=== PATIENT | male | born 1935 | race Caucasian/White ===

== ENCOUNTER → 2016-07-23 | Outpatient (CLI) | payer BC ==
[~2016-07-23] MED LIST: ALBU1AER9 INH; ASMTWH INH; ASPI-435 PO; CLOP1TAB15 PO; CLTP PO; CRS/10 PO; GLUCTAB4 PO; ISOS30TA3 PO; LORA-741 PO; MELATAB2 PO; METO25TA56 PO; MOME50SP5 NAE; MULT-506 PO; OMEG10007 PO; POLY335019 PO; PRED10TA PO; PSYL55.43 PO; UBIQUINONE 100 MG PO
== END | disposition home or self-care (01) ==
LOC: C.LAB1850 13:10
PROVIDERS: ATTEND Internal Medicine Rheumatology
DX: M35.3 Polymyalgia rheumatica (principal); Z51.81 Encounter for therapeutic drug level monitoring; Z79.52 Long term (current) use of systemic steroids

== ENCOUNTER → 2016-10-10 | Outpatient (CLI) | payer BC | END | disposition home or self-care (01) | LOC: C.LAB1850 16:42 | PROVIDERS: ATTEND Internal Medicine Rheumatology | DX: M13.0 Polyarthritis, unspecified (principal); M35.3 Polymyalgia rheumatica ==

== ENCOUNTER → 2016-11-28 | Outpatient (CLI) | payer BC ==
--- NOTE | 2016-12-05 10:34 | CODING QUERY MEDICAL NECESSITY ---
CQSUPPORTING DIAGNOSIS NEEDED A supporting diagnosis is required for the test/procedure performed on this patient in order for us to be reimbursed by the patient's insurance. Please provide a supporting diagnosis for the following test/procedure listed below next to the test name along with your signature. *If there is no additional diagnosis for this patient that would support the following test/procedure please document that below next to the test/procedure. Test(s)/Procedure(s) that require a supporting diagnosis: DOS 11/28/16 PROSTATE SPECIFIC Provider Signature: Date: Thank you Miguelina Wayne [employer] Information Management Once completed, please kindly fax back to [phone] For questions please call [phone]
== END | disposition home or self-care (01) ==
LOC: C.LAB1850 12:51
PROVIDERS: ATTEND Urology
DX: N52.9 Male erectile dysfunction, unspecified (principal); C61 Malignant neoplasm of prostate

== ENCOUNTER → 2016-12-03 | Outpatient (CLI) | payer BC ==
--- NOTE | 2016-12-09 07:46 | PULMONARY FUNCTION TEST ---
Interpretation based off ATS criteria. SPIROMETRY: Mild obstructive ventilatory disease with borderline reversibility. LUNG VOLUMES: Mild hyperinflation with a total lung capacity of 120%. DIFFUSION CAPACITY: Within normal limits. INTERPRETATION: Mild obstructive ventilatory disease.
== END | disposition home or self-care (01) ==
LOC: C.RC 13:33
PROVIDERS: ATTEND Internal Medicine Critical Care Medicine
DX: J44.9 Chronic obstructive pulmonary disease, unspecified (principal); J45.909 Unspecified asthma, uncomplicated

== ENCOUNTER → 2017-02-12 | Outpatient (CLI) | payer BC | END | disposition home or self-care (01) | LOC: C.LAB1850 13:28 | PROVIDERS: ATTEND Internal Medicine Rheumatology | DX: M35.3 Polymyalgia rheumatica (principal) ==

== ENCOUNTER → 2017-07-23 | Outpatient (CLI) | payer BC ==
--- NOTE | 2017-07-23 13:57 | DIAGNOSTIC IMAGING REPORT ---
(TESTICULAR) SCROTUM-CONT HISTORY: Pain N50.819 Testicular [id number] COMPARISON: None. FINDINGS: Right testis: Maximum linear dimension 4.2 cm. Normal vascular flow. 2 mm cyst lower pole. Small varicocele. Several microliths. Left testis: Maximum dimension 3.6 cm. Normal vascular flow. Moderate left-sided varicocele is compared to the right. Several microliths. IMPRESSION: 1. Normal testes. 2. Several small bilateral testicular microliths. 3. Bilateral varicoceles with the left larger than the right. The above report was generated using voice recognition software. It may contain grammatical, syntax or spelling errors. Electronically signed by: Rigoberto Munroe M.D. 07/23/2017 1:56 PM Dictated Date/Time: 07/23/2017 1:54 PM
== END | disposition home or self-care (01) ==
LOC: C.ULTR 12:37
PROVIDERS: ATTEND Nurse Practitioner Adult Health
DX: N50.819 Testicular pain, unspecified (principal)

== ENCOUNTER → 2017-10-01 | Day surgery (SDC) | payer BC ==
[2017-09-16 11:41] VITALS: Ht 182.9 cm; Wt 81.6 kg
--- NOTE | 2017-09-16 12:18 | PAT Medication Instructions ---
Service Date Sep 16, 2017. Current Home Medication List Albuterol Sulfate (Proair Respiclick), 2 PUFFS INH QD PRN for SOB/Wheezing Aspirin (Aspirin), 1 TAB PO Calcium Carbonate (Calcium), 1 TAB PO QAM Cholecalciferol (Vitamin D), 1 TAB PO QAM Coenzyme Q10 (Ubidecarenone) (Coq-10), 1 TAB PO QAM Fish Oil (Seattle-3), 1 CAP PO QAM Fluticasone Furoate-Vilanterol (Breo Ellipta), 1 PUFFS INH QAM Isosorbide Mononitrate Ext Rel (Imdur Ext Rel), 30 MG PO QAM Melatonin (Melatonin Maximum Strengt), 1 TAB PO HS Metoprolol Tartrate (Lopressor) (Lopressor), 25 MG PO BID Mometasone Furoate (Nasal) (Mometasone Furoate), 2 SPRAYS ABHISHEK QD PRN for Nasal Congestion Multivitamin (Multivitamin), 1 TABLET PO QAM Nitroglycerin (Nitrostat), 0.4 MG UT PRN PRN for Chest Pain Polyethylene Glycol 3350 (Miralax), 17 GM PO QAM Psyllium (Metamucil), 1 DOSE PO QAM [dha], 830 MG PO QAM [omega blood sugar], 896 MG PO QAM Medication Instructions For Your Scheduled Surgery -Contact your can sealer and surgeon for instructions for: Aspirin (Aspirin), 1 TAB PO -Continue as directed: Nitroglycerin (Nitrostat), 0.4 MG UT PRN PRN for Chest Pain - Hold the following medications 2 weeks prior to surgery: Coenzyme Q10 (Ubidecarenone) (Coq-10), 1 TAB PO QAM Fish Oil (Seattle-3), 1 CAP PO QAM [dha], 830 MG PO QAM [omega blood sugar], 896 MG PO QAM - Hold the following medications the morning of surgery: Calcium Carbonate (Calcium), 1 TAB PO QAM Cholecalciferol (Vitamin D), 1 TAB PO QAM Multivitamin (Multivitamin), 1 TABLET PO QAM Polyethylene Glycol 3350 (Miralax), 17 GM PO QAM Psyllium (Metamucil), 1 DOSE PO QAM - Take the following medications the morning of surgery with a sip of water: Albuterol Sulfate (Proair Respiclick), 2 PUFFS INH QD PRN for SOB/Wheezing (if needed, and bring it with you to the hospital) Fluticasone Furoate-Vilanterol (Breo Ellipta), 1 PUFFS INH QAM Isosorbide Mononitrate Ext Rel (Imdur Ext Rel), 30 MG PO QAM Metoprolol Tartrate (Lopressor) (Lopressor), 25 MG PO BID Mometasone Furoate (Nasal) (Mometasone Furoate), 2 SPRAYS ABHISHEK QD PRN for Nasal Congestion (if needed) - Take the following medications as scheduled the night before surgery: Albuterol Sulfate (Proair Respiclick), 2 PUFFS INH QD PRN for SOB/Wheezing (if needed) Melatonin (Melatonin Maximum Strengt), 1 TAB PO HS Metoprolol Tartrate (Lopressor) (Lopressor), 25 MG PO BID Mometasone Furoate (Nasal) (Mometasone Furoate), 2 SPRAYS ABHISHEK QD PRN for Nasal Congestion (if needed) If you have any questions please call us at [phone] or [phone] or [phone]
--- NOTE | 2017-09-16 13:01 | DIAGNOSTIC IMAGING REPORT ---
TWO VIEW CHEST CLINICAL HISTORY: Preoperative examination. FINDINGS: PA and lateral chest radiographs are compared to study dated 11/01/2015 and correlated with chest CT dated 02/10/2015. The patient is status post midline sternotomy. The heart is enlarged and there is atherosclerotic calcification of the thoracic aorta. The pulmonary vasculature is noncongested. Emphysema and chronic interstitial thickening are similar to previous. No airspace consolidation or pleural effusion is identified. Apical scarring is observed. There is no pneumothorax. The skeletal structures are osteopenic. The bony thorax appears intact. Degenerative change is seen in the shoulders. A stent graft is partially visualized in the upper abdomen. IMPRESSION: Cardiomegaly and emphysema with no active disease in the chest. Electronically signed by: Orestes Jason M.D. 09/16/2017 12:59 PM Dictated Date/Time: 09/16/2017 12:55 PM
[2017-09-16 13:19] LABS: BASO % 0.6 %; BASO ABS # 0.04 K/uL (0-0.2); EOS % 5.2 %; EOS ABS # 0.33 K/uL (0-0.5); HEMATOCRIT 37.6 % (42-52); HEMOGLOBIN 13.2 g/dL (14.0-18.0); IG# 0.02 K/uL (0.00-0.02); LYMPH % 31.3 %; MEAN CELL VOLUME 95.7 fL (80-100); MEAN CORPUSCULAR HEMOGLOBIN 33.6 pg (25-34); MEAN CORPUSCULAR HGB CONC 35.1 g/dl (32-36); MEAN PLATELET VOLUME 9.6 fL (7.4-10.4); MONO % 12.7 %; MONO ABS # 0.81 K/uL (0.11-0.59); NEUT % 49.9 %; NEUT ABS # 3.18 K/uL (1.4-6.5); PLATELET COUNT 200 K/uL (130-400); RED CELL DISTRIBUTION WIDTH CV 13.4 % (11.5-14.5); RED CELL DISTRIBUTION WIDTH SD 46.6 fL (36.4-46.3); WHITE BLOOD COUNT 6.38 K/uL (4.8-10.8)
[2017-09-16 13:30] LABS: PTT PATIENT 25.1 SECONDS (21.0-31.0)
[2017-09-16 13:41] LABS: CALCIUM 8.8 mg/dl (8.5-10.1); CREATININE 0.93 mg/dl (0.60-1.40); POTASSIUM 4.3 mmol/L (3.5-5.1)
[~2017-10-01] VITALS: Ht 182.9 cm; Wt 81.6 kg
[~2017-10-01] MED LIST changes: +ALBU18002 INH; -ALBU1AER9 INH; -ASMTWH INH; -ASPI-435 PO; +ASPI325T45 PO; +ATROPINE SULFATE 0.1 MG/ML 5ML SYR IV PRN; +BUPIVACAINE/EPINEPHRINE 0.5% MPF 1:200,000 30 ML VIAL ONE; +CALC-393 PO; +CEFAZOLIN SOD 1 GM VIAL ONE; +CHOL400T PO; -CLOP1TAB15 PO; -CLTP PO; +COEN1CAP32 PO; -CRS/10 PO; +DHA PO; +EpHEDrine SULFATE INJ 50 MG/ML AMP IV PRN; +FENTANYL CITRATE INJ 50 MCG/1 ML 2 ML VIAL IV PRN; +FENTANYL CITRATE INJ 50 MCG/1 ML 2 ML VIAL ONE; +FLUT1INH INH; -GLUCTAB4 PO; +HEPARIN SOD (PORCINE) 1000 UNIT/ML 10 ML VIAL ONE; +LACTATED RINGER'S 1000ML 1,000 ML IV SCH; +LIDOCAINE HCL 1% 20 ML VIAL ONE; +LIDOCAINE HCL 2% 2 ML VIAL (20MG/ML) ONE; -LORA-741 PO; +MIDAZOLAM HCL 1 MG/ML 2ML VIAL ONE; -MOME50SP5 NAE; +MOME6000 NAE; +NTRGSL/4 UT; +ONDANSETRON INJ 2 MG/ML 2 ML VIAL IV PRN; +ONDANSETRON INJ 2 MG/ML 2 ML VIAL ONE; +OXYC-57 PO; -PRED10TA PO; +PROPOFOL IV EMULSION 10 MG/ML 20 ML VIAL IV ONE; +PSYL48.59 PO; -PSYL55.43 PO; -UBIQUINONE 100 MG PO; +[UNRECOGNIZED DRUG - OTHER] PO
--- NOTE | 2017-10-01 05:53 | History and Physical ---
History & Physical Date of Service Oct 01, 2017. History & Physical CC: Left leg mass secondary from vein harvest HPI: Mr Norma has a walnut-sized organized hematoma of his left leg just above the knee. This mass is annoying and he would like to have something done. We discussed the possibility of excising it. This was a residual hematoma from his vein harvest. PAST MEDICAL HISTORY: 1. Severe left main and 3 vessel coronary artery disease with 50-70% left main lesion, 70% proximal LAD lesion, 90% ostial D1 lesion involving a large vessel, 60-70% D2 lesion, 60-70% proximal circumflex disease, 50% proximal RCA disease with 70% mid RCA lesion. a. Status post coronary bypass grafting x4 with LEVY to the LAD, SVG status post endarterectomy to the RCA, SVG to the large D1 vessel and SVG to the distal OM involving a small vessel. Postoperative MILES, EF 55-60% without regional wall motion abnormalities. b. Status post cardiac catheterization at [facility] February 2015 with occlusion of the SVG to the RCA as well occlusion of the stebbins right coronary artery. 2. Moderate to severe mitral regurgitation secondary to asymptomatic inferior wall myocardial infarction and papillary muscle dysfunction. 3. Moderate to severe mitral regurgitation with preserved left ventricular dysfunction and EF of 50-55% by echo 04/2017 with elevated left atrial pressures. 4. AAA status post endovascular repair March 2013 with a slight kink in the left iliac limb. 5. History of C. diff infection. 6. COPD. He stopped smoking in 1995, smoking a pipe and cigar. 7. Polymyalgia rheumatica. 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 He is . 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 He denies any current tobacco abuse, having stopped in 1995. FAMILY HISTORY: Mom had low blood pressure, dad, he believes, of heart disease, but had significant Alzheimer's; he has a brother who is an anesthesiologist who is otherwise healthy. ALLERGIES: NAPROSYN, ADVIL, IBUPROFEN, VASOTEC. MEDICATIONS: See med recon PHYSICAL EXAMINATION: General: He is awake, alert, oriented x 3, he is in no acute distress. He is a well-appearing male who looks younger than his stated age. Heart rate 57, blood pressure 134/66, sat 96%, BMI 23, weight is 80 kg, which is stable. HEENT: WNL no evidence of carotid bruits, Lungs: decreased breath sounds with no rales, rhonchi, or wheezing. Heart: Regular rate and rhythm, no appreciable murmurs. There was S4 present. There was a soft systolic ejection murmur at the right sternal border. There is a holosystolic murmur, 3/6, at the apex. Extremities: No clubbing, cyanosis or edema. Left leg has a firm mass medially just above the knee in the vein harvest site. IMPRESSION: Left leg mass Plan: Patient is admitted for removal of the mass. I have discussed the risks options and benefits of the procedure with the patient. The patient understands the risks options and benefits and agrees to the procedure.
[2017-10-01 07:23] VITALS: BP 143/70; PULSE 58; O2SAT 96
--- NOTE | 2017-10-01 08:12 | History & Physical Bridge Note ---
H&P Re-Evaluation Bridge Note: I have examined the patient, reviewed the History & Physical and in the interval since the performance of the History & Physical I have noted the following changes of clinical significance: No changes noted
[2017-10-01] MEDS: CEFAZOLIN 2000MG IV PUSH 15 ML IV SCH ×2 (08:21→08:47)
--- NOTE | 2017-10-01 08:48 | [facility] Post Operative Brief Note ---
Immediate Operative Summary Operative Date Oct 01, 2017. Pre-Operative Diagnosis Left Leg Mass Post-Operative Diagnosis Left Leg Seroma Procedure(s) Performed Excision of Left Leg Seroma Surgeon Dr. Jesse Rivera Cnc Operator Programmer Surgeon(s) Flori Godinez Fellow Estimated Blood Loss 3Ml Findings Consistent with Post-Op Diagnosis Specimens A: Left Leg Seroma Drains None Anesthesia Type MAC Complication(s) none Disposition Accompanied Pt To Recover: no Disposition:
--- NOTE | 2017-10-01 08:56 | Discharge Instructions ---
Discharge Instructions Date of Service Oct 01, 2017. Visit Reason for Visit: Left Leg Mass Discharge Discharge Diagnosis / Problem: Seroma left leg Discharge Goals Goal(s): Therapeutic intervention Activity Recommendations Activity Limitations: resume your previous activity Shower/Bathe: tomorrow Anesthesia . Post Anesthesia Instructions: If you have had General Anesthesia or IV Sedation: * Do not drive today. * Resume driving when surgeon permits. * Do not make important decisions or sign legal documents today. * Call surgeon for: 1. Temperature elevations greater than 101 degrees F. 2. Uncontrollable pain. 3. Excessive bleeding. 4. Persistent nausea and vomiting. 5. Medication intolerance (nausea, vomiting or rash). * For nausea and vomiting use only clear liquids such as: tea, soda, bouillon until nausea subsides, then gradually increase diet as tolerated. * If you have any concerns or questions, call your surgeon's office. If physician is unavailable and it is an emergency, call 911 or go to the nearest emergency room. . Instructions / Follow-Up Instructions / Follow-Up Call [phone] to schedule a follow up appointment if one not already scheduled. ACTIVITY RECOMMENDATIONS: See Above SPECIAL CARE INSTRUCTIONS: Call your doctor if: * Temperature above 101 degrees * Pain not relieved by pain medicine ordered * There is increased drainage or redness from any incision * You have any unanswered questions or concerns. Diet Recommendations Recommended Home Diet: resume previous diet Procedures Procedures Performed: Excision of Left Leg Seroma Pending Studies Studies pending at discharge: no Medical Emergencies . Who to Call and When: Medical Emergencies: If at any time you feel your situation is an emergency, please call 911 immediately. . Non-Emergent Contact Non-Emergency issues call your: Surgeon . . "Provider Documentation" section prepared by Jesse Rivera. .
[2017-10-01 09:00] VITALS: BP 116/63; PULSE 61; TEMP 36.6; O2SAT 95
--- NOTE | 2017-10-01 09:07 | OPERATIVE REPORT ---
DATE OF OPERATION: 10/01/2017 PREOPERATIVE DIAGNOSIS: Left lower extremity mass. POSTOPERATIVE DIAGNOSIS: Left lower extremity seroma. PROCEDURE: Excision of left lower extremity seroma. SURGEON: Jesse Rivera MD. CAFETERIA TABLE ATTENDANT: Dana Godinez MD. ESTIMATED BLOOD LOSS: 3. ANESTHESIA: Local plus conscious sedation. SPECIMENS: Left leg seroma. FLUIDS: 300. URINE OUTPUT: Not recorded. INDICATIONS: Tevin Green is an 82-year-old male who underwent open heart surgery several months ago who continues to have a small mass just above his popliteal fossa along the vein harvest site. It does continue to give him discomfort and he was recommended to have excision of the mass. He agreed to undergo the above. DESCRIPTION OF THE PROCEDURE: The patient was brought to the operative suite. He was prepped and draped in usual fashion. Timeout occurred. Local was instilled over the mass. An incision was made over the mass. This was dissected down until the capsule of the mass was found. The capsule was in combination with blunt and sharp dissection, dissected out and excised. There was clear fluid and the mass which appeared to be a seroma. Hemostasis was obtained and the wound was irrigated and was closed in layers with 3-0 and 4-0 Vicryl and Dermabond. The patient tolerated the procedure well and was transferred to PACU in stable condition. Dr. Jesse Rivera was present for the entirety of this case. I attest to the content of the Intraoperative Record and any orders documented therein. Any exception s are noted below.
[2017-10-01 09:30] VITALS: BP 104/52; PULSE 65; TEMP 36.7; O2SAT 95
--- NOTE | 2017-10-01 09:35 | Anesthesiology Progress Note ---
Anesthesia Post Op Note Date & Time Oct 01, 2017 at 09:35 Vital Signs Pain Intensity: 0 Vital Signs Past 12 Hours Date Time Temp Pulse Resp B/P (MAP) Pulse Ox O2 Delivery O2 Flow Rate FiO2 10/01/17 09:00 36.6 61 18 116/63 95 Room Air 10/01/17 07:23 58 18 143/70 (94) 96 Notes Mental Status: alert / awake / arousable, participated in evaluation Pt Amnestic to Procedure: Yes Nausea / Vomiting: adequately controlled Pain: adequately controlled Airway Patency, RR, SpO2: stable & adequate BP & HR: stable & adequate Hydration State: stable & adequate Anesthetic Complications: no major complications apparent
--- NOTE | 2017-10-10 06:47 | EDITING REQUIRED CODING QUERY ---
CODING CLARIFICATION Please document below the size of the mass that was excised: MASS SIZE: 2x3cm, CM Thank you for your assistance, Marielena Matthews - Haul Cane Brakeman
== END | disposition home or self-care (01) ==
LOC: C.ACU 06:55
PROVIDERS: ATTEND Surgery Vascular Surgery
DX: I97.648 Postprocedural seroma of a circulatory system organ or structure following other circulatory system procedure (principal); G47.33 Obstructive sleep apnea (adult) (pediatric); J44.9 Chronic obstructive pulmonary disease, unspecified; I10 Essential (primary) hypertension; I25.10 Atherosclerotic heart disease of native coronary artery without angina pectoris; Z95.1 Presence of aortocoronary bypass graft; Z85.46 Personal history of malignant neoplasm of prostate

== ENCOUNTER → 2017-10-08 | Outpatient (CLI) | payer BC ==
[~2017-10-08] MED LIST changes: -ATROPINE SULFATE 0.1 MG/ML 5ML SYR IV PRN; -BUPIVACAINE/EPINEPHRINE 0.5% MPF 1:200,000 30 ML VIAL ONE; -CEFAZOLIN SOD 1 GM VIAL ONE; -EpHEDrine SULFATE INJ 50 MG/ML AMP IV PRN; -FENTANYL CITRATE INJ 50 MCG/1 ML 2 ML VIAL IV PRN; -FENTANYL CITRATE INJ 50 MCG/1 ML 2 ML VIAL ONE; -HEPARIN SOD (PORCINE) 1000 UNIT/ML 10 ML VIAL ONE; -LACTATED RINGER'S 1000ML 1,000 ML IV SCH; -LIDOCAINE HCL 1% 20 ML VIAL ONE; -LIDOCAINE HCL 2% 2 ML VIAL (20MG/ML) ONE; -MIDAZOLAM HCL 1 MG/ML 2ML VIAL ONE; -ONDANSETRON INJ 2 MG/ML 2 ML VIAL IV PRN; -ONDANSETRON INJ 2 MG/ML 2 ML VIAL ONE; -PROPOFOL IV EMULSION 10 MG/ML 20 ML VIAL IV ONE
--- NOTE | 2017-10-08 17:19 | DIAGNOSTIC IMAGING REPORT ---
ULTRASOUND LEFT LOWER EXTREMITY VENOUS CLINICAL HISTORY: Left leg swelling. COMPARISON STUDY: No priors. TECHNIQUE: Real-time, grayscale, and color Doppler sonography of the deep veins of the left lower extremity was performed from the inguinal crease to the calf. Compression and augmentation were utilized. FINDINGS: There is no sonographic evidence of deep venous thrombosis identified in the left lower extremity. The common femoral, superficial femoral, and popliteal veins are patent and normally compressible. The greater saphenous vein and the profunda femoris vein at the junction with the common femoral vein are clear. The visualized calf veins are patent. IMPRESSION: There is no sonographic evidence of deep venous thrombosis identified in the left lower extremity. Electronically signed by: Orestes Jason M.D. 10/08/2017 5:17 PM Dictated Date/Time: 10/08/2017 5:17 PM
== END | disposition home or self-care (01) ==
LOC: C.ULTR 16:45
PROVIDERS: ATTEND Internal Medicine Pulmonary Disease
DX: R60.9 Edema, unspecified (principal)

== ENCOUNTER → 2017-10-16 | Outpatient (CLI) | payer BC ==
[~2017-10-16] MED LIST changes: +ASPECOTC PO; -ASPI325T45 PO
--- NOTE | 2017-10-16 14:17 | DIAGNOSTIC IMAGING REPORT ---
L SHOULDER MIN 2 VIEWS HISTORY: 82 years-old Male LEFT SHOULDER PAIN acute left shoulder pain COMPARISON: Chest radiograph 09/16/2017 TECHNIQUE: 3 views of the left shoulder FINDINGS: Moderate acromioclavicular and glenohumeral degenerative changes without acute fracture, dislocation. The imaged lung mohan appear clear. Surgical clips project over the left mediastinal border. Atherosclerosis of the aorta. Probable calcific tendinosis about the rotator cuff. IMPRESSION: Moderate degenerative changes without acute fracture. The above report was generated using voice recognition software. It may contain grammatical, syntax or spelling errors. Electronically signed by: Wilmer Chau M.D. 10/16/2017 2:16 PM Dictated Date/Time: 10/16/2017 2:14 PM
== END | disposition home or self-care (01) ==
LOC: C.RDSM 17:49
PROVIDERS: ATTEND Physician Assistant
DX: M25.512 Pain in left shoulder (principal)

== ENCOUNTER → 2017-11-14 | Outpatient (CLI) | payer BC | END | disposition home or self-care (01) | LOC: C.LAB1850 17:16 | PROVIDERS: ATTEND Urology | DX: C61 Malignant neoplasm of prostate (principal) ==

== ENCOUNTER → 2018-02-04 | Outpatient (CLI) | payer BC ==
[2018-02-04 16:17] LABS: BASO % 0.4 %; BASO ABS # 0.03 K/uL (0-0.2); EOS % 1.6 %; EOS ABS # 0.13 K/uL (0-0.5); HEMATOCRIT 37.9 % (42-52); HEMOGLOBIN 13.2 g/dL (14.0-18.0); IG# 0.02 K/uL (0.00-0.02); LYMPH % 21.6 %; LYMPH ABS # 1.71 K/uL (1.2-3.4); MEAN CELL VOLUME 96.2 fL (80-100); MEAN CORPUSCULAR HEMOGLOBIN 33.5 pg (25-34); MEAN CORPUSCULAR HGB CONC 34.8 g/dl (32-36); MONO % 8.5 %; MONO ABS # 0.67 K/uL (0.11-0.59); NEUT % 67.6 %; NEUT ABS # 5.34 K/uL (1.4-6.5); PLATELET COUNT 187 K/uL (130-400); RED CELL DISTRIBUTION WIDTH CV 13.2 % (11.5-14.5); RED CELL DISTRIBUTION WIDTH SD 46.4 fL (36.4-46.3)
[2018-02-04 16:41] LABS: ALBUMIN 3.3 gm/dl (3.4-5.0); ALKALINE PHOSPHATASE 61 U/L (45-117); ALT/SGPT 32 U/L (12-78); AST/SGOT 25 U/L (15-37); CREATININE 0.98 mg/dl (0.60-1.40); TOTAL PROTEIN 7.5 gm/dl (6.4-8.2)
== END | disposition home or self-care (01) ==
LOC: C.LAB1850 15:10
PROVIDERS: ATTEND Internal Medicine Rheumatology
DX: M35.3 Polymyalgia rheumatica (principal)

== ENCOUNTER → 2018-02-06 | Outpatient (CLI) | payer BC | END | disposition home or self-care (01) | LOC: C.LAB1850 14:54 | PROVIDERS: ATTEND Internal Medicine Rheumatology | DX: R06.00 Dyspnea, unspecified (principal); E55.9 Vitamin D deficiency, unspecified ==

== ENCOUNTER → 2018-02-12 | Outpatient (CLI) | payer BC ==
[~2018-02-12] MED LIST changes: +LEVO-366 PO
--- NOTE | 2018-02-12 15:13 | DIAGNOSTIC IMAGING REPORT ---
BONE SCAN WHOLE BODY CLINICAL HISTORY: 82 years-old Male presenting with E61.8 Mineral deficiency E55.9 Vitamin D deficiency, right arm injection. TECHNIQUE: Planar anterior and posterior imaging of the whole body was performed 3 hours following the intravenous administration of 26.90 mCi Tc-99m MDP. COMPARISON: Left shoulder radiographs from 10/16/2017, right wrist radiographs from 07/14/2015. FINDINGS: Focal radiotracer activity at the region of the right first carpometacarpal articulation likely degenerative in etiology. Similar though less pronounced radiotracer avidity noted in the left carpus. Focal activity also evident in the left elbow at the lateral epicondyle, likely degenerative in etiology. Degenerative change likely also accounts for focal activity at the left acromioclavicular joint. Adjacent focus of radiotracer uptake likely at the greater tuberosity of the left humeral head partially related to rotator cuff pathology/chronic impingement. Additional focal activity evident along the left aspect of the mid cervical spine, likely degenerative in etiology related to facet arthropathy. No other significant sites of radiotracer avidity. No evidence of radiotracer avidity in the vertebral bodies to suggest a compression deformity. No other sites of radiotracer uptake presenting a fracture. IMPRESSION: 1. No evidence of fracture. 2. Multifocal sites of radiotracer uptake likely degenerative in etiology involving the bilateral first CMC joints, left AC joint, greater tuberosity of the left humerus cuff, left elbow epicondyles, and right cervical facets. Electronically signed by: Doug Dodson M.D. 02/12/2018 3:11 PM Dictated Date/Time: 02/12/2018 3:06 PM
== END | disposition home or self-care (01) ==
LOC: C.NUCL 11:10
PROVIDERS: ATTEND Internal Medicine Rheumatology
DX: E55.9 Vitamin D deficiency, unspecified (principal); E61.8 Deficiency of other specified nutrient elements

== ENCOUNTER 2018-02-18 18:33 | Emergency (ER) | payer BC ==
[~2018-02-18] VITALS: Ht 182.9 cm; Wt 79.8 kg
[~2018-02-18 18:33] MED LIST changes: -COEN1CAP32 PO; -FLUT1INH INH; -LEVO-366 PO; -MELATAB2 PO; -MULT-506 PO; -NTRGSL/4 UT; -POLY335019 PO
[2018-02-18 18:40] VITALS: Ht 182.9 cm; Wt 79.8 kg
[2018-02-18] MEDS ORDERED: ALBUT/IPRATROP 3MG/0.5MG NEB 3 ML VIAL INH STA (18:59)
[2018-02-18] MEDS ORDERED: SODIUM CHLORIDE 0.9% 500ML 500 ML IV STA (19:04)
[2018-02-18] MEDS ORDERED: ACETAMINOPHEN 500 MG TAB PO STA (19:04)
[2018-02-18 19:11] LABS: BASO % 0.2 %; BASO ABS # 0.02 K/uL (0-0.2); EOS % 0.1 %; EOS ABS # 0.01 K/uL (0-0.5); HEMATOCRIT 39.7 % (42-52); HEMOGLOBIN 14.1 g/dL (14.0-18.0); IG# 0.04 K/uL (0.00-0.02); LYMPH % 4.9 %; LYMPH ABS # 0.58 K/uL (1.2-3.4); MEAN CELL VOLUME 96.1 fL (80-100); MEAN CORPUSCULAR HEMOGLOBIN 34.1 pg (25-34); MEAN CORPUSCULAR HGB CONC 35.5 g/dl (32-36); MEAN PLATELET VOLUME 9.3 fL (7.4-10.4); MONO % 0.7 %; MONO ABS # 0.08 K/uL (0.11-0.59); NEUT % 93.8 %; NEUT ABS # 11.09 K/uL (1.4-6.5); PLATELET COUNT 160 K/uL (130-400); RED CELL DISTRIBUTION WIDTH CV 13.2 % (11.5-14.5); RED CELL DISTRIBUTION WIDTH SD 45.8 fL (36.4-46.3); WHITE BLOOD COUNT 11.82 K/uL (4.8-10.8)
[2018-02-18] MEDS ORDERED: LEVAQUIN 750MG / 150ML D5W IV STA (19:17)
--- NOTE | 2018-02-18 19:36 | DIAGNOSTIC IMAGING REPORT ---
CHEST ONE VIEW PORTABLE CLINICAL HISTORY: Shortness of breath. COMPARISON STUDY: Chest radiograph September 16, 2017. FINDINGS: Median sternotomy wires and mediastinal surgical clips are noted. There is no pneumothorax or pleural effusion. No consolidation is identified to suggest pneumonia. Mild cardiomegaly is noted. Appearance of the chest is unchanged. There is no evidence for pulmonary edema. IMPRESSION: No acute cardiopulmonary findings. Electronically signed by: Jona Guzmán M.D. 02/18/2018 7:35 PM Dictated Date/Time: 02/18/2018 7:34 PM
[2018-02-18 19:38] LABS: PTT PATIENT 22.5 SECONDS (21.0-31.0)
[2018-02-18 19:43] LABS: BLOOD UREA NITROGEN 24 mg/dl (7-18); GLUCOSE 93 mg/dl (70-99)
[2018-02-18 19:44] LABS: ALBUMIN 3.5 gm/dl (3.4-5.0); ALKALINE PHOSPHATASE 66 U/L (45-117); ALT/SGPT 31 U/L (12-78); AST/SGOT 27 U/L (15-37); CALCIUM 8.7 mg/dl (8.5-10.1); CARBON DIOXIDE 25 mmol/L (21-32); CKMB 2.3 ng/ml (0.5-3.6); POTASSIUM 3.8 mmol/L (3.5-5.1); SODIUM 136 mmol/L (136-145); TOTAL PROTEIN 7.9 gm/dl (6.4-8.2)
[2018-02-18 20:55] VITALS: TEMP 37.4
[2018-02-18] MEDS ORDERED: LEVO-366 PO (22:12)
--- NOTE | 2018-02-18 22:12 | EMERGENCY ROOM VISIT NOTE ---
History Report prepared by Christos: Aubrey Tejada Under the Supervision of: Dr. Dmitriy Montejo D.O. First contact with patient: 18:49 Chief Complaint: SHORTNESS OF BREATH Stated Complaint: CHILLS, SHAKING, SOB History of Present Illness The patient is a 82 year old male who presents to the Emergency Room with complaints of uncontrollable shaking beginning today about 2 hours ago at 17: 00. The patient states that he went for a walk at 15:00 today and walked until 15:40. He reports that he then worked until 17:00, when he started shaking uncontrollably with chills. He states that he went to bed and pulled a blanket over him, but he did not warm up and continued shaking. He reports that he stood up and took 1 nitroglycerin, noting that this is the first time he has taken one in years. He reports that he has heart issues, including a history of heart attack. He states that he was having some symptoms that were similar to but less severe than when he had his last heart attack. He notes that he checked his oxygen and heart rate, finding them to be 82% and 112 beats per minutes. He states that he sat down and breathed deeply, and his oxygen saturation increased and the heart rate decreased. The patient states that he currently feels "washed out" and rates his current symptoms at a 3/10 in severity. He notes shortness of breath and a cough, but reports that this is not abnormal for him. He denies abdominal pain. He reports a history of emphysema. The patient's temperature was measured to be 36.8 in triage and 39.6 in the patient room. Source of History: patient Onset: about 2 hours ago at 17:00 Position: other (global) Symptom Intensity: 3/10 Quality: other (shaking) Associated Symptoms: + cough (no different from baseline), + SOB (no different from baseline), No abdominal pain Note: feels "washed out" Review of Systems See HPI for pertinent positives & negatives. A total of 10 systems reviewed and were otherwise negative. Past Medical & Surgical Medical Problems: (1) Emphysema, unspecified (2) Myocardial infarction Family History Hypotension Social History Smoking Status: Former Smoker Marital Status: Housing Status: lives with family Occupation Status: retired Current/Historical Medications Scheduled Calcium Carbonate (Calcium), 1 TAB PO QAM Cholecalciferol (Vitamin D), 1 TAB PO QAM Coenzyme Q10 (Ubidecarenone) (Coq-10), 1 TAB PO QAM Fish Oil ([place]-3), 1 CAP PO QAM Fluticasone Furoate-Vilanterol (Breo Ellipta), 1 PUFFS INH QAM Isosorbide Mononitrate Ext Rel (Imdur Ext Rel), 30 MG PO QAM Levofloxacin (Levaquin), 500 MG PO DAILY Melatonin (Melatonin Maximum Strengt), 1 TAB PO HS Metoprolol Tartrate (Lopressor) (Lopressor), 25 MG PO BID Multivitamin (Multivitamin), 1 TABLET PO QAM Polyethylene Glycol 3350 (Miralax), 17 GM PO QAM Psyllium (Metamucil), 1 DOSE PO QAM [dha], 830 MG PO QAM [omega blood sugar], 896 MG PO QAM Scheduled PRN Albuterol Sulfate (Proair Respiclick), 2 PUFFS INH QD PRN for SOB/Wheezing Mometasone Furoate (Nasal) (Mometasone Furoate), 2 SPRAYS ABHISHEK QD PRN for Nasal Congestion Nitroglycerin (Nitrostat), 0.4 MG UT PRN PRN for Chest Pain Oxycodone/Acetaminophen 5MG/325MG (Percocet 5MG/325MG), 1 TABLET PO Q6H PRN for Pain Miscellaneous Medications Aspirin (Aspirin), 1 TAB PO Allergies Coded Allergies: NSAIDs (Verified Allergy, Severe, naprosyn gave anaphylaxis, 10/01/17) Naproxen (Verified Allergy, Severe, anaphylactic shock, 10/01/17) Physical Exam Vital Signs Date Time Temp Pulse Resp B/P (MAP) Pulse Ox O2 Delivery O2 Flow Rate FiO2 02/18/18 22:33 99 20 138/73 98 02/18/18 20:55 37.4 102 20 144/76 96 Nasal Cannula 2.0 02/18/18 19:14 Nasal Cannula 2.0 02/18/18 19:04 39.6 02/18/18 18:40 36.8 98 20 159/51 93 Room Air Physical Exam CONSTITUTIONAL/VITAL SIGNS: Reviewed / noted above. GENERAL: Non-toxic in appearance. INTEGUMENTARY: Warm, dry, and [place]. HEAD: Normocephalic. EYES: without scleral icterus or trauma. ENT/OROPHARYNX: clear and moist. LYMPHADENOPATHY/NECK: Is supple without lymphadenopathy or meningismus. RESPIRATORY: Lungs clear and equal. CARDIOVASCULAR: Regular rate and rhythm. GI/ABDOMEN: Soft and nontender. No organomegaly or pulsatile mass. No rebound or guarding. Normal bowel sounds. EXTREMITIES: Warm and well perfused. BACK: No CVA tenderness. NEUROLOGICAL: Intact without focal deficits. PSYCHIATRIC: normal affect. MUSCULOSKELETAL: Normally developed with good muscle tone. Medical Decision & Procedures ER Provider Diagnostic Interpretation: Radiology results as stated below per my review and radiologist interpretation: [~ rep ct add3]] CHEST ONE VIEW PORTABLE CLINICAL HISTORY: Shortness of breath. COMPARISON STUDY: Chest radiograph September 16, 2017. FINDINGS: Median sternotomy wires and mediastinal surgical clips are noted. There is no pneumothorax or pleural effusion. No consolidation is identified to suggest pneumonia. Mild cardiomegaly is noted. Appearance of the chest is unchanged. There is no evidence for pulmonary edema. IMPRESSION: No acute cardiopulmonary findings. Electronically signed by: Jona Guzmán M.D. 02/18/2018 7:35 PM Dictated Date/Time: 02/18/2018 7:34 PM Laboratory Results 02/18/18 18:57 Red Blood Count 4.13, Mean Corpuscular Volume 96.1, Mean Corpuscular Hemoglobin 34.1, Mean Corpuscular Hemoglobin Concent 35.5, Mean Platelet Volume 9.3, Neutrophils (%) (Auto) 93.8, Lymphocytes (%) (Auto) 4.9, Monocytes (%) (Auto) 0.7, Eosinophils (%) (Auto) 0.1, Basophils (%) (Auto) 0.2, Neutrophils # (Auto) 11.09, Lymphocytes # (Auto) 0.58, Monocytes # (Auto) 0.08, Eosinophils # (Auto) 0.01, Basophils # (Auto) 0.02 02/18/18 18:57 Test 02/18/18 18:57 02/18/18 19:30 White Blood Count 11.82 K/uL (4.8-10.8) Red Blood Count 4.13 M/uL (4.7-6.1) Hemoglobin 14.1 g/dL (14.0-18.0) Hematocrit 39.7 % (42-52) Mean Corpuscular Volume 96.1 fL (80-100) Mean Corpuscular Hemoglobin 34.1 pg (25-34) Mean Corpuscular Hemoglobin Concent 35.5 g/dl (32-36) Platelet Count 160 K/uL (130-400) Mean Platelet Volume 9.3 fL (7.4-10.4) Neutrophils (%) (Auto) 93.8 % Lymphocytes (%) (Auto) 4.9 % Monocytes (%) (Auto) 0.7 % Eosinophils (%) (Auto) 0.1 % Basophils (%) (Auto) 0.2 % Neutrophils # (Auto) 11.09 K/uL (1.4-6.5) Lymphocytes # (Auto) 0.58 K/uL (1.2-3.4) Monocytes # (Auto) 0.08 K/uL (0.11-0.59) Eosinophils # (Auto) 0.01 K/uL (0-0.5) Basophils # (Auto) 0.02 K/uL (0-0.2) RDW Standard Deviation 45.8 fL (36.4-46.3) RDW Coefficient of Variation 13.2 % (11.5-14.5) Immature Granulocyte % (Auto) 0.3 % Immature Granulocyte # (Auto) 0.04 K/uL (0.00-0.02) Prothrombin Time 10.6 SECONDS (9.0-12.0) Prothromb Time International Ratio 1.0 (0.9-1.1) Activated Partial Thromboplast Time 22.5 SECONDS (21.0-31.0) Partial Thromboplastin Ratio 0.9 Anion Gap 9.0 mmol/L (3-11) Est Creatinine Clear Calc Drug Dose 63.6 ml/min Estimated GFR () 81.4 Estimated GFR (Non- 70.3 BUN/Creatinine Ratio 24.3 (10-20) Calcium Level 8.7 mg/dl (8.5-10.1) Total Bilirubin 1.3 mg/dl (0.2-1) Aspartate Amino Transf (AST/SGOT) 27 U/L (15-37) Alanine Aminotransferase (ALT/SGPT) 31 U/L (12-78) Alkaline Phosphatase 66 U/L (45-117) Total Creatine Kinase 114 U/L (39-308) Creatine Kinase MB 2.3 ng/ml (0.5-3.6) Creatine Kinase MB Ratio 2.0 (0-3.0) Troponin I < 0.015 ng/ml (0-0.045) Total Protein 7.9 gm/dl (6.4-8.2) Albumin 3.5 gm/dl (3.4-5.0) Globulin 4.4 gm/dl (2.5-4.0) Albumin/Globulin Ratio 0.8 (0.9-2) Urine Color YELLOW Urine Appearance CLEAR (CLEAR) Urine pH 6.5 (4.5-7.5) Urine Specific [place] 1.013 (1.000-1.030) Urine Protein NEG (NEG) Urine Glucose (UA) NEG (NEG) Urine Ketones NEG (NEG) Urine Occult Blood NEG (NEG) Urine Nitrite NEG (NEG) Urine Bilirubin NEG (NEG) Urine Urobilinogen NEG (NEG) Urine Leukocyte Esterase NEG (NEG) Laboratory results as stated above per my review. Medications Administered Medications (Trade) Dose Ordered Sig/Candida Route Start Time Stop Time Status Last Admin Dose Admin Albuterol/ Ipratropium (Duoneb) 3 ml NOW STAT INH 02/18/18 18:59 02/18/18 19:02 DC 02/18/18 19:12 3 ML Acetaminophen (Tylenol Tab) 1,000 mg NOW STAT PO 02/18/18 19:04 02/18/18 19:05 DC 02/18/18 19:13 1,000 MG Sodium Chloride 500 ml @ 999 mls/hr Q31M STAT IV 02/18/18 19:04 02/18/18 19:34 DC 02/18/18 19:14 999 MLS/HR Levofloxacin (Levaquin / D5W) 750 mg NOW STAT IV 02/18/18 19:17 02/18/18 19:19 DC 02/18/18 19:32 750 MG ECG Per My Interpretation Indication: weakness Rate (beats per minute): 101 Rhythm: sinus tachycardia Findings: 1st degree AV block, peaked T-waves (in anterior leads), no ectopy Comparison ECG Date: 03/12/2013 Change: 1st degree AV block is not new ED Course 1853: Previous medical records were reviewed. The patient was evaluated in room B8. A complete history and physical examination was performed. 185: Ordered Duoneb 3 ml INH 1904: Ordered Sodium Chloride 500 ml @ 999 mls/hr IV, Tylenol 1000 mg PO 1916: Ordered Levofloxacin 750 mg IV 2007: On reevaluation, the patient is resting. I discussed the results and findings with the patient. He verbalized agreement of the treatment plan. He was discharged home.. Medical Decision the differential was considered includes acute myocardial infarction, acute coronary syndrome, myocarditis, pericarditis, pericardial effusions /tamponad, esophageal perforation, pulmonary embolism, pneumonia, pneumothorax, cardiomyopathy, congestive heart, anemia , COPD/asthma exacerbation. This is a 82-year-old male who presents to the ED with a chief complaint of some chills and shakes around 5 PM. The patient states that he went for a 2 mile walk around 3:57 PM. At 5 PM he felt weak and shaky. He states that he took a nitroglycerin shortly thereafter but was not sure exactly why. He states that he took it because his throat felt a little dry. He reports that he took his pulse ox at home and it was 82% and his heart rate was 112. The patient decided that he should come into the ED for evaluation. He currently feels tired and a little shortness of breath but he states that he does have a history of COPD. His initial temperature here was normal. I did check his temperature and it was 39.6. The nurse rechecked his temperature and it was normal a little later. Blood pressure was a little elevated. His exam was relatively unremarkable. Chest x-ray was negative for acute disease. His EKG shows a sinus rhythm at a rate of 101. CBC revealed white blood cell count of 11.8. The BUN is 24 and the troponin was negative. Urine did not show infection. The patient was treated with IV fluids as well as some oral Tylenol and IV Levaquin. He states that he is feeling much better. He would like to go home. He was discharged on Levaquin. Close follow-up recommended and he will return for worsening. Although his chest x-ray was negative, I suspect he might have a small pneumonia based on his symptoms and his fever. Medication Reconcilliation Current Medication List: was personally reviewed by me Blood Pressure Screening Patient's blood pressure: Elevated blood pressure Blood pressure disposition: Referred to PCP Impression Primary Impression: Rigors Additional Impression: Fever Scribe Attestation The scribe's documentation has been prepared under my direction and personally reviewed by me in its entirety. I confirm that the note above accurately reflects all work, treatment, procedures, and medical decision making performed by me. Departure Information Dispostion Home / Self-Care Prescriptions Levofloxacin (Levaquin) 500 Mg Tab 500 MG PO DAILY for 7 Days, #7 TAB Prov: Dmitriy Montejo D.O. 02/18/18 Referrals Oscar Olson M.D. (PCP) Forms HOME CARE DOCUMENTATION FORM, IMPORTANT VISIT INFORMATION Patient Instructions My [facility] Additional Instructions Levaquin as prescribed. Follow-up with your doctor for further care and evaluation in 1-7 days. Return to the emergency department for worsening or new symptoms or any concerns. You have been examined and treated today on an emergency basis only. This is not a substitute for, or an effort to provide, complete comprehensive medical care. It is impossible to recognize and treat all injuries or illnesses in a single emergency department visit. It is therefore important that you follow up closely with your doctor. Call as soon as possible for an appointment. Problem Qualifiers
[2018-02-18 22:33] VITALS: BP 138/73; PULSE 99; O2SAT 98
[2018-02-22] MEDS ORDERED: FLUT1INH INH (11:40)
[2018-02-22] MEDS ORDERED: COEN1CAP32 PO (11:40)
[2018-02-22] MEDS ORDERED: NTRGSL/4 UT (11:40)
[2018-02-22] MEDS ORDERED: POLY335019 PO (13:29)
[2018-02-22] MEDS ORDERED: MELATAB2 PO (13:33)
== END 2018-02-18 22:34 | disposition home or self-care (01) ==
LOC: C.EDB 18:34
DX: R50.9 Fever, unspecified (principal); R03.0 Elevated blood-pressure reading, without diagnosis of hypertension; J43.9 Emphysema, unspecified; I25.2 Old myocardial infarction; Z87.891 Personal history of nicotine dependence; Z88.6 Allergy status to analgesic agent

== ENCOUNTER 2018-02-22 15:55 | Emergency (ER) | payer BC ==
[~2018-02-22] VITALS: Ht 172.7 cm; Wt 70.0 kg
[~2018-02-22 15:55] MED LIST changes: +COEN1CAP32 PO; +FLUT1INH INH; +LEVO-366 PO; +MELATAB2 PO; +NTRGSL/4 UT; +POLY335019 PO
[2018-02-22 15:56] VITALS: TEMP 36.9
[2018-02-22] MEDS ORDERED: OPTIRAY 320 IV PRN (16:45)
[2018-02-22 17:13] LABS: BASO % 0.2 %; BASO ABS # 0.02 K/uL (0-0.2); EOS % 0.3 %; EOS ABS # 0.03 K/uL (0-0.5); HEMATOCRIT 37.8 % (42-52); IG# 0.04 K/uL (0.00-0.02); LYMPH % 11.8 %; LYMPH ABS # 1.32 K/uL (1.2-3.4); MEAN CELL VOLUME 96.4 fL (80-100); MEAN CORPUSCULAR HEMOGLOBIN 33.2 pg (25-34); MEAN CORPUSCULAR HGB CONC 34.4 g/dl (32-36); MEAN PLATELET VOLUME 9.9 fL (7.4-10.4); MONO % 11.1 %; MONO ABS # 1.25 K/uL (0.11-0.59); NEUT % 76.2 %; NEUT ABS # 8.56 K/uL (1.4-6.5); PLATELET COUNT 195 K/uL (130-400); RED CELL DISTRIBUTION WIDTH CV 13.5 % (11.5-14.5); WHITE BLOOD COUNT 11.22 K/uL (4.8-10.8)
[2018-02-22 17:20] VITALS: Ht 172.7 cm; Wt 70.0 kg
[2018-02-22 17:26] LABS: PTT PATIENT 25.9 SECONDS (21.0-31.0)
[2018-02-22] MEDS ORDERED: PROAIR HFA INH (17:30)
[2018-02-22] MEDS ORDERED: CHOL400T5 PO (17:30)
[2018-02-22] MEDS ORDERED: EZET10TA63 PO (17:30)
[2018-02-22] MEDS ORDERED: LEVO1TAB33 PO (17:30)
[2018-02-22] MEDS ORDERED: FRS/40 PO (17:35)
[2018-02-22] MEDS ORDERED: ISOS30TA3 PO (17:35)
[2018-02-22] MEDS ORDERED: METO25TA3 PO (17:35)
[2018-02-22] MEDS ORDERED: POTA-639 PO (17:35)
[2018-02-22] MEDS ORDERED: DOCU100C31 PO (17:35)
[2018-02-22] MEDS ORDERED: [UNRECOGNIZED DRUG - OTHER] PO (17:35)
[2018-02-22] MEDS ORDERED: [UNRECOGNIZED DRUG - CODE] UR (17:35)
[2018-02-22] MEDS ORDERED: PRED-301 PO (17:36)
[2018-02-22 17:48] LABS: ALBUMIN 3.2 gm/dl (3.4-5.0); CALCIUM 8.7 mg/dl (8.5-10.1); CREATININE 0.88 mg/dl (0.60-1.40); POTASSIUM 4.2 mmol/L (3.5-5.1); TOTAL PROTEIN 7.6 gm/dl (6.4-8.2)
--- NOTE | 2018-02-22 17:49 | DIAGNOSTIC IMAGING REPORT ---
CT OF THE ABDOMEN AND PELVIS WITH CONTRAST CLINICAL HISTORY: Left buttock pain and swelling. Evaluate for abscess. COMPARISON STUDY: CT of the abdomen and pelvis November 25, 2013. TECHNIQUE: The patient was scanned in the prone position. Following IV administration of 115 mL of Optiray-320, axial images of the abdomen and pelvis were obtained from the lung bases to the proximal femurs. Images were reviewed in the axial, sagittal, and coronal planes. IV contrast was administered without complication. A dose lowering technique was utilized adhering to the principles of ALARA. CT DOSE: 431.22 mGy.cm FINDINGS: Emphysema is noted within visualized portions of the lower lungs. Several pulmonary nodules are unchanged since chest CT of December 27, 2005. These are benign given stability. No pneumatosis, free air or portal venous gas is present. Gallstones are noted within the gallbladder without evidence for acute cholecystitis. The spleen, adrenal glands and kidneys are unremarkable with exception of scarring within the lower pole the left kidney. 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 Aneurysm sac has mildly decreased in size since exam of November 25, 2013. There is no biliary or pancreatic ductal dilatation. There is no free air. There is no evidence for a bowel obstruction. No abscess is identified. No suspicious osseous lesion is noted. The prostate is surgically absent. IMPRESSION: 1. No left buttock abscess identified. 2. No acute process within the abdomen or pelvis. 3. Cholelithiasis. Electronically signed by: Jona Guzmán M.D. 02/22/2018 5:48 PM Dictated Date/Time: 02/22/2018 5:36 PM
--- NOTE | 2018-02-22 18:21 | DIAGNOSTIC IMAGING REPORT ---
CHEST 2 VIEWS ROUTINE CLINICAL HISTORY: Positive blood culture. Evaluate for pneumonia. COMPARISON STUDY: Chest radiograph February 18, 2018. FINDINGS: Mediastinal surgical clips are noted. Cardiomegaly is unchanged. There is no evidence for pulmonary edema. No pneumothorax or pleural effusion is noted. Biapical scarring is unchanged. There is no evidence for pulmonary edema. Appearance of the chest is unchanged. IMPRESSION: No acute cardiopulmonary findings. No change in appearance of the chest. Electronically signed by: Jona Guzmán M.D. 02/22/2018 6:20 PM Dictated Date/Time: 02/22/2018 6:14 PM
[2018-02-22 19:58] VITALS: BP 164/72; PULSE 80; O2SAT 98
[2018-02-22] MEDS ORDERED: MULT-506 PO (20:20)
--- NOTE | 2018-02-22 22:13 | EMERGENCY ROOM VISIT NOTE ---
History Report prepared by Christos: Todd Roche Under the Supervision of: Dr. Quang Pinedo M.D. First contact with patient: 16:11 Chief Complaint: OTHER COMPLAINT Stated Complaint: RECHECK History of Present Illness The patient is a 82 year old male who presents to the Emergency Room with complaints of a swollen left buttock causing pain that began about 3 days ago. He reports the pain is worsened with contact. The patient was present in the ED on February 18 with chills, fever, and uncontrollable shaking for which he was prescribed Levaquin. He reports that he is still on the Levaquin which he took today and he is feeling better besides the swelling. He states he did not have the buttock pain when he was initially seen here on the . He states he has not checked his temperature but he denies vomiting, cough, any urinary symptoms , chest pain or abdominal pain. He also notes he is chronically short of breath and this has not worsened. He feels generally well. Source of History: patient Onset: 3 days ago Position: buttock (left) Symptom Intensity: moderate Modifying Factors (Worsening): other (With contact) Associated Symptoms: + SOB, No cough, No chest pain, No vomiting, No abdominal pain, No urinary symptoms Review of Systems See HPI for pertinent positives & negatives. A total of 10 systems reviewed and were otherwise negative. Past Medical & Surgical Medical Problems: (1) Emphysema, unspecified (2) Myocardial infarction Family History Hypotension Social History Smoking Status: Former Smoker Marital Status: Housing Status: lives with family Occupation Status: retired Current/Historical Medications Scheduled Alprostadil (Vasodilator) (Citronelle), 500 MCG UR PRN UD Aspirin (Aspirin), 1 TAB PO DAILY Cholecalciferol (Vitamin D), 1 TAB PO DAILY Coenzyme Q10 (Ubidecarenone) (Coq-10), 1 TAB PO QAM Docusate Sodium (Docusate Sodium), 1 CAP PO DAILY Ezetimibe (Zetia), 10 MG PO DAILY Fluticasone Furoate-Vilanterol (Breo Ellipta), 1 PUFFS INH QAM Furosemide (Lasix), 40 MG PO DAILY Isosorbide Mononitrate Ext Rel (Imdur Ext Rel), 30 MG PO BID Levofloxacin (Levaquin), 500 MG PO DAILY Melatonin (Melatonin Maximum Strengt), 1 TAB PO HS Metoprolol Succ (Toprol Xl) (Toprol-Xl), 25 MG PO BID Multivitamin (Multivitamin), 1 TABLET PO QAM Polyethylene Glycol 3350 (Miralax), 17 GM PO QAM Potassium Ext Rel (Klor-Con), 20 MEQ PO DAILY Prednisone (Prednisone), 5 MG PO DAILY Psyllium (Metamucil), 1 DOSE PO QAM [Beet Root Powd], 1 DOSE PO BID Scheduled PRN Nitroglycerin (Nitrostat), 0.4 MG UT PRN PRN for Chest Pain Oxycodone/Acetaminophen 5MG/325MG (Percocet 5MG/325MG), 1 TABLET PO Q6H PRN for Pain [Proair Hfa], 2 PUFF INH QID PRN for PRIOR TO EXERCISE Allergies Coded Allergies: NSAIDs (Verified Allergy, Severe, naprosyn gave anaphylaxis, 10/01/17) Naproxen (Verified Allergy, Severe, anaphylactic shock, 10/01/17) Physical Exam Vital Signs Date Time Temp Pulse Resp B/P (MAP) Pulse Ox O2 Delivery O2 Flow Rate FiO2 02/22/18 19:58 80 20 164/72 98 02/22/18 18:58 74 20 167/97 97 Room Air 02/22/18 15:56 36.9 70 20 154/75 96 Room Air Physical Exam Constitutional: Vital signs reviewed. Eyes: Pupils are equal round reactive to light. Conjunctiva are noninjected. ENT: Pharynx is clear without erythema or exudate. Mucous membranes are moist. Neck supple without meningeal signs. Respiratory: Clear to auscultation bilaterally. Breath sounds are equal bilaterally. Cardiovascular: Regular rate and rhythm. No rubs or gallops. GI: Soft, nondistended and nontender. Bowel sounds are present. Musculoskeletal: No peripheral edema. No lower extremity tenderness. Tenderness over superior aspect of left buttock, no increased warmth, erythema, or fluctuance. No swelling noted. Integumentary: No cyanosis. Neurological: The patient is awake and alert. No focal deficits. Psychiatric: Normal affect. Medical Decision & Procedures ER Provider Diagnostic Interpretation: Radiology results as stated below per my review and the radiologist's interpretation: CT OF THE ABDOMEN AND PELVIS WITH CONTRAST CLINICAL HISTORY: Left buttock pain and swelling. Evaluate for abscess. COMPARISON STUDY: CT of the abdomen and pelvis November 25, 2013. TECHNIQUE: The patient was scanned in the prone position. Following IV administration of 115 mL of Optiray-320, axial images of the abdomen and pelvis were obtained from the lung bases to the proximal femurs. Images were reviewed in the axial, sagittal, and coronal planes. IV contrast was administered without complication. A dose lowering technique was utilized adhering to the principles of ALARA. CT DOSE: 431.22 mGy.cm FINDINGS: Emphysema is noted within visualized portions of the lower lungs. Several pulmonary nodules are unchanged since chest CT of December 27, 2005. These are benign given stability. No pneumatosis, free air or portal venous gas is present. Gallstones are noted within the gallbladder without evidence for acute cholecystitis. The spleen, adrenal glands and kidneys are unremarkable with exception of scarring within the lower pole the left kidney. 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 Aneurysm sac has mildly decreased in size since exam of November 25, 2013. There is no biliary or pancreatic ductal dilatation. There is no free air. There is no evidence for a bowel obstruction. No abscess is identified. No suspicious osseous lesion is noted. The prostate is surgically absent. IMPRESSION: 1. No left buttock abscess identified. 2. No acute process within the abdomen or pelvis. 3. Cholelithiasis. Electronically signed by: Jona Guzmán M.D. 02/22/2018 5:48 PM Dictated Date/Time: 02/22/2018 5:36 PM CHEST 2 VIEWS ROUTINE CLINICAL HISTORY: Positive blood culture. Evaluate for pneumonia. COMPARISON STUDY: Chest radiograph February 18, 2018. FINDINGS: Mediastinal surgical clips are noted. Cardiomegaly is unchanged. There is no evidence for pulmonary edema. No pneumothorax or pleural effusion is noted. Biapical scarring is unchanged. There is no evidence for pulmonary edema. Appearance of the chest is unchanged. IMPRESSION: No acute cardiopulmonary findings. No change in appearance of the chest. Electronically signed by: Jona Guzmán M.D. 02/22/2018 6:20 PM Dictated Date/Time: 02/22/2018 6:14 PM Laboratory Results 02/22/18 16:45 Red Blood Count 3.92, Mean Corpuscular Volume 96.4, Mean Corpuscular Hemoglobin 33.2, Mean Corpuscular Hemoglobin Concent 34.4, Mean Platelet Volume 9.9, Neutrophils (%) (Auto) 76.2, Lymphocytes (%) (Auto) 11.8, Monocytes (%) (Auto) 11.1, Eosinophils (%) (Auto) 0.3, Basophils (%) (Auto) 0.2, Neutrophils # (Auto ) 8.56, Lymphocytes # (Auto) 1.32, Monocytes # (Auto) 1.25, Eosinophils # (Auto ) 0.03, Basophils # (Auto) 0.02 02/22/18 16:45 Test 02/22/18 16:45 02/22/18 16:49 02/22/18 17:15 White Blood Count 11.22 K/uL (4.8-10.8) Red Blood Count 3.92 M/uL (4.7-6.1) Hemoglobin 13.0 g/dL (14.0-18.0) Hematocrit 37.8 % (42-52) Mean Corpuscular Volume 96.4 fL (80-100) Mean Corpuscular Hemoglobin 33.2 pg (25-34) Mean Corpuscular Hemoglobin Concent 34.4 g/dl (32-36) Platelet Count 195 K/uL (130-400) Mean Platelet Volume 9.9 fL (7.4-10.4) Neutrophils (%) (Auto) 76.2 % Lymphocytes (%) (Auto) 11.8 % Monocytes (%) (Auto) 11.1 % Eosinophils (%) (Auto) 0.3 % Basophils (%) (Auto) 0.2 % Neutrophils # (Auto) 8.56 K/uL (1.4-6.5) Lymphocytes # (Auto) 1.32 K/uL (1.2-3.4) Monocytes # (Auto) 1.25 K/uL (0.11-0.59) Eosinophils # (Auto) 0.03 K/uL (0-0.5) Basophils # (Auto) 0.02 K/uL (0-0.2) RDW Standard Deviation 47.0 fL (36.4-46.3) RDW Coefficient of Variation 13.5 % (11.5-14.5) Immature Granulocyte % (Auto) 0.4 % Immature Granulocyte # (Auto) 0.04 K/uL (0.00-0.02) Prothrombin Time 10.0 SECONDS (9.0-12.0) Prothromb Time International Ratio 1.0 (0.9-1.1) Activated Partial Thromboplast Time 25.9 SECONDS (21.0-31.0) Partial Thromboplastin Ratio 1.0 Anion Gap 7.0 mmol/L (3-11) Est Creatinine Clear Calc Drug Dose 63.7 ml/min Estimated GFR () 93.4 Estimated GFR (Non- 80.6 BUN/Creatinine Ratio 27.6 (10-20) Calcium Level 8.7 mg/dl (8.5-10.1) Total Bilirubin 0.9 mg/dl (0.2-1) Aspartate Amino Transf (AST/SGOT) 23 U/L (15-37) Alanine Aminotransferase (ALT/SGPT) 27 U/L (12-78) Alkaline Phosphatase 57 U/L (45-117) Total Protein 7.6 gm/dl (6.4-8.2) Albumin 3.2 gm/dl (3.4-5.0) Globulin 4.4 gm/dl (2.5-4.0) Albumin/Globulin Ratio 0.7 (0.9-2) Lyme Disease IgG Antibody NEG (NEG) Lyme Disease IgM Antibody NEG (NEG) Bedside Lactic Acid Venous 0.85 mmol/L (0.90-1.70) Urine Color YELLOW Urine Appearance CLEAR (CLEAR) Urine pH 7.5 (4.5-7.5) Urine Specific [place] 1.010 (1.000-1.030) Urine Protein NEG (NEG) Urine Glucose (UA) NEG (NEG) Urine Ketones NEG (NEG) Urine Occult Blood NEG (NEG) Urine Nitrite NEG (NEG) Urine Bilirubin NEG (NEG) Urine Urobilinogen NEG (NEG) Urine Leukocyte Esterase NEG (NEG) Urine WBC (Auto) 0 /hpf (0-5) Urine RBC (Auto) 0-4 /hpf (0-4) Urine Hyaline Casts (Auto) 1-5 /lpf (0-5) Urine Epithelial Cells (Auto) 0-5 /lpf (0-5) Urine Bacteria (Auto) NEG (NEG) Laboratory results as reviewed by me. ED Course 1614: The patient was evaluated in room A9. A complete history and physical exam was performed. 1838: I spoke with Dr. Guzmán - Radiology and he says he did not see any pneumonia on chest X-Ray and his CT scan does not show an abscess. 1850: The patient states he does not want to stay in the hospital and feels fine , but he does want a Lyme disease test 1921: I spoke with Dr. Gunter - [facility] Hospitalist and she says the patient does not need to stay if he is feeling well. 1944: Upon reevaluation, the patient appeared to have improvement of all symptoms. I discussed tonight's findings with the patient. He verbalized agreement of the treatment plan. He was discharged home. Medical Decision This is an 82-year-old male who presents with positive blood cultures and buttock pain. Differential diagnosis includes bacteremia, sepsis, UTI, pneumonia, abscess, contusion. I did perform a limited focused review of portions of the patient's old chart on the electronic medical record. The patient has had one recent pertinent visit to this hospital where he was seen on February 18 2018 with chills, shortness of breath, fever, and uncontrollable shaking. He was not admitted but had blood cultures that showed gram negative bacilli in both, a negative UA and a negative CXR. He was discharged with Levaquin. I did evaluate the patient as noted above. Patient is coming in with positive blood cultures from the . He had fevers and rigors at the time but was treated with Levaquin. Currently he is no longer having any fevers or chills. He states he feels well other than having some pain to his left upper buttock. He does not remember any injury. He stated the pain started after he was discharged home from the ED. On examination there is tenderness to the upper left buttock but there is no swelling or erythema or increased warmth. IV access was established. I did order and personally review the patient's urine analysis and chest x-ray as described above. There is no evidence of UTI or pneumonia. Blood cultures were obtained. I did order and review the patient's blood work as noted in the electronic medical record. His lactic acid is not elevated. His white blood cell count is unchanged. I did order a CT of the abdomen and pelvis. I did review the images myself as well as the radiology report as described above. I did speak to the radiologist. There is no evidence of any abscess or abnormality in the area of question where he has pain. I did discuss the test results with the patient. He still has his prescription for Levaquin and will continue to take it until Friday. He also has an appointment in 2 days to see his primary care doctor. He was advised to return should he have any worsening symptoms or develop any new concerning symptoms. He was discharged in good condition. Medication Reconcilliation Current Medication List: was personally reviewed by me Blood Pressure Screening Patient's blood pressure: Elevated blood pressure Blood pressure disposition: Referred to PCP Consults Time Called: 1834 Consulting Physician: Dr. Guzmán - Radiology Returned Call: [address] Guzmán of Radiology. We discussed the patient and imaging results. He says he did not see any pneumonia on his chest X-Ray and his CT scan does not show an abscess. Additional Consults: Time Called: 1921 Consulted Physician: Dr. Gunter - [facility] Hospitalist Returned Call: 1921 Additional Comments: I spoke with Dr. Gunter of [facility] Hospitalist. She states he does not need to stay if he is feeling well. Impression Primary Impression: Left buttock pain Additional Impression: Bacteremia Scribe Attestation The scribe's documentation has been prepared under my direct and personally reviewed by me in its entirety. I confirm that the note above accurately reflects all work, treatment, procedures, and medical decision making performed by me. Departure Information Dispostion Home / Self-Care Referrals Oscar Olson M.D. (PCP) Forms HOME CARE DOCUMENTATION FORM, IMPORTANT VISIT INFORMATION, WORK / SCHOOL INSTRUCTIONS Patient Instructions My [facility] Additional Instructions You have been examined and treated today on an emergency basis only. This is not a substitute for, or an effort to provide, complete comprehensive medical care. It is impossible to recognize and treat all injuries or illnesses in a single emergency department visit. It is therefore important that you follow up closely with your physician as per your appointment. Return for worsening symptoms or if you develop fever, vomiting, redness or swelling to your buttock or any other concerning symptoms. Problem Qualifiers
== END 2018-02-22 19:59 | disposition home or self-care (01) ==
LOC: C.EDB 15:56 → C.EDA 19:59
DX: R78.81 Bacteremia (principal); J43.9 Emphysema, unspecified; I25.2 Old myocardial infarction; Z87.891 Personal history of nicotine dependence; Z79.82 Long term (current) use of aspirin; Z79.899 Other long term (current) drug therapy; Z88.8 Allergy status to other drugs, medicaments and biological substances; Z88.6 Allergy status to analgesic agent

== ENCOUNTER 2020-09-05 16:20 | Observation (INO) ==
--- NOTE | 2020-09-05 16:53 | Emergency Department Note ---
Impression & Plan Acute CVA (cerebrovascular accident), HTN (hypertension), Elevated BUN ED Provider Note NAME: GIFTY REECE AGE: 85 SEX: M : 1935 ARRIVES VIA: Walk-In INFORMANT: Patient ED PROVIDER(S): Stanley Madison DO CHIEF COMPLAINT: Possible stroke HPI: Patient is an 85-year-old male with past medical history of vertigo, cognitive impairment, chest pain, AAA, CAD, ischemic cardiomyopathy that presents the ER for possible stroke. He had an outpatient work-up by Dr. Jacome from neurology. MRI was obtained and showed a subacute infarct. He referred him in for the ER for further work-up and admission. He notes that several weeks ago he was extremely dizzy to the point where he could not walk. That resolved within a day. He denies any headache or change in vision. No chest pain or shortness of breath. No nausea, vomiting, or diarrhea. No dysuria, urgency, or frequency. No other exacerbating or remitting factors. ROS: See above HPI for pertinent positives & negatives. A total of 10 systems reviewed and were otherwise negative. PAST MEDICAL HISTORY:See Below PAST SURGICAL HISTORY:See Below FAMILY HISTORY:See Below SOCIAL HISTORY:See Below HOME MEDICATIONS:See Below ALLERGIES:See Below VITALS:See Below PHYSICAL EXAMINATION: GENERAL: Sitting up in bed, alert, well appearing, well nourished, no distress, non-toxic EYE EXAM: normal conjunctiva. PERRL and EOM's intact. OROPHARYNX: no exudate, no erythema, lips, buccal mucosa, and tongue normal and mucous membranes are moist NECK: supple, no nuchal rigidity, no adenopathy, non-tender LUNGS: Clear to auscultation. Normal chest wall mechanics HEART: no murmurs, S1 normal and S2 normal ABDOMEN: abdomen soft, non-tender, normo-active bowel sounds, no masses, no rebound or guarding. BACK: Back is symmetrical on inspection and there is no deformity, no midline tenderness, no CVA tenderness. SKIN: no rashes and no bruising UPPER EXTREMITIES: upper extremities are grossly normal. LOWER EXTREMITIES: No pitting edema. NEURO EXAM: Normal sensorium, cranial nerves II-XII intact, normal speech, no weakness of arms, no weakness of legs. No drift. Finger to nose intact. Gross sensation intact. Ambulates without difficulty. MEDICAL DECISION MAKING: Patient is an 85-year-old male who presents the ER referred by neurology following having an MRI which showed an subacute CVA. This was likely several weeks ago and this gentleman was extremely dizzy and could not walk. IV was established blood work was obtained. Labs show no significant leukocytosis or anemia. INR was unremarkable. BMP along with LFTs bilirubin and troponin was negative. Covid was negative. CT angios head and neck do show some internal carotid stenosis. Patient was updated bedside. Discussed with neurology and they recommended admission patient was admitted to the hospitalist for further work-up Triage Nursing notes reviewed. Limited review of prior medical records performed Vital Signs: reviewed and remarkable for HTN Differential diagnosis: Differential Diagnosis includes but is not limited to ischemic Stroke, hemorrhagic stroke, bells palsy, mass, neoplasm, migraine headache, seizure, subarachnoid hemorrhage, TIA, and transient global amnesia. ER treatment provided: See below Diagnostics interpreted by me: ECG: Sinus rhythm rate of 58 PVCs Left axis QTC 416 Cardiac Monitoring: An order was placed for continuous cardiac monitoring. The monitor shows a rate of 55 with sinus rhythm. Laboratory studies: As stated above and show below. Imaging studies: CT as well as CT angios showed the subacute infarct as well as arterial stenosis Consultation(s): Dr. Shirley gentile admission D/W Dr. Hitchcock for admission Procedures: none Critical Care: None Past Med/Surg History Medical History Abdominal aortic aneurysm Asthma DDD (degenerative disc disease) Diverticulosis Emphysema lung History of trigger finger Hypertension Mitral valve problem Myocardial infarction Osteoarthritis Sleep apnea Surgical History Difficult intubation H/O prostatectomy History of arthroscopy History of cardiac cath History of colonoscopy History of meniscectomy of left knee History of partial colectomy History of quadruple bypass History of tonsillectomy History of tooth extraction S/P bronchoscopy with biopsy (07/29/19) S/P hernia surgery Family History Father Heart disease Alzheimer disease Brother Back problem Grandmother (Paternal) Dementia Mother No problems noted. 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 Former [employer] Feels Safe at Home: Yes Assistive Devices: CPAP, Glasses and Hearing Aid - Bilateral Allergies Allergies Allergy/AdvReac Type Severity Reaction Status Date / Time naproxen [From Naprosyn] Allergy Severe Anaphylaxis Verified 09/05/20 19:07 NSAIDS (Non-Steroidal Allergy Severe Anaphylaxis Verified 09/05/20 19:07 Anti-Inflamma Home Meds Home Medications Medication Instructions Recorded Confirmed coQ10 (ubiquinol) 400 mg PO QAM 10/07/18 09/05/20 docusate sodium 100 mg PO QAM 10/07/18 09/05/20 ezetimibe 10 mg PO QAM 10/07/18 09/05/20 multivitamin 1 tab PO QAM 10/07/18 09/05/20 nitroglycerin 0.4 mg SUBLINGUAL DIRECTED PRN 10/07/18 09/05/20 polyethylene glycol 3350 [Miralax] 1 dose PO QAM 10/07/18 09/05/20 potassium chloride 20 meq PO QAM 10/07/18 09/05/20 albuterol sulfate 90 mcg/actuation 2 puffs INHALATION Q4H PRN gm 02/15/19 09/05/20 aerosol inhaler cholecalciferol (vitamin D3) 25 1,000 unit PO QAM tab 02/15/19 09/05/20 mcg (1,000 unit) tablet furosemide 40 mg tablet 40 mg PO QAM tab 02/15/19 09/05/20 isosorbide mononitrate 60 mg 60 mg PO BID tab 02/15/19 09/05/20 tablet,extended release 24 hr melatonin 5 mg tablet 5 mg PO HS tab 02/15/19 09/05/20 resveratrol 50 mg capsule 50 mg PO BID cap 02/15/19 09/05/20 [place] 250 mcg INTRA-URETHRAL DIRECTED 09/05/20 09/05/20 PRN metoprolol tartrate 25 mg PO BID 09/05/20 09/05/20 Previous Rx's Medication Instructions Recorded fluticasone fur. 100 mcg-umeclid 1 inh INH QAM #60 ea 05/29/20 62.5 mcg-vilant 25 mcg inhalat.powder clopidogrel 75 mg tablet 75 mg PO DAILY #30 tab 09/05/20 Results & Data (ED) Vital Signs Vital Signs - 24 hr 09/05/20 16:22 09/05/20 17:03 09/05/20 17:30 Temperature 36.5 C Temperature Source Temporal Artery Scan Pulse Rate 72 56 L Pulse Rate [Apical] 62 Pulse Rate from SpO2 Sensor 56 L Respiratory Rate 18 18 19 Blood Pressure 173/74 H 153/69 H Blood Pressure [Right Arm] 151/79 H Blood Pressure Mean 107 97 Blood Pressure Mean [Right Arm] 103 Pulse Oximetry 94 95 96 Oxygen Delivery Method Room Air Room Air Room Air Sepsis Recent Fever Within 48 Hours No Sepsis New/Unexplained Change in Mental Status No Sepsis Action Taken by Nursing No Action Required 09/05/20 18:31 09/05/20 18:32 09/05/20 19:14 Temperature Temperature Source Pulse Rate 69 71 70 Pulse Rate [Apical] Pulse Rate from SpO2 Sensor 67 69 62 Respiratory Rate 18 17 24 Blood Pressure 164/93 H 173/95 H Blood Pressure [Right Arm] Blood Pressure Mean 116 121 Blood Pressure Mean [Right Arm] Pulse Oximetry 95 94 95 Oxygen Delivery Method Room Air Room Air Room Air Sepsis Recent Fever Within 48 Hours Sepsis New/Unexplained Change in Mental Status Sepsis Action Taken by Nursing 09/05/20 19:15 Temperature Temperature Source Pulse Rate 66 Pulse Rate [Apical] Pulse Rate from SpO2 Sensor 66 Respiratory Rate 22 Blood Pressure Blood Pressure [Right Arm] Blood Pressure Mean Blood Pressure Mean [Right Arm] Pulse Oximetry 95 Oxygen Delivery Method Sepsis Recent Fever Within 48 Hours Sepsis New/Unexplained Change in Mental Status Sepsis Action Taken by Nursing Laboratory Data Result diagrams: 09/05/20 17:04 09/05/20 17:04 Lab Results 09/05/20 09/05/20 09/05/20 Range/Units 16:57 17:04 17:04 WBC 7.02 (4.8-10.8) K/uL RBC 4.32 L (4.7-6.1) M/uL Hgb 14.9 (14.0-18.0) g/dL Hct 42.0 (42-52) % MCV 97.2 (80-100) fL MCH 34.5 H (25-34) pg MCHC 35.5 (32-36) g/dL RDW Std Deviation 45.5 (36.4-46.3) fL RDW Coeff of [place] 12.7 (11.5-14.5) % Plt Count 206 (130-400) K/uL MPV 10.3 (7.4-10.4) fL Immature Gran % (Auto) 0.1 % Neut % (Auto) 59.0 % Lymph % (Auto) 24.5 % [place] % (Auto) 11.0 % Eos % (Auto) 5.0 % Baso % (Auto) 0.4 % Neut # (Auto) 4.14 (1.4-6.5) K/uL Lymph # (Auto) 1.72 (1.2-3.4) K/uL [place] # (Auto) 0.77 H (0.11-0.59) K/uL Eos # (Auto) 0.35 (0-0.5) K/uL Baso # (Auto) 0.03 (0-0.2) K/uL Immature Gran # (Auto) 0.01 (0.00-0.02) K/uL PT 10.1 (9.0-12.0) Seconds INR 1.0 (0.9-1.1) APTT 23.9 (21.0-31.0) Seconds PTT Ratio 0.9 Sodium (136-145) mmol/L Potassium (3.5-5.1) mmol/L Chloride (98-107) mmol/L Carbon Dioxide (21-32) mmol/L Anion Gap (3-11) BUN (7-18) mg/dl Creatinine (0.6-1.4) mg/dl Est Cr Clr Drug Dosing ml/min Est GFR ( Amer) Est GFR (Non-Af Amer) BUN/Creatinine Ratio (10-20) Glucose (70-99) mg/dl POC Glucose 91 (70-99) mg/dl Calcium (8.5-10.1) mg/dl Magnesium (1.8-2.4) mg/dl Total Bilirubin (0.2-1) mg/dl AST (15-37) U/L ALT (12-78) U/L Alkaline Phosphatase (45-117) U/L Troponin I (0-0.045) ng/ml Total Protein (6.4-8.2) gm/dl Albumin (3.4-5.0) gm/dl Globulin (2.5-4.0) gm/dl Albumin/Globulin Ratio (0.9-2) COVID-19 Eval Order SARS-CoV-2, RNA, NAAT (NEGATIVE) 09/05/20 09/05/20 09/05/20 Range/Units 17:04 18:30 18:30 WBC (4.8-10.8) K/uL RBC (4.7-6.1) M/uL Hgb (14.0-18.0) g/dL Hct (42-52) % MCV (80-100) fL MCH (25-34) pg MCHC (32-36) g/dL RDW Std Deviation (36.4-46.3) fL RDW Coeff of [place] (11.5-14.5) % Plt Count (130-400) K/uL MPV (7.4-10.4) fL Immature Gran % (Auto) % Neut % (Auto) % Lymph % (Auto) % [place] % (Auto) % Eos % (Auto) % Baso % (Auto) % Neut # (Auto) (1.4-6.5) K/uL Lymph # (Auto) (1.2-3.4) K/uL [place] # (Auto) (0.11-0.59) K/uL Eos # (Auto) (0-0.5) K/uL Baso # (Auto) (0-0.2) K/uL Immature Gran # (Auto) (0.00-0.02) K/uL PT (9.0-12.0) Seconds INR (0.9-1.1) APTT (21.0-31.0) Seconds PTT Ratio Sodium 139 (136-145) mmol/L Potassium 4.0 (3.5-5.1) mmol/L Chloride 106 (98-107) mmol/L Carbon Dioxide 27 (21-32) mmol/L Anion Gap 6.0 (3-11) BUN 24 H (7-18) mg/dl Creatinine 1.09 (0.6-1.4) mg/dl Est Cr Clr Drug Dosing 55.4 ml/min Est GFR ( Amer) 71.9 Est GFR (Non-Af Amer) 62.0 BUN/Creatinine Ratio 21.8 H (10-20) Glucose 89 (70-99) mg/dl POC Glucose (70-99) mg/dl Calcium 9.2 (8.5-10.1) mg/dl Magnesium 2.1 (1.8-2.4) mg/dl Total Bilirubin 0.7 (0.2-1) mg/dl AST 23 (15-37) U/L ALT 31 (12-78) U/L Alkaline Phosphatase 58 (45-117) U/L Troponin I < 0.015 (0-0.045) ng/ml Total Protein 7.4 (6.4-8.2) gm/dl Albumin 3.5 (3.4-5.0) gm/dl Globulin 3.9 (2.5-4.0) gm/dl Albumin/Globulin Ratio 0.9 (0.9-2) COVID[facility], RNA, NAAT NEGATIVE (NEGATIVE) Administered Medications Discontinued Medications Ioversol (Optiray 320 125ml) 119 ml IV ONCE ONE Stop: 09/05/20 17:58 Last Admin: 09/05/20 17:57 Dose: 119 ml Documented by: [id number] Discharge Plan Visit Data Chief Complaint: TIA Symptoms Stated Complaint: MRI TODAY REF'D POSSIBLE STROKE ED Provider: Stanley Madison Discharge Problem: Acute CVA (cerebrovascular accident), HTN (hypertension), Elevated BUN Forms Stand Alone Forms: My [facility] [place] AOTMP Prescriptions Prescriptions: No Action Trelegy Ellipta 100-62.5-25 mcg blister with device 1 inh INH QAM Qty: 60 RF: 6 clopidogrel 75 mg tablet 75 mg PO DAILY Qty: 30 RF: 2 resveratrol 50 mg capsule 50 mg PO BID RF: 0 melatonin 5 mg tablet 5 mg PO HS RF: 0 cholecalciferol (vitamin D3) 1,000 unit (25 mcg) tablet 1,000 unit PO QAM RF: 0 albuterol sulfate 90 mcg/actuation HFA aerosol inhaler 2 puffs inhalation Q4H PRN (Reason: Shortness Of Breath) RF: 0 isosorbide mononitrate 60 mg tablet extended release 24 hr 60 mg PO BID RF: 0 furosemide 40 mg tablet 40 mg PO QAM RF: 0 multivitamin Tablet 1 tab PO QAM RF: 0 potassium chloride 20 mEq tablet,ER particles/crystals 20 meq PO QAM RF: 0 nitroglycerin 0.4 mg tablet, sublingual 0.4 mg sublingual DIRECTED PRN (Reason: Chest Pain) RF: 0 docusate sodium 100 mg Capsule 100 mg PO QAM RF: 0 polyethylene glycol 3350 [Miralax] 17 gram/dose Powder 1 dose PO QAM RF: 0 ezetimibe 10 mg tablet 10 mg PO QAM RF: 0 coQ10 (ubiquinol) 200 mg Capsule 400 mg PO QAM RF: 0 metoprolol tartrate 25 mg tablet 25 mg PO BID RF: 0 [place] 250 mcg suppository 250 mcg intra-urethral DIRECTED PRN (Reason: Erectile Dysfunction) RF: 0 Referrals Referrals: Oscar Olson [Primary Care Provider] - Discharge Problem: HTN (hypertension) Qualifiers: Hypertension type: unspecified Qualified Code(s): I10 - Essential (primary) hypertension
[2020-09-05 17:15] LABS: Basophils # (auto) 0.03 K/uL (0-0.2); Basophils % (auto) 0.4 %; Eosinophils # (auto) 0.35 K/uL (0-0.5); Hemoglobin 14.9 g/dL (14.0-18.0); Immature Granulocytes # (auto) 0.01 K/uL (0.00-0.02); Immature Granulocytes % (auto) 0.1 %; Lymphocytes # (auto) 1.72 K/uL (1.2-3.4); Lymphocytes % (auto) 24.5 %; Mean Corpuscular Hemoglobin 34.5 pg (25-34); Mean Corpuscular Hgb Conc 35.5 g/dL (32-36); Mean Corpuscular Volume 97.2 fL (80-100); Mean Platelet Volume 10.3 fL (7.4-10.4); Monocytes # (auto) 0.77 K/uL (0.11-0.59); Neutrophils # (auto) 4.14 K/uL (1.4-6.5); Platelet Count 206 K/uL (130-400); RDW Coefficient of Variation 12.7 % (11.5-14.5); RDW Standard Deviation 45.5 fL (36.4-46.3); Red Blood Count 4.32 M/uL (4.7-6.1); White Blood Count 7.02 K/uL (4.8-10.8)
[2020-09-05 17:30] LABS: Partial Thromboplastin Ratio 0.9; Partial Thromboplastin Time 23.9 Seconds (21.0-31.0); Prothrombin Time 10.1 Seconds (9.0-12.0)
[2020-09-05 17:35] LABS: Alanine Aminotransferase 31 U/L (12-78); Albumin Level 3.5 gm/dl (3.4-5.0); Aspartate Aminotransferase 23 U/L (15-37); BUN Creatinine Ratio 21.8 (10-20); Blood Urea Nitrogen 24 mg/dl (7-18); Calcium 9.2 mg/dl (8.5-10.1); Carbon Dioxide 27 mmol/L (21-32); Chloride 106 mmol/L (98-107); Creatinine Clr Calc Pharmacy 55.4 ml/min; Est GFR (African American) 71.9; Glucose 89 mg/dl (70-99); Magnesium 2.1 mg/dl (1.8-2.4); Sodium 139 mmol/L (136-145)
--- NOTE | 2020-09-05 17:36 | XRay Report ---
XR chest 1V portable HISTORY: 85 years-old Male Stroke Like Symptoms acute strokelike symptoms COMPARISON: Chest radiographs 07/25/2020 TECHNIQUE: Portable AP view of the chest FINDINGS: Unchanged cardiomegaly with prior median sternotomy and CABG. Calcified plaque of the thoracic aorta. Emphysema with chronic interstitial coarsening. No pneumothorax, pleural effusion, airspace consolid ation or overt pulmonary edema. Degenerative changes of the shoulders and spine. IMPRESSION: Chronic findings as above without acute process. ACT 112: Negative or not required by law. The above report was generated using voice recognition software. It may contain grammatical, syntax o r spelling errors. Electronically signed by: Wilmer Chau M.D. 09/05/2020 5:34 PM
[2020-09-05 17:41] LABS: Albumin Globulin Ratio 0.9 (0.9-2); Alkaline Phosphatase 58 U/L (45-117); Bilirubin,Total 0.7 mg/dl (0.2-1); Globulin 3.9 gm/dl (2.5-4.0); Total Protein 7.4 gm/dl (6.4-8.2); Troponin I < 0.015 ng/ml (0-0.045)
[2020-09-05] MEDS ORDERED: OPTIRAY 320 125ml IV ONE (17:57)
--- NOTE | 2020-09-05 18:16 | CT Scan Report ---
CT angio neck with con, CT angio head w con CLINICAL HISTORY: 85 years-old Male with Stroke Like Symptoms. Acute strokelike symptoms COMPARISON STUDY: Brain MRI of same day TECHNIQUE: Following the IV administration of 119 mL of Optiray 320, CT angiogram of the head and nec k was performed from the aortic arch to the skull apex. Images are reviewed in the axial, sagittal, a nd coronal planes. 3-D MIPS images are created and assessed. IV contrast was administered without com plication. All measurements were calculated based on NASCET criteria. A dose lowering technique was utilized adhering to the principles of ALARA. CT DOSE: 637.81 mGy.cm FINDINGS: Extensive atheromatous plaque of the thoracic aortic arch. Three-vessel morphology with patency of th e innominate and imaged subclavian arteries. Moderate mixed plaque of the common carotid arteries wit h extensive mixed plaque of the carotid bulbs and proximal cervical segments of the internal carotid arteries. This results in approximately 70% stenosis of the proximal right ICA on image 216 and less than 50% stenosis within the left ICA. Calcified plaque of the cavernous and supraclinoid segments wi thout high-grade stenosis. There is a 2.5 mm saccular outpouching involving the supraclinoid right IC A with 2 cm outpouching involving the medial aspect of the supraclinoid left ICA measuring up to 3 mm . Mild multifocal luminal narrowing of the middle cerebral arteries. Anterior cerebral arteries are w idely patent. Calcified plaque at the origin of the left vertebral artery results in approximately 50% luminal narr owing. Vertebral arteries are codominant. Calcified plaque at the origin of the right vertebral arter y results in moderate stenosis. The basilar and posterior cerebral arteries are patent. Cerebral veno us sinuses are also patent. The previously described subacute infarct of the right frontal lobe is be tter seen on comparison brain MRI. Age-related involutional changes with chronic microvascular ischem ic disease. Prior median sternotomy. Emphysema. Biapical pleural-parenchymal scarring with postsurgical changes o f the right lung apex. Unremarkable soft tissues. Mucoperiosteal thickening of the paranasal sinuses. No acute fracture. IMPRESSION: 1. Subacute infarct of the right frontal lobe is better characterized on brain MRI study of same day. 2. Severe mixed plaque of the bilateral carotid bulbs and proximal cervical segments of the internal carotid arteries results in approximately 70% stenosis on the right and less than 50% stenosis on the left. 3. There are tiny saccular outpouching suggestive of small aneurysms involving the supraclinoid segme nts of the internal carotid arteries bilaterally measuring up to 3 mm. 4. No high-grade stenosis or arterial occlusion identified. ACT 112: Negative or not required by law. The above report was generated using voice recognition software. It may contain grammatical, syntax o r spelling errors. Electronically signed by: Wilmer Chau M.D. 09/05/2020 6:15 PM
--- NOTE | 2020-09-05 20:31 | History & Physical Report ---
Date of Service September 05, 2020 Assessment & Plan (1) Acute CVA (cerebrovascular accident): 5-year-old man with a history of quadruple bypass, hypertension, mitral valve insufficiency with ischemic cardiomyopathy who is being admitted for subacute stroke work-up. Subacute stroke As imaged on MRI; 2.4 cm T2 hyperintense focus within the right frontal lobe. symptoms at baseline. CTA head and neck showing: -Severe mixed plaque of the bilateral carotid bulbs and proximal cervical segments of the internal carotid arteries results in approximately 70% stenosis on the right and less than 50% stenosis on the left. -There are tiny saccular outpouching suggestive of small aneurysms involving the supraclinoid segments of the internal carotid arteries bilaterally measuring up to 3 mm. - consider vascular surgery consult for carotid stenting if CVA considered "symp tomatic" Patient was on aspirin at home prior to appointment with Dr. Jacome. Started on Plavix after MRI results returned Is on 10 mg of ezetimibe daily at home. Consider high-dose statin depending on patient's tolerance of medication - A1c, lipid panel in AM - stopped smoking in 1995. No vaping/ecigarettes. Drinks 3-4 wine glasses per night. Advise alcohol cessation for optimization of secondary prevention. - appreciate neuro's recommendations for secondary prevention changes going forward - TTE pending, hx severe and Mitral Insufficiency - neuro checks Q2 (2) HTN (hypertension): - continue metoprolol, imdur, lasix (3) Hearing loss: (4) Mild cognitive impairment: (5) Status post abdominal aortic aneurysm (AAA) repair: (6) History of quadruple bypass: (7) Obstructive sleep apnea: CPAP at night DVT ppx: lovenox, plavix FEN/GI: heart healthy diet, passed dysphagia screen Code Status: Full Code Dispo: med surg with tele History of Present Illness 85-year-old male with past medical history of hypertension, cognitive impairment, mitral valve insufficiency, aortic stenosis, AAA, emphysema, history of prostate cancer, ischemic cardiomyopathy he was sent to the emergency department today his neurologist after having an MRI done that showed a subacute CVA. This time he has no symptoms or complaints. He denies any focal or generalized weakness, numbness, tingling, tremors. Denies any changes in vision, headache, instability when walking. Reports that approximately 4 to 5 weeks ago he had an episode where he woke up from sleep and was incredibly dizzy and had to crawl on the floor to get to the bathroom. He states that this went on for about 30 to 40 minutes he was able to make it back to his bed and sleep and then it spontaneously went away. ED course significant for CTA head and neck showing the following Subacute infarct of the right frontal lobe characterized on MRI Severe mixed plaque of the bilateral carotid bulbs and proximal cervical segment of the internal carotid arteries resulting in 70% stenosis of the right carotid and 50% stenosis of the left Tiny saccular outpouching suggestive of small aneurysms involving the supraclinoid segments of the internal carotid arteries bilaterally measuring up to 3 mm MRI same day showing 2.4 cm T2 hyperintense focus within the right frontal lobe with mild associated cortical enhancement laminar necrosis suggesting subacute infarct Primary Care Provider: Oscar Olson Allergies Allergy/AdvReac Type Severity Reaction Status Date / Time naproxen [From Naprosyn] Allergy Severe Anaphylaxis Verified 09/05/20 19:07 NSAIDS (Non-Steroidal Allergy Severe Anaphylaxis Verified 09/05/20 19:07 Anti-Inflamma Home Medications Medication Instructions Recorded Confirmed Type coQ10 (ubiquinol) 400 mg PO QAM 10/07/18 09/05/20 History docusate sodium 100 mg PO QAM 10/07/18 09/05/20 History ezetimibe 10 mg PO QAM 10/07/18 09/05/20 History multivitamin 1 tab PO QAM 10/07/18 09/05/20 History nitroglycerin 0.4 mg SUBLINGUAL DIRECTED PRN 10/07/18 09/05/20 History polyethylene glycol 3350 [Miralax] 1 dose PO QAM 10/07/18 09/05/20 History potassium chloride 20 meq PO QAM 10/07/18 09/05/20 History albuterol sulfate 90 mcg/actuation 2 puffs INHALATION Q4H PRN gm 02/15/19 09/05/20 History aerosol inhaler cholecalciferol (vitamin D3) 25 1,000 unit PO QAM tab 02/15/19 09/05/20 History mcg (1,000 unit) tablet furosemide 40 mg tablet 40 mg PO QAM tab 02/15/19 09/05/20 History isosorbide mononitrate 60 mg 60 mg PO BID tab 02/15/19 09/05/20 History tablet,extended release 24 hr melatonin 5 mg tablet 5 mg PO HS tab 02/15/19 09/05/20 History resveratrol 50 mg capsule 50 mg PO BID cap 02/15/19 09/05/20 History fluticasone fur. 100 mcg-umeclid 1 inh INH QAM #60 ea 05/29/20 09/05/20 Rx 62.5 mcg-vilant 25 mcg inhalat.powder [place] 250 mcg INTRA-URETHRAL DIRECTED 09/05/20 09/05/20 History PRN clopidogrel 75 mg tablet 75 mg PO DAILY #30 tab 09/05/20 09/05/20 Rx metoprolol tartrate 25 mg PO BID 09/05/20 09/05/20 History aspirin 81 mg PO DAILY #30 tab 09/06/20 Rx atorvastatin 40 mg PO HS #30 tab 09/06/20 Rx Past Med/Surg History Medical History Abdominal aortic aneurysm PT NOT AWARE OF DETAILS Acute CVA (cerebrovascular accident) Asthma PT DENIES >SAYS JUST EMPHYSEMA DDD (degenerative disc disease) PT UNAWARE Diverticulosis Emphysema lung RARE RES. INH USE History of trigger finger WITH RELEASE RIGHT HAND Hypertension Mitral valve problem NO ISSUE CURRENTLY > FOLLOWS TUCKER FRAGIN ([place]) Myocardial infarction 2014 WENT TO [place] Osteoarthritis Sleep apnea BI PAP > FOLLOWS DR. CHEN Surgical History Difficult intubation PT STATES THIS WAS MENTIONED DURING PROSTATE SURGERY 1995 > ([facility]) BUT DOENS'T RECALL SPECIFIC DETAILS > HAS NOT BEEN MENTIONED AGAIN TO PATIENT SINCE H/O prostatectomy History of arthroscopy RIGHT SHOULDER History of cardiac cath 2014 [facility] > NO STENTS History of colonoscopy History of meniscectomy of left knee History of partial colectomy 1995 History of quadruple bypass 2014 > [place] > FOR HEART ATTACK > NO STENTS History of tonsillectomy History of tooth extraction S/P bronchoscopy with biopsy (07/29/19) Navigational Bronchoscopy with Biopsy Dr. Gaviria 07-29-19 S/P hernia surgery Family History Father , in his early 80s of senile dementia of the Alzheimer's type Heart disease Alzheimer disease Brother Back problem Grandmother (Paternal) Dementia Mother , in her 90s of urinary issues No problems noted. 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 [employer] Feels Safe at Home: Yes Assistive Devices: Glasses Review of Systems Constitutional: no fever, no chills, no sweats, no body aches, no fatigue, no malaise and no weakness Respiratory: no cough, no dyspnea and no pain on inspiration Cardiovascular: no chest pain, no palpitations, no lightheadedness, no edema and no calf pain Gastrointestinal: no abdominal pain, no nausea, no vomiting, no constipation, no diarrhea/loose stools and no blood in stools Neurologic: no falls, no localized weakness, no paralysis, no loss of sensation, no tingling, no numbness, no tremor(s), no dizziness, no headache(s) and no abnormal speech Physical Exam Physical Exam: Constitutional: in no apparent distress, sitting comfortably in bed. Eyes: EOMI, pupils equal and reactive bilaterally, no scleral icterus, no nystagmus Cardiac: RRR, no gallops or rubs. Normal S1, S2, 3/6 systolic murmur at apex Pulm: CTA BL, no wheezes, rhonchi, crackles or rubs, moving air well throughout both lungs Abd: soft, nontender, nondistended, normal bowel sounds, no rebound or guarding Extremities: 2+ peripheral pulses, no edema Neuro: no focal deficits, moving all 4 limbs, A&Ox3, strength 5/5 at elbows, wrists, ankles Results & Data Results & Data ([facility]) Vital Signs (Past 12 Hours) Vital Signs Temp Pulse Pulse Resp BP BP Pulse Ox 09/05/20 19:15 66 22 95 09/05/20 19:14 70 24 173/95 H 95 09/05/20 18:32 71 17 94 09/05/20 18:31 69 18 164/93 H 95 09/05/20 17:30 56 L 19 153/69 H 96 09/05/20 17:03 62 18 151/79 H 95 09/05/20 16:22 36.5 C 72 18 173/74 H 94 Laboratory Results WBC 7.02 K/uL (4.8-10.8) 09/05/20 17:04 RBC 4.32 M/uL (4.7-6.1) L 09/05/20 17:04 Hgb 14.9 g/dL (14.0-18.0) 09/05/20 17:04 Hct 42.0 % (42-52) 09/05/20 17:04 MCV 97.2 fL (80-100) 09/05/20 17:04 MCH 34.5 pg (25-34) H 09/05/20 17:04 MCHC 35.5 g/dL (32-36) 09/05/20 17:04 RDW Std Deviation 45.5 fL (36.4-46.3) 09/05/20 17:04 RDW Coeff of Corbin 12.7 % (11.5-14.5) 09/05/20 17:04 Plt Count 206 K/uL (130-400) 09/05/20 17:04 MPV 10.3 fL (7.4-10.4) 09/05/20 17:04 Immature Gran % (Auto) 0.1 % 09/05/20 17:04 Neut % (Auto) 59.0 % 09/05/20 17:04 Lymph % (Auto) 24.5 % 09/05/20 17:04 Marshall % (Auto) 11.0 % 09/05/20 17:04 Eos % (Auto) 5.0 % 09/05/20 17:04 Baso % (Auto) 0.4 % 09/05/20 17:04 Neut # (Auto) 4.14 K/uL (1.4-6.5) 09/05/20 17:04 Lymph # (Auto) 1.72 K/uL (1.2-3.4) 09/05/20 17:04 Marshall # (Auto) 0.77 K/uL (0.11-0.59) H 09/05/20 17:04 Eos # (Auto) 0.35 K/uL (0-0.5) 09/05/20 17:04 Baso # (Auto) 0.03 K/uL (0-0.2) 09/05/20 17:04 Immature Gran # (Auto) 0.01 K/uL (0.00-0.02) 09/05/20 17:04 PT 10.1 Seconds (9.0-12.0) 09/05/20 17:04 INR 1.0 (0.9-1.1) 09/05/20 17:04 APTT 23.9 Seconds (21.0-31.0) 09/05/20 17:04 PTT Ratio 0.9 09/05/20 17:04 Sodium 139 mmol/L (136-145) 09/05/20 17:04 Potassium 4.0 mmol/L (3.5-5.1) 09/05/20 17:04 Chloride 106 mmol/L (98-107) 09/05/20 17:04 Carbon Dioxide 27 mmol/L (21-32) 09/05/20 17:04 Anion Gap 6.0 (3-11) 09/05/20 17:04 BUN 24 mg/dl (7-18) H 09/05/20 17:04 Creatinine 1.09 mg/dl (0.6-1.4) 09/05/20 17:04 Est Cr Clr Drug Dosing 55.4 ml/min 09/05/20 17:04 Est GFR ( Amer) 71.9 09/05/20 17:04 Est GFR (Non-Af Amer) 62.0 09/05/20 17:04 BUN/Creatinine Ratio 21.8 (10-20) H 09/05/20 17:04 Glucose 89 mg/dl (70-99) 09/05/20 17:04 POC Glucose 91 mg/dl (70-99) 09/05/20 16:57 Calcium 9.2 mg/dl (8.5-10.1) 09/05/20 17:04 Magnesium 2.1 mg/dl (1.8-2.4) 09/05/20 17:04 Total Bilirubin 0.7 mg/dl (0.2-1) 09/05/20 17:04 AST 23 U/L (15-37) 09/05/20 17:04 ALT 31 U/L (12-78) 09/05/20 17:04 Alkaline Phosphatase 58 U/L (45-117) 09/05/20 17:04 Troponin I < 0.015 ng/ml (0-0.045) 09/05/20 17:04 Total Protein 7.4 gm/dl (6.4-8.2) 09/05/20 17:04 Albumin 3.5 gm/dl (3.4-5.0) 09/05/20 17:04 Globulin 3.9 gm/dl (2.5-4.0) 09/05/20 17:04 Albumin/Globulin Ratio 0.9 (0.9-2) 09/05/20 17:04 COVID-19 Eval Order Covid19 IDNow [facility] 09/05/20 18:30 SARS-CoV-2, RNA, NAAT NEGATIVE (NEGATIVE) 09/05/20 18:30 Code Status & VTE Plan VTE Prophylaxis Plan VTE Prophylaxis will be ordered: Yes Supervising Physician Co-Signing Physician Notes Attending addendum: I have physically seen this patient, have supervised the medical residents activities, and agree with the H&P unless as otherwise noted. 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 Jacome as outpatient Stroke without TPA order set protocol Consult PT/OT/speech/neurology Hyperlipidemia continue Zetia 10 mg daily Should be placed on high-dose statin unless has had previous issues in the past, needs to be verified CAD/hypertension/status post CABG/status post AAA repair- Continue metoprolol, Imdur and Lasix GIUSEPPE- Continue CPAP at bedtime Remaining orders and notations as noted Resident Activity Tracking Resident Involvement: Resident Care Provided Care Provided: Adult Hospital Medicine (1) HTN (hypertension) Hypertension type: unspecified Qualified Code(s): I10 - Essential (primary) hypertension
[2020-09-05] MEDS ORDERED: PHARMACIST DISCHARGE MED REC CONSULT PRN (21:59)
[2020-09-05] MEDS ORDERED: ALBUTEROL HFA 8 GM INHALER INH PRN (21:59)
[2020-09-05] MEDS ORDERED: NITROGLYCERIN SL 0.4 MG/TAB TAB SL PRN (21:59)
[2020-09-05] MEDS ORDERED: MELATONIN 3 MG TAB PO SCH (22:15)
[2020-09-05] MEDS: METOPROLOL TARTRATE 25 MG TAB PO SCH (22:47)
[2020-09-05] MEDS: ISOSORBIDE MONO EXTENDED REL 60 MG TABCR PO SCH (22:47)
[2020-09-05] MEDS ORDERED: diphenhydrAMINE 50 MG/ML VIAL IV PRN (23:05)
[2020-09-06 07:12] LABS: Basophils # (auto) 0.04 K/uL (0-0.2); Basophils % (auto) 0.6 %; Eosinophils # (auto) 0.51 K/uL (0-0.5); Hemoglobin 13.9 g/dL (14.0-18.0); Immature Granulocytes # (auto) 0.02 K/uL (0.00-0.02); Immature Granulocytes % (auto) 0.3 %; Lymphocytes # (auto) 1.58 K/uL (1.2-3.4); Lymphocytes % (auto) 21.8 %; Mean Corpuscular Hemoglobin 33.5 pg (25-34); Mean Corpuscular Hgb Conc 34.8 g/dL (32-36); Mean Corpuscular Volume 96.4 fL (80-100); Mean Platelet Volume 10.3 fL (7.4-10.4); Monocytes # (auto) 0.88 K/uL (0.11-0.59); Monocytes % (auto) 12.2 %; Neutrophils # (auto) 4.21 K/uL (1.4-6.5); Neutrophils % (auto) 58.1 %; Platelet Count 197 K/uL (130-400); RDW Coefficient of Variation 12.8 % (11.5-14.5); RDW Standard Deviation 44.5 fL (36.4-46.3); Red Blood Count 4.15 M/uL (4.7-6.1); White Blood Count 7.24 K/uL (4.8-10.8)
[2020-09-06 07:19] LABS: Estimated Average Glucose 114 mg/dl; Hemoglobin A1C 5.6 % (4.5-5.6)
[2020-09-06 07:43] LABS: BUN Creatinine Ratio 18.8 (10-20); Calcium 8.7 mg/dl (8.5-10.1); Creatinine Clr Calc Pharmacy 56.4 ml/min; Est GFR (African American) 73.5; Est GFR (Non-African American) 63.4; Potassium 4.1 mmol/L (3.5-5.1)
[2020-09-06] MEDS: ISOSORBIDE MONO EXTENDED REL 60 MG TABCR PO SCH (08:07)
[2020-09-06] MEDS: METOPROLOL TARTRATE 25 MG TAB PO SCH (08:08)
[2020-09-06] MEDS ORDERED: POTASSIUM CHLORIDE CRTAB 20 MEQ TABCR PO SCH (09:00)
[2020-09-06] MEDS ORDERED: CHOLECALCIFEROL 1,000 UNITS 25 MCG TAB PO SCH (09:00)
[2020-09-06] MEDS ORDERED: FLUTICASONE FUROATE 100MCG 14 PUFFS/INHALER INH SCH (09:00)
[2020-09-06] MEDS ORDERED: UMECLIDINIUM/VILANTEROL 62.5/25MCG 7 PUFFS/INHALER INH SCH (09:00)
[2020-09-06] MEDS ORDERED: FUROSEMIDE 40 MG TAB PO SCH (09:00)
[2020-09-06] MEDS ORDERED: CLOPIDOGREL BISULFATE 75 MG TAB PO SCH ×2 (09:00)
[2020-09-06] MEDS ORDERED: DOCUSATE SODIUM 100 MG CAP PO SCH (09:00)
[2020-09-06] MEDS ORDERED: EZETIMIBE 10 MG TABLET PO SCH (09:00)
[2020-09-06] MEDS ORDERED: NON-FORMULARY MEDICATION (Coq10 (Ubiquinol) 200 mg Capsule) PO SCH (09:00)
[2020-09-06] MEDS ORDERED: ENOXAPARIN INJ 40 MG/0.4 ML SYR SQ SCH (09:00)
[2020-09-06] MEDS ORDERED: MULTIVITAMIN TAB PO SCH (09:00)
[2020-09-06] MEDS ORDERED: POLYETHYLENE (MIRALAX) 17 GM PACK PO SCH (09:00)
--- NOTE | 2020-09-06 13:38 | Neurology Consultation ---
Date of Consultation September 06, 2020 Assessment & Plan (1) Ischemic stroke of frontal lobe: Tevin Green is an 85 yo man w/ PMH of HTN, HLD, CAD s/p CABG, COPD, AAA s/p repair, h/o tobacco abuse, MCI and h/o partial colectomy who p/t [facility] after outpatient MRI brain identified a subacute infarct. Symptom localization: Stroke mechanism: cardioembolic vs vessel to vessel embolus Stroke WorkUp: - CTA head/neck: shows diffuse intracranial atherosclerosis, diffuse calcified plaque of bilateral carotid bifurcations with mild bilateral ICA stenosis noted, several small 2 to 3 mm aneurysms of both the supraclinoid right and supraclinoid left ICA noted, no LVO or high-grade stenosis noted - MRI brain: shows subacute infarct in the posterior right frontal lobe, chronic infarct in the right putamen, moderate SVID, mild generalized atrophy with ex vacuo dilation, no microhemorrhages - TTE: pending - Telemetry: pending - A1c: 5.6 - FLP: 93 - Troponin, TSH: negative, WNL Stroke Management: - Acute treatment: ASA - Continuous cardiac monitoring, will consider Holter monitor as outpatient if telemetry here unrevealing - Vitals, Neurochecks, NIHSS per unit routine - BP parameters: SBP CAP 180, continue home anti-hypertensives - Complete ischemic stroke workup with TTE without bubble - Consult speech, PT, OT for supportive management - Will school adjustment counselor concerning stroke education, smoking cessation, healthy diet, physical activity, weight loss - Follow up with PCP for assistance with outpatient goals (BP <130/80, LDL <70, A1c <7) - Follow up in neurology clinic in 6-8 weeks with JENNIFER Ha, or Dr Jacome (does have an upcoming appointment with him later this month) Secondary Stroke Prevention: - Antiplatelet: ASA 81mg po daily/Plavix 75mg daily x 21 days per [facility]ANCE trial, then plavix 75mg daily - Anticoagulation: Not indicated at this time - Statin: Atorvastatin 40mg daily (could decrease to 10mg or 20mg dose if myalgias recur) HTN: - BP parameters, as above - Continue home medications with goal of lowering BP to normotension over next 3-4 days FEN/GI: - Diet: Cardiac HH diet and PO meds given absence of bulbar signs or symptoms - Monitor lytes and replete PRN Glucose Control: - Sliding scale insulin and accuchecks per primary team to avoid hyperglycemia Thank you for this interesting consult. Plan of care was discussed with primary team. Please call with any questions. 45 minutes was spent [id number] with patient, with more than 50% spent on counseling/coordination of care. (2) HTN (hypertension): (3) History of quadruple bypass: (4) Aortic stenosis: History of Present Illness Attending Physician: Jorge Quinteros MD History of Present Illness Tevin Green is an 85 yo man w/ PMH of HTN, HLD, CAD s/p CABG, COPD, AAA s/p repair, h/o tobacco abuse, MCI and h/o partial colectomy who p/t [facility] after outpatient MRI brain identified a subacute infarct. In the ED, he was afebrile, BP 173/74, heart rate 72, respiratory rate 18, satting 94% on room air. Labs notable for WBC 7.02, hemoglobin 14.9, platelets 206, electrolytes within normal, BUN 24, creatinine 1.09, glucose 89, INR 1.0, LFTs within normal, troponin negative, Covid negative. Imaging independently reviewed. MRI brain shows subacute infarct in the posterior right frontal lobe, chronic infarct in the right putamen, moderate SVID, mild generalized atrophy with ex vacuo dilation, no microhemorrhages. CTA head and neck shows diffuse intracranial atherosclerosis, diffuse calcified plaque of bilateral carotid bifurcations with mild bilateral ICA stenosis noted, several small 2 to 3 mm aneurysms of both the supraclinoid right and supraclinoid left ICA noted, no LVO or high-grade stenosis noted. On examination, he reports that he had a transient episode of vertigo a few weeks ago but denies any numbness, tingling, weakness, vision changes or other stroke like symptoms recently. Had the MRI performed yesterday per Dr Jacome's workup of MCI. Endorses taking an aspirin 325mg daily at home with no missed doses. Reports having myalgias with prior statin use (hence is on zetia at home). Patient Features: Admission NIHSS: 0 Admission Modified [place] Scale: 0-1 Time patient last seen well: unknown Wake up stroke: unknown Intubation status: Not intubated Stroke Risk Factors: Hypertension: Y Hyperlipidemia: Y Atrial Fib: N Tobacco: Y Diabetes: N Taking NOAC or warfarin: N Allergies Allergy/AdvReac Type Severity Reaction Status Date / Time naproxen [From Naprosyn] Allergy Severe Anaphylaxis Verified 09/05/20 19:07 NSAIDS (Non-Steroidal Allergy Severe Anaphylaxis Verified 09/05/20 19:07 Anti-Inflamma Home Medications Medication Instructions Recorded Confirmed Type coQ10 (ubiquinol) 400 mg PO QAM 10/07/18 09/05/20 History docusate sodium 100 mg PO QAM 10/07/18 09/05/20 History ezetimibe 10 mg PO QAM 10/07/18 09/05/20 History multivitamin 1 tab PO QAM 10/07/18 09/05/20 History nitroglycerin 0.4 mg SUBLINGUAL DIRECTED PRN 10/07/18 09/05/20 History polyethylene glycol 3350 [Miralax] 1 dose PO QAM 10/07/18 09/05/20 History potassium chloride 20 meq PO QAM 10/07/18 09/05/20 History albuterol sulfate 90 mcg/actuation 2 puffs INHALATION Q4H PRN gm 02/15/19 09/05/20 History aerosol inhaler cholecalciferol (vitamin D3) 25 1,000 unit PO QAM tab 02/15/19 09/05/20 History mcg (1,000 unit) tablet furosemide 40 mg tablet 40 mg PO QAM tab 02/15/19 09/05/20 History isosorbide mononitrate 60 mg 60 mg PO BID tab 02/15/19 09/05/20 History tablet,extended release 24 hr melatonin 5 mg tablet 5 mg PO HS tab 02/15/19 09/05/20 History resveratrol 50 mg capsule 50 mg PO BID cap 02/15/19 09/05/20 History fluticasone fur. 100 mcg-umeclid 1 inh INH QAM #60 ea 05/29/20 09/05/20 Rx 62.5 mcg-vilant 25 mcg inhalat.powder [place] 250 mcg INTRA-URETHRAL DIRECTED 09/05/20 09/05/20 History PRN clopidogrel 75 mg tablet 75 mg PO DAILY #30 tab 09/05/20 09/05/20 Rx metoprolol tartrate 25 mg PO BID 09/05/20 09/05/20 History aspirin 81 mg PO DAILY #30 tab 09/06/20 Rx atorvastatin 40 mg PO HS #30 tab 09/06/20 Rx Patient History Medical History Abdominal aortic aneurysm PT NOT AWARE OF DETAILS Acute CVA (cerebrovascular accident) Asthma PT DENIES >SAYS JUST EMPHYSEMA DDD (degenerative disc disease) PT UNAWARE Diverticulosis Emphysema lung RARE RES. INH USE History of trigger finger WITH RELEASE RIGHT HAND Hypertension Mitral valve problem NO ISSUE CURRENTLY > FOLLOWS TUCKER YUANIN ([place]) Myocardial infarction 2014 WENT TO [place] Osteoarthritis Sleep apnea BI PAP > FOLLOWS DR. CHEN Surgical History Difficult intubation PT STATES THIS WAS MENTIONED DURING PROSTATE SURGERY 1995 > ([facility]) BUT DOENS'T RECALL SPECIFIC DETAILS > HAS NOT BEEN MENTIONED AGAIN TO PATIENT SINCE H/O prostatectomy History of arthroscopy RIGHT SHOULDER History of cardiac cath 2014 [facility] > NO STENTS History of colonoscopy History of meniscectomy of left knee History of partial colectomy 1995 History of quadruple bypass 2014 > [place] > FOR HEART ATTACK > NO STENTS History of tonsillectomy History of tooth extraction S/P bronchoscopy with biopsy (07/29/19) Navigational Bronchoscopy with Biopsy Dr. Gaviria 07-29-19 S/P hernia surgery Family History Father , in his early 80s of senile dementia of the Alzheimer's type Heart disease Alzheimer disease Brother Back problem Grandmother (Paternal) Dementia Mother , in her 90s of urinary issues No problems noted. 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 Former [employer] Feels Safe at Home: Yes Assistive Devices: Glasses Review of Systems Review of Systems: 14 point review of systems completed and negative except as in HPI. Exam (Neuro) Physical Exam: General Exam: GEN: NAD, sitting down in examination bed. HEENT: No conjunctival injection, no rhinorrhea. CV: RRR on monitor, no significant edema. PULM: Nonlabored respirations on room air. Neuro Exam: MS: Awake and Alert. Oriented to person, place, and date. Speech fluent and appropriate without dysarthria or paraphasic errors. Language intact including naming, comprehension, repetition. Cognition and memory grossly intact. Attention intact. No neglect. CN: Visual johnson full, + blink to threat bilaterally. No extinction to double simultaneous stimuli. Normal fundoscopic exam. PERRLA OU. EOMI without nystagmus. Facial sensation intact to LT. Facial muscles full and symmetric. Hearing intact to finger rub bilaterally. Uvula midline with symmetric palatal elevation. SCMs and shoulder shrug normal. Tongue midline. MOTOR: Normal bulk and tone. No pronator drift. BUE strength 5/5 at deltoids, biceps, triceps, wrist flexors and extensors, and finger flexors bilaterally. BLE strength 5/5 at iliopsoas, hamstrings, quadriceps, tibialis anterior, and gastrocnemius bilaterally. REFLEXES: 1+ at biceps, triceps, brachioradialis, trace patella, and absent Achilles bilaterally. Flexor plantar responses bilaterally. SENSORY: Intact to LT/virbation throughout, no extinction to double simultaneous stimuli. COORDINATION: No dysmetria or ataxia on [id number] bilaterally. Normal Frieda bilaterally. GAIT: Deferred due to physical status. NIH STROKE SCALE 1A. Level of Consciousness (0-3) = 0 1B. LOC Questions (0-2) = 0 1C. LOC Commands (0-2) = 0 2. Best Horizontal Gaze (0-2) = 0 3. Visual Johnson (0-3) = 0 4. Facial Palsy (0-3) = 0 5. Motor Arm Right (0-4) = 0 Left (0-4) = 0 6. Motor Leg Right (0-4) = 0 Left (0-4) = 0 7. Limb Ataxia (0-2) = 0 8. Sensory (0-2) = 0 9. Best Language (0-3) = 0 10. Dysarthria (0-2) = 0 11. Extinction and Inattention (0-2) = 0 NIHSS TOTAL = 0 Results & Data ([facility]) Vital Signs (Past 12 Hours) Vital Signs Temp Pulse Pulse Resp BP BP Pulse Ox 09/06/20 11:18 36.3 C L 50 L 18 116/59 L 93 09/06/20 08:05 36.4 C L 60 20 168/71 H 95 09/06/20 07:18 66 09/06/20 04:11 36.2 C L 64 20 143/70 H 96 PG Care Time/CCT Total # of Minutes Spent Total Time Spent with Patient: Total time spent is greater than 50% in coordination of care (as documented) at patient's floor/unit and/or counseling patient: Coding Level of Care Code 10009 Office/Outpt Visit, Est Diagnoses Ischemic stroke of frontal lobe I63.9 HTN (hypertension) I10 Hypertension type: unspecified History of quadruple bypass Z95.1 Aortic stenosis I35.0 (1) HTN (hypertension) Hypertension type: unspecified Qualified Code(s): I10 - Essential (primary) hypertension
--- NOTE | 2020-09-06 15:04 | XCELERA ---
[id number]
--- NOTE | 2020-09-06 15:12 | Electrocardiogram Report ---
Test Reason : Blood Pressure : / mmHG Vent. Rate : 058 BPM Atrial Rate : 058 BPM P-R Int : 300 ms QRS Dur : 130 ms QT Int : 424 ms P-R-T Axes : 048 -48 043 degrees QTc Int : 416 ms Sinus bradycardia with 1st degree A-V block with occasional Premature ventricular complexes and Anitra ture atrial complexes Left bundle branch block Abnormal ECG When compared with ECG of 07-OCT-2018 13:25, Premature ventricular complexes are now Present Premature atrial complexes are now Present Confirmed by Ruben Lomas ([id number]) on 09/06/2020 3:12:04 PM Referred By: REFERRED SELF Confirmed By:Ruben Lomas
[2020-09-06] MEDS ORDERED: STROKE PATIENT DISCHARGE PRN (16:02)
--- NOTE | 2020-09-06 16:33 | Pharmacy Report ---
Pharmacist Stroke Counseling - Date of Service September 06, 2020 - Scope: Pharmacy has been consulted to provide medication discharge counseling for this patient admitted with ischemic stroke as per the Pharmacist Discharge Counseling for Stroke Patients Protocol. - Medications on Discharge: Home Medications Medication Instructions Recorded Confirmed coQ10 (ubiquinol) 400 mg PO QAM 10/07/18 09/05/20 docusate sodium 100 mg PO QAM 10/07/18 09/05/20 ezetimibe 10 mg PO QAM 10/07/18 09/05/20 multivitamin 1 tab PO QAM 10/07/18 09/05/20 nitroglycerin 0.4 mg SUBLINGUAL DIRECTED PRN 10/07/18 09/05/20 polyethylene glycol 3350 [Miralax] 1 dose PO QAM 10/07/18 09/05/20 potassium chloride 20 meq PO QAM 10/07/18 09/05/20 albuterol sulfate 90 mcg/actuation 2 puffs INHALATION Q4H PRN gm 02/15/19 09/05/20 aerosol inhaler cholecalciferol (vitamin D3) 25 1,000 unit PO QAM tab 02/15/19 09/05/20 mcg (1,000 unit) tablet furosemide 40 mg tablet 40 mg PO QAM tab 02/15/19 09/05/20 isosorbide mononitrate 60 mg 60 mg PO BID tab 02/15/19 09/05/20 tablet,extended release 24 hr melatonin 5 mg tablet 5 mg PO HS tab 02/15/19 09/05/20 resveratrol 50 mg capsule 50 mg PO BID cap 02/15/19 09/05/20 [place] 250 mcg INTRA-URETHRAL DIRECTED 09/05/20 09/05/20 PRN metoprolol tartrate 25 mg PO BID 09/05/20 09/05/20 New Rx's Medication Instructions Recorded fluticasone fur. 100 mcg-umeclid 1 inh INH QAM #60 ea 05/29/20 62.5 mcg-vilant 25 mcg inhalat.powder clopidogrel 75 mg tablet 75 mg PO DAILY #30 tab 09/05/20 aspirin 81 mg PO DAILY #30 tab 09/06/20 atorvastatin 40 mg PO HS #30 tab 09/06/20 - Action: The above medications, specifically ones for stroke treatment/prophylaxis, have been reviewed in detail with the patient prior to discharge. This includes indication, common adverse reactions, drug interactions, and medication administration. Medication counseling has been employed using the teach-back method to ensure understanding. - Outcome: The patient demonstrated understanding of the medications. Additional comments: Spoke to patient over the phone and briefly discussed all his meds. Explained that he would be on ASA + Plavix for 21 days then only Plavix. Discussed common side effects of being on Atorvastatin and food interactions. Pt verbalized understanding. Thank you for allowing pharmacy to be involved in the care of this patient. Please call [phone] with any additional questions
[2020-09-06] MEDS ORDERED: Nursing to Pharmacy Communication STA (16:39)
--- NOTE | 2020-09-06 17:53 | Discharge Summary ---
Date of Service September 06, 2020 Principal Diagnosis Subacute frontal stroke Discharge Exam Constitutional WD/WN, vitals as above Eyes EOM intact bilaterally; no conjunctival abnormality ENMT external ear and nose normal, oropharynx normal Neck trachea midline, no thyromegaly normal visual inspection Respiratory normal respiratory effort, lungs clear to auscultation no respiratory distress Cardiovascular RRR, no murmur, no edema Gastrointestinal (Abdomen) Inspection/Auscultation: abdomen normal to inspection; abdomen not distended Musculoskeletal no cyanosis or clubbing, extremities motor strength 5/5 Skin no rashes, warm and dry Neurologic moves all extremities and awake Psychiatric Orientation: alert, oriented to person and cooperative Discharge Data Allergies Allergy/AdvReac Type Severity Reaction Status Date / Time naproxen [From Naprosyn] Allergy Severe Anaphylaxis Verified 09/05/20 19:07 NSAIDS (Non-Steroidal Allergy Severe Anaphylaxis Verified 09/05/20 19:07 Anti-Inflamma Consultations 09/05/20 18:38 ED Decision to Admit Stat 09/05/20 21:59 Consult Case Management - Discharge Planning Routine Consult Neurology Routine Ordered Studies 09/05/20 16:38 CT angio head w con Stat CT angio neck with con Stat Hospital Course (1) Ischemic stroke of frontal lobe: Tevin Green is an 85 yo man w/ PMH of HTN, HLD, CAD s/p CABG, COPD, AAA s/p repair, h/o tobacco abuse, MCI and h/o partial colectomy who p/t [facility] after outpatient MRI brain identified a subacute infarct. Sent to the hospital after MRI showed a subacute frontal stroke. Only symptom was a possible sensation of vertigo about 2 weeks ago. 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 * Possible outpatient Holter per cardiology if any concern for afib. None seen in the hospital. * Will follow up with Dr. Rivera in 1-2 weeks in clinic for his right carotid stenosis. Given the vertigo as a fairly non-localizing symptom, it is not clear if this would be considered symptomatic or not. (2) HTN (hypertension): - continue metoprolol, imdur, lasix (3) History of quadruple bypass: (4) Aortic stenosis: Total Time Total Time Spent Total Time Spent (In Minutes): 35 Discharge Plan Discharge Items Patient Disposition: Home - Self-Care Reason For Visit: CVA Discharge Diagnosis: Subacute stroke Activity: Resume your previous activity Non-emergency contact: Primary Care Provider, Surgeon, Gas Jockey and Neurologist Call non-emergency contact if: your symptoms worsen Follow-up/Referrals: Oscar Olson [Primary Care Provider] - Jesse Rivera MD [Physician] - (Please see Dr. Rivera in the clinic in 1-2 weeks for follow up of your carotid stenosis.) Diet: Heart Healthy Addtl Attending Provider Instructions: Mr. Green, You were admitted to the hospital after an MRI showed that you had a sub-acute stroke (meaning a stroke some number of weeks ago). This may have corresponded to your episode of vertigo, though we can't tell for certain. We did blood work and further testing of your heart and the arteries that supply your brain. Your lab work looks good overall with good cholesterol (LDL < 100 mg/dL) and a normal A1c (which is a test for diabetes). I discussed your case with Drs. Conley and Nicole. Your echocardiogram of the heart was stable from priors in Dr. Conley's office. Dr. Conley does not see any issues at present with your heart. You can follow up with him at your regularly scheduled appointment. Dr. Rivera did not feel your carotid artery stenosis warranted emergency inpatient intervention. He would like you to follow up in 1-2 weeks in his clinic. For the next 3 weeks, you should take BOTH aspirin and Plavix. After 3 weeks (September 27, 2020), you should STOP the aspirin and only continue taking the Plavix. Please follow up with Dr. Jacome in his office in 3-4 weeks to be sure you are doing well. We would like to send you with a script for atorvastatin which can help lower your cholesterol further. Pending Studies at Discharge: No Stand-Alone Forms: Medications to Prevent Stroke, My [facility] [email or web address], Smoking Cessation Medications and DC Order Prescriptions: New aspirin 81 mg tablet,delayed release (DR/EC) 81 mg PO DAILY Qty: 30 RF: 0 atorvastatin 40 mg tablet 40 mg PO HS Qty: 30 RF: 0 Continued Trelegy Ellipta 100-62.5-25 mcg blister with device 1 inh INH QAM Qty: 60 RF: 6 clopidogrel 75 mg tablet 75 mg PO DAILY Qty: 30 RF: 2 resveratrol 50 mg capsule 50 mg PO BID RF: 0 melatonin 5 mg tablet 5 mg PO HS RF: 0 cholecalciferol (vitamin D3) 1,000 unit (25 mcg) tablet 1,000 unit PO QAM RF: 0 albuterol sulfate 90 mcg/actuation HFA aerosol inhaler 2 puffs inhalation Q4H PRN (Reason: Shortness Of Breath) RF: 0 isosorbide mononitrate 60 mg tablet extended release 24 hr 60 mg PO BID RF: 0 furosemide 40 mg tablet 40 mg PO QAM RF: 0 multivitamin Tablet 1 tab PO QAM RF: 0 potassium chloride 20 mEq tablet,ER particles/crystals 20 meq PO QAM RF: 0 nitroglycerin 0.4 mg tablet, sublingual 0.4 mg sublingual DIRECTED PRN (Reason: Chest Pain) RF: 0 docusate sodium 100 mg Capsule 100 mg PO QAM RF: 0 polyethylene glycol 3350 [Miralax] 17 gram/dose Powder 1 dose PO QAM RF: 0 ezetimibe 10 mg tablet 10 mg PO QAM RF: 0 coQ10 (ubiquinol) 200 mg Capsule 400 mg PO QAM RF: 0 metoprolol tartrate 25 mg tablet 25 mg PO BID RF: 0 [place] 250 mcg suppository 250 mcg intra-urethral DIRECTED PRN (Reason: Erectile Dysfunction) RF: 0 Discharge Orders: Discharge Order (Routine); Ordered 09/06/20 Ordered By: Jorge Quinteros Admission Data Admit Date/Time: 09/05/20 20:16 Attending Provider: Jorge Quinteros Admit Provider: Beena Zazueta Primary Care Provider: Oscar Olson Other Providers: Gemini Watson ; Jorge Quinteros Other Interventions: Discharge Summary Assessment (RN) Last Done: 09/06/20 16:02 Coding Level of Care Code D/C Day Management >30 mins Diagnoses Ischemic stroke of frontal lobe I63.9 HTN (hypertension) I10 Hypertension type: unspecified History of quadruple bypass Z95.1 Aortic stenosis I35.0
--- NOTE | 2020-09-06 20:04 | Billing Data ---
Date of Service September 06, 2020 Coding Level of Care Code 17627 OBS Care - Level 3
== END 2020-09-06 17:04 | disposition home or self-care (01) | DRG 66 ==
LOC: ED 16:20 → 2W 20:16 → INTOOBSV 20:16 → SUATTDRO 20:16 → 2W 21:27

== ENCOUNTER 2020-09-15 08:13 | Inpatient (IN) ==
--- NOTE | 2020-09-12 10:19 | Anesthesiology Consultation ---
Date of Service September 12, 2020 Assessment & Plan (1) Encounter for pre-operative examination: - Per assessment on 09/12: Travel screen negative. No known COVID-19 positive contacts or current COVID-19 related symptoms. Surgeon arranging preop COVID testing (scheduled 09/12). Awaiting results. - Difficult intubation: Per patient mentioned difficult intubation with 1996 prostate surgery > subsequent EBUS, navagational bronchoscopy (07/29/19) at [facility] with Grade view 1, Glidescope#4, ETT 8.5 at [facility] - *Recent CVA* 09/05/20 *([facility]). No deficits. Workup led to upcoming carotid surgery scheduling. Chart Review Chart Review: Acceptable Risk for Surgery (pending evaluation AM DOS) and Patient NOT seen in Pre Admission Testing History Surgery Operation Date: 09/15/20 10:25 Proposed Procedures p Right Carotid Endarterectomy - Jesse Rivera MD Height/Weight Height: 6 ft Weight: 78.925 kg Allergies Allergy/AdvReac Type Severity Reaction Status Date / Time naproxen [From Naprosyn] Allergy Severe Anaphylaxis Verified 09/12/20 08:59 NSAIDS (Non-Steroidal Allergy Severe Anaphylaxis Verified 09/12/20 08:59 Anti-Inflamma Medications Home Medications Medication Instructions Recorded Confirmed Last Taken coQ10 (ubiquinol) 400 mg PO QAM 10/07/18 09/12/20 09/05/20 docusate sodium 100 mg PO QAM 10/07/18 09/12/20 09/05/20 ezetimibe 10 mg PO QAM 10/07/18 09/12/20 09/05/20 multivitamin 1 tab PO QAM 10/07/18 09/12/20 09/05/20 nitroglycerin 0.4 mg SUBLINGUAL DIRECTED PRN 10/07/18 09/12/20 Unknown polyethylene glycol 3350 [Miralax] 1 dose PO QAM 10/07/18 09/12/20 09/05/20 potassium chloride 20 meq PO QAM 10/07/18 09/12/20 09/05/20 albuterol sulfate 90 mcg/actuation 2 puffs INHALATION Q4H PRN gm 02/15/19 09/12/20 Unknown aerosol inhaler cholecalciferol (vitamin D3) 25 1,000 unit PO QAM tab 02/15/19 09/12/20 09/05/20 mcg (1,000 unit) tablet furosemide 40 mg tablet 40 mg PO QAM tab 02/15/19 09/12/20 09/05/20 isosorbide mononitrate 60 mg 60 mg PO BID tab 02/15/19 09/12/20 09/05/20 tablet,extended release 24 hr AM DOSE melatonin 5 mg tablet 5 mg PO HS tab 02/15/19 09/12/20 09/04/20 resveratrol 50 mg capsule 50 mg PO BID cap 02/15/19 09/12/20 09/05/20 AM DOSE fluticasone fur. 100 mcg-umeclid 1 inh INH QAM #60 ea 05/29/20 09/12/20 09/05/20 62.5 mcg-vilant 25 mcg inhalat.powder [place] 250 mcg INTRA-URETHRAL DIRECTED 09/05/20 09/12/20 Unknown PRN clopidogrel 75 mg tablet 75 mg PO DAILY #30 tab 09/05/20 09/12/20 Unknown metoprolol tartrate 25 mg PO BID 09/05/20 09/12/20 09/05/20 AM DOSE aspirin 81 mg PO DAILY #30 tab 09/06/20 09/12/20 Unknown atorvastatin 40 mg PO HS #30 tab 09/06/20 09/12/20 Unknown Past Medical History Medical History Abdominal aortic aneurysm under surveillance by vascular (Dr. Rivera) Acute CVA (cerebrovascular accident) 09/05/2020 ([facility]) > no deficits Aortic stenosis Moderate aortic stenosis (SARAH 1.3 to 1.4 cm, mean gradient 12.7 mmHg) per 09/06/20 echo CAD (coronary artery disease) s/p CABG x4 (2014) Carotid stenosis DDD (degenerative disc disease) per records Emphysema lung stable History of prostate cancer Hyperlipidemia Hypertension Myocardial Infarction 2014 Osteoarthritis Sleep apnea BIPAP Past Family History Family History Father , in his early 80s of senile dementia of the Alzheimer's type Alzheimer disease Heart disease Brother Back problem Grandmother (Paternal) Dementia Mother , in her 90s of urinary issues No problems noted. Other No family history of adverse response to anesthesia Past Surgical History Surgical History (Updated 09/12/20 @ 10:15 by Sydney Hawley) Difficult intubation Per patient mentioned difficult intubation with 1995 prostate surgery > subsequent EBUS, navagitional bronchoscopy (07/29/19) at [facility] with Grade view 1, Glidescope#4, ETT 8.5 at [facility] H/O prostatectomy H/O vascular surgery Left leg seroma excision History of arthroscopy Right shoulder History of cardiac cath 2014 > no stents History of colonoscopy History of coronary artery bypass graft CABG x4 (12/2014) > 12/07/2014: LEVY-LAD; SVG-RCA ( with extensive endarterectomy of the RCA ); SVG-LAD diagonal; SVG-L Cx marginal History of herniorrhaphy History of meniscectomy of left knee History of partial colectomy History of tonsillectomy and adenoidectomy History of tooth extraction History of trigger finger Right trigger finger release S/P bronchoscopy with biopsy Navigational Bronchoscopy with Biopsy Social History Smoking Status: Former smoker tobacco type: cigarettes Do You Dip or Chew Tobacco: No Smoking End Date: 1995 Hx Alcohol Use: Yes Alcohol type: wine and hard liquor alcohol intake frequency: 0-2 drinks per day Hx Substance Use: No substance use type: does not use Testing Laboratory Results 09/06/20 WBC 7.24 H/H 13.9/40.0 PLATELETS 197 SODIUM 139 POTASSIUM 4.1 CHLORIDE 106 CO2 27 BUN 20 CREATININE 1.07 GLUCOSE 88 HGBA1C 5.6% 09/05/20 PT 10.1 PTT 23.9 INR 1.0 TSH 1.600 (WNL) Electrocardiogram Date: 09/05/20 Sinus bradycardia with first-degree AV block with occasional PVCs and PACs. Left bundle branch block. Subsequent echo done 09/06/2020. Chest X-Ray Date: 09/05/20 FINDINGS: Unchanged cardiomegaly with prior median sternotomy and CABG. Calcified plaque of the thoracic aorta. Emphysema with chronic interstitial coarsening. No pneumothorax, pleural effusion, airspace consolidation or overt pulmonary edema. Degenerative changes of the shoulders and spine. IMPRESSION: Chronic findings as above without acute process. Echocardiogram Date: 09/06/20 EF 55 to 60%. Mild concentric LVH. No regional wall motion abnormality. Mild to moderate MR. Mild TR. Moderate aortic stenosis (SARAH 1.3 to 1.4 cm, mean gradient 12.7 mmHg). Cardiac Catheterization Date: 02/22/15 EF 45%. Status post CABG 12/07/2014: LEVY - LAD; SVG - RCA ( with extensive endarterectomy of the RCA ); SVG - LAD daigonal; SVG - L Cx marginal. Post bypass dyspnea. Post bypass echo with new inferior wall motion abnormality and moderate mitral regurgitation. Summary of findings: Severe left main, proximal LAD, and proximal left circumflex stenoses. Total LAD diagonal and distal RCA occlusions. Occluded SVG to RCA. Patent SVG to LAD diagonal and patent SVG to left circumflex marginal. Patent LEVY graft to LAD. LV angiography with inferior akinesis. 1-2+ MR. LVEF 45%.Aortography with 1+ AR. > medical therapy recommended Other Testing Head/Neck CTA: 09/05/20: Subacute infarct of the right frontal lobe is better characterized on brain MRI study of same day. Severe mixed plaque of the bilateral carotid bulbs and proximal cervical segments of the internal carotid arteries results in approximately 70% stenosis on the right and less than 50% stenosis on the left. There are tiny saccular outpouching suggestive of small aneurysms involving the supraclinoid segments of the internal carotid arteries bilaterally measuring up to 3 mm. No high-grade stenosis or arterial occlusion identified. Brain MRI: 09/05/20: 2.4 cm T2 hyperintense focus within the right frontal lobe. Mild associated cortical enhancement and laminar necrosis. This suggests a solorzano bacute infarct. No mass effect. No acute hemorrhage. This finding will be called/faxed to the ordering provider at time of dictation. No intracranial mass. Moderate atrophy which accounts for mild ventricular dilatation. Numerous white matter T2 hyperintense foci suggestive of moderate small vessel disease.
--- NOTE | 2020-09-15 06:20 | History & Physical Report ---
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 Olson: I had the pleasure of seeing Mr. Gifty Reece in the Vascular Surgery office for a followup in regard to his abdominal aortic aneurysm and for carotid artery disease. As you know, this is a very pleasant 85-year-old gentleman, who is 8 years status post EVAR for asymptomatic infrarenal abdominal aortic aneurysm back in 2012. From that standpoint, he is doing quite well. He was last seen in our office in June 2020, at which time, his aneurysm sac had been 3.7 cm and unchanged. He presents today more so to discuss carotid artery disease in the setting of a recent cerebrovascular event. At some point in August, he had an episode of severe vertigo when he woke up at night. He describes that he crawled to the bathroom at that point. He was not having any difficulties with his vision and was not having any difficulties moving his arms or legs. He describes that the reason that he was crawling was because he was just quite unsteady on his feet. This was associated with the sudden urge to have a bowel movement. This was also associated with a sense of nausea. He made it back to his bed and went to sleep and then woke up a couple of hours later and was doing well. He only recalls this episode because recently he was seen by a neurologist. The reason he was seen by a neurologist is because he has a family history of dementia and is worried about some recent memory changes. He was seen by the neurologist in order to pursue any recommended workup in order to see if there is anything he could do to prevent any onset of dementia and to "keep his brain sharp." Part of this workup included a brain MRI, which was notable for a subacute right frontal lobe stroke. Again, he denied any episodes of difficulty with speech or swallow, facial droop, numbness, tingling, or weakness of his upper or lower extremities, or vision loss. The MRI during the stroke was performed back in last week at [facility]. He was seen by Neurology and started on aspirin and Plavix. On physical examination, his vital signs are as follows; heart rate 66, blood pressure 152/66, oxygen saturation 98% on room air. He is well appearing, well nourished, in no acute distress. He is awake, alert, and responds to questions appropriately. He is breathing comfortably on room air. His lungs are clear to auscultation bilaterally. There are no carotid bruits appreciated in the bilateral neck. On cardiac auscultation, he does have a murmur that is auscultated most prominently over the mitral region. His abdomen is soft, nontender, and nondistended. There are no palpable pulsatile abdominal masses. His bilateral legs are warm to the touch. His motor and sensory intact to the upper and lower extremities. Cranial nerves 2 through 12 are intact. In summary, this is a very pleasant 85-year-old gentleman, who is status post EVAR from 8 years ago for asymptomatic infrarenal abdominal aortic aneurysm. He continues to do well from this standpoint. He did suffer a recent stroke as evidenced by his subacute infarct on an MRI performed last week. This is in the setting of a 70% right proximal internal carotid artery stenosis. He is very anxious about this stenosis and the MRI findings of a stroke. He feels that he "is sitting on a ticking time bomb." Thus today, we did discuss with him a carotid endarterectomy. We discussed with him the risks of this procedure including stroke, heart attack, nerve injury, hematoma, wound infection. He indicates that he wishes to proceed with the procedure. We did obtain consent today in the office. We will schedule him for a right carotid endarterectomy as soon as we can get him into the operating room schedule. Thank you for allowing me to participate in the care of this patient. Please do not hesitate to contact me with questions or concerns. Sincerely, I saw and evaluated the patient. Discussed with the resident and agree with the resident's findings and plan as documented in the resident's note. Signature Line Electronic Signature on File CC: Oscar Olson MD [address] [id number] Adelina Connor MD Author Signature Dt/Tm: 09/13/2020 08:17 AM Resident Division of Vascular Surgery Electronically Reviewed/Signed by: Jesse Rivera MD Cosigner Signature Dt/Tm: 09/13/2020 08:13 AM Research Technologist Alexei Guzman [facility] [address], [address] [place] [address] ST /CO Result Type: .Outpt Ltr Date of Service: September 11, 2020 00:00 EST Authorization Status: Final Author or Import Date: MD Geeta, Adelina on September 11, 2020 15:26 EST Verified By: MD Nicole, Jesse Campos on September 13, 2020 08:13 EST Encounter info: [id number], [place] [address], Clinic, 09/11/2020 - 09/11/2020 Contributor system: [id number] Allergies Allergy/AdvReac Type Severity Reaction Status Date / Time naproxen [From Naprosyn] Allergy Severe Anaphylaxis Verified 09/12/20 08:59 NSAIDS (Non-Steroidal Allergy Severe Anaphylaxis Verified 09/12/20 08:59 Anti-Inflamma Home Medications Medication Instructions Recorded Confirmed Type coQ10 (ubiquinol) 400 mg PO QAM 10/07/18 09/12/20 History docusate sodium 100 mg PO QAM 10/07/18 09/12/20 History ezetimibe 10 mg PO QAM 10/07/18 09/12/20 History multivitamin 1 tab PO QAM 10/07/18 09/12/20 History nitroglycerin 0.4 mg SUBLINGUAL DIRECTED PRN 10/07/18 09/12/20 History polyethylene glycol 3350 [Miralax] 1 dose PO QAM 10/07/18 09/12/20 History potassium chloride 20 meq PO QAM 10/07/18 09/12/20 History albuterol sulfate 90 mcg/actuation 2 puffs INHALATION Q4H PRN gm 02/15/19 09/12/20 History aerosol inhaler cholecalciferol (vitamin D3) 25 1,000 unit PO QAM tab 02/15/19 09/12/20 History mcg (1,000 unit) tablet furosemide 40 mg tablet 40 mg PO QAM tab 02/15/19 09/12/20 History isosorbide mononitrate 60 mg 60 mg PO BID tab 02/15/19 09/12/20 History tablet,extended release 24 hr melatonin 5 mg tablet 5 mg PO HS tab 02/15/19 09/12/20 History resveratrol 50 mg capsule 50 mg PO BID cap 02/15/19 09/12/20 History fluticasone fur. 100 mcg-umeclid 1 inh INH QAM #60 ea 05/29/20 09/12/20 Rx 62.5 mcg-vilant 25 mcg inhalat.powder Brea 250 mcg INTRA-URETHRAL DIRECTED 09/05/20 09/12/20 History PRN clopidogrel 75 mg tablet 75 mg PO DAILY #30 tab 09/05/20 09/12/20 Rx metoprolol tartrate 25 mg PO BID 09/05/20 09/12/20 History aspirin 81 mg PO DAILY #30 tab 09/06/20 09/12/20 Rx atorvastatin 40 mg PO HS #30 tab 09/06/20 09/12/20 Rx Past Med/Surg History Medical History Abdominal aortic aneurysm under surveillance by vascular (Dr. Rivera) Acute CVA (cerebrovascular accident) 09/05/2020 ([facility]) > no deficits Aortic stenosis Moderate aortic stenosis (SARAH 1.3 to 1.4 cm, mean gradient 12.7 mmHg) per 09/06/20 echo CAD (coronary artery disease) s/p CABG x4 (2014) Carotid stenosis DDD (degenerative disc disease) per records Emphysema lung stable History of prostate cancer Hyperlipidemia Hypertension Myocardial Infarction 2014 Osteoarthritis Sleep apnea BIPAP Surgical History Difficult intubation Per patient mentioned difficult intubation with 1995 prostate surgery > subsequent EBUS, navagitional bronchoscopy (07/29/19) at [facility] with Grade view 1, Glidescope#4, ETT 8.5 at [facility] H/O prostatectomy H/O vascular surgery Left leg seroma excision History of arthroscopy Right shoulder History of cardiac cath 2014 > no stents History of colonoscopy History of coronary artery bypass graft CABG x4 (12/2014) > 12/07/2014: LEVY-LAD; SVG-RCA ( with extensive endarterecto my of the RCA ); SVG-LAD diagonal; SVG-L Cx marginal History of herniorrhaphy History of meniscectomy of left knee History of partial colectomy History of tonsillectomy and adenoidectomy History of tooth extraction History of trigger finger Right trigger finger release S/P bronchoscopy with biopsy Navigational Bronchoscopy with Biopsy Family History Father , in his early 80s of senile dementia of the Alzheimer's type Alzheimer disease Heart disease Brother Back problem Grandmother (Paternal) Dementia Mother , in her 90s of urinary issues No problems noted. 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
[~2020-09-15 08:13] MED LIST changes: -ALBU18002 INH; -ASPECOTC PO; -CALC-393 PO; -CHOL400T PO; -COEN1CAP32 PO; -DHA PO; -FLUT1INH INH; -ISOS30TA3 PO; +LACTATED RINGERS IV SCH; -LEVO-366 PO; -MELATAB2 PO; -METO25TA56 PO; -MOME6000 NAE; -NTRGSL/4 UT; -OMEG10007 PO; -OXYC-57 PO; -POLY335019 PO; -PSYL48.59 PO; -[UNRECOGNIZED DRUG - OTHER] PO; +ceFAZolin 1000MG 1,000 MG/7.5 ML SYR IV SCH
[2020-09-15] MEDS ORDERED: fentaNYL citrate 100 MCG/2 ML VIAL IV PRN (08:29)
[2020-09-15] MEDS ORDERED: ATROPINE SULFATE 0.1 MG/ML 10ML SYR IV PRN (08:29)
[2020-09-15] MEDS ORDERED: ONDANSETRON INJ 2 MG/ML 2 ML VIAL IV PRN ×2 (08:29→14:25)
[2020-09-15] MEDS ORDERED: ePHEDrine sulfate 50 MG/ML AMP IV PRN (08:29)
[2020-09-15] MEDS ORDERED: HYDROmorphone INJ 1 MG/ML SYRINGE IV PRN (08:29)
[2020-09-15] MEDS ORDERED: PROPOFOL IV EMULSION 10 MG/ML 20 ML VIAL IV ONE (09:33)
[2020-09-15] MEDS ORDERED: GLYCOPYRROLATE 0.2 MG/ML VIAL ONE (09:33)
[2020-09-15] MEDS ORDERED: NEOSTIGMINE METHYLSULFATE 5 MG/5 ML SYR ONE (09:33)
[2020-09-15] MEDS ORDERED: ROCURONIUM BROMIDE 10 MG/ML 5 ML VIAL IV ONE (09:33)
[2020-09-15] MEDS ORDERED: LIDOCAINE HCL 2% 2 ML VIAL/AMP(20MG/ML) INFIL ONE (09:33)
[2020-09-15] MEDS ORDERED: fentaNYL citrate 100 MCG/2 ML VIAL ONE ×2 (09:34)
[2020-09-15] MEDS ORDERED: BUPIVACAINE/EPINEPHRINE 0.5% MPF 1:200,000 30 ML VIAL ONE (09:44)
[2020-09-15] MEDS ORDERED: THROMBIN FOR SOLN 20000 UNIT KIT ONE (09:44)
[2020-09-15] MEDS ORDERED: GELATIN SPONGE SZ 100 ONE (09:44)
[2020-09-15] MEDS ORDERED: LIDOCAINE HCL 1% 20 ML VIAL ONE (09:44)
[2020-09-15] MEDS ORDERED: HEPARIN (PORCINE) 1000 UNIT/ML 10 ML (CATH LAB USE ONLY) ONE (09:44)
--- NOTE | 2020-09-15 11:07 | History & Physical Bridge Note ---
Date of Service September 15, 2020 History & Physical Bridge Note I have examined the patient, reviewed the History & Physical and in the interval since the performance of the History & Physical I have noted the following changes of clinical significance: no changes noted
[2020-09-15] MEDS ORDERED: NITROGLYCERIN 5 MG/ML 10 ML VIAL ONE (12:16)
[2020-09-15] MEDS ORDERED: ESMOLOL HCL INJ 10 MG/ML 10ML VIAL IV ONE (12:16)
[2020-09-15] MEDS ORDERED: MoRPHine SULFATE 4 MG/ML 1 ML CARP\\VIAL IV PRN (14:25)
[2020-09-15] MEDS ORDERED: ALPROSTADIL UR PRN (14:28)
[2020-09-15] MEDS ORDERED: ALBUTEROL HFA 8 GM INHALER INH PRN (14:28)
[2020-09-15] MEDS ORDERED: NITROGLYCERIN SL 0.4 MG/TAB TAB SL PRN (14:28)
--- NOTE | 2020-09-15 14:28 | Operative Report ---
Post Operative Report Pre & Post Diagnosis Operation Date: 09/15/20 10:10 Pre-Op Diagnosis: Right Carotid Artery Stenosis Post-Op Diagnosis: Right Carotid Artery Stenosis I identified the patient and participated in the time-out.: Yes Procedure Operation Date: 09/15/20 10:10 Actual Procedures p Right Carotid Endarterectomy(Right) - Jesse Rivera MD Surgeon Jesse Rivera MD [employer] Supervisor Adelina Simpson MD ; Lyly Reyna PA-C Estimated Blood Loss 225 Findings See Below Specimens Right carotid endarterectomy plaque, right neck lymph node Anesthesia Type General Complications none Disposition Accompanied Patient To Recovery: No Disposition: Surgical ICU Indications Tevin Green is an 85-year-old male with asymptomatic, high-grade carotid artery stenosis on the right. He presents for right carotid endarterectomy. Description of Procedure The patient was taken to the operating room and placed in supine position. After general anesthesia was accomplished the right-side of the neck was prepped and draped in a sterile manner. A team timeout was performed. A longitudinal neck incision was then made coursing along the medial border of the sternocleidomastoid muscle. The incision was taken down through the platysmal layer. The facial vein was identified, ligated, and divided. The common carotid artery was then seen. It was dissected free down to the omohyoid muscle. The dissection was carried upward until the external carotid artery and superior thyroid artery was seen. The superior thyroid artery was slung with a 2-0 silk suture. The external carotid was slung with a red rubber vessel loop. Next the dissection was carried up along the internal carotid artery. This was carried upward to beyond the area of narrowing. The hypoglossal nerve was seen and preserved. The patient was heparinized. After adequate heparinization was accomplished, the internal, external, and common carotid arteries were clamped. A longitudinal arteriotomy was started on the common carotid artery and extended upward along the internal carotid artery to a point beyond the area of narrowing. There was calcified plaque of the internal carotid artery origin causing approximately 85-90% narrowing. An external sundt shunt was then placed in the internal, followed by the common carotid artery and held in place with Lenin clamps. There was good back bleeding seen from the internal carotid artery. The endarterectomy was then started in the appropriate plane on the common carotid artery. This was carried upward and the external carotid was everted and endarterectomized. The endarterectomy was then carried up along the internal carotid artery till a nice feathering breakoff point was accomplished beyond the end of the plaque. The endarterectomy was then carried down further on the common carotid artery. At end of the arteriotomy, the plaque was then transected. Under loop magnification, all loose debris and flaps were removed. There is no distal flap seen at the end of the endarterectomy site. The arteriotomy then closed using an bovide pericardial patch and a running 6-0 prolene suture. This was done in the usual vascular fashion. Prior to completing the closure, the sundt shunt was removed and the internal and common carotid arteries were reclamped. Backbleeding and forward bleeding was allowed to occur. The flow surface was irrigated with heparinized saline. The final few sutures were then placed and securely tied. Clamps were then removed off the external and common carotid arteries. The clamp was then removed the internal carotid artery. Good distal flow was seen. Adequate hemostasis was seen of the patch. The wound was inspected and adequate hemostasis was obtained. The wound was irrigated with antibiotic solution. It was then closed with a running 3-0 Vicryl suture for the platysmal layer and a 4-0 subcuticular Vicryl suture for the skin edges. Dermabond was used for dressing. At the conclusion of the procedure, all needle, sponge and instrument counts were correct. The patient left the operating room in satisfactory condition and tolerated the procedure well. I attest to the content of the Intraoperative Record and any orders documented therein. Any exceptions are noted below.
[2020-09-15] MEDS ORDERED: LACTATED RINGER'S 1,000 ML IV SCH (14:30)
--- NOTE | 2020-09-15 14:31 | Post Operative Brief Note ---
Immediate Post Op Note v1 Date of Surgery September 15, 2020 Pre & Post Diagnosis Operation Date: 09/15/20 10:10 Pre-Op Diagnosis: Right Carotid Artery Stenosis Post-Op Diagnosis: Right Carotid Artery Stenosis I identified the patient and participated in the time-out.: Yes Procedure Operation Date: 09/15/20 10:10 Actual Procedures p Right Carotid Endarterectomy(Right) - Jesse Rivera MD Surgeon Jesse Rivera MD String Cutter Adelina Simpson MD ; Lyly Reyna PA-C Estimated Blood Loss 225 Findings Consistent with Post-Op Diagnosis Anesthesia Type General Complications none Disposition Accompanied Patient To Recovery: No Disposition: Recovery Room
[2020-09-15] MEDS ORDERED: HEPARIN SOD (PORCINE) 1000 UNIT/ML ONE (15:17)
--- NOTE | 2020-09-15 16:04 | Anesthesiology Progress Note ---
Date of Service September 15, 2020 Anesthesia Post Procedure Vital Signs Vital Signs: Temp Pulse Pulse Resp BP BP Pulse Ox 09/15/20 15:45 69 18 150/65 H 94 09/15/20 15:35 62 18 154/64 H 95 09/15/20 15:25 63 21 141/64 H 96 09/15/20 15:16 61 16 149/67 H 96 09/15/20 15:06 61 17 150/70 H 96 09/15/20 14:56 36.8 C 67 13 145/72 H 93 09/15/20 08:32 36.7 C 62 18 144/85 H 97 Transfer of Care Handoff Completed per policy Notes Mental Status: alert / awake / arousable and participated in evaluation Patient Amnestic to Procedure: Yes Nausea / Vomiting: adequately controlled Pain: adequately controlled Airway Patency, RR, SpO2: stable & adequate BP & HR: stable & adequate Hydration State: stable & adequate Anesthetic Complications: no major complications apparent and Pt Satisfied with anesthetic care Notes: Patient c/o left heel pain. Excellent pulses LLE. Appears hyperalgesia on posterior heel from patient position in OR. Also c/o mild chest discomfort. ECG done and failed to show any changes from preop ECG. Moving extremities x4. Tongue midline. Noted slight lip asymmetry but vascular surgeon spoke to patient and it appears he has a right sided (likely transient) marginal mandibular nerve palsy. Otherwise, patient answering questions appropriately. Report given to ICU physician.
--- NOTE | 2020-09-15 17:28 | Critical Care Consultation ---
Date of Consultation September 15, 2020 Assessment & Plan (1) Postop carotid endarterectomy surveillance, encounter for: Impression: 85-year-old male status post right carotid endarterectomy. He is doing well clinically. Recommendations: 1. Carotid endarterectomy: Management per vascular surgery. Continue blood pressure goals per vascular surgery. Will observe wound. 2. Potential compression of right submandibular/facial nerve. Continue to follow expectantly with expected improvement. 3. Hyperesthesia of the left heel. Unclear etiology. We will continue to follow for now. There are no other signs or symptoms which are worrisome at the current time. 4. History of COPD: Not bronchospastic currently. Continue inhalers as needed. 5. Coronary artery disease: Continue outpatient cardiovascular medications. EKG perioperatively unchanged. Ultimate disposition per vascular surgery. We will continue to follow during the ICU and make adjustments based on laboratory studies and clinical response. Thanks for the opportunity of participating in the care of this patient. Feel free to contact us if we can be of additional assistance History of Present Illness Attending Physician: Jesse Rivera MD History of Present Illness Asked by surgical service to evaluate this patient postoperative carotid endarterectomy who is being observed in the ICU. History is obtained from review electronic medical record as well as discussion with the patient. The patient is an 85-year-old male with a history of peripheral vascular disease. He had an episode in August where he had severe vertigo. He eventually was evaluated by neurology and had an MRI scan performed which revealed a subacute right frontal stroke. He was found to have a 70% right proximal internal carotid stenosis. He was seen in vascular surgery clinic and felt to be an appropriate candidate for carotid endarterectomy. He was taken to the OR and this was completed today. Postoperatively he had some slight drooping of the right nasolabial fold likely secondary to a local nerve paralysis from the surgery. He also has left heel hyperesthesia of unclear etiology. Otherwise he is doing well clinically. He is not requiring any pressor agents. Allergies Allergy/AdvReac Type Severity Reaction Status Date / Time naproxen [From Naprosyn] Allergy Severe Anaphylaxis Verified 09/15/20 08:59 NSAIDS (Non-Steroidal Allergy Severe Anaphylaxis Verified 09/15/20 08:59 Anti-Inflamma Home Medications Medication Instructions Recorded Confirmed Type coQ10 (ubiquinol) 400 mg PO QAM 10/07/18 09/15/20 History docusate sodium 100 mg PO QAM 10/07/18 09/15/20 History ezetimibe 10 mg PO QAM 10/07/18 09/15/20 History multivitamin 1 tab PO QAM 10/07/18 09/15/20 History nitroglycerin 0.4 mg SUBLINGUAL DIRECTED PRN 10/07/18 09/15/20 History polyethylene glycol 3350 [Miralax] 1 dose PO QAM 10/07/18 09/15/20 History potassium chloride 20 meq PO QAM 10/07/18 09/15/20 History albuterol sulfate 90 mcg/actuation 2 puffs INHALATION Q4H PRN gm 02/15/19 09/15/20 History aerosol inhaler cholecalciferol (vitamin D3) 25 1,000 unit PO QAM tab 02/15/19 09/15/20 History mcg (1,000 unit) tablet furosemide 40 mg tablet 40 mg PO QAM tab 02/15/19 09/15/20 History isosorbide mononitrate 60 mg 60 mg PO BID tab 02/15/19 09/15/20 History tablet,extended release 24 hr melatonin 5 mg tablet 5 mg PO HS tab 02/15/19 09/15/20 History resveratrol 50 mg capsule 50 mg PO BID cap 02/15/19 09/15/20 History fluticasone fur. 100 mcg-umeclid 1 inh INH QAM #60 ea 05/29/20 09/15/20 Rx 62.5 mcg-vilant 25 mcg inhalat.powder [place] 250 mcg INTRA-URETHRAL DIRECTED 09/05/20 09/15/20 History PRN clopidogrel 75 mg tablet 75 mg PO DAILY #30 tab 09/05/20 09/15/20 Rx metoprolol tartrate 25 mg PO BID 09/05/20 09/15/20 History aspirin 81 mg PO DAILY #30 tab 09/06/20 09/15/20 Rx atorvastatin 40 mg PO HS #30 tab 09/06/20 09/15/20 Rx Patient History Medical History Abdominal aortic aneurysm under surveillance by vascular (Dr. Rivera) Acute CVA (cerebrovascular accident) 09/05/2020 ([facility]) > no deficits Aortic stenosis Moderate aortic stenosis (SARAH 1.3 to 1.4 cm, mean gradient 12.7 mmHg) per 09/06/20 echo CAD (coronary artery disease) s/p CABG x4 (2014) Carotid stenosis DDD (degenerative disc disease) per records Emphysema lung stable History of prostate cancer Hyperlipidemia Hypertension Myocardial Infarction 2014 Osteoarthritis Sleep apnea BIPAP Surgical History Difficult intubation Per patient mentioned difficult intubation with 1996 prostate surgery > subsequent EBUS, navagitional bronchoscopy (07/29/19) at [facility] with Grade view 1, Glidescope#4, ETT 8.5 at [facility] H/O prostatectomy H/O vascular surgery Left leg seroma excision History of arthroscopy Right shoulder History of cardiac cath 2014 > no stents History of colonoscopy History of coronary artery bypass graft CABG x4 (12/2014) > 12/07/2014: LEVY-LAD; SVG-RCA ( with extensive endarterectomy of the RCA ); SVG-LAD diagonal; SVG-L Cx marginal History of herniorrhaphy History of meniscectomy of left knee History of partial colectomy History of tonsillectomy and adenoidectomy History of tooth extraction History of trigger finger Right trigger finger release S/P bronchoscopy with biopsy Navigational Bronchoscopy with Biopsy Family History Father , in his early 80s of senile dementia of the Alzheimer's type Alzheimer disease Heart disease Brother Back problem Grandmother (Paternal) Dementia Mother , in her 90s of urinary issues No problems noted. Other No family history of adverse response to anesthesia Social History Smoking Status: Never smoker Tobacco Type: Cigarettes, Pipe and Cigars Smoking End Date: 1995; Number of Years Since Quit: 25; Second Hand Exposure: No; Do You Dip or Chew Tobacco: No; Tobacco Cessation Education Requested by Patient: No Hx Alcohol Use: No Hx Substance Use: No Preferred Language: [place] Communication Ability: Effective Visual Impairment: No Limitations Payroll Services Analyst Required: No Beliefs That Will Affect Care: None marital status: Current Living Situation: Spouse current occupational status: employed and retired 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 [employer] Feels Safe at Home: Yes Safety Concerns: Feels Safe At This Time Assistive Devices: Glasses Review of Systems Review of Systems: All systems reviewed & are unremarkable except as noted in HPI & below Physical Exam Constitutional: WD/WN, vitals as above Neck: trachea midline, no thyromegaly Respiratory: normal respiratory effort, lungs clear to auscultation Cardiovascular: RRR, no murmur, no edema Gastrointestinal (Abdomen): normal bowel sounds, soft, nontender, no hepatosplenomegaly Musculoskeletal: Extremities: extremities normal to inspection Skin: no rashes, warm and dry Neurologic: Patient does have some slight drooping of the right corner of his mouth and hyperesthesia of the left heel but otherwise his exam is nonfocal Lymphatic: no cervical lymphadenopathy Results & Data Results & Data ([facility]) Vital Signs (Past 12 Hours) Vital Signs Temp Pulse Pulse Pulse Resp BP BP 09/15/20 16:54 09/15/20 16:50 69 16 09/15/20 16:40 70 22 09/15/20 16:31 68 16 147/64 H 09/15/20 16:30 36.5 C 68 17 09/15/20 16:01 72 19 09/15/20 15:55 37.1 C 68 15 09/15/20 15:45 69 18 09/15/20 15:35 62 18 09/15/20 15:25 63 21 09/15/20 15:16 61 16 09/15/20 15:06 61 17 09/15/20 14:56 36.8 C 67 13 09/15/20 08:32 36.7 C 62 18 144/85 H BP Pulse Ox 09/15/20 16:54 92 09/15/20 16:50 09/15/20 16:40 91 09/15/20 16:31 91 09/15/20 16:30 91 09/15/20 16:01 150/73 H 94 09/15/20 15:55 126/56 L 94 09/15/20 15:45 150/65 H 94 09/15/20 15:35 154/64 H 95 09/15/20 15:25 141/64 H 96 09/15/20 15:16 149/67 H 96 09/15/20 15:06 150/70 H 96 09/15/20 14:56 145/72 H 93 09/15/20 08:32 97 Laboratory Results Postoperative labs pending Diagnostic Findings No new imaging Coding Level of Care Code 40814 Inpt Consult Level 4 Diagnoses Postop carotid endarterectomy surveillance, encounter for Z48.812 Time Spent (min) 40
[2020-09-15] MEDS: oxyCODONE/ACETAMINOPHEN 5mg/325mg TAB PO PRN (18:20)
[2020-09-15] MEDS: ceFAZolin 1000MG 1,000 MG/7.5 ML SYR IV SCH (20:30)
[2020-09-15] MEDS ORDERED: MELATONIN 3 MG TAB PO SCH (21:00)
[2020-09-15] MEDS ORDERED: ATORVASTATIN 40 MG TAB PO SCH (21:00)
[2020-09-15] MEDS ORDERED: RESVERATROL 50 MG PO SCH (21:00)
--- NOTE | 2020-09-15 21:27 | Electrocardiogram Report ---
Test Reason : Blood Pressure : / mmHG Vent. Rate : 064 BPM Atrial Rate : 064 BPM P-R Int : 244 ms QRS Dur : 126 ms QT Int : 434 ms P-R-T Axes : 070 -61 -36 degrees QTc Int : 447 ms Poor data quality, interpretation may be adversely affected Sinus rhythm with 1st degree A-V block Possible Left atrial enlargement Left axis deviation Left bundle branch block Abnormal ECG When compared with ECG of 05-SEP-2020 16:47, Premature ventricular complexes are no longer Present Premature atrial complexes are no longer Present Nonspecific T wave abnormality now evident in Inferior leads Confirmed by Scott Schaeffer ([id number]) on 09/15/2020 9:27:29 PM Referred By: Jesse Rivera Confirmed By:Scott Schaeffer
[2020-09-15] MEDS: ISOSORBIDE MONO EXTENDED REL 60 MG TABCR PO SCH (21:56)
[2020-09-15] MEDS: METOPROLOL TARTRATE 25 MG TAB PO SCH (21:57)
[2020-09-16] MEDS: oxyCODONE/ACETAMINOPHEN 5mg/325mg TAB PO PRN ×2 (00:11→00:56)
[2020-09-16] MEDS ORDERED: CALCIUM CARBONATE 500 MG CHEWABLE TAB PO PRN (00:36)
--- NOTE | 2020-09-16 03:39 | Communication Note ---
Date of Service: September 16, 2020 Was notified by the bedside RN and the patient had increased swelling at the surgical site of the endarterectomy which extended inferiorly and anterior to the incision. Presents to the bedside and evaluated the patient. It appears that the swelling has approximately doubled what was previously marked. Patient states that he can feel increased pressure at the site and is now having trouble swallowing. Palpated the patient's trachea and appears to be deviated to the left, opposite surgical site. The surgeon, Dr. Rivera, was paged immediately and is presenting to the bedside and plan for patient to go to the OR. Anesthesia present to the bedside evaluated patient as well. Gluidoscope and intubation box at the bedside in case emergent intubation is needed but plan for patient to go to the OR for intubation. Monitoring closely. CRITICAL CARE TIME - I have personally spent 20 minutes of critical care time in the direct management of this patient. This is a life/limb threatening event. This includes time spent evaluating patient, direct bedside care, chart review, placing orders, interpretation of diagnostic studies, discussion with consultants, patient, and family members, as well as other required patient management activities. This time is exclusive of all separately billable procedures, and teaching time and separate from and in addition to any other critical care service time. Coding Level of Care Code Critical Care kev luciot'l 30 min
[2020-09-16] MEDS: ceFAZolin 1000MG 1,000 MG/7.5 ML SYR IV SCH (03:43)
[2020-09-16] MEDS ORDERED: PROPOFOL IV EMULSION 10 MG/ML 20 ML VIAL IV ONE (03:43)
[2020-09-16] MEDS ORDERED: SUCCINYLCHOLINE 100MG/5ML SYR IV ONE (03:43)
[2020-09-16] MEDS ORDERED: fentaNYL citrate 100 MCG/2 ML VIAL ONE (03:44)
--- NOTE | 2020-09-16 04:07 | Surgery Progress Note ---
Date of Service September 16, 2020 Assessment & Plan (1) Hematoma following procedure: Due to deviation of trachea and increase swelling, recommend exploration of wound and evacuation of hematoma. I have discussed the risks options and benefits of the procedure with the patient. The patient understands the risks options and benefits and agrees to the procedure. Patient does not want his called at this time. Admission and Anticipated Discharge Date Admission Date: September 15, 2020 Subjective Patient awake and alert. Complains of right neck swelling and discomfort. Does have some difficulty swallowint. Physical Exam Constitutional: WD/WN, vitals as above Neck: + tracheal deviation (moderate deviation to the left) Respiratory: no respiratory distress Skin: + incision (neck swelling has increased) Neurologic: weakness of right marginal mandibular nerve Results & Data ([facility]) Vital Signs (Past 12 Hours) Vital Signs Temp Pulse Resp BP Pulse Ox 09/16/20 02:10 62 09/16/20 02:02 66 138/83 09/16/20 02:00 67 09/16/20 01:50 61 09/16/20 01:40 61 09/16/20 01:30 80 09/16/20 01:20 63 09/16/20 01:10 63 09/16/20 01:02 69 20 166/67 H 09/16/20 01:00 70 20 94 09/16/20 00:50 78 18 09/16/20 00:40 77 17 09/16/20 00:30 65 16 09/16/20 00:20 70 20 09/16/20 00:10 80 17 09/16/20 00:02 80 19 136/80 09/16/20 00:00 64 20 09/15/20 23:50 86 17 09/15/20 23:40 68 20 09/15/20 23:30 61 17 09/15/20 23:20 61 15 09/15/20 23:10 67 23 09/15/20 23:02 68 20 140/66 09/15/20 23:00 65 19 96 09/15/20 22:50 66 19 09/15/20 22:46 79 19 150/82 H 09/15/20 22:43 85 22 09/15/20 22:30 77 12 09/15/20 22:20 80 16 09/15/20 22:10 73 16 09/15/20 22:00 79 16 09/15/20 21:50 68 12 93 09/15/20 21:43 69 21 161/87 H 94 09/15/20 21:42 83 19 09/15/20 21:20 74 20 09/15/20 21:17 72 22 134/75 96 09/15/20 21:10 84 15 09/15/20 21:02 69 20 139/80 09/15/20 21:00 75 26 H 09/15/20 20:50 73 16 97 09/15/20 20:47 75 17 154/77 H 09/15/20 20:40 70 17 09/15/20 20:32 68 19 147/85 H 09/15/20 20:30 67 18 09/15/20 20:20 73 19 09/15/20 20:17 70 21 125/98 09/15/20 20:10 78 09/15/20 20:03 70 18 144/59 H 09/15/20 20:00 72 20 97 09/15/20 19:50 90 26 H 09/15/20 16:54 92 09/15/20 16:50 69 16 09/15/20 16:40 70 22 91 09/15/20 16:31 68 16 147/64 H 91 09/15/20 16:30 36.5 C 68 17 91
--- NOTE | 2020-09-16 04:11 | Anesthesiology Consultation ---
Date of Service September 16, 2020 Assessment & Plan Chart Review Chart Review: Acceptable Risk for Surgery Consults Requested none History Surgery Operation Date: 09/15/20 10:10 Proposed Procedures p Right Carotid Endarterectomy - Jesse Rivera MD Height/Weight Height: 6 ft Weight: 78.925 kg Allergies Allergy/AdvReac Type Severity Reaction Status Date / Time naproxen [From Naprosyn] Allergy Severe Anaphylaxis Verified 09/15/20 08:59 NSAIDS (Non-Steroidal Allergy Severe Anaphylaxis Verified 09/15/20 08:59 Anti-Inflamma Medications Home Medications Medication Instructions Recorded Confirmed Last Taken coQ10 (ubiquinol) 400 mg PO QAM 10/07/18 09/15/20 09/15/20 06:20 docusate sodium 100 mg PO QAM 10/07/18 09/15/20 09/15/20 06:20 ezetimibe 10 mg PO QAM 10/07/18 09/15/20 09/15/20 06:20 multivitamin 1 tab PO QAM 10/07/18 09/15/20 09/15/20 06:20 nitroglycerin 0.4 mg SUBLINGUAL DIRECTED PRN 10/07/18 09/15/20 Unknown polyethylene glycol 3350 [Miralax] 1 dose PO QAM 10/07/18 09/15/20 09/14/20 08:00 potassium chloride 20 meq PO QAM 10/07/18 09/15/20 09/15/20 06:20 albuterol sulfate 90 mcg/actuation 2 puffs INHALATION Q4H PRN gm 02/15/19 09/15/20 09/13/20 aerosol inhaler cholecalciferol (vitamin D3) 25 1,000 unit PO QAM tab 02/15/19 09/15/20 09/15/20 06:15 mcg (1,000 unit) tablet furosemide 40 mg tablet 40 mg PO QAM tab 02/15/19 09/15/20 09/15/20 06:20 isosorbide mononitrate 60 mg 60 mg PO BID tab 02/15/19 09/15/20 09/15/20 06:20 tablet,extended release 24 hr melatonin 5 mg tablet 5 mg PO HS tab 02/15/19 09/15/20 09/14/20 22:00 resveratrol 50 mg capsule 50 mg PO BID cap 02/15/19 09/15/20 09/15/20 06:20 fluticasone fur. 100 mcg-umeclid 1 inh INH QAM #60 ea 05/29/20 09/15/20 09/15/20 06:20 62.5 mcg-vilant 25 mcg inhalat.powder [place] 250 mcg INTRA-URETHRAL DIRECTED 09/05/20 09/15/20 Unknown PRN clopidogrel 75 mg tablet 75 mg PO DAILY #30 tab 09/05/20 09/15/20 Unknown metoprolol tartrate 25 mg PO BID 09/05/20 09/15/20 09/15/20 06:20 aspirin 81 mg PO DAILY #30 tab 09/06/20 09/15/20 09/15/20 04:00 atorvastatin 40 mg PO HS #30 tab 09/06/20 09/15/20 09/14/20 22:00 Active Medications Generic Name Dose Route Start Last Admin Trade Name Freq PRN Reason Stop Dose Admin Atorvastatin Calcium 40 mg 09/15/20 21:00 09/15/20 21:57 Atorvastatin 40 Mg Tab PO 10/15/20 20:59 40 mg HS NOEL Administration Calcium Carbonate 500 mg 09/16/20 00:36 09/16/20 00:53 Calcium Carbonate 500 Mg Chewable Tab PO 10/16/20 00:35 500 mg Q12H PRN Administration Indigestion Isosorbide Mononitrate 60 mg 09/15/20 21:00 09/15/20 21:56 Isosorbide [place] Extended Rel 60 Mg Tabcr PO 10/15/20 20:59 60 mg BID NOEL Administration Melatonin 3 mg 09/15/20 21:00 09/15/20 21:56 Melatonin 3 Mg Tab PO 10/15/20 20:59 3 mg HS NOEL Administration Metoprolol Tartrate 25 mg 09/15/20 21:00 09/15/20 21:57 Metoprolol Tartrate 25 Mg Tab PO 10/15/20 20:59 25 mg BID NOEL Administration Oxycodone/Acetaminophen 1 - 2 tab 09/15/20 14:25 09/16/20 00:56 Oxycodone/Acetaminophen 5mg/325mg Tab PO 09/29/20 14:24 1 tab Q4H PRN Administration Moderate Pain NPO Date Last Intake of Fluids: 09/15/20 Time Last Intake of Fluids: 06:00 Last Intake of Fluids Comment: Sips meds Date Last Intake of Solids: 09/14/20 Time Last Intake of Solids: 22:30 Past Medical History Medical History Abdominal aortic aneurysm under surveillance by vascular (Dr. Rivera) Acute CVA (cerebrovascular accident) 09/05/2020 ([facility]) > no deficits Aortic stenosis Moderate aortic stenosis (SARAH 1.3 to 1.4 cm, mean gradient 12.7 mmHg) per 09/06/20 echo CAD (coronary artery disease) s/p CABG x4 (2014) Carotid stenosis DDD (degenerative disc disease) per records Emphysema lung stable History of prostate cancer Hyperlipidemia Hypertension Myocardial Infarction 2014 Osteoarthritis Sleep apnea BIPAP Past Family History Family History Father , in his early 80s of senile dementia of the Alzheimer's type Alzheimer disease Heart disease Brother Back problem Grandmother (Paternal) Dementia Mother , in her 90s of urinary issues No problems noted. Other No family history of adverse response to anesthesia Past Surgical History Surgical History Difficult intubation Per patient mentioned difficult intubation with 1995 prostate surgery > subsequent EBUS, navagitional bronchoscopy (07/29/19) at [facility] with Grade view 1, Glidescope#4, ETT 8.5 at [facility] H/O prostatectomy H/O vascular surgery Left leg seroma excision History of arthroscopy Right shoulder History of cardiac cath 2014 > no stents History of colonoscopy History of coronary artery bypass graft CABG x4 (12/2014) > 12/07/2014: LVEY-LAD; SVG-RCA ( with extensive endarterectomy of the RCA ); SVG-LAD diagonal; SVG-L Cx marginal History of herniorrhaphy History of meniscectomy of left knee History of partial colectomy History of tonsillectomy and adenoidectomy History of tooth extraction History of trigger finger Right trigger finger release S/P bronchoscopy with biopsy Navigational Bronchoscopy with Biopsy Social History Smoking Status: Never smoker tobacco type: cigarettes Do You Dip or Chew Tobacco: No Smoking End Date: 1995 Hx Alcohol Use: No Alcohol type: beer, wine and hard liquor alcohol intake frequency: 3 or more drinks per day Hx Substance Use: No substance use type: does not use Physical Exam Vital Signs Last Vital Signs Temp 36.5 C 09/15/20 16:30 Pulse 62 09/16/20 02:10 Resp 20 09/16/20 01:02 BP 138/83 09/16/20 02:02 Pulse Ox 94 09/16/20 01:00 Testing Laboratory Results Blood Type A Positive 09/15/20 08:47 Antibody Screen NEGATIVE 09/15/20 08:47 09/15/20 17:41 POC Glucose 115 H
[2020-09-16 04:13] LABS: Basophils # (auto) 0.02 K/uL (0-0.2); Basophils % (auto) 0.1 %; Eosinophils # (auto) 0.02 K/uL (0-0.5); Eosinophils % (auto) 0.1 %; Hematocrit (blood only) 35.6 % (42-52); Hemoglobin 12.5 g/dL (14.0-18.0); Immature Granulocytes # (auto) 0.03 K/uL (0.00-0.02); Immature Granulocytes % (auto) 0.2 %; Lymphocytes # (auto) 1.26 K/uL (1.2-3.4); Lymphocytes % (auto) 8.8 %; Mean Corpuscular Hemoglobin 33.7 pg (25-34); Mean Platelet Volume 10.4 fL (7.4-10.4); Monocytes % (auto) 9.1 %; Neutrophils # (auto) 11.69 K/uL (1.4-6.5); Neutrophils % (auto) 81.7 %; Platelet Count 193 K/uL (130-400); RDW Coefficient of Variation 12.5 % (11.5-14.5); RDW Standard Deviation 43.2 fL (36.4-46.3); Red Blood Count 3.71 M/uL (4.7-6.1); White Blood Count 14.32 K/uL (4.8-10.8)
[2020-09-16] MEDS ORDERED: BENZOCAIN/TETRACA/BUTAM SPRAY 200 APPLN/20 GM SPRY EXT ONE (04:23)
[2020-09-16] MEDS ORDERED: LIDOCAINE MPF 4% LOCAL INJ 5 ML AMP ONE (04:23)
[2020-09-16 04:24] LABS: INR 1.1 (0.9-1.1); Prothrombin Time 10.9 Seconds (9.0-12.0)
[2020-09-16 04:31] LABS: BUN Creatinine Ratio 20.6 (10-20); Calcium 8.3 mg/dl (8.5-10.1); Creatinine Clr Calc Pharmacy 50.7 ml/min; Est GFR (African American) 64.6; Est GFR (Non-African American) 55.8
[2020-09-16 04:35] LABS: Mean Corpuscular Hgb Conc 35.1 g/dL (32-36)
[2020-09-16] MEDS ORDERED: ePHEDrine sulfate 50 MG/ML AMP IV PRN (04:36)
[2020-09-16] MEDS ORDERED: ATROPINE SULFATE 0.1 MG/ML 10ML SYR IV PRN (04:36)
[2020-09-16] MEDS ORDERED: HEPARIN (PORCINE) 1000 UNIT/ML 10 ML (CATH LAB USE ONLY) ONE (04:38)
[2020-09-16] MEDS ORDERED: MIDAZOLAM HCL 1 MG/ML 2ML VIAL ONE ×2 (04:39→04:40)
[2020-09-16] MEDS ORDERED: THROMBIN FOR SOLN 20000 UNIT KIT ONE (05:04)
[2020-09-16] MEDS ORDERED: GELATIN SPONGE SZ 100 ONE (05:04)
[2020-09-16] MEDS ORDERED: ROCURONIUM BROMIDE 10 MG/ML 5 ML VIAL IV ONE (05:35)
--- NOTE | 2020-09-16 06:07 | Operative Report ---
Post Operative Report Pre & Post Diagnosis Operation Date: 09/15/20 10:10 Pre-Op Diagnosis: Right Carotid Artery Stenosis Post-Op Diagnosis: Right Carotid Artery Stenosis Operation Date: 09/16/20 05:05 Pre-Op Diagnosis: Hematoma Right Neck, Status Post Right Carotid Endarterectomy Post-Op Diagnosis: Hematoma Right Neck, Status Post Right Carotid Endarterectomy I identified the patient and participated in the time-out.: Yes Procedure Operation Date: 09/15/20 10:10 Actual Procedures p Right Carotid Endarterectomy(Right) - Jesse Rivera MD Operation Date: 09/16/20 05:05 Actual Procedures p Evacuation Hematoma and Exploration of Right Neck Wound(Right) - Jesse Rivera MD Surgeon Jesse Rivera MD Numerical Control Operator None Estimated Blood Loss 20 Findings Consistent with Post-Op Diagnosis Specimens None Anesthesia Type General Complications none Disposition Accompanied Patient To Recovery: No Disposition: Surgical ICU Indications This is an 85-year-old gentleman who had a right carotid endarterectomy yesterday. He had developed right neck swelling with a moderate tracheal deviation.Exploration and evacuation hematoma was recommended. I have discussed the risks options and benefits of the procedure with the patient. The patient understands the risks options and benefits and agrees to t he procedure. Description of Procedure The patient was taken the operating placed in supine position. After general anesthesia was accomplished the neck was prepped and draped in a sterile manner. The patient was identified and a timeout was performed. The old incision was reopened. A lemon-sized hematoma was evacuated.The patch was explored. No bleeding from the patch was seen.A few small trickles of the muscles were identified.These were electrocauterized.There was a spot on the medial side of the incision which had what appeared to be a small trickle of arterial bleeding.This was in the muscle itself. This was clamped and tied.No further bleeding was seen. A is round ADIN drain was placed in the incision bed brought through a separate stab wound. Incision was then closed after copious irrigations.Closure was done with 3-0 Vicryl suture for the platysmal layer and alejandro for the skin. Sterile dressings were applied.The patient was transported back to the intensive care unit.The patient left the operation room in satisfactory condition and tolerated the procedure well. All needle and sponge counts were correct at the end of the procedure. I attest to the content of the Intraoperative Record and any orders documented therein. Any exceptions are noted below.
[2020-09-16] MEDS ORDERED: PROPOFOL BOLUS FROM BAG IV PRN (06:23)
[2020-09-16] MEDS ORDERED: STAT IV Infusion **Titration per Protocol STA (06:23)
[2020-09-16] MEDS ORDERED: PROPOFOL IV EMULSION 10 MG/ML 100 ML VIAL IV ONE (06:25)
[2020-09-16] MEDS ORDERED: ePHEDrine sulfate 50 MG/ML SYR ONE (06:26)
[2020-09-16] MEDS ORDERED: NITROGLYCERIN/D5W 100MCG/ML 250 ML IV PRN (06:46)
[2020-09-16] MEDS ORDERED: NITROPRUSSIDE SODIUM 50 MG in DEXTROSE 5% 500 ML IV PRN (06:46)
[2020-09-16 06:51] LABS: iSTAT Art Bld Gas pCO2 Correct 39 mmHg (35-46); iSTAT Art Bld Gas pH Corrected 7.404 (7.35-7.45); iSTAT Arterial Blood Gas HCO3 25 meg/L (19-24); iSTAT Arterial Blood Gas pCO2 40 mmHg (35-46); iSTAT Arterial Blood Gas pO2 130 mmHg (80-95); iSTAT Arterial Blood Gas pO2 C 129; iSTAT Carbon Dioxide 26 mmol/L (24-31); iSTAT FiO2 40 %; iSTAT Hematocrit 30 % (42-52); iSTAT Hemoglobin 10.2 g/dl (14.0-18.0); iSTAT Potassium 3.6 mmol/L (3.3-5.0); iSTAT Site Art Line; iSTAT Sodium 136 mmol/L (135-144)
[2020-09-16] MEDS: propofoL 1,000 MG/100 ML VIAL IV SCH ×4 (07:08→20:15)
--- NOTE | 2020-09-16 07:12 | Anesthesiology Progress Note ---
Date of Service September 16, 2020 Anesthesia Post Procedure Vital Signs Vital Signs: Temp Pulse Pulse Pulse Resp BP BP 09/16/20 06:30 36.6 C 88 187/101 H 09/16/20 06:28 85 173/106 H 09/16/20 06:24 75 16 09/16/20 06:23 79 155/80 H 09/16/20 06:20 70 09/16/20 06:18 78 149/75 H 09/16/20 06:16 36.5 C 64 131/69 09/16/20 04:40 62 09/16/20 04:30 72 09/16/20 04:20 80 09/16/20 04:10 63 09/16/20 04:04 69 182/79 H 09/16/20 04:00 72 09/16/20 03:50 75 09/16/20 03:40 63 09/16/20 03:30 69 18 09/16/20 03:20 72 11 L 09/16/20 03:02 62 131/100 09/16/20 03:00 65 09/16/20 02:50 73 09/16/20 02:40 72 09/16/20 02:30 64 09/16/20 02:20 76 09/16/20 02:10 62 09/16/20 02:02 66 138/83 09/16/20 02:00 67 09/16/20 01:50 61 09/16/20 01:40 61 09/16/20 01:30 80 09/16/20 01:20 63 09/16/20 01:10 63 09/16/20 01:02 69 20 166/67 H 09/16/20 01:00 70 20 09/16/20 00:50 78 18 09/16/20 00:40 77 17 09/16/20 00:30 65 16 09/16/20 00:20 70 20 09/16/20 00:10 80 17 09/16/20 00:02 80 19 136/80 09/16/20 00:00 64 20 09/15/20 23:50 86 17 09/15/20 23:40 68 20 09/15/20 23:30 61 17 09/15/20 23:20 61 15 09/15/20 23:10 67 23 09/15/20 23:02 68 20 140/66 09/15/20 23:00 65 19 09/15/20 22:50 66 19 09/15/20 22:46 79 19 150/82 H 09/15/20 22:43 85 22 09/15/20 22:30 77 12 09/15/20 22:20 80 16 09/15/20 22:10 73 16 09/15/20 22:00 79 16 09/15/20 21:50 68 12 09/15/20 21:43 69 21 161/87 H 09/15/20 21:42 83 19 09/15/20 21:20 74 20 09/15/20 21:17 72 22 134/75 09/15/20 21:10 84 15 09/15/20 21:02 69 20 139/80 09/15/20 21:00 75 26 H 09/15/20 20:50 73 16 09/15/20 20:47 75 17 154/77 H 09/15/20 20:40 70 17 09/15/20 20:32 68 19 147/85 H 09/15/20 20:30 67 18 09/15/20 20:20 73 19 09/15/20 20:17 70 21 125/98 09/15/20 20:10 78 09/15/20 20:03 70 18 144/59 H 09/15/20 20:00 72 20 09/15/20 19:50 90 26 H 09/15/20 16:54 09/15/20 16:50 69 16 09/15/20 16:40 70 22 09/15/20 16:31 68 16 147/64 H 09/15/20 16:30 36.5 C 68 17 09/15/20 16:01 72 19 09/15/20 15:55 37.1 C 68 15 09/15/20 15:45 69 18 09/15/20 15:35 62 18 09/15/20 15:25 63 21 09/15/20 15:16 61 16 09/15/20 15:06 61 17 09/15/20 14:56 36.8 C 67 13 09/15/20 08:32 36.7 C 62 18 144/85 H BP Pulse Ox 09/16/20 06:30 98 09/16/20 06:28 99 09/16/20 06:24 99 09/16/20 06:23 98 09/16/20 06:20 98 09/16/20 06:18 98 09/16/20 06:16 98 09/16/20 04:40 97 09/16/20 04:30 97 09/16/20 04:20 94 09/16/20 04:10 97 09/16/20 04:04 96 09/16/20 04:00 98 09/16/20 03:50 97 09/16/20 03:40 98 09/16/20 03:30 97 09/16/20 03:20 09/16/20 03:02 09/16/20 03:00 09/16/20 02:50 93 09/16/20 02:40 09/16/20 02:30 09/16/20 02:20 09/16/20 02:10 09/16/20 02:02 09/16/20 02:00 09/16/20 01:50 09/16/20 01:40 09/16/20 01:30 09/16/20 01:20 09/16/20 01:10 09/16/20 01:02 09/16/20 01:00 94 09/16/20 00:50 09/16/20 00:40 09/16/20 00:30 09/16/20 00:20 09/16/20 00:10 09/16/20 00:02 09/16/20 00:00 09/15/20 23:50 09/15/20 23:40 09/15/20 23:30 09/15/20 23:20 09/15/20 23:10 09/15/20 23:02 09/15/20 23:00 96 09/15/20 22:50 09/15/20 22:46 09/15/20 22:43 09/15/20 22:30 09/15/20 22:20 09/15/20 22:10 09/15/20 22:00 09/15/20 21:50 93 09/15/20 21:43 94 09/15/20 21:42 09/15/20 21:20 09/15/20 21:17 96 09/15/20 21:10 09/15/20 21:02 09/15/20 21:00 09/15/20 20:50 97 09/15/20 20:47 09/15/20 20:40 09/15/20 20:32 09/15/20 20:30 09/15/20 20:20 09/15/20 20:17 09/15/20 20:10 09/15/20 20:03 09/15/20 20:00 97 09/15/20 19:50 09/15/20 16:54 92 09/15/20 16:50 09/15/20 16:40 91 09/15/20 16:31 91 09/15/20 16:30 91 09/15/20 16:01 150/73 H 94 09/15/20 15:55 126/56 L 94 09/15/20 15:45 150/65 H 94 09/15/20 15:35 154/64 H 95 09/15/20 15:25 141/64 H 96 09/15/20 15:16 149/67 H 96 09/15/20 15:06 150/70 H 96 09/15/20 14:56 145/72 H 93 09/15/20 08:32 97 Pain Intensity Left Heel: Pain Intensity: 3 Transfer of Care Handoff Completed per policy Notes Mental Status: see notes below (Sedated on mech vent) Patient Amnestic to Procedure: Yes Nausea / Vomiting: adequately controlled Pain: adequately controlled Airway Patency, RR, SpO2: stable & adequate BP & HR: stable & adequate Hydration State: stable & adequate Anesthetic Complications: no major complications apparent Notes: Pt returned to SICU sedated, intubated, VSS. +BLBS. Placed on mech vent, to be awakened and extubated as per surgeon
--- NOTE | 2020-09-16 08:03 | XRay Report ---
XR chest 1V portable HISTORY: 85 years-old Male ETT placement, OGT placement acute respiratory failure COMPARISON: Chest radiograph 09/05/2020 TECHNIQUE: Portable AP view the chest FINDINGS: Endotracheal tube overlies the midline and terminates 11 cm superior to the sanna. An enteric tube c ourses below the diaphragm to the gastric lumen outside the field of view. Cardiac silhouette is uppe r limits of normal in size. Prior median sternotomy with CABG. Mild chronic interstitial coarsening. Mild left hemidiaphragmatic elevation. No pneumothorax, overt pulmonary edema or lobar airspace conso lidation. Blunting of the costophrenic angles suggests atelectasis versus trace effusions. Degenerati ve changes of the shoulders and spine. IMPRESSION: 1. Endotracheal tube terminates 11 cm superior to the sanna. 2. An enteric tube courses below the diaphragm outside the [id number]. ACT 112: Negative or not required by law. The above report was generated using voice recognition software. It may contain grammatical, syntax o r spelling errors. Electronically signed by: Wilmer Chau M.D. 09/16/2020 8:02 AM
[2020-09-16] MEDS ORDERED: CHOLECALCIFEROL 1,000 UNITS 25 MCG TAB PO SCH (09:00)
[2020-09-16] MEDS ORDERED: CLOPIDOGREL BISULFATE 75 MG TAB PO SCH (09:00)
[2020-09-16] MEDS ORDERED: MULTIVITAMIN TAB PO SCH (09:00)
[2020-09-16] MEDS ORDERED: UMECLIDINIUM/VILANTEROL 62.5/25MCG 7 PUFFS/INHALER INH SCH (09:00)
[2020-09-16] MEDS ORDERED: DOCUSATE SODIUM 100 MG CAP PO SCH (09:00)
[2020-09-16] MEDS ORDERED: POLYETHYLENE (MIRALAX) 17 GM PACK PO SCH (09:00)
[2020-09-16] MEDS ORDERED: EZETIMIBE 10 MG TABLET PO SCH (09:00)
[2020-09-16] MEDS ORDERED: ASPIRIN 81 MG ECTAB PO SCH (09:00)
[2020-09-16] MEDS ORDERED: NON-FORMULARY MEDICATION (Coq10 (Ubiquinol) 200 mg Capsule) PO SCH (09:00)
[2020-09-16] MEDS ORDERED: POTASSIUM CHLORIDE CRTAB 20 MEQ TABCR PO SCH (09:00)
--- NOTE | 2020-09-16 09:17 | XRay Report ---
XR chest 1V portable HISTORY: 85 years-old Male ETT advancement advancement of the endotracheal tube COMPARISON: Chest radiograph of same day at 6:34 AM TECHNIQUE: Portable AP view of the chest FINDINGS: Endotracheal tube overlies the midline, 10 cm superior to the sanna. Surgical alejandro project over t he right neck. Enteric tube courses below the diaphragm outside the [id number]. Cardiac silhouette is upper limits of normal in size. Prior median sternotomy with CABG. Mild chronic interstitial coar sening. Mild left hemidiaphragmatic elevation. No pneumothorax, overt pulmonary edema or lobar airspa ce consolidation. Blunting of the costophrenic angles suggests atelectasis versus trace effusions. De generative changes of the shoulders and spine. IMPRESSION: 1. Endotracheal tube terminates 10 cm superior to the sanna. 2. Enteric tube courses below the diaphragm outside the [id number]. ACT 112: Negative or not required by law. The above report was generated using voice recognition software. It may contain grammatical, syntax o r spelling errors. Electronically signed by: Wilmer Chau M.D. 09/16/2020 9:15 AM
[2020-09-16] MEDS: FLUTICASONE FUROATE 100MCG 14 PUFFS/INHALER INH SCH (09:43)
[2020-09-16] MEDS: ISOSORBIDE MONO EXTENDED REL 60 MG TABCR PO SCH ×2 (09:44→20:14)
[2020-09-16] MEDS: METOPROLOL TARTRATE 25 MG TAB PO SCH ×2 (09:45→20:14)
[2020-09-16] MEDS: FUROSEMIDE 40 MG TAB PO SCH (10:13)
--- NOTE | 2020-09-16 10:16 | Critical Care Progress Note ---
Date of Service September 16, 2020 Assessment & Plan (1) Postop carotid endarterectomy surveillance, encounter for: Impression: 85-year-old male status post right carotid endarterectomy 09/15/2020. Patient had to return to the OR early 09/16 for postoperative neck hematoma with tracheal deviation and airway compromise 24-hour events: The patient developed an expanding hematoma at the site of his right carotid endarterectomy. He had tracheal deviation. He was taken back to the OR by the vascular surgeons and had an awake fiberoptic intubation performe d. The endotracheal tube was cut and is somewhat short to facilitate intubation. Hematoma was evacuated and a ADIN drain was placed. He returned to the ICU intubated and is currently on steroids. Recommendations: 1. Neuro: Continue sedation currently with propofol. We will keep the patient intubated today per vascular surgery and reassess with cuff leak test tomorrow f or possible extubation. Given the difficult airway, will need to coordinate with anesthesia prior to extubation. Patient appears to be neurologically intact post surgery and will continue to follow neuro exam 2. Pulmonary: Continue mechanical ventilation while artificial airway is in place. Gas exchange appears appropriate currently. Patient relates a history of COPD however is not bronchospastic currently. No indication for antibiotics from a lung standpoint. The endotracheal tube is somewhat high and is certainly at risk of migrating out of the airway. Discussed with anesthesia. Un fortunately because the tube is been cut, we cannot advance it additionally. If the patient were to require intubation, would request anesthesia given the difficulty of his airway. Anesthesia did not recommend tube exchange at this point time for more secure airway, rather we will continue to follow closely. 3. Cardiovascular: Hemodynamically stable. History of coronary disease. Continue to follow at this point time. Holding antihypertensives currently to avoid need to initiate vasopressor agents. Continue arterial line for now 4. GI: We will keep n.p.o. for now in hopes of rapid liberation from mechanical ventilation. If we fail to liberate from mechanical ventilator within the next 24 to 48 hours, will consider initiation of enteral nutrition. 5. Endocrine: Continue glycemic control per protocol. 6. ID: The patient does have mild elevation in his white blood cell count. He is on steroids so this may be a leukemoid reaction. Continue to follow currently. He is not febrile. Off antibiotics for now. 7. Heme-onc: No current issues. Continue to trend Red cell counts. Coagulation panels appear appropriate 8. Renal: No current issues. Follow electrolytes and replete as needed Patient remains critically ill at this point time with a tenuous airway. A total of 45 minutes of critical care time was spent evaluation management stabilization of this patient including discussion with bedside ICU nurse. Will follow while in ICU. Admission and Anticipated Discharge Date Admission Date: September 15, 2020 Subjective Patient is now intubated and sedated Review of Systems Review of Systems: Unobtainable due to endotracheal tube Physical Exam Constitutional: not ill appearing Intubated and sedated Neck: Hematoma at the site of his left CEA with ADIN drain in place. The thyroid cartilage appears to be midline by palpation. Respiratory: normal respiratory effort, lungs clear to auscultation Cardiovascular: RRR, no murmur, no edema Gastrointestinal (Abdomen): normal bowel sounds, soft, nontender, no hepatosplenomegaly Musculoskeletal: Extremities: extremities normal to inspection Skin: no rashes, warm and dry Neurologic: Nonfocal exam Lymphatic: no cervical lymphadenopathy Results & Data Results & Data ([facility]) Vital Signs (Past 12 Hours) Vital Signs Temp Pulse Resp BP Pulse Ox 09/16/20 07:35 57 L 16 94 09/16/20 06:30 36.6 C 88 187/101 H 98 09/16/20 06:28 85 173/106 H 99 09/16/20 06:24 75 16 99 09/16/20 06:23 79 155/80 H 98 09/16/20 06:20 70 98 09/16/20 06:18 78 149/75 H 98 09/16/20 06:16 36.5 C 64 131/69 98 09/16/20 04:40 62 97 09/16/20 04:30 72 97 09/16/20 04:20 80 94 09/16/20 04:10 63 97 09/16/20 04:04 69 182/79 H 96 09/16/20 04:00 72 98 09/16/20 03:50 75 97 09/16/20 03:40 63 98 09/16/20 03:30 69 18 97 09/16/20 03:20 72 11 L 09/16/20 03:02 62 131/100 09/16/20 03:00 65 09/16/20 02:50 73 93 09/16/20 02:40 72 09/16/20 02:30 64 09/16/20 02:20 76 09/16/20 02:10 62 09/16/20 02:02 66 138/83 09/16/20 02:00 67 09/16/20 01:50 61 09/16/20 01:40 61 09/16/20 01:30 80 09/16/20 01:20 63 09/16/20 01:10 63 09/16/20 01:02 69 20 166/67 H 09/16/20 01:00 70 20 94 09/16/20 00:50 78 18 09/16/20 00:40 77 17 09/16/20 00:30 65 16 09/16/20 00:20 70 20 09/16/20 00:10 80 17 09/16/20 00:02 80 19 136/80 09/16/20 00:00 64 20 09/15/20 23:50 86 17 09/15/20 23:40 68 20 09/15/20 23:30 61 17 09/15/20 23:20 61 15 09/15/20 23:10 67 23 09/15/20 23:02 68 20 140/66 09/15/20 23:00 65 19 96 09/15/20 22:50 66 19 09/15/20 22:46 79 19 150/82 H 09/15/20 22:43 85 22 09/15/20 22:30 77 12 09/15/20 22:20 80 16 09/15/20 22:10 73 16 Laboratory Results 09/16/20 03:56 09/16/20 03:56 Diagnostic Findings Chest x-ray was independently reviewed. The tip of the endotracheal tube is high, just above the heads of the clavicles. Unfortunately the tube is been cut and were unable to advance it. Coding Level of Care Code Critical Care 1st 30-74 mins Diagnoses Postop carotid endarterectomy surveillance, encounter for Z48.812 Time Spent (min) 48 Comment [id number]
[2020-09-16] MEDS: methylPREDNISolone 80 MG in SYRINGE 0 ML IV SCH ×3 (12:48→23:32)
[2020-09-17] MEDS: propofoL 1,000 MG/100 ML VIAL IV SCH ×5 (01:43→19:23)
[2020-09-17 04:49] LABS: Hematocrit (blood only) 32.9 % (42-52); Hemoglobin 11.6 g/dL (14.0-18.0); Immature Granulocytes # (auto) 0.02 K/uL (0.00-0.02); Immature Granulocytes % (auto) 0.2 %; Lymphocytes # (auto) 0.63 K/uL (1.2-3.4); Lymphocytes % (auto) 5.7 %; Mean Corpuscular Hemoglobin 34.1 pg (25-34); Mean Corpuscular Hgb Conc 35.3 g/dL (32-36); Mean Corpuscular Volume 96.8 fL (80-100); Mean Platelet Volume 10.7 fL (7.4-10.4); Monocytes # (auto) 0.48 K/uL (0.11-0.59); Monocytes % (auto) 4.4 %; Neutrophils # (auto) 9.86 K/uL (1.4-6.5); Neutrophils % (auto) 89.7 %; Platelet Count 174 K/uL (130-400); RDW Coefficient of Variation 12.7 % (11.5-14.5); RDW Standard Deviation 44.5 fL (36.4-46.3); White Blood Count 10.99 K/uL (4.8-10.8)
[2020-09-17] MEDS: methylPREDNISolone 80 MG in SYRINGE 0 ML IV SCH (05:02)
[2020-09-17 05:10] LABS: BUN Creatinine Ratio 26.9 (10-20); Calcium 8.3 mg/dl (8.5-10.1); Creatinine Clr Calc Pharmacy 64.9 ml/min; Est GFR (African American) 87.1; Est GFR (Non-African American) 75.1; Magnesium 2.2 mg/dl (1.8-2.4); Phosphorus 3.9 mg/dl (2.5-4.9); Potassium 4.2 mmol/L (3.5-5.1)
[2020-09-17 05:23] LABS: iSTAT Allen Test Pass; iSTAT Art Bld Gas pCO2 Correct 43 mmHg (35-46); iSTAT Art Bld Gas pH Corrected 7.404 (7.35-7.45); iSTAT Arterial Blood Gas HCO3 26 meg/L (19-24); iSTAT Arterial Blood Gas pCO2 41 mmHg (35-46); iSTAT Arterial Blood Gas pH 7.42 (7.35-7.45); iSTAT Arterial Blood Gas pO2 85 mmHg (80-95); iSTAT Arterial Blood Gas pO2 C 89; iSTAT Carbon Dioxide 28 mmol/L (24-31); iSTAT FiO2 30 %; iSTAT Hematocrit 32 % (42-52); iSTAT Hemoglobin 10.9 g/dl (14.0-18.0); iSTAT Potassium 4.1 mmol/L (3.3-5.0); iSTAT Site R Radial; iSTAT Sodium 137 mmol/L (135-144)
[2020-09-17] MEDS: SODIUM CHLORIDE 0.9% 1000ML 1,000 ML IV SCH (07:12)
--- NOTE | 2020-09-17 08:45 | Critical Care Progress Note ---
Date of Service September 17, 2020 Assessment & Plan (1) Postop carotid endarterectomy surveillance, encounter for: Impression: 85-year-old male status post right carotid endarterectomy 09/15/2020. Patient had to return to the OR early 09/16 for postoperative neck hematoma with tracheal deviation and airway compromise 24-hour events: Patient has been hemodynamically stable over the last 24 hours. He is remained intubated per vascular surgery request. The swelling in his neck appears to have decreased. His trachea appears to be midline. ADIN output is minimal. Recommendations: 1. Neuro: Continue sedation currently with propofol. Will discuss with vascular surgery timing of extubation. Patient appears to be neurologically intact post surgery and will continue to follow neuro exam 2. Pulmonary: Continue mechanical ventilation while artificial airway is in place. Gas exchange appears appropriate currently. Patient relates a history of COPD however is not bronchospastic currently. No indication for antibiotics from a lung standpoint. We will have anesthesia assist with extubation given the difficult airway 3. Cardiovascular: Hemodynamically stable. History of coronary disease. Continue to follow at this point time. Holding antihypertensives currently to avoid need to initiate vasopressor agents. Continue arterial line for now 4. GI: We will keep n.p.o. for now in hopes of rapid liberation from mechanical ventilation. If we fail to liberate from mechanical ventilator within the next 24 to 48 hours, will consider initiation of enteral nutrition. 5. Endocrine: Continue glycemic control per protocol. 6. ID: Leukocytosis resolving. Continue to trend 7. Heme-onc: No current issues. Continue to trend hemoglobin. Coagulation panels appear appropriate 8. Renal: No current issues. Follow electrolytes and replete as needed Continue to follow in ICU while intubated. Discussed with bedside critical care nurse and will discuss with vascular surgery and anesthesia later today Admission and Anticipated Discharge Date Admission Date: September 15, 2020 Subjective intubated and sedated. Review of Systems Review of Systems: Unobtainable due to endotracheal tube Physical Exam Constitutional: WD/WN, vitals as above not ill appearing Neck: trachea midline, no thyromegaly R neck incision looks good. No evidence of hematoma. Minimal output from ADIN drains. tracheal deviation resolved. Ecchymosis stable. Respiratory: normal respiratory effort, lungs clear to auscultation Cardiovascular: RRR, no murmur, no edema Gastrointestinal (Abdomen): normal bowel sounds, soft, nontender, no hepatosplenomegaly Musculoskeletal: Extremities: extremities normal to inspection Skin: no rashes, warm and dry Lymphatic: no cervical lymphadenopathy Results & Data Results & Data ([facility]) Vital Signs (Past 12 Hours) Vital Signs Temp Pulse Resp BP Pulse Ox 09/17/20 08:00 36.8 C 55 L 16 97 09/17/20 07:43 56 L 138/67 96 09/17/20 07:30 53 L 95 09/17/20 07:20 52 L 16 95 09/17/20 07:00 54 L 95 09/17/20 06:43 53 L 125/62 95 09/17/20 06:30 53 L 95 09/17/20 06:00 53 L 16 125/60 95 09/17/20 05:30 56 L 16 97 09/17/20 05:00 59 L 16 141/70 H 96 09/17/20 04:30 54 L 16 97 09/17/20 04:00 36.6 C 58 L 16 115/61 97 09/17/20 03:30 59 L 16 96 09/17/20 03:00 54 L 16 122/59 L 96 09/17/20 01:30 54 L 16 96 09/17/20 01:00 53 L 16 115/59 L 96 09/17/20 00:30 56 L 16 96 09/17/20 00:00 37 C 56 L 16 134/63 96 09/16/20 23:30 58 L 16 96 09/16/20 23:29 57 L 16 95 09/16/20 23:00 55 L 16 121/60 95 09/16/20 22:30 55 L 16 95 09/16/20 22:00 56 L 16 119/60 95 09/16/20 21:30 59 L 16 96 09/16/20 21:00 58 L 16 113/58 L 95 09/16/20 20:39 66 17 97 09/16/20 20:30 68 97 09/16/20 20:00 37.4 C 74 20 142/73 H 98 Laboratory Results 09/17/20 04:26 09/17/20 04:26 Diagnostic Findings Chest x-ray from today was reviewed. The lungs are well aerated. Patient has sternotomy wires in place. Cardiac and mediastinal silhouettes are unremarkable. There is an endotracheal tube with the tip terminating above the heads of the clavicles. OG tube is in place. Surgical alejandro present on the right side of the neck. Coding Level of Care Code 76248 Subseq Hosp Care Lvl 3 Diagnoses Postop carotid endarterectomy surveillance, encounter for Z48.812
--- NOTE | 2020-09-17 09:32 | Surgery Progress Note ---
Date of Service September 17, 2020 Assessment & Plan (1) Hematoma following procedure: Minimal swelling of neck, trachea midline. Will extubate today per ICU (2) Postop carotid endarterectomy surveillance, encounter for: Doing well. No focal deficits other than right marginal mandibular nerve weakness. Admission and Anticipated Discharge Date Admission Date: September 15, 2020 Subjective Arousable from sedation. Resting comfortably. Physical Exam Neck: trachea midline Skin: + incision (dry and clean, mild swelling) minimal ADIN drainage Results & Data ([facility]) Vital Signs (Past 12 Hours) Vital Signs Temp Pulse Resp BP Pulse Ox 09/17/20 08:00 36.8 C 55 L 16 97 09/17/20 07:43 56 L 138/67 96 09/17/20 07:30 53 L 95 09/17/20 07:20 52 L 16 95 09/17/20 07:00 54 L 95 09/17/20 06:43 53 L 125/62 95 09/17/20 06:30 53 L 95 09/17/20 06:00 53 L 16 125/60 95 09/17/20 05:30 56 L 16 97 09/17/20 05:00 59 L 16 141/70 H 96 09/17/20 04:30 54 L 16 97 09/17/20 04:00 36.6 C 58 L 16 115/61 97 09/17/20 03:30 59 L 16 96 09/17/20 03:00 54 L 16 122/59 L 96 09/17/20 01:30 54 L 16 96 09/17/20 01:00 53 L 16 115/59 L 96 09/17/20 00:30 56 L 16 96 09/17/20 00:00 37 C 56 L 16 134/63 96 09/16/20 23:30 58 L 16 96 09/16/20 23:29 57 L 16 95 09/16/20 23:00 55 L 16 121/60 95 09/16/20 22:30 55 L 16 95 09/16/20 22:00 56 L 16 119/60 95 09/16/20 21:30 59 L 16 96 09/16/20 21:00 58 L 16 113/58 L 95 09/16/20 20:39 66 17 97 09/16/20 20:30 68 97
[2020-09-17] MEDS: FLUTICASONE FUROATE 100MCG 14 PUFFS/INHALER INH SCH (10:20)
[2020-09-17] MEDS: ISOSORBIDE MONO EXTENDED REL 60 MG TABCR PO SCH ×2 (10:21→21:47)
[2020-09-17] MEDS: FUROSEMIDE 40 MG TAB PO SCH (10:21)
[2020-09-17] MEDS: METOPROLOL TARTRATE 25 MG TAB PO SCH ×2 (10:21→21:47)
--- NOTE | 2020-09-17 12:25 | XRay Report ---
SINGLE VIEW CHEST CLINICAL HISTORY: Respiratory failure. Intubation. FINDINGS: An AP, portable, upright chest radiograph is compared to study dated 09/16/2020 and correlat ed with chest CT dated 06/08/2019. The examination is degraded by portable technique and patient rotat ion. The patient is status post midline sternotomy. Endotracheal and enteric tubes are unchanged in p osition. The heart is enlarged noting atherosclerotic calcification of the thoracic aorta. The pulmon duane vasculature is noncongested. Emphysema and chronic interstitial thickening is similar to previous . There are calcified granulomas scattered throughout both lungs. Foci of parenchymal scarring/atelec tasis are again seen throughout both lungs. There is no airspace consolidation typical for pneumonia or large pleural effusion. No pneumothorax is seen. The skeletal structures are osteopenic. The bony thorax is grossly intact. Arthritic change is noted in the shoulders. Surgical clips project over the right lower neck. IMPRESSION: 1. Stable lines and tubes. 2. Cardiomegaly and emphysema. 3. No airspace consolidation or large pleural effusion is identified. ACT 112: Negative or not required by law. Electronically signed by: Orestes Jason M.D. 09/17/2020 12:23 PM
[2020-09-17] MEDS ORDERED: hydrALAZINE HCL 20 MG/ML VIAL IV PRN (13:21)
[2020-09-17] MEDS: oxyCODONE/ACETAMINOPHEN 5mg/325mg TAB PO PRN (16:51)
[2020-09-18] MEDS: SODIUM CHLORIDE 0.9% 1000ML 1,000 ML IV SCH (01:49)
[2020-09-18] MEDS: oxyCODONE/ACETAMINOPHEN 5mg/325mg TAB PO PRN (05:10)
[2020-09-18 05:17] LABS: Hematocrit (blood only) 30.5 % (42-52); Hemoglobin 10.7 g/dL (14.0-18.0); Immature Granulocytes # (auto) 0.03 K/uL (0.00-0.02); Immature Granulocytes % (auto) 0.2 %; Lymphocytes # (auto) 1.35 K/uL (1.2-3.4); Lymphocytes % (auto) 10.9 %; Mean Corpuscular Hemoglobin 33.8 pg (25-34); Mean Corpuscular Hgb Conc 35.1 g/dL (32-36); Mean Corpuscular Volume 96.2 fL (80-100); Mean Platelet Volume 10.2 fL (7.4-10.4); Monocytes # (auto) 1.61 K/uL (0.11-0.59); Neutrophils # (auto) 9.38 K/uL (1.4-6.5); Neutrophils % (auto) 75.9 %; Platelet Count 187 K/uL (130-400); RDW Coefficient of Variation 12.9 % (11.5-14.5); RDW Standard Deviation 44.7 fL (36.4-46.3); Red Blood Count 3.17 M/uL (4.7-6.1); White Blood Count 12.37 K/uL (4.8-10.8)
[2020-09-18 05:40] LABS: BUN Creatinine Ratio 36.1 (10-20); Calcium 7.9 mg/dl (8.5-10.1); Creatinine Clr Calc Pharmacy 74.5 ml/min; Est GFR (African American) 94.6; Est GFR (Non-African American) 81.6; Magnesium 2.2 mg/dl (1.8-2.4); Potassium 3.8 mmol/L (3.5-5.1)
[2020-09-18 05:43] LABS: Phosphorus 2.6 mg/dl (2.5-4.9)
[2020-09-18] MEDS: propofoL 1,000 MG/100 ML VIAL IV SCH (07:31)
[2020-09-18] MEDS: FLUTICASONE FUROATE 100MCG 14 PUFFS/INHALER INH SCH (09:45)
[2020-09-18] MEDS: METOPROLOL TARTRATE 25 MG TAB PO SCH ×2 (09:45→21:21)
[2020-09-18] MEDS: ISOSORBIDE MONO EXTENDED REL 60 MG TABCR PO SCH ×2 (09:45→21:21)
[2020-09-18] MEDS: FUROSEMIDE 40 MG TAB PO SCH (09:45)
--- NOTE | 2020-09-18 09:52 | Critical Care Progress Note ---
Date of Service September 18, 2020 Assessment & Plan (1) Postop carotid endarterectomy surveillance, encounter for: Impression: 85-year-old male status post right carotid endarterectomy 09/15/2020. Patient had to return to the OR early 09/16 for postoperative neck hematoma with tracheal deviation and airway compromise 24-hour events: None overnight Recommendations: 1. Neuro: Patient appears to be neurologically intact post surgery and will continue to follow neuro exam -Insomnia: Patient requests Benadryl for insomnia as needed 2. Pulmonary: Weaning supplemental oxygen as tolerated. patient relates a history of COPD however is not bronchospastic currently. No indication for antibiotics from a lung standpoint. 3. Cardiovascular: Hemodynamically stable. History of coronary disease. Continue to follow at this point time. Holding antihypertensives currently to avoid need to initiate vasopressor agents. Arterial line discontinue 4. GI: Tolerating his diet. Encourage ambulation 5. Endocrine: Continue glycemic control per protocol. 6. ID: Leukocytosis resolving. Continue to trend 7. Heme-onc: No current issues. Continue to trend hemoglobin. Coagulation panels appear appropriate 8. Renal: No current issues. Follow electrolytes and replete as needed Discussed on multidisciplinary rounds as well as with Dr. Rivera. Critical care will sign off Admission and Anticipated Discharge Date Admission Date: September 15, 2020 Subjective Was able to up and ambulate to toilet and had flatulence no bowel movement. Able to eat breakfast without difficulty. Review of Systems Review of Systems: As per the [facility] Physical Exam Physical Exam: General: Alert. nontoxic. Skin: Warm, dry, Head: Atraumatic Ears, nose, mouth and throat: airway patent Cardiovascular: Normal peripheral perfusion Respiratory: no respiratory distress Gastrointestinal: Non distended Musculoskeletal: No deformity Results & Data Results & Data ([facility]) Vital Signs (Past 12 Hours) Vital Signs Temp Pulse Resp BP Pulse Ox 09/18/20 08:00 74 18 96 09/18/20 07:45 75 09/18/20 07:00 75 26 H 99 09/18/20 06:30 73 22 98 09/18/20 06:00 76 20 134/65 99 09/18/20 05:30 70 20 98 09/18/20 05:00 82 20 98 09/18/20 04:30 80 23 98 09/18/20 04:00 36.8 C 75 17 145/65 H 98 09/18/20 03:30 74 17 98 09/18/20 03:00 78 21 98 09/18/20 02:30 79 19 99 09/18/20 02:00 81 23 137/72 98 09/18/20 01:30 81 23 99 09/18/20 01:00 78 12 97 09/18/20 00:30 80 17 98 09/18/20 00:00 37 C 78 12 136/80 98 09/17/20 23:30 83 16 99 09/17/20 23:00 82 21 98 09/17/20 22:30 84 19 100 09/17/20 22:00 95 H 18 162/77 H 96 Laboratory Results 09/18/20 09/18/20 Range/Units 04:59 04:59 WBC 12.37 H (4.8-10.8) K/uL RBC 3.17 L (4.7-6.1) M/uL Hgb 10.7 L (14.0-18.0) g/dL Hct 30.5 L (42-52) % MCV 96.2 (80-100) fL MCH 33.8 (25-34) pg MCHC 35.1 (32-36) g/dL RDW Std Deviation 44.7 (36.4-46.3) fL RDW Coeff of Corbin 12.9 (11.5-14.5) % Plt Count 187 (130-400) K/uL MPV 10.2 (7.4-10.4) fL Immature Gran % (Auto) 0.2 % Neut % (Auto) 75.9 % Lymph % (Auto) 10.9 % Mercer % (Auto) 13.0 % Eos % (Auto) 0.0 % Baso % (Auto) 0.0 % Neut # (Auto) 9.38 H (1.4-6.5) K/uL Lymph # (Auto) 1.35 (1.2-3.4) K/uL Mercer # (Auto) 1.61 H (0.11-0.59) K/uL Eos # (Auto) 0.00 (0-0.5) K/uL Baso # (Auto) 0.00 (0-0.2) K/uL Immature Gran # (Auto) 0.03 H (0.00-0.02) K/uL Sodium 144 (136-145) mmol/L Potassium 3.8 (3.5-5.1) mmol/L Chloride 112 H (98-107) mmol/L Carbon Dioxide 26 (21-32) mmol/L Anion Gap 6.0 (3-11) BUN 29 H (7-18) mg/dl Creatinine 0.81 (0.6-1.4) mg/dl Est Cr Clr Drug Dosing 74.5 ml/min Est GFR ( Amer) 94.6 Est GFR (Non-Af Amer) 81.6 BUN/Creatinine Ratio 36.1 H (10-20) Glucose 88 (70-99) mg/dl Calcium 7.9 L (8.5-10.1) mg/dl Phosphorus 2.6 D (2.5-4.9) mg/dl Magnesium 2.2 (1.8-2.4) mg/dl Coding Level of Care Code 56775 Subseq Hosp Care Lvl 2 Diagnoses Postop carotid endarterectomy surveillance, encounter for Z48.812
--- NOTE | 2020-09-18 10:43 | Surgery Progress Note ---
Date of Service September 18, 2020 Assessment & Plan (1) Postop carotid endarterectomy surveillance, encounter for: Doing well. No respiratory problems. Able to swallow without difficulty. Will observe at this time Admission and Anticipated Discharge Date Admission Date: September 15, 2020 Subjective Patient awake and alert. No new complaints Physical Exam Constitutional: WD/WN, vitals as above Neck: trachea midline Respiratory: normal respiratory effort; no respiratory distress Cardiovascular: Rate/Rhythm: regular rate and regular rhythm Skin: + incision (dry and clean) Neurologic: CN's II-XI intact bilaterally and moves all extremities slight weakness of right marginal mandibular nerve, improving very slightly Psychiatric: Orientation: alert and oriented x 3 Results & Data ([facility]) Vital Signs (Past 12 Hours) Vital Signs Temp Pulse Resp BP Pulse Ox 09/18/20 10:00 65 23 09/18/20 09:00 36.3 C L 70 97 09/18/20 08:30 76 23 98 09/18/20 08:00 74 18 96 09/18/20 07:45 75 09/18/20 07:00 75 26 H 99 09/18/20 06:30 73 22 98 09/18/20 06:00 76 20 134/65 99 09/18/20 05:30 70 20 98 09/18/20 05:00 82 20 98 09/18/20 04:30 80 23 98 09/18/20 04:00 36.8 C 75 17 145/65 H 98 09/18/20 03:30 74 17 98 09/18/20 03:00 78 21 98 09/18/20 02:30 79 19 99 09/18/20 02:00 81 23 137/72 98 09/18/20 01:30 81 23 99 09/18/20 01:00 78 12 97 09/18/20 00:30 80 17 98 09/18/20 00:00 37 C 78 12 136/80 98 09/17/20 23:30 83 16 99 09/17/20 23:00 82 21 98
[2020-09-18] MEDS ORDERED: diphenhydrAMINE 50 MG/ML VIAL IV PRN (11:02)
[2020-09-19] MEDS: METOPROLOL TARTRATE 25 MG TAB PO SCH (08:33)
[2020-09-19] MEDS: FUROSEMIDE 40 MG TAB PO SCH (08:33)
[2020-09-19] MEDS: ISOSORBIDE MONO EXTENDED REL 60 MG TABCR PO SCH (08:33)
[2020-09-19] MEDS: FLUTICASONE FUROATE 100MCG 14 PUFFS/INHALER INH SCH (08:34)
[2020-09-19] MEDS ORDERED: ENOXAPARIN INJ 30 MG/0.3 ML SYR SQ SCH (09:00)
--- NOTE | 2020-09-19 10:10 | Surgery Progress Note ---
Date of Service September 19, 2020 Assessment & Plan (1) Postop carotid endarterectomy surveillance, encounter for: Doing well. Will d/c today after spontaneously voids. Admission and Anticipated Discharge Date Admission Date: September 15, 2020 Subjective No complaints. No swallowing difficulty. No SOB Physical Exam Constitutional: WD/WN, vitals as above Neck: trachea midline Respiratory: normal respiratory effort; no respiratory distress Cardiovascular: Rate/Rhythm: regular rate and regular rhythm Skin: + incision (dry and clean) Neurologic: CN's II-XI intact bilaterally and moves all extremities; no focal motor deficits (other than right eusebio mandibular n which is improving) Results & Data ([facility]) Vital Signs (Past 12 Hours) Vital Signs Temp Pulse Resp BP Pulse Ox 09/19/20 10:00 87 17 92 09/19/20 09:00 95 H 18 09/19/20 08:05 36.7 C 89 09/19/20 07:49 95 H 20 129/68 97 09/19/20 06:50 94 H 34 H 140/83 97 09/19/20 06:00 97 H 21 97 09/19/20 05:50 77 27 H 116/70 96 09/19/20 05:00 91 H 27 H 97 09/19/20 04:49 82 21 121/73 97 09/19/20 04:01 36.7 C 09/19/20 04:00 88 18 97 09/19/20 03:49 78 23 120/89 97 09/19/20 03:00 84 25 H 98 09/19/20 02:49 85 19 134/72 97 09/19/20 02:00 85 16 98 09/19/20 01:49 91 H 24 125/72 98 09/19/20 01:07 36.6 C 09/19/20 01:00 79 24 98 09/19/20 00:49 79 21 127/65 98 09/19/20 00:00 79 24 116/81 97 09/18/20 23:49 85 23 116/81 97 09/18/20 23:16 86 09/18/20 23:00 85 22 98 09/18/20 22:49 78 19 130/93 98
--- NOTE | 2020-09-19 14:45 | Discharge Summary ---
Date of Service September 19, 2020 Admission HPI Per Admitting Provider * Final Report * September 11, 2020 Name[place] [facility] [id number] : 1935 Date of Service: 09/11/2020 Oscar Olson MD [address] [place] [address] Olson: I had the pleasure of seeing Mr. Gifty Reece in the Vascular Surgery office for a followup in regard to his abdominal aortic aneurysm and for carotid artery disease. As you know, this is a very pleasant 85-year-old gentleman, who is 8 years status post EVAR for asymptomatic infrarenal abdominal aortic aneurysm back in 2012. From that standpoint, he is doing quite well. He was last seen in our office in June 2020, at which time, his aneurysm sac had been 3.7 cm and unchanged. He presents today more so to discuss carotid artery disease in the setting of a recent cerebrovascular event. At some point in August, he had an episode of severe vertigo when he woke up at night. He describes that he crawled to the bathroom at that point. He was not having any difficulties with his vision and was not having any difficulties moving his arms or legs. He describes that the reason that he was crawling was because he was just quite unsteady on his feet. This was associated with the sudden urge to have a bowel movement. This was also associated with a sense of nausea. He made it back to his bed and went to sleep and then woke up a couple of hours later and was doing well. He only recalls this episode because recently he was seen by a neurologist. The reason he was seen by a neurologist is because he has a family history of dementia and is worried about some recent memory changes. He was seen by the neurologist in order to pursue any recommended workup in order to see if there is anything he could do to prevent any onset of dementia and to "keep his brain sharp." Part of this workup included a brain MRI, which was notable for a subacute right frontal lobe stroke. Again, he denied any episodes of difficulty with speech or swallow, facial droop, numbness, tingling, or weakness of his upper or lower extremities, or vision loss. The MRI during the stroke was performed back in last week at [facility]. He was seen by Neurology and started on aspirin and Plavix. On physical examination, his vital signs are as follows; heart rate 66, blood pressure 152/66, oxygen saturation 98% on room air. He is well appearing, well nourished, in no acute distress. He is awake, alert, and responds to questions appropriately. He is breathing comfortably on room air. His lungs are clear to auscultation bilaterally. There are no carotid bruits appreciated in the bilateral neck. On cardiac auscultation, he does have a murmur that is auscultated most prominently over the mitral region. His abdomen is soft, nontender, and nondistended. There are no palpable pulsatile abdominal masses. His bilateral legs are warm to the touch. His motor and sensory intact to the upper and lower extremities. Cranial nerves 2 through 12 are intact. In summary, this is a very pleasant 85-year-old gentleman, who is status post EVAR from 8 years ago for asymptomatic infrarenal abdominal aortic aneurysm. He continues to do well from this standpoint. He did suffer a recent stroke as evidenced by his subacute infarct on an MRI performed last week. This is in the setting of a 70% right proximal internal carotid artery stenosis. He is very anxious about this stenosis and the MRI findings of a stroke. He feels that he "is sitting on a ticking time bomb." Thus today, we did discuss with him a carotid endarterectomy. We discussed with him the risks of this procedure including stroke, heart attack, nerve injury, hematoma, wound infection. He indicates that he wishes to proceed with the procedure. We did obtain consent today in the office. We will schedule him for a right carotid endarterectomy as soon as we can get him into the operating room schedule. Thank you for allowing me to participate in the care of this patient. Please do not hesitate to contact me with questions or concerns. Sincerely, I saw and evaluated the patient. Discussed with the resident and agree with the resident's findings and plan as documented in the resident's note. Signature Line Electronic Signature on File CC: Oscar Olson MD [id number] [address] Adelina Connor MD Author Signature Dt/Tm: 09/13/2020 08:17 AM Resident Division of Vascular Surgery Electronically Reviewed/Signed by: Jesse Rivera MD Cosigner Signature Dt/Tm: 09/13/2020 08:13 AM [employer] Furnace [employer] Alexei Guzman [facility] [place] [address], [address] [place] [address] ST /CO Result Type: .Outpt Ltr Date of Service: September 11, 2020 00:00 EST Authorization Status: Final Author or Import Date: MD Geeta, dAelina on September 11, 2020 15:26 EST Verified By: MD Nicole, Jesse Campos on September 13, 2020 08:13 EST Encounter info: [id number], [place] [address], Clinic, 09/11/2020 - 09/11/2020 Contributor system: [id number] Admission Exam Per Admitting Provider On physical examination, his vital signs are as follows; heart rate 66, blood pressure 152/66, oxygen saturation 98% on room air. He is well appearing, well nourished, in no acute distress. He is awake, alert, and responds to questions appropriately. He is breathing comfortably on room air. His lungs are clear to auscultation bilaterally. There are no carotid bruits appreciated in the bilateral neck. On cardiac auscultation, he does have a murmur that is auscultated most prominently over the mitral region. His abdomen is soft, nontender, and nondistended. There are no palpable pulsatile abdominal masses. His bilateral legs are warm to the touch. His motor and sensory intact to the upper and lower extremities. Cranial nerves 2 through 12 are intact. Principal Diagnosis 1. s/p Exploration of R neck and evacuation of hematoma 2. s/p R CEA 3. Post op hematoma 4. R ICA stenosis Discharge Exam Constitutional WD/WN, vitals as above Neck trachea midline and + tracheal deviation (moderate deviation to the left) Respiratory normal respiratory effort; no respiratory distress Cardiovascular Rate/Rhythm: regular rate and regular rhythm Skin + incision (dry and clean) Neurologic CN's II-XI intact bilaterally and moves all extremities; no focal motor deficits (other than right eusebio mandibular n which is improving) Psychiatric Orientation: alert and oriented x 3 Discharge Data Allergies Allergy/AdvReac Type Severity Reaction Status Date / Time naproxen [From Naprosyn] Allergy Severe Anaphylaxis Verified 09/15/20 08:59 NSAIDS (Non-Steroidal Allergy Severe Anaphylaxis Verified 09/15/20 08:59 Anti-Inflamma Consultations 09/15/20 15:20 Consult Makeup Editor Routine Procedures Performed Operation Date: 09/15/20 10:10 Actual Procedures p Right Carotid Endarterectomy(Right) - Jesse Rivera MD Operation Date: 09/16/20 05:05 Actual Procedures p Evacuation Hematoma and Exploration of Right Neck Wound(Right) - Jesse Rivera MD Hospital Course (1) Postop carotid endarterectomy surveillance, encounter for: Doing well POD #4 from CEA and POD #3 from neck exploration. Will d/c today after spontaneously voids. Total Time Total Time Spent Total Time Spent (In Minutes): 0 Discharge Plan Discharge Items Patient Disposition: Home - Self-Care Reason For Visit: Right Carotid Artery Stenosis Discharge Diagnosis: Right caorotid stenosis, right carotid endarterectomy Activity: Per Instructions section Bathing: May shower/bathe in 3 days Non-emergency contact: Surgeon Call non-emergency contact if: your temperature is above 101.5, your wound has increased redness, your wound has increased drainage and your wound pain has increased Follow-up/Referrals: Oscar Olson [Primary Care Provider] - (DR OLSON'S OFFICE WILL CALL YOU WITH A FOLLOW UP APT.) Diet: Heart Healthy Addtl Attending Provider Instructions: SPECIAL CARE INSTRUCTIONS: Medications: * Continue to take Aspirin as directed. Incision Care: * You may shower, but do not rub incision. You may let the warm soapy water run over it. Be sure to dry the incision well after bathing. * Do not shave directly over the incision until it is healed. * DO NOT IMMERSE THE INCISION IN A TUB/POOL/etc. UNTIL HEALED. Restrictions: * Do not drive for at least one week or if you are still taking any narcotic pain medication. * Do not lift anything heavier than a gallon of milk for one week after going home. Possible Complications: * Numbness - It is normal to have some numbness around the incision. Numbness can extend beyond the incision to areas of the neck, ear and face. The numbness is due to bruising of nerves during the surgery and will gradually improve over a period of months. * Hoarseness/Difficulty Speaking and Swallowing - The bruising of nerves in the neck can also cause a hoarse voice, difficulty speaking or swallowing. This may improve over time, HOWEVER, if it continues for more than a few days please contact our office ([phone]). * Excessive Swelling - There will be some swelling immediately after surgery which usually resolves within one week. If you notice that the swelling is getting worse, notify your surgeon ([phone]). * Drainage/Bleeding - If there is any drainage or bleeding, it should be a very small amount (less than a teaspoon per day). If you have excessive bleeding or drainage from the incision, call your surgeon ([phone]) right away. ACTIVATION OF EMERGENCY MEDICAL SYSTEM: Call 911, immediately, if you experience any of the following: Warning Signs and Symptoms of Stroke: * Sudden numbness or weakness of the face, arm or leg, especially on one side of the body * Sudden confusion, trouble speaking or understanding * Sudden trouble seeing in one or both eyes * Sudden trouble walking, dizziness, loss of balance or coordination * Sudden severe headache with no cause Do not delay calling 911 if you experience any warning signs or symptoms of a stroke. Delay in seeking medical attention may affect what treatments can be given to you. Risk Factors for Stroke: You can reduce your chances of stroke by working with your medical provider to adopt a healthy lifestyle. Some specific ways to lower your chance of stroke are: * If you are a smoker, now is the time to stop smoking cigarettes * If you are diabetic, improve the control of your blood sugars * Avoid excessive amounts of alcohol * Control high blood pressure * Lose weight if you are overweight * Be sure to lead an active lifestyle * Eat a healthy diet low in salt, cholesterol and fat You should know about other risk factors for stroke that you are unable to control. These include: * Age 55 years or older * Male gender * Certain racial groups: , or / * Family History of Stroke, Mini stroke or Heart Attack * Sickle Cell Disease You will be receiving a call from the Vascular Surgery Nurse after you are discharged. FOLLOW UP VISIT: It is important for you to keep your follow up appointments with your medical provider. Keep any scheduled doctor appointments.Call [phone] to schedule a follow up appointment if one not already scheduled. Pending Studies at Discharge: No Stand-Alone Forms: [employer], Smoking Cessation Medications and DC Order Prescriptions: New oxycodone-acetaminophen [Percocet] 5-325 mg tablet 1 tab PO Q6H PRN (Reason: pain) Qty: 14 RF: 0 Continued Trelegy Ellipta 100-62.5-25 mcg blister with device 1 inh INH QAM Qty: 60 RF: 6 clopidogrel 75 mg tablet 75 mg PO DAILY Qty: 30 RF: 2 resveratrol 50 mg capsule 50 mg PO BID RF: 0 melatonin 5 mg tablet 5 mg PO HS RF: 0 cholecalciferol (vitamin D3) 1,000 unit (25 mcg) tablet 1,000 unit PO QAM RF: 0 albuterol sulfate 90 mcg/actuation HFA aerosol inhaler 2 puffs inhalation Q4H PRN (Reason: Shortness Of Breath) RF: 0 isosorbide mononitrate 60 mg tablet extended release 24 hr 60 mg PO BID RF: 0 furosemide 40 mg tablet 40 mg PO QAM RF: 0 multivitamin Tablet 1 tab PO QAM RF: 0 potassium chloride 20 mEq tablet,ER particles/crystals 20 meq PO QAM RF: 0 nitroglycerin 0.4 mg tablet, sublingual 0.4 mg sublingual DIRECTED PRN (Reason: Chest Pain) RF: 0 docusate sodium 100 mg Capsule 100 mg PO QAM RF: 0 polyethylene glycol 3350 [Miralax] 17 gram/dose Powder 1 dose PO QAM RF: 0 ezetimibe 10 mg tablet 10 mg PO QAM RF: 0 coQ10 (ubiquinol) 200 mg Capsule 400 mg PO QAM RF: 0 metoprolol tartrate 25 mg tablet 25 mg PO BID RF: 0 [place] 250 mcg suppository 250 mcg intra-urethral DIRECTED PRN (Reason: Erectile Dysfunction) RF: 0 aspirin 81 mg tablet,delayed release (DR/EC) 81 mg PO DAILY Qty: 30 RF: 0 atorvastatin 40 mg tablet 40 mg PO HS Qty: 30 RF: 0 Discharge Orders: Discharge Order (Routine); Ordered 09/19/20 Ordered By: Jesse Rivera Admission Data Admit Date/Time: 09/15/20 14:25 Attending Provider: Jesse Rivera Admit Provider: Jesse Rivera Primary Care Provider: Oscar Olson Other Providers: Orestes Mckeon ; Kolton Cabello ; Chaka Ugalde ; Foster Lara ; Giovany Bonilla ; Chao Aponte ; Prema Chan ; Oscar Heart Other Interventions: Discharge Summary Assessment (RN) Last Done: 09/19/20 14:05
== END 2020-09-19 16:20 | disposition home or self-care (01) | DRG 38 ==
LOC: ASU 08:13 → 1E 14:25

== ENCOUNTER 2021-11-07 12:33 | Observation (INO) ==
--- NOTE | 2021-11-07 13:07 | Emergency Department Note ---
History of Present Illness General Chief Complaint: Cardiac Assessment Stated Complaint: HEART PAIN,STARTED YESTERDAY, REF BY DOC Time Seen by Provider: 11/07/21 12:45 History of Present Illness Provider Complaint: chest pain Onset (ago): day(s) 2 Duration: intermittent Onset: during rest Pain Location: left chest Severity: mild Current Pain Intensity: 0 Quality: + aching and + heaviness Relieved By: + nothing Exacerbated By: + nothing Context: no recent illness, no recent surgery, no recent immobilization, no recent travel or no trauma/injury Associated symptoms: + dyspnea; no nausea, no diaphoresis, no syncope, no palpitations, no cough or no leg swelling Treatments prior to arrival: aspirin Patient reports the pain comes about every 1 hour and last for few minutes. Home Medications Medication Instructions Recorded Confirmed Type coQ10 (ubiquinol) 200 mg capsule 200 mg PO QAM 10/07/18 11/07/21 History docusate sodium 100 mg capsule 100 mg PO QAM 10/07/18 11/07/21 History ezetimibe 10 mg tablet 10 mg PO QAM 10/07/18 11/07/21 History multivitamin 1 tab PO QAM 10/07/18 11/07/21 History nitroglycerin 0.4 mg sublingual 0.4 mg SUBLINGUAL DIRECTED PRN 10/07/18 11/07/21 History tablet potassium chloride 20 mEq 20 meq PO QAM 10/07/18 11/07/21 History tablet,extended release(part/cryst) cholecalciferol (vitamin D3) 25 1,000 unit PO QAM tab 02/15/19 11/07/21 History mcg (1,000 unit) tablet furosemide 40 mg tablet 40 mg PO QAM tab 02/15/19 11/07/21 History isosorbide mononitrate 60 mg 60 mg PO BID tab 02/15/19 11/07/21 History tablet,extended release 24 hr melatonin 5 mg tablet 5 mg PO HS tab 02/15/19 11/07/21 History resveratrol 50 mg capsule 50 mg PO BID cap 02/15/19 11/07/21 History metoprolol tartrate 25 mg tablet 25 mg PO BID 09/05/20 11/07/21 History alprostadil 250 mcg intra-urethral 250 mcg INTRA-URETHRAL ONCE PRN #6 11/22/20 11/07/21 Rx suppository ([place]) ea pravastatin 40 mg tablet 40 mg PO QAM 12/22/20 11/07/21 History albuterol sulfate 90 mcg/actuation 2 puff INHALATION Q4H PRN #18 g 12/26/20 11/07/21 Rx aerosol inhaler clopidogrel 75 mg tablet 75 mg PO QAM #90 tab 04/30/21 11/07/21 Rx psyllium 1 packet PO QAM 08/27/21 10/22/21 History fluticasone fur. 100 mcg-umeclid 1 inh INH QAM #60 ea 09/21/21 11/07/21 Rx 62.5 mcg-vilant 25 mcg inhalat.powder (Trelegy Ellipta) Allergies Allergy/AdvReac Type Severity Reaction Status Date / Time naproxen [From Naprosyn] Allergy Severe Anaphylaxis Verified 09/21/21 14:56 NSAIDS (Non-Steroidal Allergy Severe Anaphylaxis Verified 09/21/21 14:56 Anti-Inflamma Past Med/Surg History Medical History Abdominal aortic aneurysm under surveillance by vascular (Dr. Rivera) Acute CVA (cerebrovascular accident) 09/05/2020 ([facility]) > no deficits-PT CONFIRMS INFORMATION-PLACED ON [facility] Aortic stenosis Moderate aortic stenosis (SARAH 1.3 to 1.4 cm, mean gradient 12.7 mmHg) per 09/06/20 echo > follows with Dr. Conley CAD (coronary artery disease) s/p CABG x4 (2014)-[facility] [place] Carotid stenosis DDD (degenerative disc disease) per records Emphysema lung stable History of prostate cancer no radiation Hyperlipidemia Hypertension Myocardial Infarction 2014 Osteoarthritis Sleep apnea BIPAP Surgical History Difficult intubation Per patient mentioned difficult intubation with 1995 prostate surgery > subsequent EBUS, navagitional bronchoscopy (07/29/19) at [facility] with Grade view 1, Glidescope#4, ETT 8.5 at [facility] -PT CONFIRMED INFORMATION H/O prostatectomy H/O vascular surgery Left leg seroma excision History of arthroscopy Right shoulder History of cardiac cath 2014 > no stents History of carotid endarterectomy RIGHT 09/2020 [facility] History of colonoscopy History of coronary artery bypass graft CABG x4 (12/2014) > 12/07/2014: LEVY-LAD; SVG-RCA ( with extensive endarterectomy of the RCA ); SVG-LAD diagonal; SVG-L Cx marginal History of herniorrhaphy History of meniscectomy of left knee History of partial colectomy History of tonsillectomy and adenoidectomy History of tooth extraction History of trigger finger Right trigger finger release S/P bronchoscopy with biopsy Navigational Bronchoscopy with Biopsy Family History Father , in his early 80s of senile dementia of the Alzheimer's type Alzheimer disease Heart disease Brother Back problem Grandmother (Paternal) Dementia Mother , in her 90s of urinary issues No problems noted. 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 Former [facility] Feels Safe at Home: Yes Assistive Devices: Walker Review of Systems A total of 10 systems reviewed and were otherwise negative Physical Exam Vital Signs Vital Signs - 24 hr 11/07/21 12:37 11/07/21 12:51 11/07/21 14:05 Temperature 37.1 C Temperature Source Temporal Artery Scan Pulse Rate 69 68 Pulse Rate [Apical] 67 75 Pulse Rhythm Regular Respiratory Rate 18 13 21 Respiratory Effort / Characteristics Non-Labored Spontaneous Respiratory Depth Normal Blood Pressure 137/66 Blood Pressure [Right Arm] 130/65 138/71 Blood Pressure Mean 89 Blood Pressure Mean [Right Arm] 86 93 Pulse Oximetry 97 98 Oxygen Delivery Method Room Air Room Air Room Air Sepsis Recent Fever Within 48 Hours No Sepsis New/Unexplained Change in Mental Status No Sepsis Action Taken by Nursing No Action Required Physical Exam GENERAL: He is oriented to person, place, and time. He appears well-developed and well-nourished. He does not appear distressed. HENT: Exam performed. - Head: Normocephalic and atraumatic. - Right Ear: External ear normal. No mastoid tenderness. - Left Ear: External ear normal. No mastoid tenderness. - Mouth/Throat: The oropharynx is clear and moist. No trismus in the jaw. No dental abscesses or uvula swelling. No oropharyngeal exudate or tonsillar abscesses. EYES: Conjunctivae and EOM are normal. Pupils are equal, round, and reactive to light. Right eye exhibits no discharge. Left eye exhibits no discharge. No scleral icterus. NECK: Normal range of motion. Neck supple. No JVD present. No spinous process tenderness present. No carotid bruit present. No rigidity. No tracheal deviation and normal range of motion present. No Brudzinski's sign and no Kernig's sign noted. CV: Normal rate, regular rhythm, systolic murmur present. Intact distal pulses. There is no peripheral edema. Palpable radial pulses bue. PULM/CHEST: Effort normal and breath sounds normal. No respiratory distress. No stridor. He has no wheezes. He has no rales. - Chest Wall: He exhibits no tenderness. ABD: The abdomen is soft. Bowel sounds are normal. He has no distension. No mass is present. There is no tenderness. There is no rebound, no guarding, no Murp hy's sign and no tenderness at McBurney's point. Rovsig negative. MUSC/SKEL: Normal range of motion. There is no peripheral edema, tenderness or deformity. LYMPH: No cervical adenopathy. NEURO: He is alert and oriented to person, place, and time. He has normal strength. No cranial nerve deficit or sensory deficit. Coordination and gait normal. GCS eye subscore is 4. GCS verbal subscore is 5. GCS motor subscore is 6. Cerebellar tests wnl. SKIN: Skin is warm and dry. He is not diaphoretic. PSYCH: He has a normal mood and affect. Behavior is normal. Judgment and thought content normal. Course Course 1245: The patient was evaluated in room A3. A complete history and physical exam was performed Cardiac monitoring: An order was placed for continuous cardiac monitoring. The monitor shows a rate of 70 with sinus rhythm 1500: Vital signs stable. EKG shows a new bifascicular block when compared to previous EKGs he only has a left bundle branch block. Patient's troponins are elevated. Patient was advised to be admitted to the hospitalist team for cardiology evaluation. Patient stated that he did not want to do this and is asking that I speak with his compensation business partner Dr. Conley. 1800: Vital signs stable. Spoke with Dr. Conley is in agreement that the patient needs to be admitted. He states he will see the patient in the morning and recommends the patient be admitted to the hospitalist team. He also recom mends starting patient on heparin and the patient be n.p.o. for possible catheterization tomorrow. I informed the patient and his family member that I spoke with Dr. Conley and he agreed with my initial assessment that the patient should be admitted to the hospital, patient is now willing to stay in the hospital. Patient will be admitted to the [facility] hospitalist team Dr. Hitchcock notified. Administered Medications Heparin Sodium/Dextrose (Heparin Sodium/Dextrose) 25,000 units in 500 mls @ 0.02 mls/hr IV .Q24H [facility]; Protocol Stop: 12/07/21 16:14 Last Admin: 11/07/21 16:46 Dose: 950 units/hr, 19 mls/hr Documented by: [id number] Cosigned by: [id number] Discontinued Medications Heparin Sodium (Porcine) (Heparin Sod (Porcine) 1000 Unit/Ml) 1 units IV NOW ONE Stop: 11/07/21 16:13 Last Admin: 11/07/21 16:46 Dose: 4,000 units Documented by: [id number] Cosigned by: [id number] Medical Decision Making Laboratory Data Result diagrams: 11/07/21 12:58 11/07/21 14:05 Labs: Lab Results 11/07/21 11/07/21 11/07/21 Range/Units 12:58 12:58 13:29 WBC 19.68 H (4.8-10.8) K/uL RBC 4.06 L (4.7-6.1) M/uL Hgb 13.7 L (14.0-18.0) g/dL Hct 39.5 L (42-52) % MCV 97.3 (80-100) fL MCH 33.7 (25-34) pg MCHC 34.7 (32-36) g/dL RDW Std Deviation 45.6 (36.4-46.3) fL RDW Coeff of [place] 12.8 (11.5-14.5) % Plt Count 193 (130-400) K/uL MPV 10.6 H (7.4-10.4) fL Immature Gran % (Auto) 0.4 % Neut % (Auto) 80.6 % Lymph % (Auto) 5.7 % [place] % (Auto) 13.1 % Eos % (Auto) 0.1 % Baso % (Auto) 0.1 % Neut # (Auto) 15.86 H (1.4-6.5) K/uL Lymph # (Auto) 1.13 L (1.2-3.4) K/uL [place] # (Auto) 2.58 H (0.11-0.59) K/uL Eos # (Auto) 0.01 (0-0.5) K/uL Baso # (Auto) 0.02 (0-0.2) K/uL Immature Gran # (Auto) 0.08 H (0.00-0.02) K/uL PT 11.2 (9.0-12.0) Seconds INR 1.1 (0.9-1.1) APTT 30.5 (21.0-31.0) Seconds PTT Ratio 1.1 Sodium (136-145) mmol/L Potassium (3.5-5.1) mmol/L Chloride (98-107) mmol/L Carbon Dioxide (21-32) mmol/L Anion Gap (3-11) BUN (6-23) mg/dl Creatinine (0.6-1.4) mg/dl Est Cr Clr Drug Dosing ml/min Est GFR ( Amer) ml/min Est GFR (Non-Af Amer) ml/min BUN/Creatinine Ratio (10-20) Glucose (70-99(Fasting)) mg/dl Calcium (8.5-10.1) mg/dl Troponin I High Sens (0-20) pg/ml Lipase (11-82) U/L SARS-CoV-2, RNA, NAAT NEGATIVE (NEGATIVE) 11/07/21 11/07/21 Range/Units 14:05 14:05 WBC (4.8-10.8) K/uL RBC (4.7-6.1) M/uL Hgb (14.0-18.0) g/dL Hct (42-52) % MCV (80-100) fL MCH (25-34) pg MCHC (32-36) g/dL RDW Std Deviation (36.4-46.3) fL RDW Coeff of [place] (11.5-14.5) % Plt Count (130-400) K/uL MPV (7.4-10.4) fL Immature Gran % (Auto) % Neut % (Auto) % Lymph % (Auto) % [place] % (Auto) % Eos % (Auto) % Baso % (Auto) % Neut # (Auto) (1.4-6.5) K/uL Lymph # (Auto) (1.2-3.4) K/uL [place] # (Auto) (0.11-0.59) K/uL Eos # (Auto) (0-0.5) K/uL Baso # (Auto) (0-0.2) K/uL Immature Gran # (Auto) (0.00-0.02) K/uL PT (9.0-12.0) Seconds INR (0.9-1.1) APTT (21.0-31.0) Seconds PTT Ratio Sodium 133 L (136-145) mmol/L Potassium 4.0 (3.5-5.1) mmol/L Chloride 101 (98-107) mmol/L Carbon Dioxide 23 (21-32) mmol/L Anion Gap 9 (3-11) BUN 21 (6-23) mg/dl Creatinine 0.84 (0.6-1.4) mg/dl Est Cr Clr Drug Dosing 61.7 ml/min Est GFR ( Amer) 92.5 ml/min Est GFR (Non-Af Amer) 79.8 ml/min BUN/Creatinine Ratio 25.0 H (10-20) Glucose 102 H (70-99(Fasting)) mg/dl Calcium 8.7 (8.5-10.1) mg/dl Troponin I High Sens 22.5 H 23.1 H (0-20) pg/ml Lipase 9 L (11-82) U/L SARS-CoV-2, RNA, NAAT (NEGATIVE) Imaging Data Chest x-ray: Radiologist's impression: Chest X-Ray 11/07/21 12:50 SINGLE VIEW CHEST CLINICAL HISTORY: Atypical chest pain. FINDINGS: An AP, portable, upright chest radiograph is compared to study dated 02/23/2021. The examination is degraded by portable technique and apical lordotic positioning. The patient is status post midline sternotomy. The heart is enlarged noting atherosclerotic calcification of the thoracic aorta. The pulmon [place]ane vasculature is noncongested. Emphysema and chronic interstitial thickening is similar to previous. Scarring/atelectasis is noted at the lung bases. The lungs and pleural spaces are otherwise clear. No pneumothorax is seen. The skeletal structures are osteopenic. The bony thorax is grossly intact. Advanced arthritic change is noted in the shoulders. IMPRESSION: Cardiomegaly and emphysema with no acute cardiopulmonary abnormality. ACT 112: Negative or not required by law. Electronically signed by: Orestes Jason M.D. 11/07/2021 1:15 PM ECG Data Additional Comments: Sinus rhythm with rate of 69. SD 298 QRS [address] elevation or ST depression. Bifascicular block is present. When compared with previous EKGs the bifascicular block is new but the patient has had a history of left bundle branch block EKGs in 2020 [facility] Narrative 1245: The patient was evaluated in room A3. A complete history and physical exam was performed Cardiac monitoring: An order was placed for continuous cardiac monitoring. The monitor shows a rate of 70 with sinus rhythm 1500: Vital signs stable. EKG shows a new bifascicular block when compared to previous EKGs he only has a left bundle branch block. Patient's troponins are elevated. Patient was advised to be admitted to the hospitalist team for cardiology evaluation. Patient stated that he did not want to do this and is asking that I speak with his compensation business partner Dr. Conley. 1800: Vital signs stable. Spoke with Dr. Conley is in agreement that the patient needs to be admitted. He states he will see the patient in the morning and recommends the patient be admitted to the hospitalist team. He also recommends starting patient on heparin and the patient be n.p.o. for possible catheterization tomorrow. I informed the patient and his family member that I spoke with Dr. Conley and he agreed with my initial assessment that the patient should be admitted to the hospital, patient is now willing to stay in the hospital. Patient will be admitted to the [facility] hospitalist team Dr. Hitchcock notified. Impression & Plan Non-ST elevation VA (NSTEMI) Critical Care Time Critical Care Time: Yes Total Critical Care Time: 58 I have personally spent greater than 58 minutes of critical care time in the direct management of this patient. This includes bedside care, interpretation of diagnostic studies, and testing, discussion with consultants, patient, and family members, and other required patient management activities. This 58 minutes is in excess of all separately billable procedures. Discharge Plan Visit Data Chief Complaint: Cardiac Assessment Stated Complaint: HEART PAIN,STARTED YESTERDAY, REF BY DOC ED Provider: Ladarius Fraser Discharge Problem: Non-ST elevation VA (NSTEMI) Patient Disposition: Admitted As Inpatient Forms Stand Alone Forms: [facility] Prescriptions Prescriptions: No Action pravastatin 40 mg tablet 40 mg PO QAM RF: 0 albuterol sulfate 90 mcg/actuation HFA aerosol inhaler 2 puff inhalation Q4H PRN (Reason: Shortness Of Breath) Qty: 18 RF: 5 resveratrol 50 mg capsule 50 mg PO BID RF: 0 melatonin 5 mg tablet 5 mg PO HS RF: 0 cholecalciferol (vitamin D3) 1,000 unit (25 mcg) tablet 1,000 unit PO QAM RF: 0 isosorbide mononitrate 60 mg tablet extended release 24 hr 60 mg PO BID RF: 0 furosemide 40 mg tablet 40 mg PO QAM RF: 0 Trelegy Ellipta 100-62.5-25 mcg blister with device 1 inh INH QAM Qty: 60 RF: 6 [place] 250 mcg suppository 250 mcg intra-urethral ONCE PRN (Reason: Erectile Dysfunction) Qty: 6 RF: 4 clopidogrel 75 mg tablet 75 mg PO QAM Qty: 90 RF: 3 multivitamin Tablet 1 tab PO QAM RF: 0 potassium chloride 20 mEq tablet,ER particles/crystals 20 meq PO QAM RF: 0 nitroglycerin 0.4 mg tablet, sublingual 0.4 mg sublingual DIRECTED PRN (Reason: Chest Pain) RF: 0 docusate sodium 100 mg Capsule 100 mg PO QAM RF: 0 ezetimibe 10 mg tablet 10 mg PO QAM RF: 0 coQ10 (ubiquinol) 200 mg Capsule 200 mg PO QAM RF: 0 metoprolol tartrate 25 mg tablet 25 mg PO BID RF: 0 psyllium Packet 1 packet PO QAM RF: 0 Referrals Referrals: Oscar Olson [Primary Care Provider] -
--- NOTE | 2021-11-07 13:16 | XRay Report ---
SINGLE VIEW CHEST CLINICAL HISTORY: Atypical chest pain. FINDINGS: An AP, portable, upright chest radiograph is compared to study dated 02/23/2021. The examina tion is degraded by portable technique and apical lordotic positioning. The patient is status post mi dline sternotomy. The heart is enlarged noting atherosclerotic calcification of the thoracic aorta. T he pulmonary vasculature is noncongested. Emphysema and chronic interstitial thickening is similar to previous. Scarring/atelectasis is noted at the lung bases. The lungs and pleural spaces are otherwis e clear. No pneumothorax is seen. The skeletal structures are osteopenic. The bony thorax is grossly intact. Advanced arthritic change is noted in the shoulders. IMPRESSION: Cardiomegaly and emphysema with no acute cardiopulmonary abnormality. ACT 112: Negative or not required by law. Electronically signed by: Orestes Jason M.D. 11/07/2021 1:15 PM
[2021-11-07 13:39] LABS: Basophils # (auto) 0.02 K/uL (0-0.2); Basophils % (auto) 0.1 %; Eosinophils # (auto) 0.01 K/uL (0-0.5); Eosinophils % (auto) 0.1 %; Hematocrit (blood only) 39.5 % (42-52); Hemoglobin 13.7 g/dL (14.0-18.0); Immature Granulocytes # (auto) 0.08 K/uL (0.00-0.02); Immature Granulocytes % (auto) 0.4 %; Lymphocytes # (auto) 1.13 K/uL (1.2-3.4); Lymphocytes % (auto) 5.7 %; Mean Corpuscular Hemoglobin 33.7 pg (25-34); Mean Corpuscular Hgb Conc 34.7 g/dL (32-36); Mean Corpuscular Volume 97.3 fL (80-100); Mean Platelet Volume 10.6 fL (7.4-10.4); Monocytes # (auto) 2.58 K/uL (0.11-0.59); Monocytes % (auto) 13.1 %; Neutrophils # (auto) 15.86 K/uL (1.4-6.5); Neutrophils % (auto) 80.6 %; Platelet Count 193 K/uL (130-400); RDW Coefficient of Variation 12.8 % (11.5-14.5); RDW Standard Deviation 45.6 fL (36.4-46.3); Red Blood Count 4.06 M/uL (4.7-6.1); White Blood Count 19.68 K/uL (4.8-10.8)
[2021-11-07 13:55] LABS: INR 1.1 (0.9-1.1); Partial Thromboplastin Ratio 1.1; Partial Thromboplastin Time 30.5 Seconds (21.0-31.0); Prothrombin Time 11.2 Seconds (9.0-12.0)
[2021-11-07 14:32] LABS: Creatinine Clr Calc Pharmacy 61.7 ml/min
[2021-11-07 14:41] LABS: Troponin I High Sensitivity 22.5 pg/ml (0-20)
[2021-11-07 14:45] LABS: Calcium 8.7 mg/dl (8.5-10.1); Est GFR (African American) 92.5 ml/min; Est GFR (Non-African American) 79.8 ml/min
--- NOTE | 2021-11-07 15:56 | History & Physical Report ---
Date of Service November 07, 2021 Assessment & Plan (1) Chest pain: Plan: Apart from the 1 mile walk yesterday without chest pain, EKG changes and mildly elevated troponin concerning for acute coronary syndrome Continue to trend high-sensitivity troponins -initial troponins appear to be relatively stable and not suggestive of NSTEMI. ER physician discussed with his equipment washer Dr Conley and recommended treating for ACS with IV heparin ASA 325mg PO - patient already took this, this morning at home Continue clopidogrel 75,g PO daily Continue metoprolol tartrate 25mg PO BID TTE NPO after midnight for possible cardiac catheterization pending cardiology review in AM (2) History of quadruple bypass: Plan: Quadruple bypass in December 2014. Repeat catheterization in February 2050 with total occlusion of the SVG to RCA and 30 occlusion of [place] RCA. (3) Aortic stenosis: Plan: Noted history of this. Possible cause of his shortness of breath however previously moderate on echocardiogram. Repeat TTE as above. (4) Mitral regurgitation: Plan: Noted history of this. Suspect minimal contribution to his shortness of breath as otherwise would expect pulmonary edema. TTE as above. (5) Leukocytosis: Plan: I am unclear on the etiology of this however appears to be persistently elevated since February 2021. He denied any autoimmune or inflammatory conditions. However, EHR notes Hx polymyalgia rheumatica. Although he is not having any overt signs and symptoms of this point seen I did not ask about it specifically. Will get ESR and CK to assess for PMR/myositis with AM labs and trend WBC. No beatriz neurology note from September mentioning subjective reduced coordination and weakness when playing keyboard. (6) Hypertension: Plan: Continue his usual home medications with furosemide 40 mg p.o daily, isosorbide mononitrate 60 mg p.o. twice daily, metoprolol tartrate 25 mg p.o. twice daily. (7) Hyperlipidemia: Plan: Lipid panel in a.m. Continue pravastatin 40 mg p.o. 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 He reports having low-grade discomfort on the left side of his chest without radiation yesterday. It was intermittent in nature lasting for a few minutes at a time with 20 to 30 minutes in between episodes. No associated diaphoresis or nausea. The pain occurred at rest while at his computer. He reports walking 1 mile yesterday without recurrence of his chest pain. Associated dizziness and severe fatigue after about 5 PM. He reports not getting a good night sleep last night. He went to his primary care physician's office today who advised him to come to the emergency room due to his significant coronary history and chest pain. He reports also having aortic stenosis and mitral regurgitation. He has chronic shortness of breath with no acute worsening in the last week. He denies having any chest pain or discomfort today. Due to concern from the chest pain yesterday he did take 325 mg p.o. of aspirin this morning at 5 AM. In the ER his EKG was concerning for a new bifascicular block replacing a previous left bundle branch block. High-sensitivity troponin was minimally elevated at 22.5pg/ml without a significant delta increase of 0.6. ER provider discussed with his equipment washer and recommended intravenous heparin and admission under the medicine. Allergies Allergy/AdvReac Type Severity Reaction Status Date / Time naproxen [From Naprosyn] Allergy Severe Anaphylaxis Verified 09/21/21 14:56 NSAIDS (Non-Steroidal Allergy Severe Anaphylaxis Verified 09/21/21 14:56 Anti-Inflamma Home Medications Medication Instructions Recorded Confirmed Type coQ10 (ubiquinol) 200 mg capsule 200 mg PO QAM 10/07/18 11/07/21 History docusate sodium 100 mg capsule 100 mg PO QAM 10/07/18 11/07/21 History ezetimibe 10 mg tablet 10 mg PO QAM 10/07/18 11/07/21 History multivitamin 1 tab PO QAM 10/07/18 11/07/21 History nitroglycerin 0.4 mg sublingual 0.4 mg SUBLINGUAL DIRECTED PRN 10/07/18 11/07/21 History tablet potassium chloride 20 mEq 20 meq PO QAM 10/07/18 11/07/21 History tablet,extended release(part/cryst) cholecalciferol (vitamin D3) 25 1,000 unit PO QAM tab 02/15/19 11/07/21 History mcg (1,000 unit) tablet furosemide 40 mg tablet 40 mg PO QAM tab 02/15/19 11/07/21 History isosorbide mononitrate 60 mg 60 mg PO BID tab 02/15/19 11/07/21 History tablet,extended release 24 hr melatonin 5 mg tablet 5 mg PO HS tab 02/15/19 11/07/21 History resveratrol 50 mg capsule 50 mg PO BID cap 02/15/19 11/07/21 History metoprolol tartrate 25 mg tablet 25 mg PO BID 09/05/20 11/07/21 History alprostadil 250 mcg intra-urethral 250 mcg INTRA-URETHRAL ONCE PRN #6 11/22/20 11/07/21 Rx suppository ([place]) ea pravastatin 40 mg tablet 40 mg PO QAM 12/22/20 11/07/21 History albuterol sulfate 90 mcg/actuation 2 puff INHALATION Q4H PRN #18 g 12/26/20 11/07/21 Rx aerosol inhaler clopidogrel 75 mg tablet 75 mg PO QAM #90 tab 04/30/21 11/07/21 Rx psyllium 1 packet PO QAM 08/27/21 10/22/21 History fluticasone fur. 100 mcg-umeclid 1 inh INH QAM #60 ea 09/21/21 11/07/21 Rx 62.5 mcg-vilant 25 mcg inhalat.powder (Trelegy Ellipta) Past Med/Surg History Medical History Abdominal aortic aneurysm under surveillance by vascular (Dr. Rivera) Acute CVA (cerebrovascular accident) 09/05/2020 ([facility]) > no deficits-PT CONFIRMS INFORMATION-PLACED ON [facility] Aortic stenosis Moderate aortic stenosis (SARAH 1.3 to 1.4 cm, mean gradient 12.7 mmHg) per 09/06/20 echo > follows with Dr. Conley CAD (coronary artery disease) [place]/p CABG x4 [place]2014[place] [place] Carotid stenosis DDD (degenerative disc disease) per records Emphysema lung stable History of prostate cancer no radiation Hyperlipidemia Hypertension Myocardial Infarction 2014 Osteoarthritis Sleep apnea BIPAP Surgical History Difficult intubation Per patient mentioned difficult intubation with 1995 prostate surgery > subsequent EBUS, navagitional bronchoscopy (07/29/19) at [facility] with Grade view 1, Glidescope#4, ETT 8.5 at [facility] -PT CONFIRMED INFORMATION H/O prostatectomy H/O vascular surgery Left leg seroma excision History of arthroscopy Right shoulder History of cardiac cath 2014 > no stents History of carotid endarterectomy RIGHT 09/2020 [facility] History of colonoscopy History of coronary artery bypass graft CABG x4 (12/2014) > 12/07/2014: LEVY-LAD; SVG-RCA ( with extensive endarterectomy of the RCA ); SVG-LAD diagonal; SVG-L Cx marginal History of herniorrhaphy History of meniscectomy of left knee History of partial colectomy History of tonsillectomy and adenoidectomy History of tooth extraction History of trigger finger Right trigger finger release S/P bronchoscopy with biopsy Navigational Bronchoscopy with Biopsy Family History Father , in his early 80s of senile dementia of the Alzheimer's type Alzheimer disease Heart disease Brother Back problem Grandmother (Paternal) Dementia Mother , in her 90s of urinary issues No problems noted. Other No family history of adverse response to anesthesia Social History Smoking Status: Former smoker Tobacco Type: Cigarettes, Pipe and Cigars Number of Years Since Quit: 25; Second Hand Exposure: No; Do You Dip or Chew Tobacco: No; Tobacco Cessation Education Requested by Patient: No Hx Alcohol Use: Yes Alcohol type: wine Alcohol Intake Frequency Comment: 2 per day Hx Substance Use: No Preferred Language: Spanish Communication Ability: Effective Visual Impairment: No Limitations Senior Insight Manager Required: No Beliefs That Will Affect Care: None marital status: Current Living Situation: Spouse current occupational status: employed and retired 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 Former [employer] Other Information That Helps Us Care for You: No Feels Safe at Home: Yes Safety Concerns: Feels Safe At This Time Assistive Devices: Glasses and Hearing Aid - Bilateral Assistive Devices Comment: hearing aids not here Review of Systems Review of Systems: All systems reviewed & are unremarkable except as noted in HPI & below Physical Exam Constitutional: WD/WN, vitals as above Eyes: PERRL, conjunctivae normal, anicteric sclerae ENMT: external ear and nose normal, oropharynx normal Neck: trachea midline, no thyromegaly Respiratory: normal respiratory effort; no respiratory distress Auscultation: lungs clear to auscultation bilaterally Cardiovascular: Rate/Rhythm: regular rate and regular rhythm Heart Sounds: + murmur (VILLA 4/6 RUSB, holosystolic 5/6 apex) Vessels: no JVD Extremities: normal capillary refill and + pedal edema (Trace pretibial); no calf tenderness Gastrointestinal (Abdomen): normal bowel sounds, soft, nontender, no hepatosplenomegaly Musculoskeletal: no cyanosis or clubbing, extremities motor strength 5/5 Skin: no rashes, warm and dry Neurologic: moves all extremities and awake; not confused Psychiatric: A+Ox3, euthymic affect Results & Data Results & [facility] ([facility]) Vital Signs (Past 12 Hours) Vital Signs Temp Pulse Pulse Resp BP BP Pulse Ox 11/07/21 14:05 75 21 138/71 11/07/21 12:51 68 67 13 130/65 98 11/07/21 12:37 37.1 C 69 18 137/66 97 Laboratory Results Abnormal lab results 11/07/21 11/07/21 11/07/21 Range/Units 12:58 14:05 14:05 WBC 19.68 H (4.8-10.8) K/uL RBC 4.06 L (4.7-6.1) M/uL Hgb 13.7 L (14.0-18.0) g/dL Hct 39.5 L (42-52) % MPV 10.6 H (7.4-10.4) fL Neut # (Auto) 15.86 H (1.4-6.5) K/uL Lymph # (Auto) 1.13 L (1.2-3.4) K/uL [place] # (Auto) 2.58 H (0.11-0.59) K/uL Immature Gran # (Auto) 0.08 H (0.00-0.02) K/uL Sodium 133 L (136-145) mmol/L BUN/Creatinine Ratio 25.0 H (10-20) Glucose 102 H (70-99(Fasting)) mg/dl Troponin I High Sens 22.5 H 23.1 H (0-20) pg/ml Lipase 9 L (11-82) U/L Urine Protein (Negative) Urine Blood (Negative) Urine RBC (Auto) (0-4) /hpf U Epithel Cells (Auto) (0-5) /lpf 11/07/21 11/07/21 Range/Units 20:03 21:00 WBC (4.8-10.8) K/uL RBC (4.7-6.1) M/uL Hgb (14.0-18.0) g/dL Hct (42-52) % MPV (7.4-10.4) fL Neut # (Auto) (1.4-6.5) K/uL Lymph # (Auto) (1.2-3.4) K/uL [place] # (Auto) (0.11-0.59) K/uL Immature Gran # (Auto) (0.00-0.02) K/uL Sodium (136-145) mmol/L BUN/Creatinine Ratio (10-20) Glucose (70-99(Fasting)) mg/dl Troponin I High Sens 24.4 H (0-20) pg/ml Lipase (11-82) U/L Urine Protein 1+ H (Negative) Urine Blood Trace H (Negative) Urine RBC (Auto) 5-10 H (0-4) /hpf U Epithel Cells (Auto) 5-10 H (0-5) /lpf Diagnostic Findings SINGLE VIEW CHEST CLINICAL HISTORY: Atypical chest pain. FINDINGS: An AP, portable, upright chest radiograph is compared to study dated 02/23/2021. The examination is degraded by portable technique and apical lordotic positioning. The patient is status post midline sternotomy. The heart is enlarged noting atherosclerotic calcification of the thoracic aorta. The pulmonary vasculature is noncongested. Emphysema and chronic interstitial thickening is similar to previous. Scarring/atelectasis is noted at the lung bases. The lungs and pleural spaces are otherwise clear. No pneumothorax is seen. The skeletal structures are osteopenic. The bony thorax is grossly intact. Advanced arthritic change is noted in the shoulders. IMPRESSION: Cardiomegaly and emphysema with no acute cardiopulmonary abnormality. Medications Administered ER medications given: Low-dose heparin IV drip with bolus ECG Indication: chest pain Rate (beats per minute): 69 Rhythm: normal sinus Findings: + 1st degree AV block, + LAFB and + RBBB Comparison ECG Date: from (February 23, 2021) Change: the following changes noted (Bifascicular block has replaced left bundle branch block) Code Status & VTE Plan Code Status Full as discussed with the patient VTE Prophylaxis Plan VTE Prophylaxis will be ordered: Yes PG Care Time/CCT Total # of Minutes Spent Total Time Spent with Patient: Total time spent is greater than 50% in coordination of care (as documented) at patient's floor/unit and/or counseling patient: Coding Level of Care Code INT OBSERVATION CARE 70M LVL 3 Diagnoses Chest pain R07.9 H/O: stroke Z86.73 Hypertension I10 Hyperlipidemia E78.5 Mitral regurgitation I34.0 History of quadruple bypass Z95.1 Aortic stenosis I35.0 Leukocytosis D72.829
[2021-11-07] MEDS ORDERED: Heparin IV Adult Wt-Based Low-Dose WITH Bolus Protocol STA (15:57)
[2021-11-07] MEDS ORDERED: HEPARIN SOD (PORCINE) 1000 UNIT/ML IV ONE (16:12)
[2021-11-07] MEDS ORDERED: HEPARIN SODIUM/DEXTROSE 25,000 UNITS/500 ML BAG IV SCH (16:15)
[2021-11-07] MEDS ORDERED: NITROGLYCERIN SL 0.4 MG/TAB TAB SL PRN (17:44)
[2021-11-07] MEDS: METOPROLOL TARTRATE 25 MG TAB PO SCH (20:19)
[2021-11-07] MEDS: ISOSORBIDE MONO EXTENDED REL 60 MG TABCR PO SCH (20:19)
[2021-11-07] MEDS ORDERED: RESVERATROL 50 MG PO SCH (21:00)
[2021-11-07] MEDS ORDERED: NON-FORMULARY MEDICATION (Melatonin 5 mg tablet) PO SCH (21:00)
[2021-11-07] MEDS ORDERED: MELATONIN 3 MG TAB PO SCH (21:00)
[2021-11-07 22:02] LABS: Appearance Urine Clear (Clear); Bacteria Urine Automated Negative (Negative); Bilirubin Urine Negative (Negative); Blood Urine Trace (Negative); Cast Urine Automated 0 /lpf (0-5); Color Urine Yellow; Glucose Urine UA Negative (Negative); Ketones Urine Negative (Negative); Leukocyte Esterase Urine Negative (Negative); Nitrite Urine Negative (Negative); Protein Urine 1+ (Negative); Specific Gravity Urine 1.013 (1.000-1.030); Urobilinogen Urine Negative (Negative); WBC Urine Automated 0 /hpf (0-5); pH Urine 7.5 (4.5-7.5)
[2021-11-07 23:41] LABS: Partial Thromboplastin Ratio 1.8
[2021-11-08 06:38] LABS: Hematocrit (blood only) 37.1 % (42-52); Hemoglobin 12.9 g/dL (14.0-18.0); Mean Corpuscular Hemoglobin 33.2 pg (25-34); Mean Corpuscular Hgb Conc 34.8 g/dL (32-36); Mean Corpuscular Volume 95.4 fL (80-100); Mean Platelet Volume 10.2 fL (7.4-10.4); Platelet Count 175 K/uL (130-400); RDW Coefficient of Variation 12.9 % (11.5-14.5); RDW Standard Deviation 44.4 fL (36.4-46.3); Red Blood Count 3.89 M/uL (4.7-6.1); White Blood Count 16.76 K/uL (4.8-10.8)
[2021-11-08 06:51] LABS: Calcium 8.5 mg/dl (8.5-10.1); Chol HDL Ratio 1.7 (0-5); Creatinine Clr Calc Pharmacy 66.6 ml/min; Est GFR (African American) 91.2 ml/min; Est GFR (Non-African American) 78.7 ml/min; Potassium 3.8 mmol/L (3.5-5.1)
[2021-11-08 07:08] LABS: Estimated Average Glucose 108 mg/dl; Hemoglobin A1C 5.4 % (4.5-5.6); Partial Thromboplastin Ratio 1.7
--- NOTE | 2021-11-08 07:10 | Hospitalist Progress Note ---
Date of Service November 08, 2021 Assessment & Plan (1) Chest pain: Plan: (1) Chest pain: Plan: Apart from the 1 mile walk yesterday without chest pain, EKG changes and mildly elevated troponin concerning for acute coronary syndrome Continue to trend high-sensitivity troponins -initial troponins appear to be relatively stable and not suggestive of NSTEMI. ER physician discussed with his residential green building designer Dr Conley and recommended treating for ACS with IV heparin ASA 325mg PO - patient already took this, this morning at home Continue clopidogrel 75,g PO daily Continue metoprolol tartrate 25mg PO BID TTE NPO after midnight for possible cardiac catheterization pending cardiology review in AM (2) History of quadruple bypass: Plan: Quadruple bypass in December 2014. Repeat catheterization in February 2050 with total occlusion of the SVG to RCA and 30 occlusion of [place] RCA. (3) Aortic stenosis: Plan: Noted history of this. Possible cause of his shortness of breath however previously moderate on echocardiogram. Repeat TTE as above. (4) Mitral regurgitation: Plan: Noted history of this. Suspect minimal contribution to his shortness of breath as otherwise would expect pulmonary edema. TTE as above. (5) Leukocytosis: Plan: I am unclear on the etiology of this however appears to be persistently elevated since February 2021. He denied any autoimmune or inflammatory conditions. However, EHR notes Hx polymyalgia rheumatica. Although he is not having any overt signs and symptoms of this point seen I did not ask about it specifically. Will get ESR and CK to assess for PMR/myositis with AM labs and trend WBC. Noted neurology note from September mentioning subjective reduced coordination and weakness when playing keyboard. (6) Hypertension: Plan: Continue his usual home medications with furosemide 40 mg p.o daily, isosorbide mononitrate 60 mg p.o. twice daily, metoprolol tartrate 25 mg p.o. twice daily. (7) Hyperlipidemia: Plan: Lipid panel in a.m. Continue pravastatin 40 mg p.o. 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 It was not exertional. He went for a mile walk w/o difficulty. Chest discomfort resolved later in afternoon. No associated [place], sob, diaphoresis, nausea, or arm numbness. Did not feel like angina that he had in past. He had fatigue later in evening. He saw his pcp yesterday who sent him to the ED. Currently, no symptoms other than fatigue and constipation (attributes to NPO). Former smoker in distant past. Review of Systems Review of Systems: All systems reviewed & are unremarkable except as noted in HPI & below Physical Exam Physical Exam: General: Grossly A&O. NAD. Cooperative. HEENT: Atraumatic, normocephalic. EOMI Pulm: CTAB. -wheezes, -rales, -rhonchi. Diminished. No respiratory distress. Cardiac: RRR, 2/6 systolic murmur. Radial pulses intact and symmetrical. No LE edema. Abdominal: Nontender, nondistended, soft. Results & Data Results & Data ([facility]) Vital Signs (Past 12 Hours) Vital Signs Temp Pulse Pulse Resp BP Pulse Ox 11/08/21 03:56 36.9 C 71 18 117/64 95 11/07/21 23:05 37.8 C H 64 24 119/58 L 93 11/07/21 23:00 68 11/07/21 19:16 37.1 C 78 18 128/65 94 Resident Activity Tracking Resident Involvement: Resident Care Provided Care Provided: Adult Hospital Medicine
[2021-11-08 07:14] LABS: Basophils # (auto) 0.03 K/uL (0-0.2); Basophils % (auto) 0.2 %; Eosinophils # (auto) 0.09 K/uL (0-0.5); Eosinophils % (auto) 0.5 %; Immature Granulocytes # (auto) 0.09 K/uL (0.00-0.02); Immature Granulocytes % (auto) 0.5 %; Lymphocytes # (auto) 1.39 K/uL (1.2-3.4); Lymphocytes % (auto) 8.3 %; Monocytes # (auto) 1.48 K/uL (0.11-0.59); Monocytes % (auto) 8.8 %; Neutrophils # (auto) 13.68 K/uL (1.4-6.5); Neutrophils % (auto) 81.7 %
[2021-11-08] MEDS: METOPROLOL TARTRATE 25 MG TAB PO SCH (08:23)
[2021-11-08] MEDS: ISOSORBIDE MONO EXTENDED REL 60 MG TABCR PO SCH (08:24)
--- NOTE | 2021-11-08 08:52 | XCELERA ---
[id number] \\[id number]
[2021-11-08] MEDS ORDERED: FUROSEMIDE 40 MG TAB PO SCH (09:00)
[2021-11-08] MEDS ORDERED: NON-FORMULARY MEDICATION (Coq10 (Ubiquinol) 200 mg Capsule) PO SCH (09:00)
[2021-11-08] MEDS ORDERED: MULTIVITAMIN TAB PO SCH (09:00)
[2021-11-08] MEDS ORDERED: POTASSIUM CHLORIDE CRTAB 20 MEQ TABCR PO SCH (09:00)
[2021-11-08] MEDS ORDERED: CHOLECALCIFEROL 1,000 UNITS 25 MCG TAB PO SCH (09:00)
[2021-11-08] MEDS ORDERED: POLYETHYLENE (MIRALAX) 17 GM PACK PO SCH (09:00)
[2021-11-08] MEDS ORDERED: EZETIMIBE 10 MG TABLET PO SCH (09:00)
[2021-11-08] MEDS ORDERED: PSYLLIUM or GUAR GUM FIBER POWDER PACKET PO SCH (09:00)
[2021-11-08] MEDS ORDERED: NON-FORMULARY MEDICATION (Fluticasone-Umeclidin-Vilanter [Trelegy Ellipta] 100-62.5-25 mcg INH SCH (09:00)
[2021-11-08] MEDS ORDERED: DOCUSATE SODIUM 100 MG CAP PO SCH (09:00)
[2021-11-08] MEDS ORDERED: PRAVASTATIN SOD 40 MG TAB PO SCH (09:00)
[2021-11-08] MEDS ORDERED: FLUTICASONE FUROATE 100MCG 14 PUFFS/INHALER INH SCH (09:00)
[2021-11-08] MEDS ORDERED: CLOPIDOGREL BISULFATE 75 MG TAB PO SCH (09:00)
[2021-11-08] MEDS ORDERED: UMECLIDINIUM/VILANTEROL 62.5/25MCG 7 PUFFS/INHALER INH SCH (09:00)
--- NOTE | 2021-11-08 10:31 | Cardiology Consultation ---
Date of Consultation November 08, 2021 Assessment & Plan (1) Chest pain: Impression: 1. Severe left main and three-vessel coronary artery disease with 50 to 70% left main lesion, 70% proximal LAD lesion, 90% ostial D1 lesion involving a large vessel, 60 to 70% D2 lesion, 67% proximal circumflex disease, 50% proximal RCA disease with 70% mid RCA lesion A. Status post coronary bypass grafting x4 with LEVY to LAD, SVG status post endarterectomy 2 the RCA, SVG to the large D1 vessel and SVG to the distal OM involving a small vessel. Postoperative MILES, EF of 55 to 60% without regional wall motion abnormalities B. Status postcardiac catheterization at [facility] February 2015 with occlusion of the SVG to the RCA as well as occlusion of the [place] right coronary artery 2. Mitral regurgitation secondary to an asymptomatic inferior wall myocardial infarction and papillary muscle dysfunction. 3A. Moderate mitral regurgitation with an EF in the range of 50% by echo 09/2020 B. Moderate aortic stenosis 4. AAA status post endovascular repair March 2013 with a slight kink in the left iliac limb 5. History of C. difficile infection 6. COPD. Stopped smoking in 1985, smoking a pipe and cigar 7. Polymyalgia rheumatica 8. Positive blood cultures with gram-negative bacilli 02/2018 9. Status post right carotid endarterectomy, 09/23/2020, secondary to a CVA Mr. Green's description of his chest pain is less convincing for cardiac etiology. He does describe the pain relented when he was exerting himself and he has not had any subsequent discomfort. His high-sensitivity troponin peaked at 24 and is trending back down. He did not have any ischemic changes on his EKG. He has not had any events on monitor. He can disconnect from the heparin drip and walk around the halls and make sure that he does not have recurrence of his symptoms. He can eat lunch. If he is without symptoms or events later this afternoon he can be discharged from a cardiac perspective. His echo in the hospital showed mildly dilated left ventricle with mildly to moderately reduced systolic function. EF of 40 to 45%. Inferior base is akinetic, otherwise little hypokinesis. Moderate to severe concentric left ventricular hypertrophy. This is mildly decreased from his September echocardiogram which read his ejection fraction at 50%. He continues to have moderate aortic stenosis. Previously his mitral regurgitation was read as moderate to severe and on this echocardiogram it was read as mild to moderate. His PA pressures were normal. He does not appear to be in failure. His chest x-ray was without congestion. His EKG did show a new right bundle branch block and bifascicular block. He was previously known to have left bundle branch block. We did discuss that given his conduction abnormalities he will need to let us know if he is getting lightheaded or experiencing a low pulse or if he feels worsening fatigue when exerting himself as this would indicate need for a pacemaker. His case was discussed with Dr. Conley who is in agreement. History of Present Illness Attending Physician: Sandra Acosta MD History of Present Illness Mr. Green experienced left chest/rib pain starting Friday evening, coming and going for 20 - 30 minutes at a time. He felt that his pain was resolving and went for a 1 mile walk. He walked his usual pace and did not experience any symptoms. He visited his primary care provider the next day. They were concerned for unstable angina and sent him to the emergency department. He has been pain free since that time. No diaphoresis, nausea, worsening sob, or radiation associated. He has not had any edema. He is laying flat in bed talking comfortably. Allergies Allergy/AdvReac Type Severity Reaction Status Date / Time naproxen [From Naprosyn] Allergy Severe Anaphylaxis Verified 09/21/21 14:56 NSAIDS (Non-Steroidal Allergy Severe Anaphylaxis Verified 09/21/21 14:56 Anti-Inflamma Home Medications Medication Instructions Recorded Confirmed Type coQ10 (ubiquinol) 200 mg capsule 200 mg PO QAM 10/07/18 11/07/21 History docusate sodium 100 mg capsule 100 mg PO QAM 10/07/18 11/07/21 History ezetimibe 10 mg tablet 10 mg PO QAM 10/07/18 11/07/21 History multivitamin 1 tab PO QAM 10/07/18 11/07/21 History nitroglycerin 0.4 mg sublingual 0.4 mg SUBLINGUAL DIRECTED PRN 10/07/18 11/07/21 History tablet potassium chloride 20 mEq 20 meq PO QAM 10/07/18 11/07/21 History tablet,extended release(part/cryst) cholecalciferol (vitamin D3) 25 1,000 unit PO QAM tab 02/15/19 11/07/21 History mcg (1,000 unit) tablet furosemide 40 mg tablet 40 mg PO QAM tab 02/15/19 11/07/21 History isosorbide mononitrate 60 mg 60 mg PO BID tab 02/15/19 11/07/21 History tablet,extended release 24 hr melatonin 5 mg tablet 5 mg PO HS tab 02/15/19 11/07/21 History resveratrol 50 mg capsule 50 mg PO BID cap 02/15/19 11/07/21 History metoprolol tartrate 25 mg tablet 25 mg PO BID 09/05/20 11/07/21 History alprostadil 250 mcg intra-urethral 250 mcg INTRA-URETHRAL ONCE PRN #6 11/22/20 11/07/21 Rx suppository (Moon) ea pravastatin 40 mg tablet 40 mg PO QAM 12/22/20 11/07/21 History albuterol sulfate 90 mcg/actuation 2 puff INHALATION Q4H PRN #18 g 12/26/20 11/07/21 Rx aerosol inhaler clopidogrel 75 mg tablet 75 mg PO QAM #90 tab 04/30/21 11/07/21 Rx psyllium 1 packet PO QAM 08/27/21 10/22/21 History fluticasone fur. 100 mcg-umeclid 1 inh INH QAM #60 ea 09/21/21 11/07/21 Rx 62.5 mcg-vilant 25 mcg inhalat.powder (Trelegy Ellipta) Patient History Medical History Abdominal aortic aneurysm under surveillance by vascular (Dr. Rivera) Acute CVA (cerebrovascular accident) 09/05/2020 ([facility]) > no deficits-PT CONFIRMS INFORMATION-PLACED ON PLAVIX Aortic stenosis Moderate aortic stenosis (SARAH 1.3 to 1.4 cm, mean gradient 12.7 mmHg) per 09/06/20 echo > follows with Dr. Conley CAD (coronary artery disease) s/p CABG x4 (2014)-[facility] [place] Carotid stenosis DDD (degenerative disc disease) per records Emphysema lung stable History of prostate cancer no radiation Hyperlipidemia Hypertension Myocardial Infarction 2014 Osteoarthritis Sleep apnea BIPAP Surgical History Difficult intubation Per patient mentioned difficult intubation with 1995 prostate surgery > subsequent EBUS, navagitional bronchoscopy (07/29/19) at [facility] with Grade view 1, Glidescope#4, ETT 8.5 at [facility] -PT CONFIRMED INFORMATION H/O prostatectomy H/O vascular surgery Left leg seroma excision History of arthroscopy Right shoulder History of cardiac cath 2014 > no stents History of carotid endarterectomy RIGHT 09/2020 [facility] History of colonoscopy History of coronary artery bypass graft CABG x4 (12/2014) > 12/07/2014: LEVY-LAD; SVG-RCA ( with extensive endarterectomy of the RCA ); SVG-LAD diagonal; SVG-L Cx marginal History of herniorrhaphy History of meniscectomy of left knee History of partial colectomy History of tonsillectomy and adenoidectomy History of tooth extraction History of trigger finger Right trigger finger release S/P bronchoscopy with biopsy Navigational Bronchoscopy with Biopsy Family History Father , in his early 80s of senile dementia of the Alzheimer's type Alzheimer disease Heart disease Brother Back problem Grandmother (Paternal) Dementia Mother , in her 90s of urinary issues No problems noted. 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 Former [employer] Feels Safe at Home: Yes Assistive Devices: Glasses and Hearing Aid - Bilateral Review of Systems Review of Systems: All systems reviewed & are unremarkable except as noted in HPI & below Physical Exam Constitutional: WD/WN, vitals as above Respiratory: normal respiratory effort, lungs clear to auscultation Cardiovascular: Rate/Rhythm: regular rate and regular rhythm Heart Sounds: + murmur (3/6 apical holosystolic murmur) Extremities: no edema Skin: no rashes, warm and dry Neurologic: moves all extremities and awake Psychiatric: A+Ox3, euthymic affect Results & Data ([facility]) Vital Signs (Past 12 Hours) Vital Signs Temp Pulse Pulse Resp BP Pulse Ox 11/08/21 07:45 37 C 73 18 122/69 93 11/08/21 03:56 36.9 C 71 18 117/64 95 11/07/21 23:05 37.8 C H 64 24 119/58 L 93 11/07/21 23:00 68
--- NOTE | 2021-11-08 11:05 | Discharge Summary ---
Date of Service November 08, 2021 Admission HPI Per Admitting Provider Tevin Green is an 86 year old male with history of coronary artery bypass surgery who presents to the ER with chest pain. He reports having low-grade discomfort on the left side of his chest without radiation yesterday. It was intermittent in nature lasting for a few minutes at a time with 20 to 30 minutes in between episodes. No associated diaphoresis or nausea. The pain occurred at rest while at his computer. He reports walking 1 mile yesterday without recurrence of his chest pain. Associated dizziness and severe fatigue after about 5 PM. He reports not getting a good night sleep last night. He went to his primary care physician's office today who advised him to come to the emergency room due to his significant coronary history and chest pain. He reports also having aortic stenosis and mitral regurgitation. He has chronic shortness of breath with no acute worsening in the last week. He denies having any chest pain or discomfort today. Due to concern from the chest pain yesterday he did take 325 mg p.o. of aspirin this morning at 5 AM. In the ER his EKG was concerning for a new bifascicular block replacing a previous left bundle branch block. High-sensitivity troponin was minimally elevated at 22.5pg/ml without a significant delta increase of 0.6. ER provider discussed with his smelter liner and recommended intravenous heparin and admission under the medicine. Admission Exam Per Admitting Provider Constitutional: WD/WN, vitals as above Eyes: PERRL, conjunctivae normal, anicteric sclerae ENMT: external ear and nose normal, oropharynx normal Neck: trachea midline, no thyromegaly Respiratory: normal respiratory effort; no respiratory distress Auscultation: lungs clear to auscultation bilaterally Cardiovascular:L Rate/Rhythm: regular rate and regular rhythm Heart Sounds: + murmur (VILLA 4/6 RUSB, holosystolic 5/6 apex) Vessels: no JVD Extremities: normal capillary refill and + pedal edema (Trace pretibial); no calf tenderness Gastrointestinal (Abdomen): normal bowel sounds, soft, nontender, no hepatosplenomegaly Musculoskeletal: no cyanosis or clubbing, extremities motor strength 5/5 Skin: no rashes, warm and dry Neurologic: moves all extremities and awake; not confused Psychiatric: A+Ox3, euthymic affect Principal Diagnosis atypical chest pain Discharge Exam General: Grossly A&O. NAD. Cooperative. HEENT: Atraumatic, normocephalic. EOMI Pulm: CTAB. -wheezes, -rales, -rhonchi. Diminished. No respiratory distress. Cardiac: RRR, 2/6 systolic murmur. Radial pulses intact and symmetrical. No LE edema. Abdominal: Nontender, nondistended, soft. Discharge Data Allergies Allergy/AdvReac Type Severity Reaction Status Date / Time naproxen [From Naprosyn] Allergy Severe Anaphylaxis Verified 09/21/21 14:56 NSAIDS (Non-Steroidal Allergy Severe Anaphylaxis Verified 09/21/21 14:56 Anti-Inflamma Consultations 11/07/21 14:56 ED Decision to Admit Stat 11/07/21 15:57 ED Decision to Admit Stat 11/07/21 17:44 Consult Cardiology Routine Ordered Studies Cardiac Enzymes 11/07/21 11/08/21 Range/Units 20:03 06:11 Troponin I High Sens 24.4 H 23.7 H (0-20) pg/ml Coagulation 11/07/21 11/08/21 Range/Units 22:51 06:11 APTT 49.0 H* 47.0 H* (21.0-31.0) Seconds Lipids 11/08/21 Range/Units 06:11 Triglycerides 58 (0-150) mg/dl Cholesterol 99 (0-200) mg/dl HDL Cholesterol 57 mg/dl Cholesterol/HDL Ratio 1.7 (0-5) CBC 11/08/21 Range/Units 06:11 WBC 16.76 H (4.8-10.8) K/uL RBC 3.89 L (4.7-6.1) M/uL Hgb 12.9 L (14.0-18.0) g/dL Hct 37.1 L (42-52) % Plt Count 175 (130-400) K/uL Neut # (Auto) 13.68 H (1.4-6.5) K/uL Lymph # (Auto) 1.39 (1.2-3.4) K/uL [place] # (Auto) 1.48 H (0.11-0.59) K/uL Eos # (Auto) 0.09 (0-0.5) K/uL Baso # (Auto) 0.03 (0-0.2) K/uL Comprehensive Metabolic Panel 11/08/21 Range/Units 06:11 Sodium 131 L (136-145) mmol/L Potassium 3.8 (3.5-5.1) mmol/L Chloride 101 (98-107) mmol/L Carbon Dioxide 22 (21-32) mmol/L BUN 20 (6-23) mg/dl Creatinine 0.87 (0.6-1.4) mg/dl Glucose 104 H (70-99(Fasting)) mg/dl Calcium 8.5 (8.5-10.1) mg/dl Intake and Output 11/08/21 11/08/21 11/08/21 06:59 14:59 22:59 Intake Total 384.434 / 384.434 Output Total 500 / 750 Balance -500 / -750 384.434 / 384.434 Intake: IV 384.434 / 384.434 Heparin Sodium/Dextrose 25,000 384.434 / 384.434 units In 500 ml @ 950 UNITS/HR 19 mls/hr IV .Q24H NOEL Rx#: [id number] Output: Urine 500 / 750 Other: Other Intake Source NPO Weight 75.8 kg 75.8 kg 75.8 kg Weight Measurement Method Built in [facility] Patient Weight 11/09/21 06:59 Weight 75.8 kg Chest X-Ray 11/07/21 12:50 SINGLE VIEW CHEST CLINICAL HISTORY: Atypical chest pain. FINDINGS: An AP, portable, upright chest radiograph is compared to study dated 02/23/2021. The examination is degraded by portable technique and apical lordotic positioning. The patient is status post midline sternotomy. The heart is enlarged noting atherosclerotic calcification of the thoracic aorta. The pulmonary vasculature is noncongested. Emphysema and chronic interstitial thickening is similar to previous. Scarring/atelectasis is noted at the lung bases. The lungs and pleural spaces are otherwise clear. No pneumothorax is seen. The skeletal structures are osteopenic. The bony thorax is grossly intact. Advanced arthritic change is noted in the shoulders. IMPRESSION: Cardiomegaly and emphysema with no acute cardiopulmonary abnormality. ACT 112: Negative or not required by law. Electronically signed by: Orestes Jason M.D. 11/07/2021 1:15 PM Confirmed by Scott Schaeffer ([id number]) on 11/08/2021 2:25:43 PM Vent. Rate : 074 BPM Atrial Rate : 074 BPM P-R Int : 272 ms QRS Dur : 146 ms QT Int : 404 ms P-R-T Axes : 046 -74 049 degrees QTc Int : 448 ms Sinus rhythm with 1st degree A-V block with occasional Premature ventricular complexes Right bundle branch block Left anterior fascicular block Bifascicular block Abnormal ECG When compared with ECG of 07-NOV-2021 12:40, (unconfirmed) Premature ventricular complexes are now Present Confirmed by Scott Schaeffer ([id number]) on 11/08/2021 12:15:42 PM Vent. Rate : 073 BPM Atrial Rate : 073 BPM P-R Int : 312 ms QRS Dur : 142 ms QT Int : 434 ms P-R-T Axes : 074 -80 065 degrees QTc Int : 478 ms Sinus rhythm with 1st degree A-V block Left axis deviation Non-specific intra-ventricular conduction block Abnormal ECG When compared with ECG of 07-NOV-2021 17:11, (unconfirmed) Premature ventricular complexes are no longer Present Hospital Course (1) Chest pain: 86 year old male with history of CABGx4, AAA s/p repair, COPD, PMR, CVA s/p R carotid endarterectomy, HTN, HLD, and GIUSEPPE who presented for chest pain that occurred a day prior to admission and did not reoccur. (1) Atypical chest pain: - Admitted for nonexertional atypical chest pain that occurred on 11/06/21 at rest and was not exacerbated by 1 mile walk. ECG w/ bifascicular block and slight elevation in hs trop. Patient was treated w/ IV heparin initially. - Cardiology was consulted. High sensitivity trop peaked at 24.4. Lower suspicion for acute ACS after workup. Cardiac catheterization not indicated at this time. Heparin drip discontinued. Continue home regimen cardiac medications and home Plavix. - echo: mildly dilated LV w/ ef 40-45. Inferior base akinetic, otherwise global hypokinesis. Mod-severe concentric LVH. severe LA dilation. Mod . Mild to mod MR. Normal RVSP. - Discussed echo findings w/ cardiology. Per cardiology, stable for d/c home. asymptomatic with activity. If patient develops symptoms, contact cardiology for consideration of cardiac catheterization. - Patient will follow up with cardiology in 1-2 weeks. (2) History of quadruple bypass: - Quadruple bypass in December 2014. Repeat catheterization with total occlusion of the SVG to RCA and 30 occlusion of [place] RCA. (3) Conduction abnormalities - Patient to notify cardiology if lightheadedness, bradycardia, or fatigue as his ecg showed conduction abnormalities, including bifascicular block on the initial ecg. (4) Aortic stenosis: - Noted history of this. Outpatient workup. (5) Mitral regurgitation: - Noted history of this.Outpatient workup. (6) Leukocytosis: - Persistently elevated. Has polymyalgia rheumatica per chart hx. (7) Hypertension: - Continue home regimen. (8) Hyperlipidemia: - Continue home regimen. LDL (30) at goal (<70). (9) H/O: stroke: - Right frontal lobe stroke in September 2020 - S/p right CEA September 2020 - Continue aspirin, clopidogrel, pravastatin (10) Hyponatremia - 131 this admission, baseline ~135. Repeat BMP in 1 month. Patient was full code this admission. (2) History of quadruple bypass: (3) Aortic stenosis: (4) Mitral regurgitation: (5) Leukocytosis: (6) Hypertension: (7) Hyperlipidemia: (8) H/O: stroke: (9) Hyponatremia: Total Time Total Time Spent Total Time Spent (In Minutes): <30 Discharge Plan Discharge Items Patient Disposition: Home - Self-Care Reason For Visit: CHEST PAIN Discharge Diagnosis: atypical chest pain Activity: Per Instructions section Non-emergency contact: Primary Care Provider Call non-emergency contact if: you have any medication questions, your symptoms worsen and you have a fever Follow-up/Referrals: Oscar Olson [Primary Care Provider] - (hospital discharge f/u within 1 week) Diet: Heart Healthy Addtl Attending Provider Instructions: You were admitted to [facility] for chest pain that you had on 11/05/21. The cardiac workup that you had in the hospital was reassuring and did not suggest a heart attack presentation. Your troponin, ekg, and echocardiogram were reviewed. Your smelter liner was consulted and the case was discussed. No changes were made to your home medication regimen. Please follow up with your PCP within 1 week. Let your smelter liner know if you developlightheadedness, a low pulse, or fatigue on exertion as a pacemaker may be indicated in certain situations. Pending Studies at Discharge: No Stand-Alone Forms: [employer], Smoking Cessation Medications and DC Order Prescriptions: Continued pravastatin 40 mg tablet 40 mg PO QAM RF: 0 albuterol sulfate 90 mcg/actuation HFA aerosol inhaler 2 puff inhalation Q4H PRN (Reason: Shortness Of Breath) Qty: 18 RF: 5 resveratrol 50 mg capsule 50 mg PO BID RF: 0 melatonin 5 mg tablet 5 mg PO HS RF: 0 cholecalciferol (vitamin D3) 1,000 unit (25 mcg) tablet 1,000 unit PO QAM RF: 0 isosorbide mononitrate 60 mg tablet extended release 24 hr 60 mg PO BID RF: 0 furosemide 40 mg tablet 40 mg PO QAM RF: 0 Trelegy Ellipta 100-62.5-25 mcg blister with device 1 inh INH QAM Qty: 60 RF: 6 [place] 250 mcg suppository 250 mcg intra-urethral ONCE PRN (Reason: Erectile Dysfunction) Qty: 6 RF: 4 clopidogrel 75 mg tablet 75 mg PO QAM Qty: 90 RF: 3 multivitamin Tablet 1 tab PO QAM RF: 0 potassium chloride 20 mEq tablet,ER particles/crystals 20 meq PO QAM RF: 0 nitroglycerin 0.4 mg tablet, sublingual 0.4 mg sublingual DIRECTED PRN (Reason: Chest Pain) RF: 0 docusate sodium 100 mg Capsule 100 mg PO QAM RF: 0 ezetimibe 10 mg tablet 10 mg PO QAM RF: 0 coQ10 (ubiquinol) 200 mg Capsule 200 mg PO QAM RF: 0 metoprolol tartrate 25 mg tablet 25 mg PO BID RF: 0 psyllium Packet 1 packet PO QAM RF: 0 Discharge Orders: Discharge Order (Routine); Ordered 11/08/21 Ordered By: Christian Sheldon Admission Data Admit Date/Time: 11/07/21 15:54 Attending Provider: Sandra Acosta Admit Provider: Duc Hitchcock Primary Care Provider: Oscar Olson Other Providers: Duc Hitchcock ; Brian Conley Other Interventions: Discharge Summary Assessment (RN) Last Done: 11/08/21 15:28 Supervising Physician Co-Signing Physician Notes Resident Physician Supervision Note: I independently interviewed and examined the patient and verified the martin history and physical, reviewed labs and image studies and agree with resident Dr. Sheldon findings and care plan. Resident Activity Tracking Resident Involvement: Resident Care Provided Care Provided: Adult [facility] Medicine
--- NOTE | 2021-11-08 12:05 | Electrocardiogram Report ---
Test Reason : Blood Pressure : / mmHG Vent. Rate : 069 BPM Atrial Rate : 069 BPM P-R Int : 298 ms QRS Dur : 140 ms QT Int : 412 ms P-R-T Axes : 050 -73 052 degrees QTc Int : 441 ms Sinus rhythm with 1st degree A-V block Right bundle branch block Left anterior fascicular block Bifascicular block Abnormal ECG When compared with ECG of 23-FEB-2021 18:47, (RBBB and left anterior fascicular block) has replaced Left bundle branch block Confirmed by Scott Schaeffer ([id number]) on 11/08/2021 12:05:46 PM Referred By: Luis Pratt Confirmed By:Scott Schaeffer
--- NOTE | 2021-11-08 12:16 | Electrocardiogram Report ---
Test Reason : Blood Pressure : / mmHG Vent. Rate : 074 BPM Atrial Rate : 074 BPM P-R Int : 272 ms QRS Dur : 146 ms QT Int : 404 ms P-R-T Axes : 046 -74 049 degrees QTc Int : 448 ms Sinus rhythm with 1st degree A-V block with occasional Premature ventricular complexes Right bundle branch block Left anterior fascicular block Bifascicular block Abnormal ECG When compared with ECG of 07-NOV-2021 12:40, (unconfirmed) Premature ventricular complexes are now Present Confirmed by Scott Schaeffer ([id number]) on 11/08/2021 12:15:42 PM Referred By: Luis Pratt Confirmed By:Scott Schaeffer
--- NOTE | 2021-11-08 14:25 | Electrocardiogram Report ---
Test Reason : Blood Pressure : / mmHG Vent. Rate : 073 BPM Atrial Rate : 073 BPM P-R Int : 312 ms QRS Dur : 142 ms QT Int : 434 ms P-R-T Axes : 074 -80 065 degrees QTc Int : 478 ms Sinus rhythm with 1st degree A-V block Left axis deviation Non-specific intra-ventricular conduction block Abnormal ECG When compared with ECG of 07-NOV-2021 17:11, (unconfirmed) Premature ventricular complexes are no longer Present Confirmed by Scott Schaeffer ([id number]) on 11/08/2021 2:25:43 PM Referred By: Luis Pratt Confirmed By:Scott Schaeffer
== END 2021-11-08 17:17 | disposition home or self-care (01) ==
LOC: ED 12:33 → 2E 12:33 → SUATTDRO 15:54 → 2E 17:26
DX: D72.829 Elevated white blood cell count, unspecified; Z88.6 Allergy status to analgesic agent; Z86.73 Personal history of transient ischemic attack (TIA), and cerebral infarction without residual deficits; Z87.891 Personal history of nicotine dependence; E78.5 Hyperlipidemia, unspecified; R07.9 Chest pain, unspecified; Z79.899 Other long term (current) drug therapy; Z95.1 Presence of aortocoronary bypass graft; Z79.01 Long term (current) use of anticoagulants; Z95.5 Presence of coronary angioplasty implant and graft; I25.2 Old myocardial infarction; I35.0 Nonrheumatic aortic (valve) stenosis; G47.30 Sleep apnea, unspecified; I10 Essential (primary) hypertension

== ENCOUNTER 2022-08-17 09:33 | Inpatient (IN) ==
[2022-08-17 10:27] LABS: iSTAT Creatinine 0.7 mg/dl (0.6-1.3); iSTAT Hemoglobin 10.5 g/dl (14.0-18.0); iSTAT Potassium 3.2 mmol/L (3.3-5.0)
[2022-08-17 10:32] LABS: Basophils # (auto) 0.04 K/uL (0-0.2); Basophils % (auto) 0.5 %; Eosinophils # (auto) 0.19 K/uL (0-0.50); Eosinophils % (auto) 2.5 %; Hematocrit (blood only) 37.9 % (42.0-52.0); Hemoglobin 13.4 g/dl (14.0-18.0); Immature Granulocytes # (auto) 0.02 K/uL (0.01-0.20); Immature Granulocytes % (auto) 0.3 %; Lymphocytes # (auto) 0.96 K/uL (1.2-3.4); Lymphocytes % (auto) 12.5 %; Mean Corpuscular Hemoglobin 32.9 pg (25.0-34.0); Mean Corpuscular Hgb Conc 35.4 g/dL (32.0-36.0); Mean Corpuscular Volume 93.1 fL (80.0-100.0); Mean Platelet Volume 10.2 fL (9.4-12.4); Monocytes # (auto) 0.81 K/uL (0.11-0.59); Monocytes % (auto) 10.5 %; Neutrophils # (auto) 5.68 K/uL (1.40-6.50); Neutrophils % (auto) 73.7 %; Platelet Count 219 K/uL (130-400); RDW Coefficient of Variation 12.4 % (11.5-14.5); RDW Standard Deviation 42.5 fL (36.4-46.3); Red Blood Count 4.07 M/uL (4.70-6.10)
[2022-08-17 10:43] LABS: Albumin Globulin Ratio 1.3 (0.9-2); Albumin Level 3.9 gm/dl (3.4-5.0); BUN Creatinine Ratio 21.6 (10-20); Bilirubin,Total 1.1 mg/dl (0.2-1.0); Calcium 8.7 mg/dl (8.5-10.1); Creatinine Clr Calc Pharmacy 57.1 ml/min; Est GFR (African American) 76.8 ml/min; Est GFR (Non-African American) 66.2 ml/min; Globulin 3.1 gm/dl (2.5-4.0); Magnesium 1.8 mg/dl (1.7-2.4); Potassium 4.3 mmol/L (3.5-5.1)
[2022-08-17] MEDS ORDERED: OPTIRAY 320 500ml IV ONE (10:45)
[2022-08-17 10:49] LABS: Troponin I High Sensitivity 28.8 pg/ml (0-20)
--- NOTE | 2022-08-17 10:59 | Emergency Department Note ---
Impression & Plan Hypoxia, Hypertension, Aortic stenosis, Heart failure ED Provider Note Provider: Nakul Watson MD DATE OF SERVICE: 08/17/2022 CHIEF COMPLAINT: Shortness of breath, cough HISTORY OF PRESENT ILLNESS: Patient is a 87-year-old gentleman history of prostate cancer, hypertension, and aortic stenosis as well as CABG in the past presenting here today reporting over the past several days developed worsening shortness of breath and deep cough. Denies significant chest pain. Denies leg swelling. Denies sick contact. Denies any GI symptoms such as nausea vomiting or abdominal pain. States he supposed to wear BiPAP at night but does not always wear it as it is loud. Does not wear oxygen during the day. He is in the process of being evaluated by [facility] for possible aortic valve therapy. 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 NECK: Trachea midline. ENT: Mucous membranes pink and moist. Pharynx without erythema or exudate. LUNGS: Airway patent. No retractions. Breath sounds diminished particularly in the bases HEART: Regular rate and rhythm. No chest wall tenderness ABDOMEN: Soft and non-tender, without guarding or rebound. SKIN: Acyanotic, warm, dry, without rashes EXTREMITIES: Without swelling, tenderness or deformity NEUROLOGICAL: No focal deficits. No aphasia. No facial droop or slurred speech. Ambulatory. EK bpm sinus rhythm first-degree AV block with a right bundle branch block left anterior fascicular block. No acute ST segment elevation or depression with a QTc of 494. CONTINUOUS CARDIAC MONITORING: was ordered and showed a heart rate of bpm in sinus rhythm first-degree AV block Patient's laboratory studies and imaging reviewed. Differential includes Reactive airway disease, pneumonia, pneumothorax, COPD, CHF, infections, cardiac ischemia, pulmonary embolism, musculoskeletal, gastrointestinal, as well as other pathologies. IMPRESSION/MEDICAL DECISION MAKING: Patient history of CABG as well as aortic stenosis here with worsening cough and shortness of breath over the past several days. Minimally wheezy. No sign ificant swelling of the extremities. No recent travel. Lower suspicion for DVT. Given new 4 L oxygen requirement however, did proceed with imaging of the chest. Basic blood work obtained. Denies any significant chest pain and EKG does not appear to have obvious STEMI. No significant leukocytosis on blood work here with very minimal anemia. Some mild hyponatremia of 129 noted today with stable renal function with creatinine of ~1. No evidence of acute hepatitis based on labs with a mildly elevated high-sensitivity troponin fairly similar to previous values from last May I doubt this represents ACSperhaps some mild demand due to fluid overload based on the CT of the chest. Did perfor m a CT of the chest for full evaluation of the lungs and to help exclude PE as underlying cause of his hypoxia and worsening breathing. CT report per radiology indicates evidence of pulmonary edema likely compressive atelectasis due to some pleural effusions particularly on the right side. No PE is noted per radiology. Discussed with the patient. Question if he is having worsened left-sided heart symptoms related to his aortic valve. Given this discussed further care at the hospital and likely some diuresis but again without evidence of significant right-sided heart failure. COVID and flu testing was completed. Did take his morning medicine including 40 mg oral Lasix. Given 20 IV Lasix here for additional diuresis especially as he is somewhat hypertensive. Discussed with the hospitalist here. DIAGNOSIS: Hypoxia, shortness of breath, aortic stenosis, hypertension DISPOSITION: Hospitalist will evaluate Patient was agreeable with this plan. 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 Low back pain Male erectile disorder of organic origin Mineral deficiency Muscle weakness Myocardial Infarction Non-ST elevation FL (NSTEMI) Obstructive sleep apnea Osteoarthritis Polymyalgia rheumatica Pulmonary nodules Rigors Sleep apnea Testicular pain Vitamin D deficiency Surgical History Difficult intubation H/O vascular surgery History of arthroscopy History of cardiac cath History of carotid endarterectomy History of colonoscopy History of coronary artery bypass graft History of herniorrhaphy History of meniscectomy of left knee History of partial colectomy History of tonsillectomy and adenoidectomy History of tooth extraction History of trigger finger Family History Father Alzheimer disease Heart disease Brother Back problem Grandmother (Paternal) Dementia Mother No problems noted. 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 Former [facility] Feels Safe at Home: Yes Assistive Devices: Glasses Allergies Allergies Allergy/AdvReac Type Severity Reaction Status Date / Time naproxen [From Naprosyn] Allergy Severe Anaphylaxis Verified 06/11/22 14:00 NSAIDS (Non-Steroidal Allergy Severe Anaphylaxis Verified 06/11/22 14:00 Anti-Inflamma Home Meds Home Medications Medication Instructions Recorded Confirmed coQ10 (ubiquinol) 200 mg capsule 200 mg PO QAM 10/07/18 08/17/22 docusate sodium 100 mg capsule 100 mg PO QAM 10/07/18 08/17/22 ezetimibe 10 mg tablet 10 mg PO QAM 10/07/18 08/17/22 multivitamin 1 tab PO QAM 10/07/18 08/17/22 nitroglycerin 0.4 mg sublingual 0.4 mg sublingual DIRECTED PRN 10/07/18 08/17/22 tablet Chest Pain potassium chloride 20 mEq 20 meq PO QAM 10/07/18 08/17/22 tablet,extended release(part/cryst) cholecalciferol (vitamin D3) 25 1,000 unit PO QAM 02/15/19 08/17/22 mcg (1,000 unit) tablet furosemide 40 mg tablet 40 mg PO QAM 02/15/19 08/17/22 isosorbide mononitrate 60 mg 60 mg PO BID 02/15/19 08/17/22 tablet,extended release 24 hr melatonin 5 mg tablet 5 mg PO HS 02/15/19 08/17/22 resveratrol 50 mg capsule 50 mg PO BID 02/15/19 08/17/22 metoprolol tartrate 25 mg tablet 25 mg PO BID 09/05/20 08/17/22 pravastatin 40 mg tablet 40 mg PO QAM 12/22/20 08/17/22 psyllium 1 packet PO QAM 08/27/21 08/17/22 aspirin 325 mg tablet 325 mg PO DAILY 11/30/21 08/17/22 Previous Rx's Medication Instructions Recorded albuterol sulfate 90 mcg/actuation 2 puff inhalation Q4H PRN 12/26/20 aerosol inhaler Shortness Of Breath #18 grams alprostadil 250 mcg intra-urethral 250 mcg intra-urethral ONCE PRN 02/19/22 suppository (Almont) Erectile Dysfunction #6 ea clopidogrel 75 mg tablet 75 mg PO QAM #90 tabs 04/04/22 fluticasone fur. 100 mcg-umeclid 1 inh inhalation QAM #60 ea 04/24/22 62.5 mcg-vilant 25 mcg inhalat.powder (Trelegy Ellipta) oxycodone 5 mg tablet 5 mg PO Q6H PRN pain #12 tabs 06/15/22 linaclotide 290 mcg capsule 290 mcg PO DAILY #30 caps 07/19/22 (Linzess) linaclotide 72 mcg capsule 72 mcg PO DAILY #30 caps 08/12/22 (Linzess) Results & Data (ED) Vital Signs Vital Signs - 24 hr 08/17/22 09:35 08/17/22 09:46 08/17/22 09:46 Temperature 35.9 C L Temperature Source Temporal Artery Scan Pulse Rate 90 Respiratory Rate 26 H Respiratory Effort / Characteristics Spontaneous Spontaneous Short of Breath Respiratory Depth Shallow Normal Respiratory Pattern Tachypnea Blood Pressure 156/82 H Blood Pressure Mean 106 Pulse Oximetry 85 L 85 L Oxygen Delivery Method Room Air Nasal Cannula Nasal Cannula Oxygen Flow Rate 3 0 Sepsis New/Unexplained Change in Mental Status N/A Sepsis Action Taken by Nursing No Action Required Oxygen Flow Rate - Titration 3 Pulse Oximetry Post Tiitration 91 08/17/22 10:27 08/17/22 10:28 08/17/22 10:00 Temperature Temperature Source Pulse Rate 80 Respiratory Rate 29 H Respiratory Effort / Characteristics Respiratory Depth Respiratory Pattern Blood Pressure 146/83 H Blood Pressure Mean 104 Pulse Oximetry 89 L 91 89 L Oxygen Delivery Method Nasal Cannula Nasal Cannula Nasal Cannula Oxygen Flow Rate 3 4 3 Sepsis New/Unexplained Change in Mental Status Sepsis Action Taken by Nursing Oxygen Flow Rate - Titration 4 Pulse Oximetry Post Tiitration 91 08/17/22 10:30 08/17/22 12:25 08/17/22 11:36 Temperature Temperature Source Pulse Rate 77 84 Respiratory Rate 26 H 27 H Respiratory Effort / Characteristics Respiratory Depth Respiratory Pattern Blood Pressure 138/78 155/87 H Blood Pressure Mean 98 109 Pulse Oximetry 88 L 91 91 Oxygen Delivery Method Nasal Cannula Nasal Cannula Nasal Cannula Oxygen Flow Rate 4 4 4 Sepsis New/Unexplained Change in Mental Status Sepsis Action Taken by Nursing Oxygen Flow Rate - Titration 2 Pulse Oximetry Post Tiitration 90 08/17/22 12:00 08/17/22 12:30 08/17/22 13:00 Temperature Temperature Source Pulse Rate 82 82 83 Respiratory Rate 23 25 H 33 H Respiratory Effort / Characteristics Respiratory Depth Respiratory Pattern Blood Pressure 147/87 H 144/80 H 140/86 Blood Pressure Mean 107 101 104 Pulse Oximetry 90 91 94 Oxygen Delivery Method Nasal Cannula Nasal Cannula Nasal Cannula Oxygen Flow Rate 2 2 2 Sepsis New/Unexplained Change in Mental Status Sepsis Action Taken by Nursing Oxygen Flow Rate - Titration Pulse Oximetry Post Tiitration 08/17/22 13:30 08/17/22 14:00 Temperature Temperature Source Pulse Rate 79 81 Respiratory Rate 21 25 H Respiratory Effort / Characteristics Respiratory Depth Respiratory Pattern Blood Pressure 144/82 H 154/75 H Blood Pressure Mean 102 101 Pulse Oximetry 94 92 Oxygen Delivery Method Nasal Cannula Nasal Cannula Oxygen Flow Rate 2 2 Sepsis New/Unexplained Change in Mental Status Sepsis Action Taken by Nursing Oxygen Flow Rate - Titration Pulse Oximetry Post Tiitration Laboratory Data 08/17/22 10:06 08/17/22 10:06 Lab Results 08/17/22 08/17/22 08/17/22 Range/Units 10:06 10:06 10:06 WBC 7.70 (4.8-10.8) K/ul RBC 4.07 L (4.70-6.10) M/uL Hgb 13.4 L (14.0-18.0) g/dl POC Hgb (14.0-18.0) g/dl Hct 37.9 L (42.0-52.0) % POC Hct (42-52) % MCV 93.1 (80.0-100.0) fL MCH 32.9 (25.0-34.0) pg MCHC 35.4 (32.0-36.0) g/dL RDW Std Deviation 42.5 (36.4-46.3) fL RDW Coeff of Corbin 12.4 (11.5-14.5) % Plt Count 219 (130-400) K/uL MPV 10.2 (9.4-12.4) fL Immature Gran % (Auto) 0.3 % Neut % (Auto) 73.7 % Lymph % (Auto) 12.5 % [place] % (Auto) 10.5 % Eos % (Auto) 2.5 % Baso % (Auto) 0.5 % Neut # (Auto) 5.68 (1.40-6.50) K/uL Lymph # (Auto) 0.96 L (1.2-3.4) K/uL [place] # (Auto) 0.81 H (0.11-0.59) K/uL Eos # (Auto) 0.19 (0-0.50) K/uL Baso # (Auto) 0.04 (0-0.2) K/uL Immature Gran # (Auto) 0.02 (0.01-0.20) K/uL PT 10.8 (9.0-12.0) Seconds INR 1.0 (0.9-1.1) APTT 26.9 (21.0-31.0) Seconds PTT Ratio 1.0 POC Sodium (135-144) mmol/L Sodium 129 L (136-145) mmol/L POC Potassium (3.3-5.0) mmol/L Potassium 4.3 (3.5-5.1) mmol/L POC Chloride (101-112) mmol/L Chloride 98 (98-107) mmol/L Carbon Dioxide 26 (21-32) mmol/L POC Total CO2 (24-31) mmol/L Anion Gap 5 (3-11) POC Anion Gap (16-25) mmol/L POC BUN (7-18) mg/dl BUN 22 (6-23) mg/dl Creatinine 1.02 (0.6-1.4) mg/dl POC Creatinine (0.6-1.3) mg/dl Est Cr Clr Drug Dosing 57.1 ml/min Est GFR ( Amer) 76.8 ml/min Est GFR (Non-Af Amer) 66.2 ml/min BUN/Creatinine Ratio 21.6 H (10-20) Glucose 124 H (70-99(Fasting)) mg/dl POC Glucose (other) (70-99) mg/dl Calcium 8.7 (8.5-10.1) mg/dl POC Ioniz Calcium Yo (1.12-1.32) mmol/l Magnesium 1.8 (1.7-2.4) mg/dl Total Bilirubin 1.1 H (0.2-1.0) mg/dl AST 30 (13-39) U/L ALT 21 (7-52) U/L Alkaline Phosphatase 52 (34-104) U/L Troponin I High Sens 28.8 H (0-20) pg/ml B-Natriuretic Peptide (0-100) pg/ml Total Protein 7.0 (6.0-8.3) gm/dl Albumin 3.9 (3.4-5.0) gm/dl Globulin 3.1 (2.5-4.0) gm/dl Albumin/Globulin Ratio 1.3 (0.9-2) Procalcitonin (0-0.5) ng/ml Urine Color Urine Appearance (Clear) Urine pH (4.5-7.5) Ur Specific [place] (1.000-1.030) Urine Protein (Negative) Urine Glucose (UA) (Negative) Urine Ketones (Negative) Urine Blood (Negative) Urine Nitrite (Negative) Urine Bilirubin (Negative) Urine Urobilinogen (Negative) Ur Leukocyte Esterase (Negative) SARS-CoV-2 (PCR) (Negative) Influenza Type A (PCR) (Neg) Influenza Type B (PCR) (Neg) RSV (RT-PCR) (Neg) 08/17/22 08/17/22 08/17/22 Range/Units 10:15 10:15 10:20 WBC (4.8-10.8) K/ul RBC (4.70-6.10) M/uL Hgb (14.0-18.0) g/dl POC Hgb 10.5 L (14.0-18.0) g/dl Hct (42.0-52.0) % POC Hct 31 L (42-52) % MCV (80.0-100.0) fL MCH (25.0-34.0) pg MCHC (32.0-36.0) g/dL RDW Std Deviation (36.4-46.3) fL RDW Coeff of Corbin (11.5-14.5) % Plt Count (130-400) K/uL MPV (9.4-12.4) fL Immature Gran % (Auto) % Neut % (Auto) % Lymph % (Auto) % [place] % (Auto) % Eos % (Auto) % Baso % (Auto) % Neut # (Auto) (1.40-6.50) K/uL Lymph # (Auto) (1.2-3.4) K/uL [place] # (Auto) (0.11-0.59) K/uL Eos # (Auto) (0-0.50) K/uL Baso # (Auto) (0-0.2) K/uL Immature Gran # (Auto) (0.01-0.20) K/uL PT (9.0-12.0) Seconds INR (0.9-1.1) APTT (21.0-31.0) Seconds PTT Ratio POC Sodium 136 (135-144) mmol/L Sodium (136-145) mmol/L POC Potassium 3.2 L (3.3-5.0) mmol/L Potassium (3.5-5.1) mmol/L POC Chloride 103 (101-112) mmol/L Chloride (98-107) mmol/L Carbon Dioxide (21-32) mmol/L POC Total CO2 20 L (24-31) mmol/L Anion Gap (3-11) POC Anion Gap 18.0 (16-25) mmol/L POC BUN 18 (7-18) mg/dl BUN (6-23) mg/dl Creatinine (0.6-1.4) mg/dl POC Creatinine 0.7 (0.6-1.3) mg/dl Est Cr Clr Drug Dosing ml/min Est GFR ( Amer) ml/min Est GFR (Non-Af Amer) ml/min BUN/Creatinine Ratio (10-20) Glucose (70-99(Fasting)) mg/dl POC Glucose (other) 100 H (70-99) mg/dl Calcium (8.5-10.1) mg/dl POC Ioniz Calcium Yo 1.00 L (1.12-1.32) mmol/l Magnesium (1.7-2.4) mg/dl Total Bilirubin (0.2-1.0) mg/dl AST (13-39) U/L ALT (7-52) U/L Alkaline Phosphatase (34-104) U/L Troponin I High Sens (0-20) pg/ml B-Natriuretic Peptide (0-100) pg/ml Total Protein (6.0-8.3) gm/dl Albumin (3.4-5.0) gm/dl Globulin (2.5-4.0) gm/dl Albumin/Globulin Ratio (0.9-2) Procalcitonin (0-0.5) ng/ml Urine Color Yellow Urine Appearance Clear (Clear) Urine pH 7.5 (4.5-7.5) Ur Specific [place] 1.010 (1.000-1.030) Urine Protein Negative (Negative) Urine Glucose (UA) Negative (Negative) Urine Ketones Negative (Negative) Urine Blood Negative (Negative) Urine Nitrite Negative (Negative) Urine Bilirubin Negative (Negative) Urine Urobilinogen Negative (Negative) Ur Leukocyte Esterase Negative (Negative) SARS-CoV-2 (PCR) NEGATIVE (Negative) Influenza Type A (PCR) Negative (Neg) Influenza Type B (PCR) Negative (Neg) RSV (RT-PCR) Negative (Neg) 08/17/22 08/17/22 08/17/22 Range/Units 13:13 13:13 13:13 WBC (4.8-10.8) K/ul RBC (4.70-6.10) M/uL Hgb (14.0-18.0) g/dl POC Hgb (14.0-18.0) g/dl Hct (42.0-52.0) % POC Hct (42-52) % MCV (80.0-100.0) fL MCH (25.0-34.0) pg MCHC (32.0-36.0) g/dL RDW Std Deviation (36.4-46.3) fL RDW Coeff of Corbin (11.5-14.5) % Plt Count (130-400) K/uL MPV (9.4-12.4) fL Immature Gran % (Auto) % Neut % (Auto) % Lymph % (Auto) % [place] % (Auto) % Eos % (Auto) % Baso % (Auto) % Neut # (Auto) (1.40-6.50) K/uL Lymph # (Auto) (1.2-3.4) K/uL [place] # (Auto) (0.11-0.59) K/uL Eos # (Auto) (0-0.50) K/uL Baso # (Auto) (0-0.2) K/uL Immature Gran # (Auto) (0.01-0.20) K/uL PT (9.0-12.0) Seconds INR (0.9-1.1) APTT (21.0-31.0) Seconds PTT Ratio POC Sodium (135-144) mmol/L Sodium (136-145) mmol/L POC Potassium (3.3-5.0) mmol/L Potassium (3.5-5.1) mmol/L POC Chloride (101-112) mmol/L Chloride (98-107) mmol/L Carbon Dioxide (21-32) mmol/L POC Total CO2 (24-31) mmol/L Anion Gap (3-11) POC Anion Gap (16-25) mmol/L POC BUN (7-18) mg/dl BUN (6-23) mg/dl Creatinine (0.6-1.4) mg/dl POC Creatinine (0.6-1.3) mg/dl Est Cr Clr Drug Dosing ml/min Est GFR ( Amer) ml/min Est GFR (Non-Af Amer) ml/min BUN/Creatinine Ratio (10-20) Glucose (70-99(Fasting)) mg/dl POC Glucose (other) (70-99) mg/dl Calcium (8.5-10.1) mg/dl POC Ioniz Calcium Yo (1.12-1.32) mmol/l Magnesium (1.7-2.4) mg/dl Total Bilirubin (0.2-1.0) mg/dl AST (13-39) U/L ALT (7-52) U/L Alkaline Phosphatase (34-104) U/L Troponin I High Sens 36.4 H (0-20) pg/ml B-Natriuretic Peptide 1855 H (0-100) pg/ml Total Protein (6.0-8.3) gm/dl Albumin (3.4-5.0) gm/dl Globulin (2.5-4.0) gm/dl Albumin/Globulin Ratio (0.9-2) Procalcitonin < 0.05 (0-0.5) ng/ml Urine Color Urine Appearance (Clear) Urine pH (4.5-7.5) Ur Specific [place] (1.000-1.030) Urine Protein (Negative) Urine Glucose (UA) (Negative) Urine Ketones (Negative) Urine Blood (Negative) Urine Nitrite (Negative) Urine Bilirubin (Negative) Urine Urobilinogen (Negative) Ur Leukocyte Esterase (Negative) SARS-CoV-2 (PCR) (Negative) Influenza Type A (PCR) (Neg) Influenza Type B (PCR) (Neg) RSV (RT-PCR) (Neg) Administered Medications Magnesium Sulfate/Dextrose (Magnesium Sulfate / D5w) 1 gm in 100 mls @ 50 mls/hr IV Q2H NOEL Stop: 08/17/22 15:59 Last Admin: 08/17/22 14:16 Dose: 50 mls/hr Documented By: Infusion: 08/17/22 14:16 Dose: 50 mls/hr Documented By: Admin: 08/17/22 12:17 Dose: 50 mls/hr Documented By: SAYRA Discontinued Medications Albuterol (Albut/Ipratrop 3mg/0.5mg Neb 3 Ml Vial) 3 ml NEB NOW STA; Protocol Stop: 08/17/22 12:44 Last Admin: 08/17/22 12:58 Dose: 3 ml Documented By: SOFÍA Furosemide (Furosemide Inj 20 Mg/2 Ml Vial) 20 mg IV ONE ONE Stop: 08/17/22 11:36 Last Admin: 08/17/22 11:56 Dose: 20 mg Documented By: SOFÍA Ioversol (Optiray 320 500ml) 115 ml IV ONCE ONE Stop: 08/17/22 10:46 Last Admin: 08/17/22 10:49 Dose: 115 ml Documented By: CYRUS Imaging Data Radiologist's Impression: Chest CTA 08/17/22 10:11 CHEST CTA for PULMONARY ARTERIES CT DOSE: 395.35 mGy.cm HISTORY: Dyspnea, hypoxia TECHNIQUE: Multiaxial CT images of the chest were performed following the intravenous administration of contrast to evaluate the pulmonary arteries. Maximal intensity projection images were also obtained. A dose lowering technique was utilized adhering to the principles of ALARA. COMPARISON STUDY: Chest CT 06/08/2019. FINDINGS: Limited views of the upper abdomen demonstrate a normal liver and spleen. Calcified plaque within the thoracic aorta. The ascending thoracic aorta measures up to 4.8 cm in diameter. The heart is enlarged. No pericardial ef fusion. No mediastinal or hilar lymphadenopathy. Interval development of moderate bilateral pleural effusions, right greater than left. Normal esophagus. Bilateral lower lobe subsegmental pulmonary arteries are near nondiagnostic due to the respiratory motion artifact and suboptimal opacification. Otherwise, no filling defects within the remaining pulmonary arteries to suggest a pulmonary embolus. There are poststernotomy changes. No acute fractures identified within the chest. There are healing left anterior third through sixth rib fractures. No pneumothorax. Emphysema. The central airways are patent. Stable scarlike densities within the lung apices. Stable 4 mm subpleural nodule within the left upper lobe on image 220. There is a new partially calcified 9 mm subpleural nodular density within the left upper lobe on image 202. Stable 8 mm nodule within the left lower lobe on image 59. Stable 4 mm nodule within the left lower lobe on image 141. Mild interlobular septal thickening with patchy groundglass densities within the right lung. This favors mild pulmonary edema. Stable subcentimeter nodules within the right lung. Consolidation within the lower lobes posteriorly are nonspecific but favor compressive atelectasis from the pleural effusions. IMPRESSION: 1. No evidence for a pulmonary embolus. 2. Emphysema. 3. Patchy groundglass densities within the right lung with interlobular septal thickening and moderate pleural effusions. This favors pulmonary edema. An atypical pneumonitis could also have a similar appearance. 4. Consolidation within the lower lobes posteriorly favor compressive atelectasis from the pleural effusions. 5. There is a new irregular 9 mm partially calcified subpleural nodule within the left upper lobe. This favors an area of scarring. Consider six-month chest CT follow-up to ensure stability. 6. Additional scattered subcentimeter pulmonary nodules remain stable and are likely benign. 7. Mild aneurysmal dilatation of the ascending thoracic aorta measuring up to 4.8 cm in diameter. 8. Additional findings as described above ACT 112: Negative or not required by law. Electronically signed by: Joao Kang M.D. 08/17/2022 10:59 AM Discharge Plan Visit Data Chief Complaint: Shortness of Breath/Dyspnea Stated Complaint: SOB ED Provider: Nakul Watson Discharge Problem: Hypoxia, Hypertension, Aortic stenosis, Heart failure Patient Disposition: Being Evaluated by Hospitalist Forms Stand Alone Forms: [facility] Prescriptions Prescriptions: No Action pravastatin 40 mg tablet 40 mg PO QAM albuterol sulfate 90 mcg/actuation HFA aerosol inhaler 2 puff inhalation Q4H PRN (Reason: Shortness Of Breath) Qty: 18 5RF Almont 250 mcg suppository 250 mcg intra-urethral ONCE PRN (Reason: Erectile Dysfunction) Qty: 6 4RF Rx Instructions: Insert 1 suppository intraurethrally daily as needed for activity clopidogrel 75 mg tablet 75 mg PO QAM Qty: 90 3RF Trelegy Ellipta 100-62.5-25 mcg blister with device 1 inh INH QAM Qty: 60 6RF Linzess 290 mcg capsule 290 mcg PO DAILY Qty: 30 5RF Linzess 72 mcg capsule 72 mcg PO DAILY Qty: 30 2RF resveratrol 50 mg capsule 50 mg PO BID melatonin 5 mg tablet 5 mg PO HS cholecalciferol (vitamin D3) 1,000 unit (25 mcg) tablet 1,000 unit PO QAM isosorbide mononitrate 60 mg tablet extended release 24 hr 60 mg PO BID furosemide 40 mg tablet 40 mg PO QAM multivitamin Tablet 1 tab PO QAM potassium chloride 20 mEq tablet,ER particles/crystals 20 meq PO QAM nitroglycerin 0.4 mg tablet, sublingual 0.4 mg sublingual DIRECTED PRN (Reason: Chest Pain) Rx Instructions: PLACE ONE TABLET UNDER THE TONGUE EVERY 5 MINUTES FOR UP TO 3 DOSES OVER 15 MINUTES IF NEEDED FOR CHEST PAIN docusate sodium 100 mg Capsule 100 mg PO QAM ezetimibe 10 mg tablet 10 mg PO QAM coQ10 (ubiquinol) 200 mg Capsule 200 mg PO QAM metoprolol tartrate 25 mg tablet 25 mg PO BID Label Comments: STATES WILL CHANGE>NEEDS TO [employer] NEW DOSE aspirin 325 mg Tablet 325 mg PO DAILY oxycodone 5 mg tablet 5 mg PO Q6H PRN (Reason: pain) Qty: 12 0RF psyllium Packet 1 packet PO QAM Referrals Referrals: Oscar Olson [Primary Care Provider] -
--- NOTE | 2022-08-17 11:01 | CT Scan Report ---
CHEST CTA for PULMONARY ARTERIES CT DOSE: 395.35 mGy.cm HISTORY: Dyspnea, hypoxia TECHNIQUE: Multiaxial CT images of the chest were performed following the intravenous administration of contrast to evaluate the pulmonary arteries. Maximal intensity projection images were also obtaine d. A dose lowering technique was utilized adhering to the principles of ALARA. COMPARISON STUDY: Chest CT 06/08/2019. FINDINGS: Limited views of the upper abdomen demonstrate a normal liver and spleen. Calcified plaque within the thoracic aorta. The ascending thoracic aorta measures up to 4.8 cm in diameter. The heart is enlarged. No pericardial effusion. No mediastinal or hilar lymphadenopathy. Interval development o f moderate bilateral pleural effusions, right greater than left. Normal esophagus. Bilateral lower lo be subsegmental pulmonary arteries are near nondiagnostic due to the respiratory motion artifact and suboptimal opacification. Otherwise, no filling defects within the remaining pulmonary arteries to solorzano ggest a pulmonary embolus. There are poststernotomy changes. No acute fractures identified within the chest. There are healing left anterior third through sixth rib fractures. No pneumothorax. Emphysema . The central airways are patent. Stable scarlike densities within the lung apices. Stable 4 mm subpl eural nodule within the left upper lobe on image 220. There is a new partially calcified 9 mm subpleu ral nodular density within the left upper lobe on image 202. Stable 8 mm nodule within the left lower lobe on image 59. Stable 4 mm nodule within the left lower lobe on image 141. Mild interlobular sept al thickening with patchy groundglass densities within the right lung. This favors mild pulmonary lucy ma. Stable subcentimeter nodules within the right lung. Consolidation within the lower lobes posterio rly are nonspecific but favor compressive atelectasis from the pleural effusions. IMPRESSION: 1. No evidence for a pulmonary embolus. 2. Emphysema. 3. Patchy groundglass densities within the right lung with interlobular septal thickening and moderat e pleural effusions. This favors pulmonary edema. An atypical pneumonitis could also have a similar a ppearance. 4. Consolidation within the lower lobes posteriorly favor compressive atelectasis from the pleural ef fusions. 5. There is a new irregular 9 mm partially calcified subpleural nodule within the left upper lobe. Th is favors an area of scarring. Consider six-month chest CT follow-up to ensure stability. 6. Additional scattered subcentimeter pulmonary nodules remain stable and are likely benign. 7. Mild aneurysmal dilatation of the ascending thoracic aorta measuring up to 4.8 cm in diameter. 8. Additional findings as described above ACT 112: Negative or not required by law. Electronically signed by: Joao Kang M.D. 08/17/2022 10:59 AM
[2022-08-17 11:05] LABS: Appearance Urine Clear (Clear); Bilirubin Urine Negative (Negative); Blood Urine Negative (Negative); Color Urine Yellow; Glucose Urine UA Negative (Negative); Ketones Urine Negative (Negative); Leukocyte Esterase Urine Negative (Negative); Nitrite Urine Negative (Negative); Protein Urine Negative (Negative); Urobilinogen Urine Negative (Negative); pH Urine 7.5 (4.5-7.5)
[2022-08-17 11:06] LABS: Partial Thromboplastin Time 26.9 Seconds (21.0-31.0); Prothrombin Time 10.8 Seconds (9.0-12.0)
[2022-08-17 11:29] LABS: Influenza A virus by PCR Negative (Neg); Influenza B virus by PCR Negative (Neg); RSV by PCR Negative (Neg); SARS CoV2 RNA(COVID-19) Ceph NEGATIVE (Negative)
[2022-08-17] MEDS ORDERED: FUROSEMIDE INJ 20 MG/2 ML VIAL IV ONE (11:35)
--- NOTE | 2022-08-17 11:55 | History & Physical Report ---
Date of Service August 17, 2022 Assessment & Plan (1) Acute respiratory failure with hypoxia: Plan: -Admit to med/tele -The patient is currently afebrile, hemodynamically stable, and stable on 3L NC -At this time his acute respiratory failure is more consistent with a CHF exacerbation as well as having his moderate -No leukocytosis, CTA negative for PE and no focal consolidations, will add on a procal for further assess -Covid/influenza/rsv were negative, will obtain a full respiratory biofire for further evaluation -S/P 20 mg IV lasix, will continue with 20 mg IV bid for now -Will give him a DuoNeb now to see if this improves his symptoms, if it helps will order additional -Will obtain repeat TTE as his last was over 6 months ago, Dr. Conley has been consulted -Initial trop was elevated at 28, patient is without chest pain and no acute ST segment or T-wave changes on ECG, will obtain a 2 hour repeat now -Monitor on tele and pulse oximetry -Prn O2 to keep SpO2 between 90-92% -Incentive spirometry, flutter therapy -HS bipap ordered -AM CBC, BMP, and Mag -BL SCDs and Sub-Q lovenox for DVT PPX (2) Hyponatremia: Plan: -Noted to be 129 today, patient is asymptomatic -Noted to have a recent history of chronic hyponatremia, likely due to his CHF -Monitor on am labs for improvement with contiuned CHF treatment (3) Hypertension: Plan: -Stable -Continue metoprolol and diuresis (4) Hyperlipidemia: Plan: -Continue statin and Zetia (5) History of quadruple bypass: Plan: -Continue aspirin, plavix, metoprolol, (6) Aortic stenosis: Plan: -Continue IV diuresis, follow repeat TTE, cardiology consult (7) HFrEF (heart failure with reduced ejection fraction): Plan: -See acute hypoxic respiratory failure Plan The patient was discussed with Dr. Hitchcock at the time of the admission History of Present Illness Chief Complaint: SOB Primary Care Provider: Oscar Abarca is an 87 year old male with a PMH significant for CAD S/P Coronary Angiography, Left Heart Cath, Right Heart Cath, LV Angiography and Bypass Graft Angiography on 11/30/[address] Mcneill, HFrEF (LVEF of 40-45%, mod aortic stenosis, mod mitral regurg), emphysema, HTN, hyperlipidemia, prostate cancer (follows with Urology) who presented to the [facility] ED on 08/17/22 with a chief complaint of SOB. In the ED the patient was found to be afebrile, hemodynamically stable, but hypoxic at 85% on RA. Labs were remarkable for a CBC wtih WBC WNL, stable Hgb and platelets, stable cr at 1.02, sodium of 129, potassium of 3.2, mag of 1.8, glucose of 124, Ionized calcium of 1.00, total bili of 1.1 otherwise LFTs WNL, initial high sensitivity trop of 28, and negati ve covid/influenza/rsv screens. CTA of the chest was read as "1. No evidence for a pulmonary embolus. 2. Emphysema. 3. Patchy groundglass densities within the right lung with interlobular septal thickening and moderate pleural effusions. This favors pulmonary edema. An atypical pneumonitis could also have a similar appearance. 4. Consolidation within the lower lobes posteriorly favor compressive atelectasis from the pleural effusions. 5. There is a new irregular 9 mm partially calcified subpleural nodule within the left upper lobe. This favors an area of scarring. Consider six-month chest CT follow-up to ensure stability. 6. Additional scattered subcentimeter pulmonary nodules remain stable and are likely benign. 7. Mild aneurysmal dilatation of the ascending thoracic aorta measuring up to 4.8 cm in diameter. 8. Additional findings as described above". Prior to admission the patient was given 20 mg IV lasix. At the time of the exam the patient was resting comfortably in bed in no ac chad distress saturating at 94% on 4L NC. He states that he has been dealing with COCHRAN and chronic SOB for years now but noticed a significant increased in his SOB, even at rest at the beginning of the week. He then started to develop a productive cough on Friday. He cannot described his sputum as he usually swallows the sputum that comes up. He has not noticed a fever or chills, he also denies chest pain, abdominal pain, nausea, vomiting, diarrhea, dysuria, hematuria, lower extremity swelling and recent trauma. He has not had recent changes his medications and has been taking his Trelegy-Ellipta as prescribed. He has put on approximately 5 lbs of weight over the past 2 months which he thinks is related to water weight. He has been using his 40 mg PO lasix daily and is on HS Bipap. He notes that he only uses his Bipap for the last few hours of the night as it bothers his . At the beginning of the exam I turned his oxygen off and he desaturated into the mid 80's on RA at rest, he then remained stable on 3L NC. Please refer to Dr. Hitchcock's attestation for any changes to the treatment plan. Allergies Allergy/AdvReac Type Severity Reaction Status Date / Time naproxen [From Naprosyn] Allergy Severe Anaphylaxis Verified 06/11/22 14:00 NSAIDS (Non-Steroidal Allergy Severe Anaphylaxis Verified 06/11/22 14:00 Anti-Inflamma Home Medications Medication Instructions Recorded Confirmed Type coQ10 (ubiquinol) 200 mg capsule 200 mg PO QA 10/07/18 08/17/22 History docusate sodium 100 mg capsule 100 mg PO QA 10/07/18 08/17/22 History ezetimibe 10 mg tablet 10 mg PO QAM 10/07/18 08/17/22 History multivitamin 1 tab PO QAM 10/07/18 08/17/22 History nitroglycerin 0.4 mg sublingual 0.4 mg sublingual DIRECTED PRN 10/07/18 08/17/22 History tablet Chest Pain potassium chloride 20 mEq 20 meq PO QAM 10/07/18 08/17/22 History tablet,extended release(part/cryst) cholecalciferol (vitamin D3) 25 1,000 unit PO QAM 02/15/19 08/17/22 History mcg (1,000 unit) tablet furosemide 40 mg tablet 40 mg PO QAM 02/15/19 08/17/22 History isosorbide mononitrate 60 mg 60 mg PO BID 02/15/19 08/17/22 History tablet,extended release 24 hr melatonin 5 mg tablet 5 mg PO HS 02/15/19 08/17/22 History resveratrol 50 mg capsule 50 mg PO BID 02/15/19 08/17/22 History metoprolol tartrate 25 mg tablet 25 mg PO BID 09/05/20 08/17/22 History pravastatin 40 mg tablet 40 mg PO QAM 12/22/20 08/17/22 History albuterol sulfate 90 mcg/actuation 2 puff inhalation Q4H PRN 12/26/20 08/17/22 Rx aerosol inhaler Shortness Of Breath #18 grams psyllium 1 packet PO QAM 08/27/21 08/17/22 History aspirin 325 mg tablet 325 mg PO DAILY 11/30/21 08/17/22 History alprostadil 250 mcg intra-urethral 250 mcg intra-urethral ONCE PRN 02/19/22 08/17/22 Rx suppository ([place]) Erectile Dysfunction #6 ea clopidogrel 75 mg tablet 75 mg PO QAM #90 tabs 04/04/22 08/17/22 Rx fluticasone fur. 100 mcg-umeclid 1 inh inhalation QAM #60 ea 04/24/22 08/17/22 Rx 62.5 mcg-vilant 25 mcg inhalat.powder (Trelegy Ellipta) oxycodone 5 mg tablet 5 mg PO Q6H PRN pain #12 tabs 06/15/22 08/17/22 Rx linaclotide 290 mcg capsule 290 mcg PO DAILY #30 caps 07/19/22 08/17/22 Rx (Linzess) linaclotide 72 mcg capsule 72 mcg PO DAILY #30 caps 08/12/22 08/17/22 Rx (Linzess) Past Med/Surg History Medical History Abdominal aortic aneurysm Acute CVA (cerebrovascular accident) Aneurysm of abdominal aorta Anginal pain Aortic stenosis Arthritis Asthma CAD (coronary artery disease) Carotid stenosis Chronic obstructive pulmonary disease DDD (degenerative disc disease) DDD (degenerative disc disease) Diverticulitis Diverticulosis Dyspnea Edema Elevated BUN Emphysema lung Fever Generalized osteoarthritis of multiple sites History of prostate cancer HTN (hypertension) Hyperlipidemia Hypertension Ischemic cardiomyopathy 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 Low back pain Male erectile disorder of organic origin Mineral deficiency Muscle weakness Myocardial Infarction Non-ST elevation NE (NSTEMI) Obstructive sleep apnea Osteoarthritis Polymyalgia rheumatica Pulmonary nodules Rigors Sleep apnea Testicular pain Vitamin D deficiency Surgical History Difficult intubation H/O vascular surgery History of arthroscopy History of cardiac cath History of carotid endarterectomy History of colonoscopy History of coronary artery bypass graft History of herniorrhaphy History of meniscectomy of left knee History of partial colectomy History of tonsillectomy and adenoidectomy History of tooth extraction History of trigger finger Family History Father Alzheimer disease Heart disease Brother Back problem Grandmother (Paternal) Dementia Mother No problems noted. 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 Former [employer] [facility] Feels Safe at Home: Yes Assistive Devices: Glasses Review of Systems Review of Systems: Denies current fever, chills, headache, changes in vision, hearing, taste, and smell, chest pain, abdominal pain, nausea, vomiting, diarrhea, hematemesis, melena, dysuria, hematuria, and recent falls. All systems have been reviewed and are otherwise negative. Physical Exam Physical Exam: Physical Exam: General: In no acute distress, stated age, chronically ill-appearing but non- toxic HEENT: Normocephalic, atraumatic, no scleral icterus, pupils around round, symmetrical, and reactive to light, moist mucus membranes, trachea midline, no thyromegaly Chest/Pulm: No respiratory distress, symmetrical chest expansion, decreased breath sounds in the BL lower lung mohan with mild expiratory wheezing in the upper lung mohan Cardiac: RRR, systolic murmur noted, loudest in the aortic area Abdomen: Negative for ascites and bruising, normoactive bowel sounds, soft, non-tender to palpation throughout Musculoskeletal: Symmetrical and without signs of acute trauma, upper and lower extremities with full ROM, no atrophy, spasticity, or flaccidity Extremities: Radial, dorsalis pedis, and posterior tibial pulses are intact and symmetrical, no edema noted in the BL LE's Skin: Warm, dry, no rashes , lesions, or scars noted Neuro: Alert and oriented to person, place, month, year, and president, no focal defects, CN II-XII tested and intact, no tremors noted Psych: No acute distress, calm and cooperative during the exam Results & Data Results & Data ([facility]) Vital Signs (Past 12 Hours) Vital Signs Temp Pulse Resp BP Pulse Ox O2 Del Method O2 Flow Rate 08/17/22 10:30 77 26 H 138/78 88 L Nasal Cannula 4 08/17/22 10:00 80 29 H 146/83 H 89 L Nasal Cannula 3 08/17/22 10:28 91 Nasal Cannula 4 08/17/22 10:27 89 L Nasal Cannula 3 08/17/22 09:46 85 L Nasal Cannula 0 08/17/22 09:46 Nasal Cannula 3 08/17/22 09:35 35.9 C L 90 26 H 156/82 H 85 L Room Air Laboratory Results Abnormal lab results 08/17/22 08/17/22 08/17/22 Range/Units 10:06 10:06 10:15 RBC 4.07 L (4.70-6.10) M/uL Hgb 13.4 L (14.0-18.0) g/dl POC Hgb 10.5 L (14.0-18.0) g/dl Hct 37.9 L (42.0-52.0) % POC Hct 31 L (42-52) % Lymph # (Auto) 0.96 L (1.2-3.4) K/uL [place] # (Auto) 0.81 H (0.11-0.59) K/uL Sodium 129 L (136-145) mmol/L POC Potassium 3.2 L (3.3-5.0) mmol/L POC Total CO2 20 L (24-31) mmol/L BUN/Creatinine Ratio 21.6 H (10-20) Glucose 124 H (70-99(Fasting)) mg/dl POC Glucose (other) 100 H (70-99) mg/dl POC Ioniz Calcium Yo 1.00 L (1.12-1.32) mmol/l Total Bilirubin 1.1 H (0.2-1.0) mg/dl Troponin I High Sens 28.8 H (0-20) pg/ml Diagnostic Findings Chest CTA 08/17/22 10:11 CHEST CTA for PULMONARY ARTERIES CT DOSE: 395.35 mGy.cm HISTORY: Dyspnea, hypoxia TECHNIQUE: Multiaxial CT images of the chest were performed following the intravenous administration of contrast to evaluate the pulmonary arteries. Maximal intensity projection images were also obtained. A dose lowering technique was utilized adhering to the principles of ALARA. COMPARISON STUDY: Chest CT 06/08/2019. FINDINGS: Limited views of the upper abdomen demonstrate a normal liver and spleen. Calcified plaque within the thoracic aorta. The ascending thoracic aorta measures up to 4.8 cm in diameter. The heart is enlarged. No pericardial effusion. No mediastinal or hilar lymphadenopathy. Interval development of moderate bilateral pleural effusions, right greater than left. Normal esophagus. Bilateral lower lobe subsegmental pulmonary arteries are near nondiagnostic due to the respiratory motion artifact and suboptimal opacification. Otherwise, no filling defects within the remaining pulmonary arteries to suggest a pulmonary embolus. There are poststernotomy changes. No acute fractures identified within the chest. There are healing left anterior third through sixth rib fractures. No pneumothorax. Emphysema. The central airways are patent. Stable scarlike densities within the lung apices. Stable 4 mm subpleural nodule within the left upper lobe on image 220. There is a new partially calcified 9 mm subpleural nodular density within the left upper lobe on image 202. Stable 8 mm nodule within the left lower lobe on image 59. Stable 4 mm nodule within the left lower lobe on image 141. Mild interlobular septal thickening with patchy groundglass densities within the right lung. This favors mild pulmonary edema. Stable subcentimeter nodules within the right lung. Consolidation within the lower lobes posteriorly are nonspecific but favor compressive atelectasis from the pleural effusions. IMPRESSION: 1. No evidence for a pulmonary embolus. 2. Emphysema. 3. Patchy groundglass densities within the right lung with interlobular septal thickening and moderate pleural effusions. This favors pulmonary edema. An atypical pneumonitis could also have a similar appearance. 4. Consolidation within the lower lobes posteriorly favor compressive atelectasis from the pleural effusions. 5. There is a new irregular 9 mm partially calcified subpleural nodule within the left upper lobe. This favors an area of scarring. Consider six-month chest CT follow-up to ensure stability. 6. Additional scattered subcentimeter pulmonary nodules remain stable and are likely benign. 7. Mild aneurysmal dilatation of the ascending thoracic aorta measuring up to 4.8 cm in diameter. 8. Additional findings as described above ACT 112: Negative or not required by law. Electronically signed by: Joao Kang M.D. 08/17/2022 10:59 AM ECG Additional Comments: Poor data quality, interpretation may be adversely affected Sinus rhythm with 1st degree A-V block Right bundle branch block Left anterior fascicular block Bifascicular block Abnormal ECG When compared with ECG of 08-NOV-2021 05:58, Right bundle branch block has replaced Non-specific intra- ventricular conduction block Code Status & VTE Plan Code Status Full code VTE Prophylaxis Plan VTE Prophylaxis will be ordered: Yes PG Care Time/CCT Total # of Minutes Spent Total Time Spent with Patient: Total time spent is greater than 50% in coordination of care (as documented) at patient's floor/unit and/or counseling patient: Coding [place] [address] INT INP/OBS CARE 3/75MIN Patient Type Established History Comprehensive Exam Comprehensive Medical Decision Making High Complexity Diagnoses Acute respiratory failure with hypoxia J96.01 Hyponatremia E87.1 Hypertension I10 Hyperlipidemia E78.5 History of quadruple bypass Z95.1 Aortic stenosis I35.0 HFrEF (heart failure with reduced ejection fraction) I50.20
[2022-08-17] MEDS ORDERED: POTASSIUM CHLORIDE CRTAB 20 MEQ TABCR PO SCH (12:00)
[2022-08-17] MEDS: MAGNESIUM SULFATE / D5W 1 GM/100 ML BAG IV SCH ×2 (12:17→14:16)
[2022-08-17] MEDS ORDERED: ALBUT/IPRATROP 3MG/0.5MG NEB 3 ML VIAL NEB STA (12:43)
[2022-08-17] MEDS ORDERED: ALBUT/IPRATROP 3MG/0.5MG NEB 3 ML VIAL NEB SCH (15:00)
[2022-08-17] MEDS ORDERED: ACETAMINOPHEN 325 MG TAB PO PRN (16:58)
[2022-08-17] MEDS: guaiFENesin SUGAR FREE 200 MG/10 ML UDC PO SCH ×2 (18:18→22:38)
[2022-08-17] MEDS: ENOXAPARIN INJ 40 MG/0.4 ML SYR SQ SCH (18:39)
[2022-08-17] MEDS: ISOSORBIDE MONO EXTENDED REL 60 MG TABCR PO SCH (21:35)
[2022-08-17] MEDS: METOPROLOL TARTRATE 25 MG TAB PO SCH (21:36)
[2022-08-17] MEDS: FUROSEMIDE INJ 20 MG/2 ML VIAL IV SCH (21:36)
[2022-08-17] MEDS: MELATONIN 3 MG TAB PO SCH (21:36)
--- NOTE | 2022-08-17 21:45 | XCELERA ---
[id number]
[2022-08-18 05:43] LABS: Hematocrit (blood only) 34.8 % (42.0-52.0); Hemoglobin 12.3 g/dl (14.0-18.0); Mean Corpuscular Hemoglobin 32.6 pg (25.0-34.0); Mean Corpuscular Hgb Conc 35.3 g/dL (32.0-36.0); Mean Corpuscular Volume 92.3 fL (80.0-100.0); Mean Platelet Volume 10.1 fL (9.4-12.4); Platelet Count 217 K/uL (130-400); RDW Coefficient of Variation 12.3 % (11.5-14.5); RDW Standard Deviation 41.2 fL (36.4-46.3); Red Blood Count 3.77 M/uL (4.70-6.10); White Blood Count 7.72 K/ul (4.8-10.8)
[2022-08-18] MEDS: guaiFENesin SUGAR FREE 200 MG/10 ML UDC PO SCH ×4 (05:55→22:18)
[2022-08-18 05:58] LABS: BUN Creatinine Ratio 18.7 (10-20); Calcium 8.2 mg/dl (8.5-10.1); Creatinine Clr Calc Pharmacy 53.6 ml/min; Est GFR (African American) 72.5 ml/min; Est GFR (Non-African American) 62.5 ml/min; Potassium 4.1 mmol/L (3.5-5.1)
[2022-08-18] MEDS: ISOSORBIDE MONO EXTENDED REL 60 MG TABCR PO SCH ×2 (08:55→21:09)
[2022-08-18] MEDS: METOPROLOL TARTRATE 25 MG TAB PO SCH ×2 (08:55→21:10)
[2022-08-18] MEDS: PRAVASTATIN SOD 40 MG TAB PO SCH (08:55)
[2022-08-18] MEDS: FUROSEMIDE INJ 20 MG/2 ML VIAL IV SCH ×2 (08:55→17:21)
[2022-08-18] MEDS: ASPIRIN 325 MG ECTAB PO SCH (08:55)
[2022-08-18] MEDS: EZETIMIBE 10 MG TABLET PO SCH (08:55)
[2022-08-18] MEDS: CLOPIDOGREL BISULFATE 75 MG TAB PO SCH (08:55)
[2022-08-18] MEDS: POTASSIUM CHLORIDE CRTAB 20 MEQ TABCR PO SCH (08:55)
[2022-08-18] MEDS: UMECLIDINIUM/VILANTEROL 62.5/25MCG 7 PUFFS/INHALER INH SCH (08:56)
[2022-08-18] MEDS: FLUTICASONE FUROATE 100MCG 14 PUFFS/INHALER INH SCH (08:56)
[2022-08-18] MEDS ORDERED: ALBUTEROL HFA 8 GM INHALER INH PRN (10:37)
--- NOTE | 2022-08-18 10:47 | Hospitalist Progress Note ---
Date of Service August 18, 2022 Assessment & Plan (1) Acute respiratory failure with hypoxia: Plan: Secondary to acute on chronic HFmrEF-treatment as below Requiring 4 LNC and remains with pulse ox 88-93% at rest on this amount of oxygen No leukocytosis, CTA negative for PE and no focal consolidations, and procalcitonin negative-no concern for pneumonia Covid/influenza/rsv were negative -Continue IV diuresis as below for heart failure -Continue incentive spirometry, flutter therapy -HS bipap ordered and continue supplemental O2 to keep pulse ox greater than 89- 90% -Follow chest imaging to resolution -Continue home maintenance inhalers for dyspnea (2) HFrEF (heart failure with reduced ejection fraction): Plan: Presents with volume overload, pulmonary edema with pleural effusions, elevated BNP, hypoxia, and weight gain Echocardiogram here with EF 40-45%, positive for wall motion abnormalities, moderate aortic stenosis, and moderate-severe MR -Improving somewhat with IV diuresis-increase Lasix to 40 Mg IV twice daily -Consideration should be made for adding on FEMI inhibitor/ARB/Entresto-defer to his chief engineer's helper -He is actually on Toprol-XL rather than metoprolol tartrate-made this change on home medication reconciliation and changed the medication here for tomorrow -He has an evaluation for TAVR at the end of the month at [facility] -Continue daily weights, strict I's and O's, low-sodium diet, fluid restrict to 1500 mL/day -Follow BMP and magnesium in the morning and replace electrolytes as needed- maintain home potassium chloride 20 mEq p.o. once daily (3) Knee pain: Plan: Suspect possible nerve compression to the left lateral knee from SCDs Hold SCDs Should resolve on its own Start lidocaine patch in the meantime (4) Anemia: Plan: Mild with hemoglobin 12.3, normocytic Check iron studies, ferritin, B12, folate, TSH in the morning (5) Hyponatremia: Plan: -Noted to be 129 on admission and asymptomatic -Noted to have a recent history of chronic hyponatremia, likely due to his CHF -Sodium now improving with diuresis up to 131 -Follow BMP in the morning (6) Aortic stenosis: Plan: Moderate on echocardiogram here Nonetheless, he is being evaluated for a TAVR at [place] at the end of this month given his symptomatic heart failure Follows with cardiology (7) Mitral regurgitation: Plan: Moderate to severe Diuresing Follow with cardiology Contributing to mild pulmonary hypertension (8) Chronic constipation: Plan: Is on Linzess at home Restart home fiber here and he will request Senokot possibly tomorrow if no bowel movement Continue docusate (9) CAD (coronary artery disease): Plan: S/p four-vessel CABG, 2 grafts are currently occluded as per last cardiac cat heterization in 11/2021 -Continue dual antiplatelet therapy with aspirin and Plavix Continue Zetia and pravastatin, isosorbide, metoprolol (10) Pulmonary nodules: Plan: With 9 mm new calcified nodule in the left upper lobe since last imaging Other nodules deemed benign History of smoking Follows with pulmonology Needs repeat CT chest in 6 months (11) Hypertension: Plan: -Stable -Continue metoprolol and diuresis (12) Hyperlipidemia: Plan: -Continue statin and Zetia Plan DVT prophylaxis Lovenox SQ, discontinue SCDs due to nerve compression of the lateral proximal leg causing pain Disposition-continued stay in PCU Admission and Anticipated Discharge Date Admission Date: August 17, 2022 Subjective Patient still reports dyspnea on exertion when he takes the oxygen off to walk across the room to the bathroom but feels better with oxygen in place. Remains on 4 L nasal cannula at rest but desats to 88% while talking to me. Has a mild cough. He is also complaining of some sharp stabbing pains in the left lateral knee after wearing the SCDs through the night. No difficulty with bending the knee, no swelling of the knee, no radiating pains down the leg, no numbness or tingling. Telemetry with sinus rhythm with first-degree AV block, IVCD, PVCs, rates in the 70s to 80s I discussed his care with cardiology. Review of Systems Review of Systems: All systems reviewed & are unremarkable except as noted in HPI & below Physical Exam Constitutional: WD/WN, vitals as above Respiratory: normal respiratory effort and + cough Auscultation: + diminished lung sounds (Bases bilaterally) and + crackles (Bases bilaterally); no rhonchi and no wheezes Cardiovascular: Rate/Rhythm: regular rate and regular rhythm Heart Sounds: + murmur (2/6 VILLA at the RUSB) Vessels: + JVD and dorsalis pedis pulses present Extremities: no edema Gastrointestinal (Abdomen): normal bowel sounds, soft, nontender, no hepatosplenomegaly Musculoskeletal: Extremities: extremities normal to inspection (No erythema, no joint effusion) and strength 5/5 throughout; full ROM of extremities Results & Data Results & Data ([facility]) Vital Signs (Past 12 Hours) Vital Signs Temp Pulse Pulse Resp BP Pulse Ox O2 Del Method 08/18/22 07:40 70 08/18/22 07:40 Nasal Cannula 08/18/22 07:20 36.6 C 72 18 130/70 95 Oxymask 08/18/22 02:48 36.7 C 88 19 120/71 93 Nasal Cannula O2 Flow Rate 08/18/22 07:40 08/18/22 07:40 4 08/18/22 07:20 4 08/18/22 02:48 4 Laboratory Results CBC, BMP, BNP, troponins all reviewed PG Care Time/CCT Total # of Minutes Spent Total Time Spent with Patient: Total time spent is greater than 50% in coordination of care (as documented) at patient's floor/unit and/or counseling patient: Coding Level of Care Code 22317 SUB INP/OBS CARE 3/50MIN Diagnoses Acute respiratory failure with hypoxia J96.01 HFrEF (heart failure with reduced ejection fraction) I50.20 Knee pain M25.569 Anemia D64.9 Hyponatremia E87.1 Aortic stenosis I35.0 Mitral regurgitation I34.0 Chronic constipation K59.09 CAD (coronary artery disease) I25.10 Pulmonary nodules R91.8 Hypertension I10 Hyperlipidemia E78.5
[2022-08-18] MEDS ORDERED: PSYLLIUM or GUAR GUM FIBER POWDER PACKET PO SCH (11:00)
[2022-08-18] MEDS: LIDOCAINE 5% 1 PATCH TD SCH (11:37)
--- NOTE | 2022-08-18 12:29 | Cardiology Consultation ---
Date of Consultation August 18, 2022 Assessment & Plan (1) Heart failure with mid-range ejection fraction (HFmEF): (2) Aortic stenosis: (3) Mitral regurgitation: (4) CAD (coronary artery disease): (5) History of coronary artery bypass graft: (6) Pulmonary hypertension: (7) Hypertension: (8) Hyperlipidemia: Plan ASSESSMENT/PLAN: 1. Acute on chronic heart failure with mid range EF: Appears hypervolemic. Agree with diuresis. Lasix has been increased to 40 mg IV b.i.d.. Has had some improvement with diuresis thus far. Low-sodium diet, less than 2000 mg daily. Fluid restriction. Strict I&Os. Daily weights. 2. Acute respiratory failure with hypoxia: Likely multifactorial from CHF and also known COPD/emphysema. Also has pleural effusions, likely related to CHF. If no significant improvement with diuresis, could consider thoracentesis if pleural effusions are amenable to such. 3. Aortic stenosis: Appears non severe based on 2021 cardiac catheterization, ECHO, and exam. Aortic stenosis can be underestimated in the setting of reduced LV systolic function and most imaging/catheterization findings have been consistent with moderate. Has appointment with valve Clinic at [facility]. 4. Mitral regurgitation: Significant MR based on echo this admission. Diuresis as above. Has appointment with valve Clinic at [facility]. 5. CAD s/p CABG x 4 (2 occluded): No angina. Continue anti-platelet therapy. Continue beta-lacho. Continue statin therapy. 6. Pulmonary hypertension: Likely due to mitral regurgitation, CHF, and underlying COPD/emphysema. PA pressure was normal on 11/30/2021 catheterization, so his decompensated CHF/MR may be playing a larger role. Plan as above. 7. Hypertension: Blood pressure well controlled. 8. Dyslipidemia: Continue outpatient statin therapy and Zetia. 9. Disposition: Dr. Conley, his primary envelope maker, will resume his cardiology care tomorrow. Patient care communicated with Dr. Lamb of the primary hospitalist service. History of Present Illness Reason for Consultation: "SOB, CHF, hx of " Requesting Physician: Dmitriy Ferrera PA-C Attending Physician: Teressa Lamb MD History of Present Illness Dr. Green is a very pleasant 6 year and a history significant for aortic st enosis, mitral regurgitation, CAD s/p CABG x 4, hypertension, dyslipidemia, CHF, COPD/emphysema, and sleep apnea on BiPAP (uses 1-2 hours daily). He also follows with Dr. Rivera (vascular) for AAA s/p graft and carotid artery stenosis s/p right CEA. His primary envelope maker is Dr. Conley. He states that he is chronically short of breath however for the past we, shortness of breath and in severe, even notable while sitting at rest. He does not use supplemental oxygen at home. He denies orthopnea but has had dyspnea with exertion. He noted significant cough over the past week. He has been unable to expel any sputum. He denies angina, chest pain, syncope, near- syncope, palpitations, or edema. He denies melena, hematochezia, or hematuria. While here, he has been receiving Lasix 20 mg IV and has noted increased urine output from baseline. He feels better but rating is not yet back to baseline. Cough has improved. He is collecting his urine for measurement admits that there was some missed urine initially. When reviewing his home medications, he is not taking metoprolol tartrate twice daily but rather metoprolol succinate 50 mg once daily in the evening. He has been taking furosemide 40 mg daily. He maintains a low-sodium diet and states that his diet has not changed much. He has noted approximately 6 lb weight gain over the past month at home. He states that he has an appointment at [facility] valve clinic later this month for potential aortic valve replacement. He has had the following studies/procedures: 1. CABG x4 2014 [facility]. 2. Cardiac catheterization 11/30/2021 [facility]: Diffuse LM 95% and heavily calcified. Heavily calcified LAD proximal 70%. Competitive flow in mid segment. Medium caliber D1 90% ostial. Mid circumflex 100%. Dominant RCA. Early mid RCA 90%. Late mid RCA 100%. PDA/PLB's partially fill via right to right bridging collaterals. LEVY to LAD widely patent. SVG to OM widely patent and retro fills distal circumflex and left PL. Distal circumflex provides [id number] collaterals to right PL. SVG to RCA 100%. SVG to diagonal not visualized and no competitive flow within D1, thought to be occluded. PCWP 3. LVEDP 9. EF 40-45%. MR 1 to 2+. Peak to peak aortic valve gradient 20. 3. Echo 08/17/2022: Mildly dilated LV. EF 40-45%. Mild global hypokinesis with severe hypokinesis of the apex and severe hypokinesis to akinesis of the inferior base. Moderate LVH. Severe left atrial dilation. Mild right atrial dilation mild to moderate aortic stenosis with mild regurgitation. Moderate to severe MR. RVSP 45. Aortic root 4.4 cm. Review of systems: As above. Review of systems otherwise negative/unremarkable. Family history: Father had Alzheimer's but from [place]. Mother in her 90s. Social history: He quit smoking many years ago. Consumes approximately 2 alcoholic beverages daily (1 shot of gin and glass of white wine). Lives at home with his . Has 3 sons who remain part of his life. 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 He was unaccompanied today. Allergies Allergy/AdvReac Type Severity Reaction Status Date / Time naproxen [From Naprosyn] Allergy Severe Anaphylaxis Verified 06/11/22 14:00 NSAIDS (Non-Steroidal Allergy Severe Anaphylaxis Verified 06/11/22 14:00 Anti-Inflamma Home Medications Medication Instructions Recorded Confirmed Type coQ10 (ubiquinol) 200 mg capsule 200 mg PO QAM 10/07/18 08/17/22 History docusate sodium 100 mg capsule 100 mg PO QAM 10/07/18 08/17/22 History ezetimibe 10 mg tablet 10 mg PO QAM 10/07/18 08/17/22 History multivitamin 1 tab PO QAM 10/07/18 08/17/22 History nitroglycerin 0.4 mg sublingual 0.4 mg sublingual DIRECTED PRN 10/07/18 08/17/22 History tablet Chest Pain potassium chloride 20 mEq 20 meq PO QAM 10/07/18 08/17/22 History tablet,extended release(part/cryst) cholecalciferol (vitamin D3) 25 1,000 unit PO QAM 02/15/19 08/17/22 History mcg (1,000 unit) tablet furosemide 40 mg tablet 40 mg PO QAM 02/15/19 08/17/22 History isosorbide mononitrate 60 mg 60 mg PO BID 02/15/19 08/17/22 History tablet,extended release 24 hr melatonin 5 mg tablet 5 mg PO HS 02/15/19 08/17/22 History resveratrol 50 mg capsule 50 mg PO BID 02/15/19 08/17/22 History metoprolol tartrate 25 mg tablet 25 mg PO BID 09/05/20 08/17/22 History pravastatin 40 mg tablet 40 mg PO QAM 12/22/20 08/17/22 History albuterol sulfate 90 mcg/actuation 2 puff inhalation Q4H PRN 12/26/20 08/17/22 Rx aerosol inhaler Shortness Of Breath #18 grams psyllium 1 packet PO QAM 08/27/21 08/17/22 History aspirin 325 mg tablet 325 mg PO DAILY 11/30/21 08/17/22 History alprostadil 250 mcg intra-urethral 250 mcg intra-urethral ONCE PRN 02/19/22 08/17/22 Rx suppository ([place]) Erectile Dysfunction #6 ea clopidogrel 75 mg tablet 75 mg PO QAM #90 tabs 04/04/22 08/17/22 Rx fluticasone fur. 100 mcg-umeclid 1 inh inhalation QAM #60 ea 04/24/22 08/17/22 Rx 62.5 mcg-vilant 25 mcg inhalat.powder (Trelegy Ellipta) oxycodone 5 mg tablet 5 mg PO Q6H PRN pain #12 tabs 06/15/22 08/17/22 Rx linaclotide 290 mcg capsule 290 mcg PO DAILY #30 caps 07/19/22 08/17/22 Rx (Linzess) linaclotide 72 mcg capsule 72 mcg PO DAILY #30 caps 08/12/22 08/17/22 Rx (Linzess) Patient History Medical History (Updated 08/18/22 @ 12:50 by Ramirez Finn MD) Abdominal aortic aneurysm under surveillance by vascular (Dr. Rivera) Acute CVA (cerebrovascular accident) Aneurysm of abdominal aorta Anginal pain Aortic stenosis Moderate aortic stenosis (SARAH 1.3 to 1.4 cm, mean gradient 12.7 mmHg) per 09/06/20 echo > follows with Dr. 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 Low back pain Male erectile disorder of organic origin Mineral deficiency Muscle weakness Myocardial Infarction 2014 Non-ST elevation [place] (NSTEMI) Obstructive sleep apnea Osteoarthritis Polymyalgia rheumatica Pulmonary nodules Rigors Sleep apnea BIPAP Testicular pain Vitamin D deficiency Surgical History (Updated 08/18/22 @ 12:50 by Ramirez Finn MD) Difficult intubation Per patient mentioned difficult intubation with 1995 prostate surgery > subsequent EBUS, navagitional bronchoscopy (07/29/19) at [facility] with Grade view 1, Glidescope#4, ETT 8.5 at [facility] -PT CONFIRMED INFORMATION H/O vascular surgery Left leg seroma excision History of arthroscopy Right shoulder History of cardiac cath 2014 > no stents History of carotid endarterectomy RIGHT 09/2020 [facility] History of colonoscopy History of coronary artery bypass graft CABG x4 (12/2014) > 12/07/2014: LEVY-LAD; SVG-RCA ( with extensive endarterectomy of the RCA ); SVG-LAD diagonal; SVG-L Cx marginal History of herniorrhaphy History of meniscectomy of left knee History of partial colectomy History of tonsillectomy and adenoidectomy History of tooth extraction History of trigger finger Right trigger finger release Family History Father Alzheimer disease Heart disease Brother Back problem Grandmother (Paternal) Dementia Mother No problems noted. 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 Former [employer] Other Information That Helps Us Care for You: No Feels Safe at Home: Yes Safety Concerns: Feels Safe At This Time Assistive Devices: BiPap, Glasses and Hearing Aid - Bilateral Physical Exam Physical Exam: Gen.: No acute distress. Alert and oriented. HEENT: Anicteric sclera. Neck: Mild JVD. Hepatojugular reflux. Normal carotid upstrokes bilaterally. Cardiac: PMI was nondisplaced. No ventricular heave. Regular. Normal S1-S2. 2/6 mid peaking systolic ejection murmur heard best at right upper sternal border. No rubs or gallops. Pulmonary: Decreased breath sounds bilaterally, but otherwise clear to auscultation bilaterally without wheezes, rales, or rhonchi. Abdomen: Soft, nontender, nondistended, with normoactive bowel sounds. No bruits noted. Extremities: 2+ right radial pulse. 1+ left radial pulse. 2+ dorsalis pedis pulses bilaterally. No edema or cyanosis. Psychiatric: Affect appears appropriate. Results & Data ([facility]) Vital Signs (Past 12 Hours) Vital Signs Temp Pulse Pulse Resp BP Pulse Ox O2 Del Method 08/18/22 11:16 36.5 C 60 20 106/78 96 Nasal Cannula 08/18/22 07:40 70 08/18/22 07:40 Nasal Cannula 08/18/22 07:20 36.6 C 72 18 130/70 95 Oxymask 08/18/22 02:48 36.7 C 88 19 120/71 93 Nasal Cannula O2 Flow Rate 08/18/22 11:16 4 08/18/22 07:40 08/18/22 07:40 4 08/18/22 07:20 4 08/18/22 02:48 4 Intake & Output 08/16/22 08/17/22 08/18/22 08/19/22 06:59 06:59 06:59 06:59 Intake Total 399.167 / 399.167 Output Total 850 / 850 700 / 700 Balance -450.833 / -450.833 -700 / -700 Weight 168 lb 10.458 oz Laboratory Results Laboratory Results - last 24 hr 08/17/22 08/17/22 08/17/22 13:13 13:13 13:13 WBC RBC Hgb Hct MCV MCH MCHC RDW Std Deviation RDW Coeff of Corbin Plt Count MPV Sodium Potassium Chloride Carbon Dioxide Anion Gap BUN Creatinine Est Cr Clr Drug Dosing Est GFR ( Amer) Est GFR (Non-Af Amer) BUN/Creatinine Ratio Glucose Calcium Magnesium Troponin I High Sens 36.4 H B-Natriuretic Peptide 1855 H Procalcitonin < 0.05 08/18/22 08/18/22 05:13 05:13 WBC 7.72 RBC 3.77 L Hgb 12.3 L Hct 34.8 L MCV 92.3 MCH 32.6 MCHC 35.3 RDW Std Deviation 41.2 RDW Coeff of Corbin 12.3 Plt Count 217 MPV 10.1 Sodium 131 L Potassium 4.1 Chloride 97 L Carbon Dioxide 28 Anion Gap 6 BUN 20 Creatinine 1.07 Est Cr Clr Drug Dosing 53.6 Est GFR ( Amer) 72.5 Est GFR (Non-Af Amer) 62.5 BUN/Creatinine Ratio 18.7 Glucose 98 Calcium 8.2 L Magnesium 2.0 Troponin I High Sens B-Natriuretic Peptide Procalcitonin Diagnostic Findings Telemetry personally reviewed: Sinus rhythm. No arrhythmia. Echo report reviewed as noted above in HPI. Cardiac catheterization report reviewed as noted above in HPI. [facility] Cardiology consultation reviewed from 11/08/2021. History and physical report reviewed. ECG personally reviewed 08/17/2022: Sinus rhythm first-degree AV block 78 beats per minute. RBBB. LAFB. Labs reviewed. CTA chest 08/17/2022: No PE. Emphysema. Patchy ground-glass densities right lung with interlobular septal thickening and moderate pleural effusions. This favors pulmonary edema per Radiology. Consolidation within the lower lobes posteriorly favor compressive atelectasis from pleural effusions. New irregular 9 mm partially calcified subpleural nodule within the left upper lobe. This favors area of scarring per Radiology. Mild aneurysmal dilation of the ascending thoracic aorta measuring up to 4.8 cm. Medications Administered Current Inpatient Medications Acetaminophen (Acetaminophen 325 Mg Tab) 650 mg PO Q4H PRN PRN Reason: Pain (1,2,3) Or Fever Stop: 09/16/22 16:57 Albuterol (Albuterol Hfa 8 Gm Inhaler) 2 puffs INH Q4H PRN PRN Reason: Shortness Of Breath Stop: 09/17/22 10:36 Aspirin (Aspirin 325 Mg Ectab) 325 mg PO DAILY NOEL Stop: 09/17/22 08:59 Last Admin: 08/18/22 08:55 Dose: 325 mg Clopidogrel Bisulfate (Clopidogrel Bisulfate 75 Mg Tab) 75 mg PO [facility] Stop: 09/17/22 08:59 Last Admin: 08/18/22 08:55 Dose: 75 mg Docusate Sodium (Docusate Sodium 100 Mg Cap) 100 mg PO [facility] Stop: 09/18/22 08:59 Ezetimibe (Ezetimibe 10 Mg Tablet) 10 mg PO [facility] Stop: 09/17/22 08:59 Last Admin: 08/18/22 08:55 Dose: 10 mg Enoxaparin Sodium (Enoxaparin Inj 40 Mg/0.4 Ml Syr) 40 mg SQ Q24H [facility] Stop: 09/16/22 17:59 Last Admin: 08/17/22 18:39 Dose: 40 mg Fluticasone Furoate (Fluticasone Furoate 100mcg 14 Puffs/Inhaler) 1 puffs INH [facility]; Protocol Stop: 09/17/22 08:59 Last Admin: 08/18/22 08:56 Dose: 1 puffs Furosemide (Furosemide Inj 20 Mg/2 Ml Vial) 40 mg IV BID17 [facility] Stop: 09/17/22 16:59 Guaifenesin (Guaifenesin Sugar Free 200 Mg/10 Ml Udc) 200 mg PO Q6H [facility] Stop: 09/16/22 16:59 Last Admin: 08/18/22 11:37 Dose: 200 mg Isosorbide Mononitrate (Isosorbide Boundary Extended Rel 60 Mg Tabcr) 60 mg PO BID [facility] Stop: 09/16/22 20:59 Last Admin: 08/18/22 08:55 Dose: 60 mg Lidocaine (Lidocaine 5% 1 Patch) 1 patch TD QAM [facility] Stop: 09/17/22 10:44 Last Admin: 08/18/22 11:37 Dose: 1 patch Melatonin (Melatonin 3 Mg Tab) 3 mg PO HSZ [facility] Stop: 09/16/22 21:59 Last Admin: 08/17/22 21:36 Dose: 3 mg Metoprolol Tartrate (Metoprolol Tartrate 25 Mg Tab) 25 mg PO BID [facility] Stop: 09/16/22 20:59 Last Admin: 08/18/22 08:55 Dose: 25 mg Miscellaneous (Remove Lidoderm Patch) 1 each N/A DAILY@2100 [facility] Stop: 09/17/22 20:59 Multivitamins (Multivitamin Tab) 1 tab PO QAM [facility] Stop: 09/18/22 08:59 Potassium Chloride (Potassium Chloride Crtab 20 Meq Tabcr) 20 meq PO QAM [facility] Stop: 09/17/22 08:59 Last Admin: 08/18/22 08:55 Dose: 20 meq Pravastatin Sodium (Pravastatin Sod 40 Mg Tab) 40 mg PO QAM [facility] Stop: 09/17/22 08:59 Last Admin: 08/18/22 08:55 Dose: 40 mg Psyllium Hydrophilic Mucilloid (Psyllium Or Guar Gum Fiber Powder Packet) [facility] Stop: 09/17/22 10:59 Last Admin: 08/18/22 11:37 Dose: 2 pkt Umeclidinium/Vilanterol (Umeclidinium/Vilanterol 62.5/25mcg 7 Puffs/Inhaler) 1 puffs INH DAILY [facility]; Protocol Stop: 09/17/22 08:59 Last Admin: 08/18/22 08:56 Dose: 1 puffs Vitamin D (Cholecalciferol 1,000 Units 25 Mcg Tab) 1,000 [facility] Stop: 09/18/22 08:59 PG Care Time/CCT Total # of Minutes Spent Total Time Spent with Patient: Total time spent is greater than 50% in coordination of care (as documented) at patient's floor/unit and/or counseling patient: Coding Level of Care Code 05961 INT INP/OBS CARE 3/75MIN Diagnoses Heart failure with mid-range ejection fraction (HFmEF) I50.22 Aortic stenosis I35.0 Mitral regurgitation I34.0 CAD (coronary artery disease) I25.10 History of coronary artery bypass graft Z95.1 Pulmonary hypertension I27.20 Hypertension I10 Hyperlipidemia E78.5
[2022-08-18] MEDS: ENOXAPARIN INJ 40 MG/0.4 ML SYR SQ SCH (17:21)
[2022-08-18] MEDS: PSYLLIUM or GUAR GUM FIBER POWDER PACKET PO SCH (21:09)
[2022-08-18] MEDS: MELATONIN 3 MG TAB PO SCH (21:10)
--- NOTE | 2022-08-18 22:32 | Electrocardiogram Report ---
Test Reason : Blood Pressure : / mmHG Vent. Rate : 078 BPM Atrial Rate : 078 BPM P-R Int : 274 ms QRS Dur : 148 ms QT Int : 434 ms P-R-T Axes : 037 -67 076 degrees QTc Int : 494 ms Poor data quality, interpretation may be adversely affected Sinus rhythm with 1st degree A-V block Right bundle branch block Left anterior fascicular block Bifascicular block Abnormal ECG When compared with ECG of 08-NOV-2021 05:58, No significant change Confirmed by Ramirez Finn ([id number]) on 08/18/2022 10:32:17 PM Referred By: REFERRED SELF Confirmed By:Ramirez Finn
[2022-08-19] MEDS: guaiFENesin SUGAR FREE 200 MG/10 ML UDC PO SCH ×4 (05:30→23:52)
[2022-08-19 06:17] LABS: Basophils # (auto) 0.06 K/uL (0-0.2); Basophils % (auto) 0.7 %; Eosinophils # (auto) 0.39 K/uL (0-0.50); Eosinophils % (auto) 4.8 %; Hemoglobin 13.1 g/dl (14.0-18.0); Immature Granulocytes # (auto) 0.03 K/uL (0.01-0.20); Immature Granulocytes % (auto) 0.4 %; Lymphocytes # (auto) 1.49 K/uL (1.2-3.4); Lymphocytes % (auto) 18.5 %; Mean Corpuscular Hemoglobin 33.2 pg (25.0-34.0); Mean Corpuscular Hgb Conc 36.4 g/dL (32.0-36.0); Mean Corpuscular Volume 91.1 fL (80.0-100.0); Mean Platelet Volume 10.3 fL (9.4-12.4); Monocytes # (auto) 1.09 K/uL (0.11-0.59); Monocytes % (auto) 13.5 %; Neutrophils # (auto) 4.99 K/uL (1.40-6.50); Neutrophils % (auto) 62.1 %; Platelet Count 230 K/uL (130-400); RDW Coefficient of Variation 12.1 % (11.5-14.5); RDW Standard Deviation 40.3 fL (36.4-46.3); Red Blood Count 3.95 M/uL (4.70-6.10); White Blood Count 8.05 K/ul (4.8-10.8)
[2022-08-19 06:32] LABS: Calcium 8.3 mg/dl (8.5-10.1); Creatinine Clr Calc Pharmacy 45.2 ml/min; Est GFR (African American) 60.6 ml/min; Est GFR (Non-African American) 52.3 ml/min; Magnesium 1.9 mg/dl (1.7-2.4)
[2022-08-19 06:53] LABS: Ferritin 28.1 ng/ml (8-388)
[2022-08-19 06:58] LABS: Vitamin B12 574 pg/ml (180-914)
[2022-08-19] MEDS ORDERED: MAGNESIUM SULFATE / D5W 1 GM/100 ML BAG IV ONE (08:21)
[2022-08-19] MEDS: PRAVASTATIN SOD 40 MG TAB PO SCH (08:42)
[2022-08-19] MEDS: PSYLLIUM or GUAR GUM FIBER POWDER PACKET PO SCH ×2 (08:42→20:16)
[2022-08-19] MEDS: POTASSIUM CHLORIDE CRTAB 20 MEQ TABCR PO SCH (08:43)
[2022-08-19] MEDS: MULTIVITAMIN TAB PO SCH (08:43)
[2022-08-19] MEDS: ISOSORBIDE MONO EXTENDED REL 60 MG TABCR PO SCH ×2 (08:43→20:21)
[2022-08-19] MEDS: METOPROLOL SUCC 25MG EXT REL TAB PO SCH (08:43)
[2022-08-19] MEDS: DOCUSATE SODIUM 100 MG CAP PO SCH (08:44)
[2022-08-19] MEDS: CLOPIDOGREL BISULFATE 75 MG TAB PO SCH (08:44)
[2022-08-19] MEDS: EZETIMIBE 10 MG TABLET PO SCH (08:44)
[2022-08-19] MEDS: CHOLECALCIFEROL 1,000 UNITS 25 MCG TAB PO SCH (08:44)
[2022-08-19] MEDS: ASPIRIN 325 MG ECTAB PO SCH (08:44)
[2022-08-19] MEDS: FLUTICASONE FUROATE 100MCG 14 PUFFS/INHALER INH SCH (08:45)
[2022-08-19] MEDS: LIDOCAINE 5% 1 PATCH TD SCH (08:45)
[2022-08-19] MEDS: UMECLIDINIUM/VILANTEROL 62.5/25MCG 7 PUFFS/INHALER INH SCH (08:45)
[2022-08-19] MEDS ORDERED: SENNA 8.6 MG TAB PO SCH (09:00)
[2022-08-19] MEDS: FUROSEMIDE INJ 20 MG/2 ML VIAL IV SCH ×2 (09:16→17:45)
[2022-08-19] MEDS ORDERED: POLYETHYLENE (MIRALAX) 17 GM PACK PO PRN (09:36)
--- NOTE | 2022-08-19 09:36 | Cardiology Progress Note ---
Date of Service August 19, 2022 Assessment & Plan Admission and Anticipated Discharge Date Admission Date: August 17, 2022 Subjective He is feeling better this morning. He wants to go home although I told him he is not ready to go home. He notes his shortness of breath is dramatically improved he feels no anginal symptoms. Denies any palpitations or fluttering. He notes his appetite is stable he is complaining about some constipation issues. Results & Data ([facility]) Vital Signs (Past 12 Hours) Vital Signs Temp Pulse Pulse Resp BP Pulse Ox O2 Del Method 08/19/22 08:22 37.0 C 86 22 118/71 93 Oxymask 08/19/22 07:35 67 08/19/22 07:35 Oxymask 08/19/22 03:09 80 19 136/70 95 Oxymask 08/18/22 22:01 63 08/18/22 22:53 62 18 107/60 92 Oxymask O2 Flow Rate 08/19/22 08:22 4.0 08/19/22 07:35 08/19/22 07:35 4 08/19/22 03:09 08/18/22 22:01 08/18/22 22:53 he is awake alert and oriented x3 he is in no acute distress he appeared mildly short of breath talking in sentences HEENT mildly reduced carotid upstrokes which are also delayed Lungs: Decreased breath sounds in the bases greater on the right compared to the left Heart: Regular rate and rhythm he has a harsh crescendo decrescendo murmur which is honking and is late peaking; there is a holosystolic murmur at the apex 2 out of 6 Abdomen: Soft nontender distended positive bowel sounds Extremities: No clubbing cyanosis or edema Psychiatric his affect appears appropriate All of his inpatient studies were reviewed X. 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 Severe left main and three-vessel coronary artery disease with 50 to 70% left main lesion, 70% proximal LAD lesion, 90% ostial D1 lesion involving a large vessel, 60 to 70% D2 lesion, 67% proximal circumflex disease, 50% proximal RCA disease with 70% mid RCA lesion A. Status post coronary bypass grafting x4 with LEVY to LAD, SVG status post endarterectomy 2 the RCA, SVG to the large D1 vessel and SVG to the distal OM involving a small vessel. Postoperative MILES, EF of 55 to 60% without regional w all motion abnormalities B. Status postcardiac catheterization at [facility] February 2015 with occlusion of the SVG to the RCA as well as occlusion of the [place] right coronary artery 2. Mitral regurgitation secondary to an asymptomatic inferior wall myocardial infarction and papillary muscle dysfunction. 3A. Moderate to severe mitral regurgitation with an EF in the range of 50% by echo 09/2020 3b. LVEF 45% this admission B. Severe aortic stenosis 4. AAA status post endovascular repair March 2013 with a slight kink in the left iliac limb 5. History of C. difficile infection 6. COPD. Stopped smoking in 1985, smoking a pipe and cigar 7. Polymyalgia rheumatica 8. Positive blood cultures with gram-negative bacilli 02/2018 9. Status post right carotid endarterectomy, 09/23/2020, secondary to a CVA His serum sodium is improving. He had a very good diuresis so far of about 2- 1/2 L. He has no abdominal distention. He noted that his weight was rising at home and he did not appreciate that this was heart failure. I would continue with IV diuretics today and then switch him over hopefully to oral diuretics tomorrow. I do not think there is an emergent need to transfer him to [facility] for his TAVR. He notes that he has the team in place that he wants to do his procedure and he is scheduled for his CT angiogram TAVR protocol and consultations with CT surgery and structural heart disease on 03 September. He will need instructions with regards to a low-salt diet and daily weights. He would benefit from a nutrition consult. His hemoglobin is mildly depressed and his iron sat is low he may benefit from some IV iron as he already has some bowel and constipation issues and oral iron will likely exacerbate that. He notes he has not a bowel movement since Friday I discussed giving him MiraLAX. We will continue to watch his electrolytes. Overall he seems to be improving he is laying relatively flat and appears only mildly dyspneic. In talking with him he denied feeling short of breath while laying flat. Try to ambulate him in the hallway. We will continue to follow him with you. All of his questions were answered in detail.
--- NOTE | 2022-08-19 16:44 | Hospitalist Progress Note ---
Date of Service August 19, 2022 Assessment & Plan (1) Acute respiratory failure with hypoxia: Plan: Secondary to acute on chronic HFmrEF-treatment as below Continues to be requiring 4 LNC and with pulse ox 93% at rest on this amount of oxygen No leukocytosis, CTA negative for PE and no focal consolidations but rather with compressive atelectasis and pleural effusions with pulmonary edema -procalcitonin negative-no concern for pneumonia Covid/influenza/rsv were negative Feels improved but remains on 4 LNC supplemental O2. Lung exam consistent with persistent pleural effusions -Weight is down about 7 pounds from admission-suspect initial weight in the ER was inaccurate -I's and O's net -2.32 L -Blood pressures are controlled -Continue IV diuresis as below for heart failure -Continue incentive spirometry, flutter therapy -HS bipap ordered and continue supplemental O2 to keep pulse ox greater than 89- 90% -Follow chest imaging to resolution as an outpatient in 1 to 2 months -Continue home maintenance inhalers for dyspnea -Patient is anxious to go home on Friday-check two-step walk test in the morning of 08/20 (2) HFrEF (heart failure with reduced ejection fraction): Plan: Presents with volume overload, pulmonary edema with pleural effusions, elevated BNP, hypoxia, and weight gain Echocardiogram here with EF 40-45%, positive for wall motion abnormalities, moderate aortic stenosis, and moderate-severe MR -Improving somewhat with IV diuresis as noted above. Creatinine starting to rise up slightly with diuresis -Continue Lasix to 40 Mg IV twice daily -Consideration should be made for adding on FEMI inhibitor/ARB/Entresto-defer to his wall taper -He is actually on Toprol-XL rather than metoprolol tartrate-made this change on home medication reconciliation and changed the medication here -He has an evaluation for TAVR at the end of the month at [facility] as recommended by his wall taper -Continue daily weights, strict I's and O's, low-sodium diet, fluid restrict to 1500 mL/day -Follow BMP and magnesium in the morning and replace electrolytes as needed- maintain home potassium chloride 20 mEq p.o. once daily and give 1 g of IV magnesium sulfate today (3) Knee pain: Plan: Suspect possible nerve compression to the left lateral knee from SCDs-now improved with time and lidocaine patch Hold SCDs -Continue lidocaine patch to left knee (4) Anemia: Plan: Mild with hemoglobin 12.3, normocytic iron studies consistent with iron deficiency anemia with transferrin saturation of 14% and a ferritin of only 28 B12, folate, TSH all normal He had a colonoscopy that was normal in 02/2021 -Has a history of colonic anastomosis after partial colectomy for severe diverticulitis many years ago -He has never had an EGD -Recommend outpatient GI evaluation with EGD and colonoscopy-discussed with patient and his -Could start oral ferrous sulfate, however he has severe constipation at baseline and this might be detrimental (5) Hyponatremia: Plan: -Noted to be 129 on admission and asymptomatic -Noted to have a recent history of chronic hyponatremia, likely due to his CHF with volume overload -Sodium now continues to improve up to 133 with ongoing diuresis -Continue diuresis -Follow BMP in the morning (6) Aortic stenosis: Plan: Moderate on echocardiogram here Nonetheless, he is being evaluated for a TAVR at [facility] at the end of this month given his symptomatic heart failure and moderate to severe mitral regurgitation as per his wall taper's recommendation. I am not sure that he is a definite candidate for TAVR given the moderate nature of his aortic stenosis. Follows with cardiology, Dr. Conley (7) Mitral regurgitation: Plan: Moderate to severe Diuresing Follow with cardiology Contributing to mild pulmonary hypertension Would likely improve with aortic valve replacement (8) Chronic constipation: Plan: Is on Linzess at home -Continue home fiber here and he is requesting a fleets enema today Continue docusate (9) CAD (coronary artery disease): Plan: S/p four-vessel CABG, 2 grafts are currently occluded as per last cardiac catheterization in 11/2021 -Continue dual antiplatelet therapy with aspirin and Plavix Continue Zetia and pravastatin, isosorbide, metoprolol (10) Pulmonary nodules: Plan: With 9 mm new calcified nodule in the left upper lobe since last imaging Other nodules deemed benign History of smoking Follows with pulmonology Needs repeat CT chest in 6 months (11) Hypertension: Plan: -Stable -Continue metoprolol and diuresis (12) Hyperlipidemia: Plan: -Continue statin and Zetia (13) H/O: stroke: Plan: Now s/p CEA MARTIN Continue aspirin, Plavix, Zetia, pravastatin, and good blood pressure control Plan DVT prophylaxis Lovenox SQ, discontinued SCDs due to nerve compression of the lateral proximal leg causing pain Disposition-continued stay in PCU, but patient anxious for discharge to home on 08/20. Two-step walk test ordered for the morning. He is independent in the room and does not need rehab or physical therapy. Care discussed with at bedside on 08/19 Admission and Anticipated Discharge Date Admission Date: August 17, 2022 Subjective Patient denies shortness of breath as long as he keeps his oxygen in place. Remains on 4 L nasal cannula. Has not had a bowel movement now in a couple of days and is requesting a fleets enema. He is also having eye irritation and requesting lubricant gel for the eyes for bedtime. Telemetry with sinus rhythm and first-degree AV block, PVCs, PACs, rates in the 60s to 70s He is anxious to go home hopefully tomorrow. Review of Systems Review of Systems: Left knee pain is resolved with lidocaine patch Physical Exam Constitutional: WD/WN, vitals as above Eyes: Right eyelid with mild edema Respiratory: normal respiratory effort and + cough Auscultation: + diminished lung sounds (Bases bilaterally) and + crackles (Bases bilaterally); no rhonchi and no wheezes Cardiovascular: Rate/Rhythm: regular rate and regular rhythm Heart Sounds: + murmur (2/6 VILLA at the RUSB) Vessels: + JVD and dorsalis pedis pulses present Extremities: no edema Gastrointestinal (Abdomen): normal bowel sounds, soft, nontender, no hepatosplenomegaly Musculoskeletal: Extremities: extremities normal to inspection (No erythema, no joint effusion) and strength 5/5 throughout; full ROM of extremities Results & Data Results & Data ([facility]) Vital Signs (Past 12 Hours) Vital Signs Temp Pulse Pulse Pulse Resp BP Pulse Ox 08/19/22 15:25 69 08/19/22 15:25 36.8 C 67 21 111/64 92 08/19/22 11:20 36.5 C 70 16 114/62 91 08/19/22 08:22 37.0 C 86 22 118/71 93 08/19/22 07:35 67 08/19/22 07:35 O2 Del Method O2 Flow Rate 08/19/22 15:25 08/19/22 15:25 Nasal Cannula 4.0 08/19/22 11:20 Nasal Cannula 4 08/19/22 08:22 Oxymask 4.0 08/19/22 07:35 08/19/22 07:35 Oxymask 4 Laboratory Results CBC, BMP, magnesium level, iron studies, B12 and folate, TSH, Will reviewed PG Care Time/CCT Total # of Minutes Spent Total Time Spent with Patient: Total time spent is greater than 50% in coordination of care (as documented) at patient's floor/unit and/or counseling patient: Coding Level of Care Code 76000 SUB INP/OBS CARE 3/50MIN Diagnoses Acute respiratory failure with hypoxia J96.01 HFrEF (heart failure with reduced ejection fraction) I50.20 Knee pain M25.569 Anemia D64.9 Hyponatremia E87.1 Aortic stenosis I35.0 Mitral regurgitation I34.0 Chronic constipation K59.09 CAD (coronary artery disease) I25.10 Pulmonary nodules R91.8 Hypertension I10 Hyperlipidemia E78.5 H/O: stroke Z86.73
[2022-08-19] MEDS ORDERED: SOD PHOSPHATE/SOD BIPHOSPHATE ENEMA 132 ML BTL PR STA (17:09)
[2022-08-19] MEDS: ENOXAPARIN INJ 40 MG/0.4 ML SYR SQ SCH (17:46)
[2022-08-19] MEDS: SENNA 8.6 MG TAB PO SCH ×2 (20:15→20:17)
[2022-08-19] MEDS: MELATONIN 3 MG TAB PO SCH (20:16)
[2022-08-19] MEDS ORDERED: ARTIFICIAL TEARS OP OINT 3.5 GM TUBE OP SCH (21:00)
[2022-08-20] MEDS: guaiFENesin SUGAR FREE 200 MG/10 ML UDC PO SCH ×2 (05:15→12:03)
[2022-08-20 06:04] LABS: BUN Creatinine Ratio 24.1 (10-20); Calcium 8.4 mg/dl (8.5-10.1); Creatinine Clr Calc Pharmacy 47.6 ml/min; Est GFR (African American) 65.7 ml/min; Est GFR (Non-African American) 56.7 ml/min; Magnesium 1.9 mg/dl (1.7-2.4); Potassium 3.8 mmol/L (3.5-5.1)
--- NOTE | 2022-08-20 08:17 | Cardiology Progress Note ---
Date of Service August 20, 2022 Assessment & Plan Admission and Anticipated Discharge Date Admission Date: August 17, 2022 Subjective He is feeling better this morning. He is talking in full sentences and does not appear to be short of breath. He is eating breakfast. His abdominal distention is improved since he had a bowel movement. Although is not sleeping well he denied feeling short of breath last night sleeping. Overall he looks more comfortable. Denies any chest pain or chest pressure. Results & Data ([facility]) Vital Signs (Past 12 Hours) Vital Signs Temp Pulse Pulse Resp BP Pulse Ox O2 Del Method 08/20/22 07:45 80 08/20/22 07:45 Nasal Cannula 08/20/22 07:01 36.4 C L 91 H 19 121/68 95 Oxymask 08/20/22 03:00 36.6 C 84 19 118/68 94 Oxymask 08/19/22 22:09 64 08/19/22 23:05 36.6 C 69 20 115/66 94 Oxymask 08/19/22 20:32 Nasal Cannula 08/19/22 20:18 36.5 C 70 18 110/60 93 Nasal Cannula O2 Flow Rate 08/20/22 07:45 08/20/22 07:45 4 08/20/22 07:01 08/20/22 03:00 08/19/22 22:09 08/19/22 23:05 08/19/22 20:32 4 08/19/22 20:18 4 he is awake alert and oriented x3 he is in no acute distress he appeared mildly short of breath talking in sentences HEENT mildly reduced carotid upstrokes which are also delayed Lungs: Decreased breath sounds in the base on the right compared Heart: Regular rate and rhythm he has a harsh crescendo decrescendo murmur which is honking and is late peaking loudest at the apex Abdomen: Soft nontender distended positive bowel sounds Extremities: No clubbing cyanosis or edema Psychiatric his affect appears appropriate All of his inpatient studies were reviewed X. 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 Severe left main and three-vessel coronary artery disease with 50 to 70% left main lesion, 70% proximal LAD lesion, 90% ostial D1 lesion involving a large vessel, 60 to 70% D2 lesion, 67% proximal circumflex disease, 50% proximal RCA disease with 70% mid RCA lesion A. Status post coronary bypass grafting x4 with LEVY to LAD, SVG status post endarterectomy 2 the RCA, SVG to the large D1 vessel and SVG to the distal OM involving a small vessel. Postoperative MILES, EF of 55 to 60% without regional wall motion abnormalities B. Status postcardiac catheterization at [facility] February 2015 with occlusion of the SVG to the RCA as well as occlusion of the [place] right coronary artery 2. Mitral regurgitation secondary to an asymptomatic inferior wall myocardial infarction and papillary muscle dysfunction. 3A. Moderate to severe mitral regurgitation with an EF in the range of 50% by echo 09/2020 3b. LVEF 45% this admission B. Severe aortic stenosis 4. AAA status post endovascular repair March 2013 with a slight kink in the left iliac limb 5. History of C. difficile infection 6. COPD. Stopped smoking in 1985, smoking a pipe and cigar 7. Polymyalgia rheumatica 8. Positive blood cultures with gram-negative bacilli 02/2018 9. Status post right carotid endarterectomy, 09/23/2020, secondary to a CVA Although there is discrepancy between the echo done here in the hospital versus his outpatient echo, his outpatient echo is clearly consistent with severe aortic stenosis with a dimensionless index of 0.25 and a valve area of 0.49 cm/m. His echo was also consistent with severe mitral regurgitation secondary to papillary muscle dysfunction from his prior inferior myocardial infarction. He looks better today serum sodium is improved his renal function remained stable with his IV diuretics. As has been discussed he really wants to go home. He is scheduled to have a two-step today to see if he can get off oxygen. I agree with Dr. Lamb we should consider starting Entresto I would start low- dose twice daily with close monitoring of his renal function with a BMP and a magnesium in a week's time. If his blood pressure and renal function allow we can uptitrate his Entresto every 2 to 3 weeks. I would increase his outpatient diuretics from 40 mg of Lasix to 60 mg of Lasix. We did discuss a low-salt diet and daily weights. It seems like he was consuming more salt than he realized. He was aware that his weight was going up at home and did not understand why. I would reduce his Imdur to 30 mg twice daily in order to allow for enough blood pressure room to continue to uptitrate his Entresto. We did discuss that he should fluid restrict him to some degree. He has been drinking a lot of fluid due to his constipation issues and I discussed with him he is going to need to find medical combination that does not require lots of fluids to help treat his constipation. He is scheduled to see the structural heart disease team at [place] in 2 weeks. I discussed that if he had worsening signs or symptoms between now and then to let us know. The plan will be to fix his aortic valve first and hopefully this will reduce the back pressure on his mitral valve and his mitral regurgitation will improve. If he were to continue to have heart failure symptoms then there would need to be a discussion with regards to a MitraClip.
[2022-08-20] MEDS: METOPROLOL SUCC 25MG EXT REL TAB PO SCH (08:41)
[2022-08-20] MEDS: CLOPIDOGREL BISULFATE 75 MG TAB PO SCH (08:41)
[2022-08-20] MEDS: ASPIRIN 325 MG ECTAB PO SCH (08:42)
[2022-08-20] MEDS: DOCUSATE SODIUM 100 MG CAP PO SCH (08:42)
[2022-08-20] MEDS: MULTIVITAMIN TAB PO SCH (08:42)
[2022-08-20] MEDS: PRAVASTATIN SOD 40 MG TAB PO SCH (08:42)
[2022-08-20] MEDS: CHOLECALCIFEROL 1,000 UNITS 25 MCG TAB PO SCH (08:42)
[2022-08-20] MEDS: POTASSIUM CHLORIDE CRTAB 20 MEQ TABCR PO SCH (08:43)
[2022-08-20] MEDS: PSYLLIUM or GUAR GUM FIBER POWDER PACKET PO SCH (08:43)
[2022-08-20] MEDS: EZETIMIBE 10 MG TABLET PO SCH (08:44)
[2022-08-20] MEDS: FUROSEMIDE INJ 20 MG/2 ML VIAL IV SCH (08:44)
[2022-08-20] MEDS: UMECLIDINIUM/VILANTEROL 62.5/25MCG 7 PUFFS/INHALER INH SCH (08:46)
[2022-08-20] MEDS: FLUTICASONE FUROATE 100MCG 14 PUFFS/INHALER INH SCH (08:46)
[2022-08-20] MEDS: LIDOCAINE 5% 1 PATCH TD SCH (08:47)
[2022-08-20] MEDS ORDERED: ISOSORBIDE MONO EXTENDED REL 30 MG TABCR PO SCH (09:00)
[2022-08-20] MEDS ORDERED: VALSARTAN/SACUBITRIL 26/24MG TAB PO SCH (09:00)
--- NOTE | 2022-08-20 16:34 | Discharge Summary ---
Date of Service August 20, 2022 Admission HPI Per Admitting Provider Tevin is an 87 year old male with a PMH significant for CAD S/P Coronary Angiography, Left Heart Cath, Right Heart Cath, LV Angiography and Bypass Graft Angiography on 11/30/[address] Mcneill, HFrEF (LVEF of 40-45%, mod aortic stenosis, mod mitral regurg), emphysema, HTN, hyperlipidemia, prostate cancer (follows with Urology) who presented to the [facility] on 08/17/22 with a chief complaint of SOB. In the ED the patient was found to be afebrile, hemodynamically stable, but hypoxic at 85% on RA. Labs were remarkable for a CBC wtih WBC WNL, stable Hgb and platelets, stable cr at 1.02, sodium of 129, potassium of 3.2, mag of 1.8, glucose of 124, Ionized calcium of 1.00, total bili of 1.1 otherwise LFTs WNL, initial high sensitivity trop of 28, and negative covid/influenza/rsv screens. CTA of the chest was read as "1. No evidence for a pulmonary embolus. 2. Emphysema. 3. Patchy groundglass densities within the right lung with interlobular septal thickening and moderate pleural effusions. This favors pulmonary edema. An atypical pneumonitis could also have a similar appearance. 4. Consolidation within the lower lobes posteriorly favor compressive atelectasis from the pleural effusions. 5. There is a new irregular 9 mm partially calcified subpleural nodule within the left upper lobe. This favors an area of scarring. Consider six-month chest CT follow-up to ensure stability. 6. Additional scattered subcentimeter pulmonary nodules remain stable and are likely benign. 7. Mild aneurysmal dilatation of the ascending thoracic aorta measuring up to 4.8 cm in diameter. 8. Additional findings as described above". Prior to admission the patient was given 20 mg IV lasix. At the time of the exam the patient was resting comfortably in bed in no acute distress saturating at 94% on 4L NC. He states that he has been dealing with COCHRAN and chronic SOB for years now but noticed a significant increased in his SOB, even at rest at the beginning of the week. He then started to develop a productive cough on Friday. He cannot described his sputum as he usually swallows the sputum that comes up. He has not noticed a fever or chills, he also denies chest pain, abdominal pain, nausea, vomiting, diarrhea, dysuria, hematuria, lower extremity swelling and recent trauma. He has not had recent changes his medications and has been taking his Trelegy-Ellipta as prescribed. He has put on approximately 5 lbs of weight over the past 2 months which he thinks is related to water weight. He has been using his 40 mg PO lasix daily and is on HS Bipap. He notes that he only uses his Bipap for the last few hours of the night as it bothers his . At the beginning of the exam I turned his oxygen off and he desaturated into the mid 80's on RA at rest, he then remained stable on 3L NC. Please refer to Dr. Hitchcock's attestation for any changes to the treatment plan. Discharge Data Allergies Allergy/AdvReac Type Severity Reaction Status Date / Time naproxen [From Naprosyn] Allergy Severe Anaphylaxis Verified 06/11/22 14:00 NSAIDS (Non-Steroidal Allergy Severe Anaphylaxis Verified 06/11/22 14:00 Anti-Inflamma Consultations 08/17/22 11:42 ED Decision to Admit Stat 08/17/22 12:44 Consult Cardiology Routine Ordered Studies 08/17/22 10:11 CT angio chest PE protocol Stat Discharge Plan Discharge Items Patient Disposition: Home - Self-Care Reason For Visit: Shortness of breath Discharge Diagnosis: 1. shortness of breath due to congestive heart failure 2. aortic stenosis 3. mitral regurgitation 4. history of coronary artery disease with open heart surgery for same (CABG) 5. pulmonary nodules - upper lobe of left lung - repeat CT chest in 6 months recommended Activity: As commented below Activity Comment: gradually increase your activities over the next 7 days Sexual Activity: Wait until after follow-up appointment Exercise/Sports: Wait until after follow-up appointment Non-emergency contact: Primary Care Provider and [employer]el Craftsman Call non-emergency contact if: you have any medication questions and your symptoms worsen Follow-up/Referrals: Oscar Olson [Primary Care Provider] - ([address] Olson) Brian Conley DO [Physician] - ([address] Conley for recheck of congestive heart failure ) Diet: Heart Healthy Fluids: 1500ml (6 cups) Addtl Attending Provider Instructions: Mr Green, You were hospitalized due to difficulty breathing from congestive heart failure. Your echocardiogram showed that your ejection fraction, or the heart pumping ability of the heart, was 40-45% (normal 50% and higher). Thus, you have mild to moderate congestive heart failure. You were treated with IV diuretics to remove the excess fluid that had built up in your lungs. Dr Brian Conley from cardiology saw you in consult and made recommendations for your heart medications. Recommendations for your heart medication - 1. START Entresto 1 tablet twice daily every day, first dose TONIGHT. 2. INCREASE your furosemide to 60mg once daily each morning, first dose tomorrow morning 08/21/22. 3. STOP your isosorbide mononitrate. 4. Limit salt intake to no more than 2000mg (2 grams) in a 24-hour period. Limit total fluid intake to no more than 1500-1800ml in a 24-hour period. 5. Check your weight each morning on the same scale. See Congestive heart failure instructions below. 6. You will need repeat blood work within the next week to check your potassium and kidney function levels due to the medication changes we have made. Please ask Dr Olson to check a BMP and magnesium level at your follow-up visit. 7. You had pulmonary nodules in the left upper lobe on your CT scan of the lungs. Most of these are benign and not harmful. With that said please have a repeat chest CT in 6 months to check on these. Dr Olson can coordinate this for you. Follow-up - see separate section [facility] to [facility] if - * you are having worsening shortness of breath * you are having chest pains * you are concerned about rapid weight gains from fluid/congestive heart failure * any other concerns It was our pleasure to care for you! -Duc Lopez Addtl Police Investigator Provider Instructions: Congestive Heart Failure Instructions: Call 911 and go to the Emergency Room if: * You have tightness or pain in your chest that does not go away with rest or Nitroglycerin * You are very short of breath even with rest Call your doctor if any of the following symptoms or problems start or get worse: * Shortness of breath or difficulty breathing * Wake up at night short of breath * Chest pain * Cough * Swelling of your hands, fee, or legs * More fatigued or tired with your normal activity * Palpitations - sudden fast heart beats WEIGHT * Weigh yourself every morning after using the bathroom. * Use the same scale. * Wear the same amount of clothing. * Write your weight down on your chart. * Call your doctor if you gain more than 2-3 pounds in 1-2 days. MEDICATIONS * Use this discharge instruction sheet for instructions. * Take your medications at the time your doctor ordered. * Do not skip a dose of your medicines. * If you miss a dose of medicine, take as soon as possible, but DO NOT DOUBLE A DOSE. * Read your medicine information when you get home. * Know all of the side effects of your medicine. * Call your doctor's office if you have any side effects. * Be sure all of your doctors know what medicine and herbs you take (including cold, flu, and herbal medicine). * Pain Medicine: If you do not get relief from your pain, please call your doctor for help. Take the following with you to your follow-up doctor appointments: * Weight Chart * Medication List * List of questions Do not drink excessive alcohol, beer or wine. Pending Studies at Discharge: No Stand-Alone Forms: [facility], Smoking Cessation Medications and DC Order Prescriptions: New Entresto 24-26 mg tablet 1 tab PO BID Qty: 60 5RF Continued pravastatin 40 mg tablet 40 mg PO QAM albuterol sulfate 90 mcg/actuation HFA aerosol inhaler 2 puff inhalation Q4H PRN (Reason: Shortness Of Breath) Qty: 18 5RF clopidogrel 75 mg tablet 75 mg PO QAM Qty: 90 3RF Trelegy Ellipta 100-62.5-25 mcg blister with device 1 inh INH QAM Qty: 60 6RF Linzess 72 mcg capsule 72 mcg PO DAILY Qty: 30 2RF resveratrol 50 mg capsule 50 mg PO BID melatonin 5 mg tablet 5 mg PO HS cholecalciferol (vitamin D3) 1,000 unit (25 mcg) tablet 1,000 unit PO QAM multivitamin Tablet 1 tab PO QAM potassium chloride 20 mEq tablet,ER particles/crystals 20 meq PO QAM nitroglycerin 0.4 mg tablet, sublingual 0.4 mg sublingual DIRECTED PRN (Reason: Chest Pain) Rx Instructions: PLACE ONE TABLET UNDER THE TONGUE EVERY 5 MINUTES FOR UP TO 3 DOSES OVER 15 MINUTES IF NEEDED FOR CHEST PAIN docusate sodium 100 mg Capsule 100 mg PO QAM ezetimibe 10 mg tablet 10 mg PO QAM coQ10 (ubiquinol) 200 mg Capsule 200 mg PO QAM aspirin 325 mg Tablet 325 mg PO DAILY psyllium Packet 1 packet PO QAM metoprolol succinate 25 mg tablet extended release 24 hr 25 mg PO QAM Changed furosemide 40 mg tablet 60 mg PO QAM Qty: 45 2RF Discontinued [place] 250 mcg suppository 250 mcg intra-urethral ONCE PRN (Reason: Erectile Dysfunction) Qty: 6 4RF Rx Instructions: Insert 1 suppository intraurethrally daily as needed for activity Linzess 290 mcg capsule 290 mcg PO DAILY Qty: 30 5RF isosorbide mononitrate 60 mg tablet extended release 24 hr 60 mg PO BID Discharge Orders: Discharge Order (Routine); Ordered 08/20/22 Ordered By: Duc Duong/Other Patient Handouts: What Is Heart Failure, ED Pulmonary Nodule, Solitary Admission Data Admit Date/Time: 08/17/22 11:55 Attending Provider: Duc Lopez Admit Provider: Duc Hitchcock Primary Care Provider: Oscar Olson Other Providers: Duc Hitchcock ; Brian Conley Other Interventions: Discharge Summary Assessment (RN) Last Done: 08/20/22 16:25 Coding Diagnoses
== END 2022-08-20 18:04 | disposition home or self-care (01) | DRG 291 ==
LOC: ED 09:33 → SUATTDRO 11:55 → 2E 11:55

== ENCOUNTER 2024-07-28 11:03 | Inpatient (IN) ==
[2024-07-28] MEDS: FAMOTIDINE 20MG IV PUSH 20 MG/5 ML SYR IV STA (11:39)
[2024-07-28] MEDS: SODIUM CHLORIDE 0.9% 500 ML IV ONE (11:40)
--- NOTE | 2024-07-28 11:42 | XRay Report ---
XR chest 1V portable CLINICAL HISTORY: gi bleed, weakness COMPARISON STUDY: 07/03/2022 FINDINGS: There is prior cardiac valve repair. There is mild cardiomegaly without pulmonary vascular congestion. No effusion, consolidation, or pneumothorax. IMPRESSION: No acute findings. ACT 112: Negative or not required by law. Electronically signed by: Adis Wilson M.D. 07/28/2024 11:40 AM
--- NOTE | 2024-07-28 11:52 | Electrocardiogram Report ---
Test Reason : Blood Pressure : */* mmHG Vent. Rate : 89 BPM Atrial Rate : * BPM P-R Int : * ms QRS Dur : 148 ms QT Int : 402 ms P-R-T Axes : * -71 72 degrees QTcB Int : 489 ms Atrial fibrillation Right bundle branch block Left anterior fascicular block Bifascicular block Abnormal ECG When compared with ECG of 17-Aug-2022 09:52, Atrial fibrillation has replaced Sinus rhythm Confirmed by Nikita Butcher ([id number]) on 07/28/2024 11:52:04 AM Referred By: Confirmed By: Nikita Butcher
--- NOTE | 2024-07-28 11:56 | XRay Report ---
XR hip RT 2V w pelvis CLINICAL HISTORY: fall COMPARISON: CT of the abdomen and pelvis January 22, 2021. FINDINGS: Surgical clips from prostatectomy and bifurcated aortoiliac stent graft are incidentally n oted. There is extensive vascular calcification. There are no fractures within the pelvis or hips. Th ere is mild to moderate bilateral hip osteoarthritis. IMPRESSION: No fractures within the pelvis or hips. ACT 112: Negative or not required by law. Electronically signed by: Jona Guzmán M.D. 07/28/2024 11:55 AM
--- NOTE | 2024-07-28 11:57 | Emergency Department Note ---
Impression & Plan Acute upper gastrointestinal bleeding, Fall, CHI (closed head injury), Contusion of hip, right, Contusion of elbow, right ED Provider Note NAME: GIFTY REECE AGE: 89 SEX: Male INFORMANT: Patient ED PROVIDER(S): Gifty Ordoñez MD CHIEF COMPLAINT: Black stools PLAN: Disposition: Admitted Outpatient prescription management: none Referral: None MEDICAL DECISION MAKING: Patient presented because of black stools. He was Hemoccult positive on rectal examination. His blood work revealed a significant anemia with a hemoglobin of 6.9. Chemistry panel was unremarkable. Patient was typed and screened and this was changed to a crossmatch. Patient did consent for blood transfusion. Patient was started on Pepcid and Protonix. He was also transfused 2 units of packed red blood cells. I gave my usual and customary discussion regarding this issue. Further evaluation and management will be necessary in the hospital. Consultation was made with the [facility] hospitalist service, Dr. Hitchcock. Patient was evaluated in the ER and admitted for further management. Care/management discussed with: case managers, hospitalist Level of care consideration(s): After review of the information above and other included data, I feel the patient requires escalation of care to admission Triage Nursing notes: reviewed and agree them. Vital Signs: reviewed and remarkable for no significant abnormalities Additional History obtained from: none Chronic Medical/Social Conditions affecting care: CAD Prior/ Outside/ External records reviewed: none Differential Diagnosis: peptic ulcer disease, variceal bleed, gastritis, Diverticulosis, AVM, coagulopathy, colitis, inflammatory bowel disease, malignancy, Ann-Sanchez tear, esophagitis, epistaxis, fissure, hemorrhoids, as well as other pathologies. Diagnostics, independently interpreted by me: ECG: Twelve-lead ECG reveals atrial fibrillation at 89 bpm. Right bundle branch block and left anterior fascicular block present. Cardiac Monitoring: Cardiac monitoring ordered by me: The patient was placed on continuous cardiac monitoring and observed. It revealed A-fib at 88 bpm. Medical decision rules: none Imaging studies: Head CT: A noncontrast CT scan of the head was performed and was negative for tumor, fracture, intracranial hemorrhage, or other acute pathology. CT scan of the abdomen and pelvis revealed some mild inflammation of the sigmoid. No other acute pathology noted. X-ray imaging of the right hip as well as chest revealed no evidence of acute pathology. HPI: 89 year old Male arrives for evaluation of GI bleeding. This started 4 days ago but may be longer per patient and is described as black stools. The patient also notes the following associated symptoms, feeling generally weak, falling and striking the right side of his head, right elbow, and right hip. The patient has taken no medication for relieving factors. Current pain is rated as 1/10. Patient states that he got weak and fell over onto his right side. He tried to get up and fell again. He has some mild discomfort in the right hip with bruising as well as some bruising of the right elbow without any pain. Pt denies LOC, headache, fevers, chills, diaphoresis, visual changes, neck pain, chest pain, breathing difficulties, nausea, vomiting, abdominal pain, back pain, hematochezia, urinary symptoms, numbness, lymphadenopathy, rash, or other complaints. PAST MEDICAL HISTORY: See Below, CAD, A-fib PAST SURGICAL HISTORY: See Below, SOCIAL HISTORY: See Below, HOME MEDICATIONS: See Below ALLERGIES: See Below VITALS: See Below PHYSICAL EXAMINATION: GENERAL: Awake, alert, [id number], in no distress HENT: Normocephalic, abrasion noted anterior to the right ear on the scalp. No lacerations. Oropharynx unremarkable. EYES: Mildly pale conjunctiva. Sclera non-icteric. NECK: Inspection normal. Non-tender. Supple. No nuchal rigidity. FROM. No masses. RESPIRATORY: Clear to auscultation. No wheezes. No rales. Normal respiratory effort. CARDIAC: Normal rate. Normal rhythm. No murmurs. No rubs. Extremities warm and well perfused. Pulses equal. No JVD. GI: Soft, non-distended. No tenderness to palpation. No rebound or guarding. No masses. RECTAL: Black stool Hemoccult positive.. MUSCULOSKELETAL: Left upper and lower extremities are atraumatic. Right upper extremity has a small hematoma noted on the proximal forearm over the olecranon without any pain or limitation in range of motion. Abrasion present. There is a contusion noted on the right hip with mild tenderness. Good range of motion. Remainder of the extremities on the right side are atraumatic. Chest examination reveals no tenderness. The back is symmetrical on inspection without obvious abnormality. There is no CVA tenderness to palpation. No joint edema. LOWER EXTREMITIES: Calves are equal size bilaterally and non-tender. No edema. No discoloration. NEURO: Normal sensorium. No sensory or motor deficits noted. SKIN: No rash or jaundice noted. PROCEDURES: none CRITICAL CARE: I have personally spent 45 minutes of critical care time in the direct management of this patient. This includes bedside care, interpretation of diagnostic studies, and testing, discussion with consultants, patient, and family members, and other required patient management activities. These minutes are in excess of all separately billable procedures. OBSERVATION NOTE: none Past Med/Surg History Problem List (Updated 07/28/24 @ 15:04 by Duc Hitchcock MD) Acute blood loss anemia Acute GI bleeding Contusion of elbow, right (Acute) Contusion of hip, right (Acute) CHI (closed head injury) (Acute) Fall (Acute) Acute upper gastrointestinal bleeding (Acute) Chronic kidney disease with active medical management without dialysis, stage 3 (moderate) Chronic constipation Sleep apnea BIPAP Atrial fibrillation Melena Thoracic ascending aortic aneurysm Acute systolic CHF (congestive heart failure) Anemia Cognitive impairment Prostate cancer Leukocytosis Chest pain Asthma Chronic obstructive pulmonary disease Male erectile disorder of organic origin Testicular pain Arthritis Arthritis Medical History Pulmonary hypertension Knee pain HFrEF (heart failure with reduced ejection fraction) Acute respiratory failure with hypoxia Hyponatremia Non-ST elevation UT (NSTEMI) Weakness of both hands H/O: stroke Encounter for pre-operative examination Change in bowel habits Change in stool caliber Constipation Change in bowel habits Inguinal pain Right leg pain Postop carotid endarterectomy surveillance, encounter for Aortic stenosis CAD (coronary artery disease) History of prostate cancer Carotid stenosis Myocardial Infarction Hyperlipidemia Ischemic stroke of frontal lobe Elevated BUN HTN (hypertension) Acute CVA (cerebrovascular accident) Acute CVA (cerebrovascular accident) Hearing loss Vertigo Mild cognitive impairment Stable angina pectoris Mitral valve insufficiency Aortic stenosis Sciatica Pneumothorax after biopsy Encounter for pre-operative examination Abdominal aortic aneurysm DDD (degenerative disc disease) Osteoarthritis Hypertension Sleep apnea Aneurysm of abdominal aorta Anginal pain DDD (degenerative disc disease) Diverticulitis Diverticulosis Dyspnea Edema Generalized osteoarthritis of multiple sites Left groin pain Hyperlipidemia Hypertension Ischemic cardiomyopathy longterm current use of systemic steroids Low back pain Mineral deficiency Mitral regurgitation Muscle weakness Obstructive sleep apnea Polymyalgia rheumatica Pulmonary nodules Vitamin D deficiency Myocardial infarction Emphysema lung Rigors Fever Myocardial infarction Emphysema, unspecified Surgical History History of carotid endarterectomy History of herniorrhaphy History of tonsillectomy and adenoidectomy H/O vascular surgery Status post abdominal aortic aneurysm (AAA) repair S/P bronchoscopy with biopsy Difficult intubation History of arthroscopy History of trigger finger History of meniscectomy of left knee History of colonoscopy History of partial colectomy History of tooth extraction History of cardiac cath History of quadruple bypass H/O prostatectomy Family History Father Alzheimer disease Heart disease Brother Back problem Grandmother (Paternal) Dementia Mother No problems noted. Other No family history of adverse response to anesthesia Social History (Updated 07/08/24 @ 11:40 by Diane Serrato LPN) Smoking Status: Former smoker Tobacco Type: Cigarettes, Pipe and Cigars Second Hand Exposure: No; Do You Dip or Chew Tobacco: No; Hx Alcohol Use: Yes Alcohol type: wine and hard liquor Alcohol Intake Frequency Comment: 2 per day Hx Substance Use: No Preferred Language: Icelandic Communication Ability: Effective Visual Impairment: No Limitations Regulatory Assistant Required: No Beliefs That Will Affect Care: None marital status: Current Living Situation: Spouse current occupational status: employed and retired 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 Former [facility] Feels Safe at Home: Yes Assistive Devices: Other Allergies Allergies Allergy/AdvReac Type Severity Reaction Status Date / Time naproxen [From Naprosyn] Allergy Severe Anaphylaxis Verified 07/08/24 11:41 NSAIDS (Non-Steroidal Allergy Severe Anaphylaxis Verified 07/08/24 11:41 Anti-Inflamma [id number] Reductase AdvReac Verified 07/08/24 11:41 Inhibitor Home Meds Home Medications Medication Instructions Recorded Confirmed coQ10 (ubiquinol) 200 mg capsule 200 mg PO QAM 10/07/18 07/28/24 docusate sodium 100 mg capsule 100 mg PO QAM PRN Constipation 10/07/18 07/28/24 ezetimibe 10 mg tablet 10 mg PO QAM 10/07/18 07/28/24 multivitamin 1 tab PO QAM 10/07/18 07/28/24 nitroglycerin 0.4 mg sublingual 0.4 mg sublingual DIRECTED PRN 10/07/18 07/28/24 tablet Chest Pain cholecalciferol (vitamin D3) 25 1,000 unit PO QAM 02/15/19 07/28/24 mcg (1,000 unit) tablet resveratrol 50 mg capsule 50 mg PO BID 02/15/19 07/28/24 psyllium 1 packet PO QAM 08/27/21 07/28/24 metoprolol succinate 25 mg 25 mg PO QAM 08/18/22 07/28/24 tablet,extended release 24 hr aspirin 81 mg tablet,delayed 81 mg PO DAILY 11/04/22 07/28/24 release (Adult Aspirin Regimen) furosemide 40 mg tablet 20 mg PO QAM 09/16/23 07/28/24 apixaban 2.5 mg tablet (Eliquis) 2.5 mg PO BID 07/28/24 07/28/24 cyclosporine 0.05 % eye drops 1 drp OPB BID 07/28/24 07/28/24 (Restasis MultiDose) cyclosporine 0.05 % eye drops drp 07/28/24 (Restasis MultiDose) fluticasone fur. 100 mcg-umeclid 1 inh inhalation QAM 07/28/24 07/28/24 62.5 mcg-vilant 25 mcg inhalat.powder (Trelegy Ellipta) melatonin 3 mg tablet 3 mg PO HS PRN Insomnia 07/28/24 07/28/24 nortriptyline 25 mg capsule 25 mg PO HS 07/28/24 07/28/24 pantoprazole 40 mg tablet,delayed 40 mg PO QAM 07/28/24 07/28/24 release ranolazine 500 mg tablet,extended 500 mg PO BID 07/28/24 07/28/24 release,12 hr sacubitril 24 mg-valsartan 26 mg 1 tab PO HS 07/28/24 07/28/24 tablet (Entresto) Previous Rx's Medication Instructions Recorded albuterol sulfate 90 mcg/actuation 2 puff inhalation Q4H PRN 12/26/20 aerosol inhaler Shortness Of Breath #18 grams linaclotide 72 mcg capsule 72 mcg PO DAILY #30 caps 01/09/24 (Linzess) BiPap Supplies #1 ea 05/04/24 Results & Data (ED) Vital Signs Vital Signs - 24 hr 07/28/24 11:08 07/28/24 11:21 07/28/24 11:30 Temperature 36.5 C Temperature Source Oral Pulse Rate 91 H 91 H 83 Pulse Rhythm Regular Respiratory Rate 18 20 23 Blood Pressure 95/56 L 106/70 Blood Pressure Mean 69 84 Pulse Oximetry 100 98 Oxygen Delivery Method Room Air Room Air Sepsis Recent Fever Within 48 Hours No Sepsis New/Unexplained Change in Mental Status N/A Sepsis Action Taken by Nursing No Action Required 07/28/24 12:30 07/28/24 12:36 07/28/24 13:17 Temperature 36.7 C Temperature Source Oral Pulse Rate 85 84 82 Pulse Rhythm Respiratory Rate 24 21 Blood Pressure 113/68 99/73 L Blood Pressure Mean 86 81 Pulse Oximetry 100 100 Oxygen Delivery Method Sepsis Recent Fever Within 48 Hours Sepsis New/Unexplained Change in Mental Status Sepsis Action Taken by Nursing 07/28/24 13:30 07/28/24 13:33 07/28/24 13:48 Temperature 36.9 C 36.8 C Temperature Source Oral Oral Pulse Rate 90 83 78 Pulse Rhythm Respiratory Rate 20 16 12 Blood Pressure 112/64 112/64 112/80 Blood Pressure Mean 86 80 90 Pulse Oximetry 100 100 96 Oxygen Delivery Method Sepsis Recent Fever Within 48 Hours Sepsis New/Unexplained Change in Mental Status Sepsis Action Taken by Nursing Laboratory Data 07/28/24 16:58 07/28/24 11:27 Lab Results 07/28/24 07/28/24 Range/Units 11:27 11:29 WBC 15.94 H (4.8-10.8) K/ul RBC 2.07 L (4.70-6.10) M/uL Hgb 6.9 L* (14.0-18.0) g/dl Hct 20.1 L* (42.0-52.0) % MCV 97.1 (80.0-100.0) fL MCH 33.3 (25.0-34.0) pg MCHC 34.3 (32.0-36.0) g/dL RDW Std Deviation 48.7 H (36.4-46.3) fL RDW Coeff of Corbin 14.3 (11.5-14.5) % Plt Count 206 (130-400) K/uL MPV 10.3 (9.4-12.4) fL Immature Gran % (Auto) 0.6 % Neut % (Auto) 82.1 % Lymph % (Auto) 8.3 % [place] % (Auto) 8.3 % Eos % (Auto) 0.4 % Baso % (Auto) 0.3 % Neut # (Auto) 13.09 H (1.40-6.50) K/uL Lymph # (Auto) 1.32 (1.20-3.40) K/uL [place] # (Auto) 1.33 H (0.11-0.59) K/uL Eos # (Auto) 0.06 (0.00-0.50) K/uL Baso # (Auto) 0.04 (0.00-0.20) K/uL Immature Gran # (Auto) 0.10 (0.01-0.20) K/uL Polychromasia 1+ PT 11.1 (9.0-12.0) Seconds INR 1.0 (0.9-1.1) APTT 28 (21-31) Seconds PTT Ratio 1.0 Sodium 137 (136-145) mmol/L Potassium 4.2 (3.5-5.1) mmol/L Chloride 102 (98-107) mmol/L Carbon Dioxide 27 (21-32) mmol/L Anion Gap 8 (3-11) BUN 53 H (6-23) mg/dl Creatinine 1.44 H (0.6-1.4) mg/dl Est Cr Clr Drug Dosing 37.8 ml/min eGFR 46.74 BUN/Creatinine Ratio 36.8 H (10-20) Glucose 122 H (70-99(Fasting)) mg/dl Calcium 8.7 (8.6-10.3) mg/dl Total Bilirubin 0.7 (0.2-1.0) mg/dl AST 18 (13-39) U/L ALT 13 (7-52) U/L Alkaline Phosphatase 39 (34-104) U/L Troponin I High Sens 35.2 H (0-20) pg/ml Total Protein 5.9 L (6.0-8.3) gm/dl Albumin 3.8 (3.4-5.0) gm/dl Globulin 2.1 L (2.5-4.0) gm/dl Albumin/Globulin Ratio 1.8 (0.9-2) Lipase 16 (11-82) U/L POC Stool Occult Blood Positive A (Negative) Blood Type A Positive Antibody Screen NEGATIVE Crossmatch See Detail Administered Medications Pantoprazole Sodium 40 mg/ (Dextrose) 100 mls @ 20 mls/hr IV Q5H NOEL Stop: 08/27/24 12:59 Last Admin: 07/28/24 15:00 Dose: 8 mg/hr, 20 mls/hr Documented By: ANT Discontinued Medications Famotidine (Pepcid 20mg Iv Push) 20 mg in 5 mls @ 2.5 mls/min IV NOW STA Stop: 07/28/24 11:17 Last Admin: 07/28/24 11:39 Dose: 2.5 mls/min Documented By: ANT Sodium Chloride (Nss) 500 mls @ 999 mls/hr IV .Q31M ONE Stop: 07/28/24 11:46 Last Infusion: 07/28/24 12:11 Dose: Infused Documented By: Admin: 07/28/24 11:40 Dose: 999 mls/hr Documented By: ANT Sodium Chloride (Nss) 500 mls @ 125 mls/hr IV .Q4H NOEL Stop: 07/28/24 15:29 Last Infusion: 07/28/24 14:38 Dose: Infused Documented By: Admin: 07/28/24 12:11 Dose: 125 mls/hr Documented By: ANT Pantoprazole Sodium 80 mg/ (Dextrose) 120 mls @ 480 mls/hr IV NOW ONE Stop: 07/28/24 12:45 Last Infusion: 07/28/24 15:00 Dose: Infused Documented By: Admin: 07/28/24 14:48 Dose: 480 mls/hr Documented By: ANT Ioversol (Optiray 320 100ml) 94 ml IV ONCE ONE Stop: 07/28/24 12:23 Last Admin: 07/28/24 12:22 Dose: 94 ml Documented By: EDSON Pantoprazole Sodium (Pantoprazole Bolus/Drip) 1 each IV NOW STA Stop: 07/28/24 12:32 Last Admin: 07/28/24 14:49 Dose: Not Given Documented By: ANT Imaging Data Radiologist's Impression: Abdomen/Pelvis CT 07/28/24 11:[address] WITH IV CONTRAST CT DOSE: 1667 HISTORY: upper gi bleed, hypotensive TECHNIQUE: Multiaxial CT images of the abdomen and pelvis were performed following the IV administration of 90 cc of Optiray, A dose lowering technique was utilized adhering to the principles of ALARA. COMPARISON STUDY: 01/22/2021 FINDINGS: Stable small nodule lateral left lung base. ABDOMEN: There is a gallstone without evidence of acute cholecystitis. Otherwise the liver, spleen, pancreas, and adrenal glands are unremarkable. Kidneys show no hydronephrosis or calculi. There is a small left parapelvic renal cyst. There are scattered atherosclerotic calcifications. Aortobiiliac endograft is present. Infrarenal abdominal aortic aneurysm measures 3.4 cm greatest AP dimension, stable. Pelvis: Stable prostatectomy. Urinary bladder is nondistended. There is mild sigmoid diverticulosis. There is diffuse wall thickening at the rectosigmoid with minimal adjacent inflammation. There is moderate retained stool. No other bowel inflammation or obstruction seen. No free fluid, free air, or abscess. No enlarged adenopathy. Osseous structures: There is lumbar degenerative disc disease. IMPRESSION: 1. Wall thickening and inflammation at the rectosigmoid. Differential diagnosis includes colitis, diverticulitis, and malignancy. 2. No other acute findings seen. ACT 112: Negative or not required by law. The above report was generated using voice recognition software. It may contain grammatical, syntax or spelling errors. Electronically signed by: Adis Wilson M.D. 07/28/2024 12:48 PM Chest X-Ray 07/28/24 11:16 XR chest 1V portable CLINICAL HISTORY: gi bleed, weakness COMPARISON STUDY: 07/03/2022 FINDINGS: There is prior cardiac valve repair. There is mild cardiomegaly without pulmonary vascular congestion. No effusion, consolidation, or pneumothorax. IMPRESSION: No acute findings. ACT 112: Negative or not required by law. Electronically signed by: Adis Wilson M.D. 07/28/2024 11:[address] 07/28/24 11:18 CT head/brain wo con CLINICAL HISTORY: fall. TECHNIQUE: Multiple axial CT images of the head were obtained without contrast. A dose lowering technique was utilized adhering to the principles of ALARA. CT DOSE: 1667. mGy.cm COMPARISON: 02/23/2021 FINDINGS: There is stable mild prominence of the ventricles out of proportion to sulci which could represent cerebral atrophy or mild normal pressure hydrocephalus. No intracranial hemorrhage seen. No mass effect or midline shift. There is severe patchy periventricular hypodensity which is nonspecific, but usually represents chronic small vessel ischemic changes. No skull fracture seen. There is mucosal thickening and layering fluid in the right maxillary sinus consistent with sinusitis. No mastoid effusion. IMPRESSION: 1. No acute intracranial abnormality. 2. Right maxillary sinusitis. ACT 112: Negative or not required by law. The above report was generated using voice recognition software. It may contain grammatical, syntax or spelling errors. Electronically signed by: Adis Wilson M.D. 07/28/2024 12:41 PM Hip/Pelvis X-Ray 07/28/24 11:18 XR hip RT 2V w pelvis CLINICAL HISTORY: fall COMPARISON: CT of the abdomen and pelvis January 22, 2021. FINDINGS: Surgical clips from prostatectomy and bifurcated aortoiliac stent graft are incidentally noted. There is extensive vascular calcification. There are no fractures within the pelvis or hips. 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 IMPRESSION: No fractures within the pelvis or hips. ACT 112: Negative or not required by law. Electronically signed by: Jona Guzmán M.D. 07/28/2024 11:55 AM Discharge Plan Visit Data Chief Complaint: GI Bleed Stated Complaint: BLACK STOOL/SINCE SAT, WEAKNESS, UNBALANCED ED Provider: Gifty Ordoñez Discharge Problem: Acute upper gastrointestinal bleeding, Fall, CHI (closed head injury), Contusion of hip, right, Contusion of elbow, right Discharge Instructions Interventions: ED Discharge Assessment Last Done: 07/28/24 15:09
[2024-07-28 11:59] LABS: Albumin Globulin Ratio 1.8 (0.9-2); Albumin Level 3.8 gm/dl (3.4-5.0); BUN Creatinine Ratio 36.8 (10-20); Bilirubin,Total 0.7 mg/dl (0.2-1.0); Calcium 8.7 mg/dl (8.6-10.3); Creatinine Clr Calc Pharmacy 37.8 ml/min; Globulin 2.1 gm/dl (2.5-4.0); Potassium 4.2 mmol/L (3.5-5.1); Total Protein 5.9 gm/dl (6.0-8.3)
[2024-07-28 12:04] LABS: Hematocrit (blood only) 20.1 % (42.0-52.0); Hemoglobin 6.9 g/dl (14.0-18.0); Mean Corpuscular Hemoglobin 33.3 pg (25.0-34.0); Mean Corpuscular Hgb Conc 34.3 g/dL (32.0-36.0); Mean Corpuscular Volume 97.1 fL (80.0-100.0); Mean Platelet Volume 10.3 fL (9.4-12.4); Platelet Count 206 K/uL (130-400); RDW Coefficient of Variation 14.3 % (11.5-14.5); RDW Standard Deviation 48.7 fL (36.4-46.3); Red Blood Count 2.07 M/uL (4.70-6.10); White Blood Count 15.94 K/ul (4.8-10.8)
[2024-07-28 12:05] LABS: Troponin I High Sensitivity 35.2 pg/ml (0-20)
[2024-07-28 12:08] LABS: Partial Thromboplastin Time 28 Seconds (21-31); Prothrombin Time 11.1 Seconds (9.0-12.0)
[2024-07-28] MEDS ORDERED: SODIUM CHLORIDE 0.9% 50 ML IV PRN (12:09)
[2024-07-28] MEDS ORDERED: SODIUM CHLORIDE 0.9% 100 ML IV PRN (12:09)
[2024-07-28] MEDS: SODIUM CHLORIDE 0.9% 500 ML IV SCH (12:11)
[2024-07-28 12:19] LABS: Basophils # (auto) 0.04 K/uL (0.00-0.20); Basophils % (auto) 0.3 %; Eosinophils # (auto) 0.06 K/uL (0.00-0.50); Eosinophils % (auto) 0.4 %; Immature Granulocytes % (auto) 0.6 %; Lymphocytes # (auto) 1.32 K/uL (1.20-3.40); Lymphocytes % (auto) 8.3 %; Monocytes # (auto) 1.33 K/uL (0.11-0.59); Monocytes % (auto) 8.3 %; Neutrophils # (auto) 13.09 K/uL (1.40-6.50); Neutrophils % (auto) 82.1 %; Polychromasia 1+
[2024-07-28] MEDS: OPTIRAY 320 100ml IV ONE (12:22)
--- NOTE | 2024-07-28 12:43 | CT Scan Report ---
CT head/brain wo con CLINICAL HISTORY: fall. TECHNIQUE: Multiple axial CT images of the head were obtained without contrast. A dose lowering tech nique was utilized adhering to the principles of ALARA. CT DOSE: 1667. mGy.cm COMPARISON: 02/23/2021 FINDINGS: There is stable mild prominence of the ventricles out of proportion to sulci which could re present cerebral atrophy or mild normal pressure hydrocephalus. No intracranial hemorrhage seen. No m ass effect or midline shift. There is severe patchy periventricular hypodensity which is nonspecific, but usually represents chronic small vessel ischemic changes. No skull fracture seen. There is mucos al thickening and layering fluid in the right maxillary sinus consistent with sinusitis. No mastoid e ffusion. IMPRESSION: 1. No acute intracranial abnormality. 2. Right maxillary sinusitis. ACT 112: Negative or not required by law. The above report was generated using voice recognition software. It may contain grammatical, syntax o r spelling errors. Electronically signed by: Adis Wilson M.D. 07/28/2024 12:41 PM
--- NOTE | 2024-07-28 12:49 | CT Scan Report ---
ABDOMEN AND PELVIS CT WITH IV CONTRAST CT DOSE: 1667 HISTORY: upper gi bleed, hypotensive TECHNIQUE: Multiaxial CT images of the abdomen and pelvis were performed following the IV administrat ion of 90 cc of Optiray, A dose lowering technique was utilized adhering to the principles of ALARA. COMPARISON STUDY: 01/22/2021 FINDINGS: Stable small nodule lateral left lung base. ABDOMEN: There is a gallstone without evidence of acute cholecystitis. Otherwise the liver, spleen, p ancreas, and adrenal glands are unremarkable. Kidneys show no hydronephrosis or calculi. There is a s mall left parapelvic renal cyst. There are scattered atherosclerotic calcifications. Aortobiiliac end ograft is present. Infrarenal abdominal aortic aneurysm measures 3.4 cm greatest AP dimension, stable . Pelvis: Stable prostatectomy. Urinary bladder is nondistended. There is mild sigmoid diverticulosis. There is diffuse wall thickening at the rectosigmoid with minimal adjacent inflammation. There is mod erate retained stool. No other bowel inflammation or obstruction seen. No free fluid, free air, or ab scess. No enlarged adenopathy. Osseous structures: There is lumbar degenerative disc disease. IMPRESSION: 1. Wall thickening and inflammation at the rectosigmoid. Differential diagnosis includes colitis, div erticulitis, and malignancy. 2. No other acute findings seen. ACT 112: Negative or not required by law. The above report was generated using voice recognition software. It may contain grammatical, syntax o r spelling errors. Electronically signed by: Adis Wilson M.D. 07/28/2024 12:48 PM
--- NOTE | 2024-07-28 13:49 | History & Physical Report ---
Date of Service July 28, 2024 Assessment & Plan (1) Acute GI bleeding: Plan: Pantoprazole 80mg IV bolus then 8mg/hr Hold Eliquis and aspirin Consult gastroenterology Noted history of UGI bleed s/p TAVR while on ASA, clopidogrel and apixaban (2) Acute blood loss anemia: Plan: Hemoglobin 6.9 from 11.3 in June. 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 He started to see black stool on Friday associated with diarrhea. No abdominal pain, nausea, vomiting fever or chills. He reports having progressively larger melanic stools throughout the week. He has chronic constipation for which he takes Linzess daily but reports having to take loperamide yesterday afternoon. He has been ge nerally weaker but no dizziness, shortness of breath or chest pain. He had two falls of which one time he hit his head and right hip and elbow. He denies any pain in those areas when seen. He denies any one sided weakness or change in sensation, change in vision/speech or hearing. He notes a prior remote history of c. diff. Prior history of gastrointestinal bleed status post TAVR in November 2022 He reports taking all his usual morning medications. He is semi-knowledgeable about his medications. However some differences to notes and prescribed medications are metoprolol - he thinks he is taking half a pill since his last cardiology visit however it appears the Lasix rather than the metoprolol was reduced at this visit. He reports taking Eliquis and does not think this was ever stopped although per multiple prior hematology notes he was reportedly not taking this - review of external pharmacy and cardiology notes suspect he is taking this although unclear when it was restarted after his prior GI bleed. he reports no longer taking rosuvastatin although unclear when this was discontinued and it has not been picked up in the last year or appears on his cardiology note therefore this was discontinued off his [facility] EHR. He reports taking the Entresto once a day although it appears to be prescribed twice a day on both his prescription and cardiology note. Allergies Allergy/AdvReac Type Severity Reaction Status Date / Time naproxen [From Naprosyn] Allergy Severe Anaphylaxis Verified 07/08/24 11:41 NSAIDS (Non-Steroidal Allergy Severe Anaphylaxis Verified 07/08/24 11:41 Anti-Inflamma [id number] Reductase AdvReac Verified 07/08/24 11:41 Inhibitor Home Medications Medication Instructions Recorded Confirmed Type coQ10 (ubiquinol) 200 mg capsule 200 mg PO QAM 10/07/18 07/28/24 History docusate sodium 100 mg capsule 100 mg PO QAM PRN Constipation 10/07/18 07/28/24 History ezetimibe 10 mg tablet 10 mg PO QAM 10/07/18 07/28/24 History multivitamin 1 tab PO QAM 10/07/18 07/28/24 History nitroglycerin 0.4 mg sublingual 0.4 mg sublingual DIRECTED PRN 10/07/18 07/28/24 History tablet Chest Pain cholecalciferol (vitamin D3) 25 1,000 unit PO QAM 02/15/19 07/28/24 History mcg (1,000 unit) tablet resveratrol 50 mg capsule 50 mg PO BID 02/15/19 07/28/24 History albuterol sulfate 90 mcg/actuation 2 puff inhalation Q4H PRN 12/26/20 07/28/24 Rx aerosol inhaler Shortness Of Breath #18 grams psyllium 1 packet PO QAM 08/27/21 07/28/24 History metoprolol succinate 25 mg 25 mg PO QAM 08/18/22 07/28/24 History tablet,extended release 24 hr aspirin 81 mg tablet,delayed 81 mg PO DAILY 11/04/22 07/28/24 History release (Adult Aspirin Regimen) furosemide 40 mg tablet 20 mg PO QAM 09/16/23 07/28/24 History linaclotide 72 mcg capsule 72 mcg PO DAILY #30 caps 01/09/24 07/28/24 Rx (Linzess) BiPap Supplies #1 ea 05/04/24 07/08/24 Rx apixaban 2.5 mg tablet (Eliquis) 2.5 mg PO BID 07/28/24 07/28/24 History cyclosporine 0.05 % eye drops 1 drp OPB BID 07/28/24 07/28/24 History (Restasis MultiDose) cyclosporine 0.05 % eye drops drp 07/28/24 History (Restasis MultiDose) fluticasone fur. 100 mcg-umeclid 1 inh inhalation QAM 07/28/24 07/28/24 History 62.5 mcg-vilant 25 mcg inhalat.powder (Trelegy Ellipta) melatonin 3 mg tablet 3 mg PO HS PRN Insomnia 07/28/24 07/28/24 History nortriptyline 25 mg capsule 25 mg PO HS 07/28/24 07/28/24 History pantoprazole 40 mg tablet,delayed 40 mg PO QAM 07/28/24 07/28/24 History release ranolazine 500 mg tablet,extended 500 mg PO BID 07/28/24 07/28/24 History release,12 hr sacubitril 24 mg-valsartan 26 mg 1 tab PO HS 07/28/24 07/28/24 History tablet (Entresto) Past Med/Surg History Problem List (Updated 07/29/24 @ 06:34 by Duc Hitchcock MD) Chronic heart failure with mildly reduced ejection fraction (HFmrEF, 41-49%) Acute blood loss anemia Acute GI bleeding Contusion of elbow, right (Acute) Contusion of hip, right (Acute) CHI (closed head injury) (Acute) Fall (Acute) Acute upper gastrointestinal bleeding (Acute) Chronic kidney disease with active medical management without dialysis, stage 3 (moderate) Chronic constipation Sleep apnea BIPAP Atrial fibrillation Melena Thoracic ascending aortic aneurysm Acute systolic CHF (congestive heart failure) Anemia Cognitive impairment Prostate cancer Leukocytosis Chest pain Asthma Chronic obstructive pulmonary disease Male erectile disorder of organic origin Testicular pain Arthritis Arthritis Medical History Pulmonary hypertension Knee pain HFrEF (heart failure with reduced ejection fraction) Acute respiratory failure with hypoxia Hyponatremia Non-ST elevation GA (NSTEMI) Weakness of both hands H/O: stroke Encounter for pre-operative examination Change in bowel habits Change in stool caliber Constipation Change in bowel habits Inguinal pain Right leg pain Postop carotid endarterectomy surveillance, encounter for Aortic stenosis CAD (coronary artery disease) History of prostate cancer Carotid stenosis Myocardial Infarction Hyperlipidemia Ischemic stroke of frontal lobe Elevated BUN HTN (hypertension) Acute CVA (cerebrovascular accident) Acute CVA (cerebrovascular accident) Hearing loss Vertigo Mild cognitive impairment Stable angina pectoris Mitral valve insufficiency Aortic stenosis Sciatica Pneumothorax after biopsy Encounter for pre-operative examination Abdominal aortic aneurysm DDD (degenerative disc disease) Osteoarthritis Hypertension Sleep apnea Aneurysm of abdominal aorta Anginal pain DDD (degenerative disc disease) Diverticulitis Diverticulosis Dyspnea Edema Generalized osteoarthritis of multiple sites Left groin pain Hyperlipidemia Hypertension Ischemic cardiomyopathy retirement current use of systemic steroids Low back pain Mineral deficiency Mitral regurgitation Muscle weakness Obstructive sleep apnea Polymyalgia rheumatica Pulmonary nodules Vitamin D deficiency Myocardial infarction Emphysema lung Rigors Fever Myocardial infarction Emphysema, unspecified Surgical History History of carotid endarterectomy History of herniorrhaphy History of tonsillectomy and adenoidectomy H/O vascular surgery Status post abdominal aortic aneurysm (AAA) repair S/P bronchoscopy with biopsy Difficult intubation History of arthroscopy History of trigger finger History of meniscectomy of left knee History of colonoscopy History of partial colectomy History of tooth extraction History of cardiac cath History of quadruple bypass H/O prostatectomy Family History Father Alzheimer disease Heart disease Brother Back problem Grandmother (Paternal) Dementia Mother No problems noted. Other No family history of adverse response to anesthesia Social History (Updated 07/08/24 @ 11:40 by Diane Serrato LPN) Smoking Status: Former smoker Tobacco Type: Cigarettes, Pipe and Cigars Second Hand Exposure: No; Do You Dip or Chew Tobacco: No; Hx Alcohol Use: Yes Alcohol type: beer and wine Alcohol Intake Frequency Comment: 2 per day Hx Substance Use: No Preferred Language: Mac[place] Communication Ability: Effective Visual Impairment: No Limitations Kosher Dietary Service Manager Required: No Beliefs That Will Affect Care: None marital status: Current Living Situation: Spouse Current Living Situation Comment: Home with current occupational status: employed and 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 Former [facility] [place] Feels Safe at Home: Yes Assistive Devices: Glasses Review of Systems Review of Systems: All systems reviewed & are unremarkable except as noted in HPI & below Physical Exam Constitutional: WD/WN, vitals as above ENMT: external ear and nose normal, oropharynx normal Respiratory: normal respiratory effort, lungs clear to auscultation Cardiovascular: Rate/Rhythm: + tachycardic and + irregularly irregular Heart Sounds: no murmur Gastrointestinal (Abdomen): normal bowel sounds, soft, nontender, no hepatosplenomegaly Skin: no rashes, warm and dry (ecchymosis over right elbow and right hip without painful movement) Neurologic: moves all extremities and awake; not confused Psychiatric: A+Ox3, euthymic affect Results & Data Results & Data Vital Signs (Past 12 Hours) Vital Signs Temp Pulse Resp BP Pulse Ox O2 Del Method 07/28/24 13:33 36.9 C 83 16 112/64 100 07/28/24 13:17 36.7 C 82 21 99/73 L 100 07/28/24 12:36 84 07/28/24 11:21 91 H 20 98 Room Air 07/28/24 11:08 36.5 C 91 H 18 95/56 L 100 Room Air Laboratory Results Abnormal lab results 07/28/24 07/28/24 Range/Units 11:27 11:29 WBC 15.94 H (4.8-10.8) K/ul RBC 2.07 L (4.70-6.10) M/uL Hgb 6.9 L* (14.0-18.0) g/dl Hct 20.1 L* (42.0-52.0) % RDW Std Deviation 48.7 H (36.4-46.3) fL Neut # (Auto) 13.09 H (1.40-6.50) K/uL [place] # (Auto) 1.33 H (0.11-0.59) K/uL BUN 53 H (6-23) mg/dl Creatinine 1.44 H (0.6-1.4) mg/dl BUN/Creatinine Ratio 36.8 H (10-20) Glucose 122 H (70-99(Fasting)) mg/dl Troponin I High Sens 35.2 H (0-20) pg/ml Total Protein 5.9 L (6.0-8.3) gm/dl Globulin 2.1 L (2.5-4.0) gm/dl POC Stool Occult Blood Positive A (Negative) Crossmatch See Detail Diagnostic Findings CT head/brain wo con CLINICAL HISTORY: fall. TECHNIQUE: Multiple axial CT images of the head were obtained without contrast. A dose lowering technique was utilized adhering to the principles of ALARA. CT DOSE: 1667. mGy.cm COMPARISON: 02/23/2021 FINDINGS: There is stable mild prominence of the ventricles out of proportion to sulci which could represent cerebral atrophy or mild normal pressure hydrocephalus. No intracranial hemorrhage seen. No mass effect or midline shift. There is severe patchy periventricular hypodensity which is nonspecific, but usually represents chronic small vessel ischemic changes. No skull fracture seen. There is mucosal thickening and layering fluid in the right maxillary sinus consistent with sinusitis. No mastoid effusion. IMPRESSION: 1. No acute intracranial abnormality. 2. Right maxillary sinusitis. XR chest 1V portable CLINICAL HISTORY: gi bleed, weakness COMPARISON STUDY: 07/03/2022 FINDINGS: There is prior cardiac valve repair. There is mild cardiomegaly without pulmonary vascular congestion. No effusion, consolidation, or pneumothorax. IMPRESSION: No acute findings. XR hip RT 2V w pelvis CLINICAL HISTORY: fall COMPARISON: CT of the abdomen and pelvis January 22, 2021. FINDINGS: Surgical clips from prostatectomy and bifurcated aortoiliac stent graft are incidentally noted. There is extensive vascular calcification. There are no fractures within the pelvis or hips. 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 IMPRESSION: No fractures within the pelvis or hips. ABDOMEN AND PELVIS CT WITH IV CONTRAST CT DOSE: 1667 HISTORY: upper gi bleed, hypotensive TECHNIQUE: Multiaxial CT images of the abdomen and pelvis were performed following the IV administration of 90 cc of Optiray, A dose lowering technique was utilized adhering to the principles of ALARA. COMPARISON STUDY: 01/22/2021 FINDINGS: Stable small nodule lateral left lung base. ABDOMEN: There is a gallstone without evidence of acute cholecystitis. Otherwise the liver, spleen, pancreas, and adrenal glands are unremarkable. Kidneys show no hydronephrosis or calculi. There is a small left parapelvic renal cyst. There are scattered atherosclerotic calcifications. Aortobiiliac endograft is present. Infrarenal abdominal aortic aneurysm measures 3.4 cm greatest AP dimension, stable. Pelvis: Stable prostatectomy. Urinary bladder is nondistended. There is mild sigmoid diverticulosis. There is diffuse wall thickening at the rectosigmoid with minimal adjacent inflammation. There is moderate retained stool. No other b owel inflammation or obstruction seen. No free fluid, free air, or abscess. No enlarged adenopathy. Osseous structures: There is lumbar degenerative disc disease. IMPRESSION: 1. Wall thickening and inflammation at the rectosigmoid. Differential diagnosis includes colitis, diverticulitis, and malignancy. 2. No other acute findings seen. Medications Administered ER Medications Given: Famotidine 20 mg IV Normal saline 500 mL bolus Pantoprazole 80 mg bolus and 8 mg ECG Rate (beats per minute): 89 Rhythm: atrial fibrillation Findings: + LAFB and + RBBB Comparison ECG Date: from (May 08, 2023) Change: no significant change Code Status & VTE Plan Code Status Full PG Care Time/CCT Total # of Minutes Spent Total Time Spent with Patient: Total time spent is greater than 50% in coordination of care (as documented) at patient's floor/unit and/or counseling patient: Coding Level of Care Code 58307 INT INP/OBS CARE 3/75MIN Diagnoses Acute GI bleeding K92.2 Acute blood loss anemia D62 Sleep apnea G47.30 Atrial fibrillation I48.91 Fall W19.XXXA Contusion of elbow, right S50.01XA Contusion of hip, right S70.01XA CHI (closed head injury) S09.90XA Chronic heart failure with mildly reduced ejection fraction (HFmrEF, 41-49%) I50.22
--- NOTE | 2024-07-28 14:19 | Gastrointestinal Consultation ---
Date of Consultation July 28, 2024 Assessment & Plan (1) Acute blood loss anemia: 89 year old male with history of CAD S/P Coronary angiography, Left Heart Cath, Right Heart Cath, LV Angiography and Bypass Graft Angiography on 11/30/[address] Mcneill, HFrEF (LVEF of 40-45%, mod aortic stenosis, mod mitral regurg), emphysema, HTN, hyperlipidemia, prostate cancer (follows with Urology), sigmoid colectomy secondary to diverticulitis and others below presenting to the ED following a fall, melena. HGB 6.9 from baseline 11.3. BuN 53 CT w/ wall thickening and inflammation at the rectosigmoid NPO Hold ASA Hold Eliquis Trend H&H Continue IV PPI Monitor and document GI output Transfuse PRN per primary service EGD timing to be determined Pending results of above, will discuss colonoscopy I spent a total of 60 minutes on the date of service in review of patient's record, and previously obtained information in person and appropriate medical visit, discussion and education of plan, with patient and/or caregiver, placing orders for tests/referral/procedures as medically necessary and documentation of pertinent clinical information in patient's medical records for their visit today. Supervising Physician Co-Signing Physician Notes Melanotic stool over days. Patient is on chronic PPI therapy. This makes peptic ulcer disease less probable. At his age cardiac issue and on blood thinners I suspect potential AVMs of the upper GI tract or small bowel. Transfuse stabilize EGD tomorrow. Reviewed with patient agreeable. Patient has numerous comorbidities. Anesthesia will assist in safe sedation History of Present Illness Reason for Consultation: acute GI bleeding, Melena Requesting Physician: Dr. Hitchcock Attending Physician: Dr. Hitchcock History of Present Illness 89 year old male with history of CAD S/P Coronary angiography, Left Heart Cath, Right Heart Cath, LV Angiography and Bypass Graft Angiography on 11/30/[address] Mcneill, HFrEF (LVEF of 40-45%, mod aortic stenosis, mod mitral regurg), emphysema, HTN, hyperlipidemia, prostate cancer (follows with Urology), sigmoid colectomy secondary to diverticulitis and others below presenting to the ED following a fall - GI was asked to evaluate for rectal bleeding which started about a week ago. Pt was seen and evaluated, chart reviewed. Notes he has been struggling w/ constipation and finding a good bowel regimen. Has been on Linzess . Suggests last week, bowels started to move well. Notes that about 3-4 days into this regimen noted his stools appeared dark, tarry. Suggests moving bowels 2-3 times daily. No BRBPR. No abd pain. No nausea/vomiting. No fever, chills, CP, SOB. Anticoagulated on ASA Eliquis. No NSAIDs. 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 Differential diagnosis includes colitis, diverticulitis, and malignancy. No other acute findings seen. Colonoscopy 2020: - Patent end-to-end colo-colonic anastomosis, characterized by healthy appearing mucosa. - Diverticulosis in the sigmoid colon. - Non-bleeding internal hemorrhoids. - No specimens collected. Allergies Allergy/AdvReac Type Severity Reaction Status Date / Time naproxen [From Naprosyn] Allergy Severe Anaphylaxis Verified 07/08/24 11:41 NSAIDS (Non-Steroidal Allergy Severe Anaphylaxis Verified 07/08/24 11:41 Anti-Inflamma Ieaqacb-IXH-GiJ Reductase AdvReac Verified 07/08/24 11:41 Inhibitor Home Medications Medication Instructions Recorded Confirmed Type coQ10 (ubiquinol) 200 mg capsule 200 mg PO QAM 10/07/18 07/28/24 History docusate sodium 100 mg capsule 100 mg PO QAM PRN Constipation 10/07/18 07/28/24 History ezetimibe 10 mg tablet 10 mg PO QAM 10/07/18 07/28/24 History multivitamin 1 tab PO QAM 10/07/18 07/28/24 History nitroglycerin 0.4 mg sublingual 0.4 mg sublingual DIRECTED PRN 10/07/18 07/28/24 History tablet Chest Pain cholecalciferol (vitamin D3) 25 1,000 unit PO QAM 02/15/19 07/28/24 History mcg (1,000 unit) tablet resveratrol 50 mg capsule 50 mg PO BID 02/15/19 07/28/24 History albuterol sulfate 90 mcg/actuation 2 puff inhalation Q4H PRN 12/26/20 07/28/24 Rx aerosol inhaler Shortness Of Breath #18 grams psyllium 1 packet PO QAM 08/27/21 07/28/24 History metoprolol succinate 25 mg 25 mg PO QAM 08/18/22 07/28/24 History tablet,extended release 24 hr aspirin 81 mg tablet,delayed 81 mg PO DAILY 11/04/22 07/28/24 History release (Adult Aspirin Regimen) furosemide 40 mg tablet 20 mg PO QAM 09/16/23 07/28/24 History linaclotide 72 mcg capsule 72 mcg PO DAILY #30 caps 01/09/24 07/28/24 Rx (Linzess) BiPap Supplies #1 ea 05/04/24 07/08/24 Rx apixaban 2.5 mg tablet (Eliquis) 2.5 mg PO BID 07/28/24 07/28/24 History cyclosporine 0.05 % eye drops 1 drp OPB BID 07/28/24 07/28/24 History (Restasis MultiDose) cyclosporine 0.05 % eye drops drp 07/28/24 History (Restasis MultiDose) fluticasone fur. 100 mcg-umeclid 1 inh inhalation QAM 07/28/24 07/28/24 History 62.5 mcg-vilant 25 mcg inhalat.powder (Trelegy Ellipta) melatonin 3 mg tablet 3 mg PO HS PRN Insomnia 07/28/24 07/28/24 History nortriptyline 25 mg capsule 25 mg PO HS 07/28/24 07/28/24 History pantoprazole 40 mg tablet,delayed 40 mg PO QAM 07/28/24 07/28/24 History release ranolazine 500 mg tablet,extended 500 mg PO BID 07/28/24 07/28/24 History release,12 hr sacubitril 24 mg-valsartan 26 mg 1 tab PO HS 07/28/24 07/28/24 History tablet (Entresto) Patient History Medical History Pulmonary hypertension Knee pain HFrEF (heart failure with reduced ejection fraction) Acute respiratory failure with hypoxia Hyponatremia Non-ST elevation FL (NSTEMI) Weakness of both hands H/O: stroke Encounter for pre-operative examination Change in bowel habits Change in stool caliber Constipation Change in bowel habits Inguinal pain Right leg pain Postop carotid endarterectomy surveillance, encounter for Aortic stenosis CAD (coronary artery disease) History of prostate cancer Carotid stenosis Myocardial Infarction Hyperlipidemia Ischemic stroke of frontal lobe Elevated BUN HTN (hypertension) Acute CVA (cerebrovascular accident) Acute CVA (cerebrovascular accident) Hearing loss Vertigo Mild cognitive impairment Stable angina pectoris Mitral valve insufficiency Aortic stenosis Sciatica Pneumothorax after biopsy Encounter for pre-operative examination Abdominal aortic aneurysm DDD (degenerative disc disease) Osteoarthritis Hypertension Sleep apnea Aneurysm of abdominal aorta Anginal pain DDD (degenerative disc disease) Diverticulitis Diverticulosis Dyspnea Edema Generalized osteoarthritis of multiple sites Left groin pain Hyperlipidemia Hypertension 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 Low back pain Mineral deficiency Mitral regurgitation Muscle weakness Obstructive sleep apnea Polymyalgia rheumatica Pulmonary nodules Vitamin D deficiency Myocardial infarction Emphysema lung Rigors Fever Myocardial infarction Emphysema, unspecified Surgical History History of carotid endarterectomy History of herniorrhaphy History of tonsillectomy and adenoidectomy H/O vascular surgery Status post abdominal aortic aneurysm (AAA) repair S/P bronchoscopy with biopsy Difficult intubation History of arthroscopy History of trigger finger History of meniscectomy of left knee History of colonoscopy History of partial colectomy History of tooth extraction History of cardiac cath History of quadruple bypass H/O prostatectomy Family History Father Alzheimer disease Heart disease Brother Back problem Grandmother (Paternal) Dementia Mother No problems noted. Other No family history of adverse response to anesthesia Social History (Updated 07/08/24 @ 11:40 by Diane Serrato LPN) Smoking Status: Former smoker Tobacco Type: Cigarettes, Pipe and Cigars Second Hand Exposure: No; Do You Dip or Chew Tobacco: No; Hx Alcohol Use: Yes Alcohol type: wine and hard liquor Alcohol Intake Frequency Comment: 2 per day Hx Substance Use: No Preferred Language: Mohawk Communication Ability: Effective Visual Impairment: No Limitations Automation And Control Engineer Required: No Beliefs That Will Affect Care: None marital status: Current Living Situation: Spouse current occupational status: employed and retired 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 Former [place] [employer] Feels Safe at Home: Yes Assistive Devices: Other Review of Systems Review of Systems: All other findings negative except as noted in HPI. Physical Exam Constitutional: WD/WN, vitals as above Respiratory: normal respiratory effort, lungs clear to auscultation Gastrointestinal (Abdomen): normal bowel sounds, soft, nontender, no hepatosplenomegaly Skin: no rashes, warm and dry Results & Data Vital Signs (Past 12 Hours) Vital Signs Temp Pulse Resp BP Pulse Ox O2 Del Method 07/28/24 13:33 98.4 F 83 16 112/64 100 07/28/24 13:17 98.1 F 82 21 99/73 L 100 07/28/24 12:36 84 07/28/24 11:21 91 H 20 98 Room Air 07/28/24 11:08 97.7 F 91 H 18 95/56 L 100 Room Air Laboratory Results 07/28/24 07/28/24 07/28/24 Range/Units 14:36 11:29 11:27 WBC 15.94 H (4.8-10.8) K/ul RBC 2.07 L (4.70-6.10) M/uL Hgb 6.9 L* (14.0-18.0) g/dl Hct 20.1 L* (42.0-52.0) % MCV 97.1 (80.0-100.0) fL MCH 33.3 (25.0-34.0) pg MCHC 34.3 (32.0-36.0) g/dL RDW Std Deviation 48.7 H (36.4-46.3) fL RDW Coeff of [place]bin 14.3 (11.5-14.5) % Plt Count 206 (130-400) K/uL MPV 10.3 (9.4-12.4) fL Immature Gran % (Auto) 0.6 % Neut % (Auto) 82.1 % Lymph % (Auto) 8.3 % Power % (Auto) 8.3 % Eos % (Auto) 0.4 % Baso % (Auto) 0.3 % Neut # (Auto) 13.09 H (1.40-6.50) K/uL Lymph # (Auto) 1.32 (1.20-3.40) K/uL Power # (Auto) 1.33 H (0.11-0.59) K/uL Eos # (Auto) 0.06 (0.00-0.50) K/uL Baso # (Auto) 0.04 (0.00-0.20) K/uL Immature Gran # (Auto) 0.10 (0.01-0.20) K/uL Polychromasia 1+ PT 11.1 (9.0-12.0) Seconds INR 1.0 (0.9-1.1) APTT 28 (21-31) Seconds PTT Ratio 1.0 Sodium 137 (136-145) mmol/L Potassium 4.2 (3.5-5.1) mmol/L Chloride 102 (98-107) mmol/L Carbon Dioxide 27 (21-32) mmol/L Anion Gap 8 (3-11) BUN 53 H (6-23) mg/dl Creatinine 1.44 H (0.6-1.4) mg/dl Est Cr Clr Drug Dosing 37.8 ml/min eGFR 46.74 BUN/Creatinine Ratio 36.8 H (10-20) Glucose 122 H (70-99(Fasting)) mg/dl Calcium 8.7 (8.6-10.3) mg/dl Total Bilirubin 0.7 (0.2-1.0) mg/dl AST 18 (13-39) U/L ALT 13 (7-52) U/L Alkaline Phosphatase 39 (34-104) U/L Troponin I High Sens 29.3 H 35.2 H (0-20) pg/ml Total Protein 5.9 L (6.0-8.3) gm/dl Albumin 3.8 (3.4-5.0) gm/dl Globulin 2.1 L (2.5-4.0) gm/dl Albumin/Globulin Ratio 1.8 (0.9-2) Lipase 16 (11-82) U/L POC Stool Occult Blood Positive A (Negative) Blood Type A Positive Antibody Screen NEGATIVE Crossmatch See Detail PG Care Time/CCT Total # of Minutes Spent Total Time Spent with Patient: Total time spent is greater than 50% in coordination of care (as documented) at patient's floor/unit and/or counseling patient: Coding Level of Care Code 22652 INT INP/OBS CARE 2/55MIN Diagnoses Acute blood loss anemia D62
[2024-07-28] MEDS: PANTOprazole 80 MG in DEXTROSE 5% 100 ML IV ONE (14:48)
[2024-07-28] MEDS: PANTOPRAZOLE BOLUS/DRIP IV STA (14:49)
[2024-07-28] MEDS: PANTOprazole 40 MG in DEXTROSE 5% MINI-B 100 ML IV SCH (15:00)
[2024-07-28 17:10] LABS: Hematocrit (blood only) 22.6 % (42.0-52.0); Hemoglobin 7.7 g/dl (14.0-18.0)
[2024-07-28] MEDS ORDERED: ARTIFICIAL TEARS OP PRN (19:38)
[2024-07-28] MEDS: NORTRIPTYLINE HCL 25 MG CAP PO SCH (20:56)
[2024-07-28] MEDS: RANOLAZINE 500 MG ER TAB PO SCH (20:56)
[2024-07-28] MEDS: VALSARTAN/SACUBITRIL 26/24MG TAB PO SCH (20:57)
[2024-07-28] MEDS: MELATONIN 3 MG TAB PO PRN (21:04)
[2024-07-29 00:59] LABS: Hematocrit (blood only) 22.7 % (42.0-52.0); Hemoglobin 7.8 g/dl (14.0-18.0)
[2024-07-29 04:51] LABS: Basophils # (auto) 0.05 K/uL (0.00-0.20); Basophils % (auto) 0.5 %; Eosinophils # (auto) 0.14 K/uL (0.00-0.50); Eosinophils % (auto) 1.4 %; Hematocrit (blood only) 23.9 % (42.0-52.0); Hemoglobin 8.2 g/dl (14.0-18.0); Immature Granulocytes # (auto) 0.07 K/uL (0.01-0.20); Immature Granulocytes % (auto) 0.7 %; Lymphocytes # (auto) 1.16 K/uL (1.20-3.40); Lymphocytes % (auto) 11.5 %; Mean Corpuscular Hemoglobin 32.5 pg (25.0-34.0); Mean Corpuscular Hgb Conc 34.3 g/dL (32.0-36.0); Mean Corpuscular Volume 94.8 fL (80.0-100.0); Mean Platelet Volume 10.4 fL (9.4-12.4); Monocytes # (auto) 1.07 K/uL (0.11-0.59); Monocytes % (auto) 10.6 %; Neutrophils % (auto) 75.3 %; Platelet Count 164 K/uL (130-400); RDW Coefficient of Variation 15.2 % (11.5-14.5); Red Blood Count 2.52 M/uL (4.70-6.10); White Blood Count 10.09 K/ul (4.8-10.8)
--- NOTE | 2024-07-29 07:58 | Hospitalist Progress Note ---
Date of Service July 29, 2024 Assessment & Plan (1) Acute GI bleeding: Plan: 89 year old male with atrial fibrillation, coronary artery bypass and chronic HFmrEF who presents to the ER with melena, hx UGI bleed s/p TAVE on aspirin/plavix/eliquis. Reported progressively larger melanic stools throughout the week, chroninc constipation at baseline which takes linzess, reports generally weaker but no dizziness/SOB/CP but had 2 falls at home. On chronic PPI therapy at baseline, possible AVMs of upper GI tract vs small bowel. CTAP on admission w/ wall thickening and inflammation at rectosigmoid, ddx colitis/diverticulitis/malignancy Eliquis/aspirin on HOLD Hgb 6.9 on admission from 11.3 in June. +fecal occult testing GI consulted Protonix bolus provided, continues on gtt s/p 2u PRBC Repeat hgb 8.2 this morning, notable got 1L NSS on admission and suspect appropriate rise NPO for EGD today, IVF added while NPO, was given his AM lasix but placed on hold given Cr 1.44 and added BMP to AM labs which noted improvement to Cr 1.11 w/ BUN 35 and placed AM lasix on hold but remains on entresto as BP tolerates s/p EGD this morning with Dr Huerta -KEV noted, SIGNIFICANT bleeding on contact c/w potential source for bleeding. 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 If rebleeds, consider video capsul endoscopy. It is possible has other AVM beyond scope (as discussed w/ son in room). Possible resumption AC in 48s if required Repeat hgb 8.0 this afternoon, additional 2u PRBC on hold and ordered for repeat counts this evening/transfuse if needed Remains on protonix gtt but plan to convert to PO BID in AM per GI ok to do today. Carafate added by supervising provider Clear liquid diet ordered - discussed would not advance past this today Stool studies ordered given diarrhea, on linzess but utilized imodium day prior to admission Labs/blood counts/telemetry monitoring planned PT/OT consulted Updated son at bedside (2) Acute blood loss anemia: Plan: Hgb 6.9 as above from prior 11.3 s/p 2u PRBC, 1L NSS and placed on NS@70cc this morning and repeat hgb 8.2--> 8.0 and continue to monitor, additional 2u PRBC on hold as above and given cardiac hx could consider lower threshold but will avoid for now. 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%): Plan: On entresto BID continued, metoprolol for afib/rate control Was continued on lasix 40mg PO for this morning but given concerns for acute GI bleeding and elevated Cr/BEAR to 1.44 on admission was ordered fluids/lasix placed on hold for AM unless needing dose w/ additional PRBC pending this evening CBC/hgb No leg edema/on room air, weight 73.9kg from 75.4 on admission but doubt accurace but will continue to monitor volume status (4) Sleep apnea: Plan: BiPAP HS ordered (5) Atrial fibrillation: Plan: Paroxysmal following TAVR although EKGs from May and November last year show he was in this rhythm then Is currently in AFIB on telemetry but rates 80-90s, remains on metoprolol for rate control Mag/K stable, repletion as needed Continues on telemetry monitoring, eliquis/aspirin on HOLD as above Will check TSH w/ AM labs given (6) Fall: Plan: CT head without acute finding, no fracture on hip xray PT/OT consults placed, will order fall precautions to prevent issues (7) Contusion of elbow, right: Plan: noted, PT/OT as above (8) Contusion of hip, right: Plan: no fracture, blood thinners on hold given above and therapy consults have been placed for today (9) CHI (closed head injury): Plan: as above, CT neg, appears A/O during encounter monitor for issues Plan VTE Prophylaxis - SCDs, chemo proph contraindicated w/ above. ELiquis on HOLD Dispo: s/p EGD, protonix gtt for now w/ plans to convert. diet to clear liquid for today. Possible dc ~48hrs, consideration for pill endoscopy if rebleeds. Repeat hgb this evening/PRBC w/ lasix if needed PT/OT consults placed. Updated son at bedside. Admission and Anticipated Discharge Date Admission Date: July 28, 2024 Supervising Physician Co-Signing Physician Notes The patient was not seen by me. The chart was reviewed. Case discussed with JENNIFER Victoria. Agree with assessment and plan Subjective Eval following EGD, discussed AVM/treatment. Per GI ok for clears, patient reports is hungry/will try clears for today. Likely will have additional 1-2 darker stools w/ active bleeding but if ongoing plan for pill endoscopy. No CP/SOB, no leg edema/lasix placed on hold. Repeat hgb being drawn and if stable can avoid but monitoring if additonal PRBC needed. Son updated at bedside. Questions/concerns addressed at this time. Physical Exam Physical Exam: General: 89yo male, resting in bed post EGD, son at bedside, NAD, hungry/wanting to eat HEENT: head atraumatic, normocephalic, mm slightly dry, trachea midline Resp: even/unlabored, slightly diminished in the bases, no wheezing/rales, 93% on RA CV: irregularly irregular, rates 80s at present, NO PITTING EDEMA, no calf tenderness GI: +BS, soft/slight distension but nontender no porter MSK/Neuro: nonfocal, answering questions appropriately, following commands as able Psych: AOx3, cooperative with exam Results & Data Results & Data Vital Signs (Past 12 Hours) Vital Signs Temp Pulse Pulse Pulse Resp BP Pulse Ox 07/29/24 07:43 36.9 C 96 H 18 112/64 92 07/29/24 07:25 07/29/24 05:53 97 H 07/29/24 02:49 36.3 C L 98 H 18 104/65 91 07/28/24 21:55 96 H 07/28/24 20:45 07/28/24 20:45 36.7 C 100 H 18 138/78 96 07/28/24 20:31 105 H O2 Del Method 07/29/24 07:43 Room Air 07/29/24 07:25 Room Air 07/29/24 05:53 07/29/24 02:49 Room Air 07/28/24 21:55 07/28/24 20:45 Room Air 07/28/24 20:45 Room Air 07/28/24 20:31 Laboratory Results 07/29/24 07/29/24 07/29/24 Range/Units 12:41 08:08 03:56 WBC 10.09 (4.8-10.8) K/ul RBC 2.52 L (4.70-6.10) M/uL Hgb 8.0 L 8.2 L (14.0-18.0) g/dl Hct 23.5 L 23.9 L (42.0-52.0) % MCV 94.8 (80.0-100.0) fL MCH 32.5 (25.0-34.0) pg MCHC 34.3 (32.0-36.0) g/dL RDW Std Deviation 51.0 H (36.4-46.3) fL RDW Coeff of Corbin 15.2 H (11.5-14.5) % Plt Count 164 (130-400) K/uL MPV 10.4 (9.4-12.4) fL Immature Gran % (Auto) 0.7 % Neut % (Auto) 75.3 % Lymph % (Auto) 11.5 % [place] % (Auto) 10.6 % Eos % (Auto) 1.4 % Baso % (Auto) 0.5 % Neut # (Auto) 7.60 H (1.40-6.50) K/uL Lymph # (Auto) 1.16 L (1.20-3.40) K/uL [place] # (Auto) 1.07 H (0.11-0.59) K/uL Eos # (Auto) 0.14 (0.00-0.50) K/uL Baso # (Auto) 0.05 (0.00-0.20) K/uL Immature Gran # (Auto) 0.07 (0.01-0.20) K/uL Sodium 135 L (136-145) mmol/L Potassium 3.9 (3.5-5.1) mmol/L Chloride 104 (98-107) mmol/L Carbon Dioxide 25 (21-32) mmol/L Anion Gap 6 (3-11) BUN 35 H (6-23) mg/dl Creatinine 1.11 D (0.6-1.4) mg/dl Est Cr Clr Drug Dosing 48.1 ml/min eGFR 63.87 BUN/Creatinine Ratio 31.5 H (10-20) Glucose 103 H (70-99(Fasting)) mg/dl Calcium 8.2 L (8.6-10.3) mg/dl Magnesium 2.0 (1.7-2.4) mg/dl Troponin I High Sens (0-20) pg/ml Blood Type Antibody Screen Crossmatch 07/29/24 07/28/24 07/28/24 Range/Units 00:40 16:58 14:36 WBC (4.8-10.8) K/ul RBC (4.70-6.10) M/uL Hgb 7.8 L 7.7 L (14.0-18.0) g/dl Hct 22.7 L 22.6 L (42.0-52.0) % MCV (80.0-100.0) fL MCH (25.0-34.0) pg MCHC (32.0-36.0) g/dL RDW Std Deviation (36.4-46.3) fL RDW Coeff of [place]bin (11.5-14.5) % Plt Count (130-400) K/uL MPV (9.4-12.4) fL Immature Gran % (Auto) % Neut % (Auto) % Lymph % (Auto) % [place] % (Auto) % Eos % (Auto) % Baso % (Auto) % Neut # (Auto) (1.40-6.50) K/uL Lymph # (Auto) (1.20-3.40) K/uL [place] # (Auto) (0.11-0.59) K/uL Eos # (Auto) (0.00-0.50) K/uL Baso # (Auto) (0.00-0.20) K/uL Immature Gran # (Auto) (0.01-0.20) K/uL Sodium (136-145) mmol/L Potassium (3.5-5.1) mmol/L Chloride (98-107) mmol/L Carbon Dioxide (21-32) mmol/L Anion Gap (3-11) BUN (6-23) mg/dl Creatinine (0.6-1.4) mg/dl Est Cr Clr Drug Dosing ml/min eGFR BUN/Creatinine Ratio (10-20) Glucose (70-99(Fasting)) mg/dl Calcium (8.6-10.3) mg/dl Magnesium (1.7-2.4) mg/dl Troponin I High Sens 29.3 H (0-20) pg/ml Blood Type Antibody Screen Crossmatch 07/28/24 Range/Units 11:27 WBC (4.8-10.8) K/ul RBC (4.70-6.10) M/uL Hgb (14.0-18.0) g/dl Hct (42.0-52.0) % MCV (80.0-100.0) fL MCH (25.0-34.0) pg MCHC (32.0-36.0) g/dL RDW Std Deviation (36.4-46.3) fL RDW Coeff of [place]bin (11.5-14.5) % Plt Count (130-400) K/uL MPV (9.4-12.4) fL Immature Gran % (Auto) % Neut % (Auto) % Lymph % (Auto) % [place] % (Auto) % Eos % (Auto) % Baso % (Auto) % Neut # (Auto) (1.40-6.50) K/uL Lymph # (Auto) (1.20-3.40) K/uL [place] # (Auto) (0.11-0.59) K/uL Eos # (Auto) (0.00-0.50) K/uL Baso # (Auto) (0.00-0.20) K/uL Immature Gran # (Auto) (0.01-0.20) K/uL Sodium (136-145) mmol/L Potassium (3.5-5.1) mmol/L Chloride (98-107) mmol/L Carbon Dioxide (21-32) mmol/L Anion Gap (3-11) BUN (6-23) mg/dl Creatinine (0.6-1.4) mg/dl Est Cr Clr Drug Dosing ml/min eGFR BUN/Creatinine Ratio (10-20) Glucose (70-99(Fasting)) mg/dl Calcium (8.6-10.3) mg/dl Magnesium (1.7-2.4) mg/dl Troponin I High Sens (0-20) pg/ml Blood Type A Positive Antibody Screen NEGATIVE Crossmatch See Detail PG Care Time/CCT Total # of Minutes Spent Total Time Spent with Patient: Total time spent is greater than 50% in coordination of care (as documented) at patient's floor/unit and/or counseling patient: Coding Level of Care Code 49355 SUB INP/OBS CARE 50MIN Diagnoses Acute GI bleeding K92.2 Acute blood loss anemia D62 Chronic heart failure with mildly reduced ejection fraction (HFmrEF, 41-49%) I50.22 Sleep apnea G47.30 Atrial fibrillation I48.91 Fall W19.XXXA Contusion of elbow, right S50.01XA Contusion of hip, right S70.01XA CHI (closed head injury) S09.90XA
[2024-07-29] MEDS: ACETAMINOPHEN 500 MG TAB PO ONE (08:10)
[2024-07-29] MEDS: SODIUM CHLORIDE 0.9% 1,000 ML IV SCH (08:12)
[2024-07-29] MEDS: METOPROLOL SUCC 25MG EXT REL TAB PO SCH (08:13)
[2024-07-29] MEDS: linaCLOtide 72 MCG CAPSULE PO SCH (08:13)
[2024-07-29] MEDS: EZETIMIBE 10 MG TAB PO SCH (08:13)
[2024-07-29] MEDS: UMECLIDINIUM/VILANTEROL 62.5/25MCG 7 PUFFS/INHALER INH SCH (08:14)
[2024-07-29] MEDS: FLUTICASONE FUROATE 100MCG 14 PUFFS/INHALER INH SCH (08:14)
[2024-07-29 08:47] LABS: BUN Creatinine Ratio 31.5 (10-20); Calcium 8.2 mg/dl (8.6-10.3); Creatinine Clr Calc Pharmacy 48.1 ml/min; Potassium 3.9 mmol/L (3.5-5.1)
--- NOTE | 2024-07-29 09:16 | Anesthesiology Consultation ---
Date of Service July 29, 2024 Assessment & Plan Chart Review Chart Review: Acceptable Risk for Surgery and Patient NOT seen in Pre Admission Testing Consults Requested none ASA ASA4 Proposed Anesthesia Anesthesia Type: MAC History Surgery Operation Date: 07/29/24 17:10 Proposed Procedures p Esophagogastroduodenoscopy Dr. Bradley Huerta MD Height/Weight Height: 6 ft Weight: 73.9 kg Allergies Allergy/AdvReac Type Severity Reaction Status Date / Time naproxen [From Naprosyn] Allergy Severe Anaphylaxis Verified 07/08/24 11:41 NSAIDS (Non-Steroidal Allergy Severe Anaphylaxis Verified 07/08/24 11:41 Anti-Inflamma [id number] Reductase AdvReac Verified 07/08/24 11:41 Inhibitor Medications Home Medications Medication Instructions Recorded Confirmed Last Taken coQ10 (ubiquinol) 200 mg capsule 200 mg PO QAM 10/07/18 07/28/24 11/07/21 docusate sodium 100 mg capsule 100 mg PO QAM PRN Constipation 10/07/18 07/28/24 11/07/21 ezetimibe 10 mg tablet 10 mg PO QAM 10/07/18 07/28/24 07/28/24 multivitamin 1 tab PO QAM 10/07/18 07/28/24 11/07/21 nitroglycerin 0.4 mg sublingual 0.4 mg sublingual DIRECTED PRN 10/07/18 07/28/24 Unknown tablet Chest Pain cholecalciferol (vitamin D3) 25 1,000 unit PO QAM 02/15/19 07/28/24 07/28/24 mcg (1,000 unit) tablet resveratrol 50 mg capsule 50 mg PO BID 02/15/19 07/28/24 11/07/21 albuterol sulfate 90 mcg/actuation 2 puff inhalation Q4H PRN 12/26/20 07/28/24 Unknown aerosol inhaler Shortness Of Breath #18 grams psyllium 1 packet PO QAM 08/27/21 07/28/24 Unknown metoprolol succinate 25 mg 25 mg PO QAM 08/18/22 07/28/24 07/28/24 tablet,extended release 24 hr aspirin 81 mg tablet,delayed 81 mg PO DAILY 11/04/22 07/28/24 1 Day Ago release (Adult Aspirin Regimen) ~07/27/24 furosemide 40 mg tablet 20 mg PO QAM 09/16/23 07/28/24 07/28/24 linaclotide 72 mcg capsule 72 mcg PO DAILY #30 caps 01/09/24 07/28/24 1 Day Ago (Linzess) ~07/27/24 BiPap Supplies #1 ea 05/04/24 07/08/24 Unknown apixaban 2.5 mg tablet (Eliquis) 2.5 mg PO BID 07/28/24 07/28/24 1 Day Ago ~07/27/24 cyclosporine 0.05 % eye drops 1 drp OPB BID 07/28/24 07/28/24 Unknown (Restasis MultiDose) cyclosporine 0.05 % eye drops drp 07/28/24 Unknown (Restasis MultiDose) fluticasone fur. 100 mcg-umeclid 1 inh inhalation QAM 07/28/24 07/28/24 1 Day Ago 62.5 mcg-vilant 25 mcg ~07/27/24 inhalat.powder (Trelegy Ellipta) melatonin 3 mg tablet 3 mg PO HS PRN Insomnia 07/28/24 07/28/24 Unknown nortriptyline 25 mg capsule 25 mg PO HS 07/28/24 07/28/24 Unknown pantoprazole 40 mg tablet,delayed 40 mg PO QAM 07/28/24 07/28/24 07/28/24 release ranolazine 500 mg tablet,extended 500 mg PO BID 07/28/24 07/28/24 Unknown release,12 hr sacubitril 24 mg-valsartan 26 mg 1 tab PO HS 07/28/24 07/28/24 1 Day Ago tablet (Entresto) ~07/27/24 Active Medications Generic Name Dose Route Start Last Admin Trade Name Freq PRN Reason Stop Dose Admin Ezetimibe 10 mg 07/29/24 09:00 07/29/24 08:13 Ezetimibe 10 Mg Tab PO 08/28/24 08:59 10 mg QAM NOEL Administration Fluticasone Furoate 1 puffs 07/29/24 09:00 07/29/24 08:14 Fluticasone Furoate 100mcg 14 Puffs/Inhaler INH 08/28/24 08:59 1 puffs QAM NOEL Administration Pantoprazole Sodium 40 mg/ 100 mls @ 20 mls/hr 07/28/24 13:00 07/29/24 05:45 Dextrose IV 08/27/24 12:59 8 mg/hr Q5H NOEL 20 mls/hr Administration 8 MG/HR Sodium Chloride 1,000 mls @ 70 mls/hr 07/29/24 08:00 07/29/24 08:12 Nss IV 07/30/24 07:59 70 mls/hr .[id number] NOEL Administration Linaclotide 72 mcg 07/29/24 09:00 07/29/24 08:13 Linaclotide 72 Mcg Capsule PO 08/28/24 08:59 Not Given DAILY NOEL Melatonin 3 mg 07/28/24 19:32 07/28/24 21:04 Melatonin 3 Mg Tab PO 08/27/24 19:31 3 mg HS PRN Administration Insomnia Metoprolol Succinate 25 mg 07/29/24 09:00 07/29/24 08:13 Metoprolol Succ 25mg Ext Rel Tab PO 08/28/24 08:59 25 mg QAM NOEL Administration Nortriptyline HCl 25 mg 07/28/24 21:00 07/28/24 20:56 Nortriptyline Hcl 25 Mg Cap PO 08/27/24 20:59 25 mg HS NOEL Administration Ranolazine 500 mg 07/28/24 21:00 07/29/24 08:13 Ranolazine 500 Mg Er Tab PO 08/27/24 20:59 500 mg BID NOEL Administration Sacubitril/Valsartan 1 tab 07/28/24 21:00 07/28/24 20:57 Valsartan/Sacubitril 26/24mg Tab PO 08/27/24 20:59 1 tab HS NOEL Administration Umeclidinium/Vilanterol 1 puffs 07/29/24 09:00 07/29/24 08:14 Umeclidinium/Vilanterol 62.5/25mcg 7 Puffs/Inhaler INH 08/28/24 08:59 1 puffs QAM NOEL Administration Past Medical History Medical History Pulmonary hypertension Knee pain HFrEF (heart failure with reduced ejection fraction) Acute respiratory failure with hypoxia Hyponatremia Non-ST elevation RI (NSTEMI) Weakness of both hands H/O: stroke Encounter for pre-operative examination Change in bowel habits Change in stool caliber Constipation Change in bowel habits Inguinal pain Right leg pain Postop carotid endarterectomy surveillance, encounter for Aortic stenosis Moderate aortic stenosis (SARAH 1.3 to 1.4 cm, mean gradient 12.7 mmHg) per 09/06/20 echo > follows with Dr. Conley CAD (coronary artery disease) s/p CABG x4 (2014[place] [place] History of prostate cancer no radiation Carotid stenosis Myocardial Infarction 2014 Hyperlipidemia Ischemic stroke of frontal lobe Elevated BUN HTN (hypertension) Acute CVA (cerebrovascular accident) Acute CVA (cerebrovascular accident) 09/05/2020 ([facility]) > no deficits-PT CONFIRMS INFORMATION-PLACED ON [place] Hearing loss Vertigo Mild cognitive impairment Stable angina pectoris Mitral valve insufficiency Aortic stenosis Sciatica Pneumothorax after biopsy Encounter for pre-operative examination Abdominal aortic aneurysm under surveillance by vascular (Dr. 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 Other No family history of adverse response to anesthesia Past Surgical History Surgical History History of carotid endarterectomy RIGHT 09/2020 [facility] History of herniorrhaphy History of tonsillectomy and adenoidectomy H/O vascular surgery Left leg seroma excision Status post abdominal aortic aneurysm (AAA) repair S/P bronchoscopy with biopsy Navigational Bronchoscopy with Biopsy Difficult intubation Per patient mentioned difficult intubation with 1995 prostate surgery > subsequent EBUS, navagitional bronchoscopy (07/29/19) at [facility] with Grade view 1, Glidescope#4, ETT 8.5 at [facility] -PT CONFIRMED INFORMATION History of arthroscopy Right shoulder History of trigger finger Right trigger finger release History of meniscectomy of left knee History of colonoscopy History of partial colectomy History of tooth extraction History of cardiac cath 2014 > no stents History of quadruple bypass 2014 > [facility] > FOR HEART ATTACK > NO STENTS H/O prostatectomy Past Anesthesia History No Hx of Anesthesia Complications and No Family Hx of Anesthesia Complications History of PONV No Hx of PONV and No Hx of Motion Sickness Social History Smoking Status: Former smoker tobacco type: cigarettes Do You Dip or Chew Tobacco: No Hx Alcohol Use: Yes Alcohol type: beer and wine alcohol intake frequency: holidays/special occasions only Hx Substance Use: No substance use type: does not use Physical Exam Vital Signs Last Vital Signs Temp 36.9 C 07/29/24 07:43 Pulse 96 H 07/29/24 07:43 Resp 18 07/29/24 07:43 BP 112/64 07/29/24 07:43 Pulse Ox 92 07/29/24 07:43 O2 Del Method Room Air 07/29/24 07:43 Testing Laboratory Results 07/29/24 03:56 07/29/24 08:08 PT 11.1 Seconds (9.0-12.0) 07/28/24 11:27 INR 1.0 (0.9-1.1) 07/28/24 11:27 APTT 28 Seconds (21-31) 07/28/24 11:27 Blood Type A Positive 07/28/24 11:27 Antibody Screen NEGATIVE 07/28/24 11:27 Electrocardiogram Date: 07/28/24 Findings: + AFIB @ (@ 89), + LBBB and + RBBB Chest X-Ray Date: 07/28/24 Findings: + NAD and + cardiomegaly Echocardiogram Date: 11/01/22 EF: 40% LV Function: dysfunctional RWMA: + akinetic Other Findings: + atrial enlargement (RA/LA severely dilated) and + diastolic dysfunction (grade 2) Valvular Disease: + MR (severe) s/p TAVR TR-mod.
--- NOTE | 2024-07-29 10:16 | Gastroenterology Progress Note ---
Date of Service July 29, 2024 Assessment & Plan (1) Acute blood loss anemia: Plan: 89 year old male with history of CAD S/P Coronary angiography, Left Heart Cath, Right Heart Cath, LV Angiography and Bypass Graft Angiography on 11/30/[address] Mcneill, HFrEF (LVEF of 40-45%, mod aortic stenosis, mod mitral regurg), emphysema, HTN, hyperlipidemia, prostate cancer (follows with Urology), sigmoid colectomy secondary to diverticulitis and others below presenting to the ED following a fall, melena. HGB 6.9 from baseline 11.3. BuN 53 CT w/ wall thickening and inflammation at the rectosigmoid but no acute process. NPO EGD today Hold ASA Hold Eliquis Trend H&H Continue IV PPI Monitor and document GI output Transfuse PRN per primary service Pending results of above, will discuss colonoscopy (he is not interested in pursing this due to age) We appreciate assistance in the management of any serological abnormality and corrections to include: hemoglobin >7, INR <2, platelets >50,000, potassium levels >3.5 but <5.3, and sodium levels within 5 points of the reference range prior to endoscopic evaluation. Admission and Anticipated Discharge Date Admission Date: July 28, 2024 Supervising Physician Co-Signing Physician Notes EGD today for evaluation of melena. Potential AVMs. Evaluate for peptic ulcer disease less likely neoplasia. Risk benefits discussed informed consent obtained. Subjective Pt was seen and evaluated, chart reviewed. Denies further melena. No abd pain, nausea/vomiting Review of Systems Review of Systems: All other findings negative except as noted in HPI. Physical Exam Constitutional: WD/WN, vitals as above Respiratory: normal respiratory effort, lungs clear to auscultation Cardiovascular: Rate/Rhythm: regular rate and regular rhythm Gastrointestinal (Abdomen): normal bowel sounds, soft, nontender, no hepatosplenomegaly Skin: no rashes, warm and dry Results & Data Results & Data Vital Signs (Past 12 Hours) Vital Signs Temp Pulse Pulse Resp BP Pulse Ox O2 Del Method 07/29/24 07:43 98.4 F 96 H 18 112/64 92 Room Air 07/29/24 07:25 Room Air 07/29/24 05:53 97 H 07/29/24 02:49 97.3 F L 98 H 18 104/65 91 Room Air Laboratory Results 07/29/24 07/29/24 07/29/24 Range/Units 08:08 03:56 00:40 WBC 10.09 (4.8-10.8) K/ul RBC 2.52 L (4.70-6.10) M/uL Hgb 8.2 L 7.8 L (14.0-18.0) g/dl Hct 23.9 L 22.7 L (42.0-52.0) % MCV 94.8 (80.0-100.0) fL MCH 32.5 (25.0-34.0) pg MCHC 34.3 (32.0-36.0) g/dL RDW Std Deviation 51.0 H (36.4-46.3) fL RDW Coeff of Corbin 15.2 H (11.5-14.5) % Plt Count 164 (130-400) K/uL MPV 10.4 (9.4-12.4) fL Immature Gran % (Auto) 0.7 % Neut % (Auto) 75.3 % Lymph % (Auto) 11.5 % Kinney % (Auto) 10.6 % Eos % (Auto) 1.4 % Baso % (Auto) 0.5 % Neut # (Auto) 7.60 H (1.40-6.50) K/uL Lymph # (Auto) 1.16 L (1.20-3.40) K/uL Kinney # (Auto) 1.07 H (0.11-0.59) K/uL Eos # (Auto) 0.14 (0.00-0.50) K/uL Baso # (Auto) 0.05 (0.00-0.20) K/uL Immature Gran # (Auto) 0.07 (0.01-0.20) K/uL Polychromasia PT (9.0-12.0) Seconds INR (0.9-1.1) APTT (21-31) Seconds PTT Ratio Sodium 135 L (136-145) mmol/L Potassium 3.9 (3.5-5.1) mmol/L Chloride 104 (98-107) mmol/L Carbon Dioxide 25 (21-32) mmol/L Anion Gap 6 (3-11) BUN 35 H (6-23) mg/dl Creatinine 1.11 D (0.6-1.4) mg/dl Est Cr Clr Drug Dosing 48.1 ml/min eGFR 63.87 BUN/Creatinine Ratio 31.5 H (10-20) Glucose 103 H (70-99(Fasting)) mg/dl Calcium 8.2 L (8.6-10.3) mg/dl Magnesium 2.0 (1.7-2.4) mg/dl Total Bilirubin (0.2-1.0) mg/dl AST (13-39) U/L ALT (7-52) U/L Alkaline Phosphatase (34-104) U/L Troponin I High Sens (0-20) pg/ml Total Protein (6.0-8.3) gm/dl Albumin (3.4-5.0) gm/dl Globulin (2.5-4.0) gm/dl Albumin/Globulin Ratio (0.9-2) Lipase (11-82) U/L POC Stool Occult Blood (Negative) Blood Type Antibody Screen Crossmatch 07/28/24 07/28/24 07/28/24 Range/Units 16:58 14:36 11:29 WBC (4.8-10.8) K/ul RBC (4.70-6.10) M/uL Hgb 7.7 L (14.0-18.0) g/dl Hct 22.6 L (42.0-52.0) % MCV (80.0-100.0) fL MCH (25.0-34.0) pg MCHC (32.0-36.0) g/dL RDW Std Deviation (36.4-46.3) fL RDW Coeff of Corbin (11.5-14.5) % Plt Count (130-400) K/uL MPV (9.4-12.4) fL Immature Gran % (Auto) % Neut % (Auto) % Lymph % (Auto) % Kinney % (Auto) % Eos % (Auto) % Baso % (Auto) % Neut # (Auto) (1.40-6.50) K/uL Lymph # (Auto) (1.20-3.40) K/uL Kinney # (Auto) (0.11-0.59) K/uL Eos # (Auto) (0.00-0.50) K/uL Baso # (Auto) (0.00-0.20) K/uL Immature Gran # (Auto) (0.01-0.20) K/uL Polychromasia PT (9.0-12.0) Seconds INR (0.9-1.1) APTT (21-31) Seconds PTT Ratio Sodium (136-145) mmol/L Potassium (3.5-5.1) mmol/L Chloride (98-107) mmol/L Carbon Dioxide (21-32) mmol/L Anion Gap (3-11) BUN (6-23) mg/dl Creatinine (0.6-1.4) mg/dl Est Cr Clr Drug Dosing ml/min eGFR BUN/Creatinine Ratio (10-20) Glucose (70-99(Fasting)) mg/dl Calcium (8.6-10.3) mg/dl Magnesium (1.7-2.4) mg/dl Total Bilirubin (0.2-1.0) mg/dl AST (13-39) U/L ALT (7-52) U/L Alkaline Phosphatase (34-104) U/L Troponin I High Sens 29.3 H (0-20) pg/ml Total Protein (6.0-8.3) gm/dl Albumin (3.4-5.0) gm/dl Globulin (2.5-4.0) gm/dl Albumin/Globulin Ratio (0.9-2) Lipase (11-82) U/L POC Stool Occult Blood Positive A (Negative) Blood Type Antibody Screen Crossmatch 07/28/24 Range/Units 11:27 WBC 15.94 H (4.8-10.8) K/ul RBC 2.07 L (4.70-6.10) M/uL Hgb 6.9 L* (14.0-18.0) g/dl Hct 20.1 L* (42.0-52.0) % MCV 97.1 (80.0-100.0) fL MCH 33.3 (25.0-34.0) pg MCHC 34.3 (32.0-36.0) g/dL RDW Std Deviation 48.7 H (36.4-46.3) fL RDW Coeff of Corbin 14.3 (11.5-14.5) % Plt Count 206 (130-400) K/uL MPV 10.3 (9.4-12.4) fL Immature Gran % (Auto) 0.6 % Neut % (Auto) 82.1 % Lymph % (Auto) 8.3 % Kinney % (Auto) 8.3 % Eos % (Auto) 0.4 % Baso % (Auto) 0.3 % Neut # (Auto) 13.09 H (1.40-6.50) K/uL Lymph # (Auto) 1.32 (1.20-3.40) K/uL Kinney # (Auto) 1.33 H (0.11-0.59) K/uL Eos # (Auto) 0.06 (0.00-0.50) K/uL Baso # (Auto) 0.04 (0.00-0.20) K/uL Immature Gran # (Auto) 0.10 (0.01-0.20) K/uL Polychromasia 1+ PT 11.1 (9.0-12.0) Seconds INR 1.0 (0.9-1.1) APTT 28 (21-31) Seconds PTT Ratio 1.0 Sodium 137 (136-145) mmol/L Potassium 4.2 (3.5-5.1) mmol/L Chloride 102 (98-107) mmol/L Carbon Dioxide 27 (21-32) mmol/L Anion Gap 8 (3-11) BUN 53 H (6-23) mg/dl Creatinine 1.44 H (0.6-1.4) mg/dl Est Cr Clr Drug Dosing 37.8 ml/min eGFR 46.74 BUN/Creatinine Ratio 36.8 H (10-20) Glucose 122 H (70-99(Fasting)) mg/dl Calcium 8.7 (8.6-10.3) mg/dl Magnesium (1.7-2.4) mg/dl Total Bilirubin 0.7 (0.2-1.0) mg/dl AST 18 (13-39) U/L ALT 13 (7-52) U/L Alkaline Phosphatase 39 (34-104) U/L Troponin I High Sens 35.2 H (0-20) pg/ml Total Protein 5.9 L (6.0-8.3) gm/dl Albumin 3.8 (3.4-5.0) gm/dl Globulin 2.1 L (2.5-4.0) gm/dl Albumin/Globulin Ratio 1.8 (0.9-2) Lipase 16 (11-82) U/L POC Stool Occult Blood (Negative) Blood Type A Positive Antibody Screen NEGATIVE Crossmatch See Detail PG Care Time/CCT Total # of Minutes Spent Total Time Spent with Patient: Total time spent is greater than 50% in coordination of care (as documented) at patient's floor/unit and/or counseling patient: Coding Level of Care Code None Diagnoses Acute blood loss anemia D62
[2024-07-29] MEDS: SODIUM CHLORIDE 0.9% 500 ML IV SCH (10:30)
[2024-07-29] MEDS ORDERED: ATROPINE SULFATE 0.1 MG/ML 10ML SYR IV PRN (10:50)
--- NOTE | 2024-07-29 11:34 | Communication Note ---
Date of Service: July 29, 2024 EGD performed for melena Is a fairly juicy appearing AVM in the gastric body. This bled significantly on contact consistent with a potential source for bleeding. Based on that the area was treated with BiCap coagulation. Hemostasis and destruction of the lesion successful. 2 hemostatic clips placed post for prevention of future bleeding. 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 Not treated If rebleeds I would consider a video capsule endoscopy. It is possible he has other AVMs beyond the reach of the endoscope were able to pass the upper endoscope out to him beyond the ligament of Treitz Resume anticoagulation 48-hour if required
--- NOTE | 2024-07-29 11:41 | GI REPORT ---
[facility] Patient: GIFTY REECE : 1935 Sex at : Male Age: 89 Years Procedure: Upper GI endoscopy Date: 07/29/2024 Attending Physician: Pasha Huerta MD Referring MD: Todd Wiseman Indications: - Melena on anticoagulants Medications: - Monitored Anesthesia Care Complications: - No immediate complications. Estimated Blood Loss: - Estimated blood loss was minimal. Procedure: - The egd scope was introduced through the mouth and advanced to the fourth part of the duodenum. - The upper GI endoscopy was accomplished without difficulty. - The patient tolerated the procedure well. Findings: - A small hiatal hernia was present. - One medium angiodysplastic lesion with no bleeding was found in the gastric body. Bled on contact .Coagulation for bleeding prevention using bipolar probe was successful. For hemostasis, two hemostatic clips were successfully placed. There was no bleeding at the end of the procedure. Estimated blood loss was minimal. - A single small angioectasia with no bleeding on contact was found in the second portion of the duodenum. Impression: - Small hiatal hernia. 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 Treated with bipolar cautery. Clips were placed. - A single angioectasia noncontact bleed in the duodenum. - No specimens collected. Recommendation: - Gastric AVM was quite juicy in appearance and had some bleeding on contact. This is consistent with a bleeding source or potential bleeding source. He was treated with BiCap coagulation and then 2 clips placed for further hemostasis. No bleeding at the end of the procedure. The poorly formed duodenal AVM did not bleed on contact. Decision not to treat this 1 is did not feel was bleeding source or potential bleeding source. If patient has further melena once blood thinners reintroduced. I would consider a video capsule endoscopy to evaluate the remainder of the small bowel for further potential sources AVMs of the jejunum and ileum are not ruled out. I would reintroduce blood thinners after 48 hours or once there is no further melena Procedure Code(s): - 88795, Esophagogastroduodenoscopy, flexible, transoral; with control of bleeding, any method Diagnosis Code(s): - K44.9, Diaphragmatic hernia without obstruction or gangrene - K31.819, Angiodysplasia of stomach and duodenum without bleeding CPT(R) - 2023 copyright [employer]. All Rights Reserved. The CPT codes, CCI edits and ICD codes generated are intended as suggestions and were generated based on input data. These codes are preliminary and upon seam stay stitcher review may be revised to meet current compliance and payer requirements. The provider is responsible for the final determination of appropriate codes, and modifiers. Pasha Huerta MD This document has been electronically signed. Note Initiated:07/29/2024 Note Completed:07/29/2024 11:40 AM [id number]
--- NOTE | 2024-07-29 11:45 | Anesthesiology Progress Note ---
Date of Service July 29, 2024 Anesthesia Post Procedure Vital Signs Vital Signs: Temp Pulse Pulse Pulse Resp BP BP 07/29/24 10:19 36.4 C L 93 H 16 125/74 07/29/24 07:43 36.9 C 96 H 18 112/64 07/29/24 07:25 07/29/24 05:53 97 H 07/29/24 02:49 36.3 C L 98 H 18 104/65 07/28/24 21:55 96 H 07/28/24 20:45 07/28/24 20:45 36.7 C 100 H 18 138/78 07/28/24 20:31 105 H 07/28/24 19:26 36.7 C 95 H 22 118/75 07/28/24 19:08 36.6 C 94 H 22 134/80 07/28/24 18:08 36.7 C 88 22 116/63 07/28/24 17:38 36.8 C 84 22 121/77 07/28/24 17:23 36.6 C 87 22 107/72 07/28/24 17:12 83 07/28/24 17:11 74 07/28/24 17:11 36.6 C 87 20 122/69 07/28/24 17:10 07/28/24 17:04 36.6 C 86 22 122/69 07/28/24 16:12 36.6 C 86 22 118/72 07/28/24 15:18 36.6 C 79 16 112/69 07/28/24 14:30 80 22 114/85 07/28/24 14:18 36.9 C 69 16 120/69 07/28/24 14:00 90 21 120/69 07/28/24 13:48 36.8 C 78 12 112/80 07/28/24 13:33 36.9 C 83 16 112/64 07/28/24 13:30 90 20 112/64 07/28/24 13:17 36.7 C 82 21 99/73 L 07/28/24 12:36 84 07/28/24 12:30 85 24 113/68 Pulse Ox Pulse Ox O2 Del Method O2 Del Method 07/29/24 10:19 94 Room Air 07/29/24 07:43 92 Room Air 07/29/24 07:25 Room Air 07/29/24 05:53 07/29/24 02:49 91 Room Air 07/28/24 21:55 07/28/24 20:45 Room Air 07/28/24 20:45 96 Room Air 07/28/24 20:31 07/28/24 19:26 98 07/28/24 19:08 98 07/28/24 18:08 100 07/28/24 17:38 100 07/28/24 17:23 100 07/28/24 17:12 07/28/24 17:11 07/28/24 17:11 100 Room Air 07/28/24 17:10 98 Room Air 07/28/24 17:04 100 07/28/24 16:12 100 07/28/24 15:18 98 07/28/24 14:30 100 07/28/24 14:18 98 07/28/24 14:00 100 07/28/24 13:48 96 07/28/24 13:33 100 07/28/24 13:30 100 07/28/24 13:17 100 07/28/24 12:36 07/28/24 12:30 100 Pain Intensity Bilateral Knee: Pain Intensity: 6 Transfer of Care Handoff Completed per policy Notes Mental Status: alert / awake / arousable Patient Amnestic to Procedure: Yes Nausea / Vomiting: adequately controlled Pain: adequately controlled Airway Patency, RR, SpO2: stable & adequate BP & HR: stable & adequate Hydration State: stable & adequate Anesthetic Complications: no major complications apparent
[2024-07-29] MEDS: PHENYLEPHRINE HCL 10 MG/ML VIAL ONE (12:37)
[2024-07-29] MEDS: PROPOFOL IV EMULSION 10 MG/ML 20 ML VIAL IV ONE (12:37)
[2024-07-29] MEDS: LIDOCAINE 2% 2 ML VIAL/AMP(20MG/ML) INFIL ONE (12:37)
[2024-07-29] MEDS: GLYCOPYRROLATE 0.2 MG/ML VIAL ONE (12:37)
[2024-07-29] MEDS: ONDANSETRON INJ 2 MG/ML 2 ML VIAL ONE (12:37)
[2024-07-29 13:00] LABS: Hematocrit (blood only) 23.5 % (42.0-52.0)
[2024-07-29] MEDS: SUCRALFATE 1 GM/10 ML UDC PO SCH (14:05)
[2024-07-29 18:28] LABS: Hemoglobin 9.1 g/dl (14.0-18.0); Mean Corpuscular Hemoglobin 32.5 pg (25.0-34.0); Mean Corpuscular Hgb Conc 33.7 g/dL (32.0-36.0); Mean Corpuscular Volume 96.4 fL (80.0-100.0); Mean Platelet Volume 9.9 fL (9.4-12.4); Platelet Count 174 K/uL (130-400); RDW Coefficient of Variation 15.8 % (11.5-14.5); RDW Standard Deviation 53.6 fL (36.4-46.3); White Blood Count 9.94 K/ul (4.8-10.8)
[2024-07-29] MEDS: PANTOprazole 40 MG TAB PO SCH (20:36)
[2024-07-30 00:51] LABS: Hematocrit (blood only) 23.2 % (42.0-52.0); Hemoglobin 7.9 g/dl (14.0-18.0)
[2024-07-30 04:18] LABS: Hematocrit (blood only) 22.9 % (42.0-52.0); Hemoglobin 7.7 g/dl (14.0-18.0); Mean Corpuscular Hemoglobin 32.5 pg (25.0-34.0); Mean Corpuscular Hgb Conc 33.6 g/dL (32.0-36.0); Mean Corpuscular Volume 96.6 fL (80.0-100.0); Mean Platelet Volume 10.4 fL (9.4-12.4); Platelet Count 157 K/uL (130-400); RDW Coefficient of Variation 15.9 % (11.5-14.5); RDW Standard Deviation 53.2 fL (36.4-46.3); Red Blood Count 2.37 M/uL (4.70-6.10); White Blood Count 9.09 K/ul (4.8-10.8)
[2024-07-30 04:19] LABS: Hematocrit (blood only) 22.7 % (42.0-52.0); Hemoglobin 7.6 g/dl (14.0-18.0)
[2024-07-30 04:30] LABS: BUN Creatinine Ratio 24.6 (10-20); Creatinine Clr Calc Pharmacy 46.8 ml/min; Potassium 4.3 mmol/L (3.5-5.1)
[2024-07-30 04:45] LABS: Thyroid Stimulating Hormone 2.309 uIu/ml (0.300-4.500)
[2024-07-30] MEDS ORDERED: SODIUM CHLORIDE 0.9% 100 ML IV PRN (07:45)
[2024-07-30] MEDS ORDERED: FUROSEMIDE INJ 20 MG/2 ML VIAL IV ONE (07:45)
[2024-07-30] MEDS ORDERED: SODIUM CHLORIDE 0.9% 50 ML IV PRN (07:45)
--- NOTE | 2024-07-30 07:49 | Hospitalist Progress Note ---
Date of Service July 30, 2024 Assessment & Plan (1) Acute GI bleeding: Plan: 89 year old male with atrial fibrillation, coronary artery bypass and chronic HFmrEF who presents to the ER with melena, hx UGI bleed s/p TAVE on aspirin/plavix/eliquis. Reported progressively larger melanic stools throughout the week, chroninc constipation at baseline which takes linzess, reports generally weaker but no dizziness/SOB/CP but had 2 falls at home. On chronic PPI therapy at baseline, possible AVMs of upper GI tract vs small bowel. CTAP on admission w/ wall thickening and inflammation at rectosigmoid, ddx colitis/diverticulitis/malignancy Hgb 6.9 on admission from 11.3 in June. +fecal occult testing GI consulted, Eliquis/aspirin on HOLD Started on protonix gtt, s/2 u PRBC and EGD on 07/[address] Huerta --> EGD noting AVM w/ SIGNIFICANT bleeding on contact c/w potential source for bleeding. 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 If rebleeds, consider video capsul endoscopy. It is possible has other AVM beyond scope (was discussed w/ son 07/29 could have other areas) Hgb had stabilized to 9.1 last evening and suspected aspect of dilution as was on IVF for NPO/EGD Hgb overnight w/ H&H by resident, was 7.6 this morning and systolic BP 90s/cardiac hx and was provided additional 1u PRBC for this morning with Lasix 20mg IV Notable was converted to PPI PO BID last evening 07/29 per GI, has been continued. Carafate per supervising provider Repeat hgb this afternoon reported at 9.8. -Was also provided 1gm Ca Glu given 3rd unit of blood/chelating agent used and rec'd in the past w/ multiple transfusions to prevent bleeding, Ca 8.0 on AM labs Patient has NOT moved bowels since admission, son brought in Linzess and to be sent to pharmacy/resumed and will monitor bowel movements/blood counts. Discussed could have some darkened stools initially with passage of other blood but will plan for pill endoscopy to consider alternative AVMs. Could consider bleeding scan but appears much improved on exam/doesn't examine like active usha dougherty at this time. Diet advanced to FULL LIQUIDS Per GI, recs to continue hold asa/eliquis 48hrs -- patient reporting should be on asa daily by provider who did his TAVR. Discussed risk>benefit w/ active bleeding AVM and GI recs. Extensive update, 30-40 minutes directly at bedside addressing any/all concerns and questions with patient as reports has been seen by multiple providers and not having clear plan however had updated son at bedside 2-3 times while patient at EGD until back in room and was in room to eval post-EGD and inquired if any questions/concerns at that time and did not get impression was unclear at that time but encouraged to let nursing know of any questions/concerns and will be happy to update as needed but have also been in contact with GI provider/OLGA on plan as well as direction for PRBC this morning and discussed will have local GI follow up (See subjective, reported told short staffed in the past, encouraged we will ensure has follow up) Monitoring CBC in AM/sooner if needed for any instability, BP 102/69 this afternoon and monitor to hold entresto this evening but wanting to keep patient on home meds as much as tolerated. AM lasix PO held but was given IV w/ blood and consider resuming in AM pending labs/renal function. (2) Acute blood loss anemia: Plan: As above, now s/p 3u PRBC and hgb to 9.8. Monitoring to resume asa in next 48hrs, +/- Eliquis but will monitor for any rebleeding above and timing TBD. 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 Leg exam stable/on room air --Was given Lasix 20mg PO x 1 on 07/29 as scheduled daily however was NPO for above/no IVF which were then added/lasix placed on hold for this morning and given blood as above deferred resuming PO lasix and rather gave one time dose Lasix 20mg IV w/ 3rd unit PRBC Weight this morning on BEDSCALE, will have nursing obtain standing scale when able and will monitor to resume usual daily dosing in AM pending blood c ounts/renal function. (4) Sleep apnea: Plan: BiPAP HS ordered, wanting to use home machine per RT note, to be brought in (5) Atrial fibrillation: Plan: Paroxysmal following TAVR although EKGs from May and November last year show he was in this rhythm then but is in afib on telemetry, rate controlled and continued on metoprolol. TSH wnl Resumption of Eliquis as outlined pending repeat counts/further bleeding Mag/K replete and will monitor/replace if needed. Aim to keep Mag ~2, K~4 Tele monitoring (6) Fall: Plan: CT head without acute finding, no fracture on hip xray PT/OT consults placed, will order fall precautions to prevent issues. PT rec home heatlh PT as indicated when stable for dc, CM to follow/arrange (7) Contusion of elbow, right: Plan: noted, PT/OT as above, no current issues reported (8) Contusion of hip, right: Plan: no fracture, blood thinners on hold given above and therapy consults as outlined (9) CHI (closed head injury): Plan: as above, CT neg, appears A/O during encounter monitor for issues Plan VTE Prophylaxis - SCDs, chemo proph contraindicated w/ above. Eliquis on HOLD as well as aspirin as outlined. resumption pending course. Dispo: continued inpatient stay, PPI PO BID/carafate, diet adv to FULL liquid. Lengthy update to address all questions/concerns/issues from patient as well as son who did not feel well informed. PT eval rec HH when stable for dc Discharge pending any further bleeding, possible dc next 24-48hr pending course/further discussion w/ patient and family given concerns for ongoing bleeding/transfusion may want to keep overnight once resumped to ensure no issues but will ensure that is desired prior to consideration. Admission and Anticipated Discharge Date Admission Date: July 28, 2024 Supervising Physician Co-Signing Physician Notes The patient was not seen by me. The chart was reviewed. Case discussed with JENNIFER Victoria. Agree with assessment and plan Subjective Evaluated after 11am, extensive time at bedside with patient/son spent explaining plan of care. Reports feels multiple providers/people in but not really saying whats going on. Discussed hgb 9.1 likely inaccurate given no pain/issues reported but did have drop further but aspect of dilution suspected on IVF for procedure while NPO. Discussed advance diet to full liquids. Per GI, possible resumption aspirin in AM but holding both asa/eliquis at this time. Discussed pill endoscopy for outpatient. Son brought in Linzess, lots of gas currently, sent to pharmacy and to get today/likely additional BM w/ melena as blood working way through but once clear should be ok. He reports had bleeding issues in the past/got Iron. Discussed outpatient follow up w/ check iron studies but would avoid for now as got 2u/getting 3rd now and has iron in those but if low could consider outpt Venofer infusions. Discussed would avoid PO given constipation issues and also causes stools to be dark and do not want to cloud the picture for him to allow for monitored for continued bleeding. No fever/chills, cp/sob reported. No nausea/abdominal pain. Diet to be adv to fulls, possible low fiber this evening. Dc tomorrow vs Friday vs other pending course, consider bleeding scan as well could be entertained. Spent at least 30-40 minutes at bedside with patient/son explaining cause. Questions/concerns addressed and reported no further questions at this time. Discussed to alert nursing if occurs and that they can get ahold of me. They also report having seen Dr Triplett/Haily in past and being told not having enough providers/overworked/unable to get patients in. Discussed Physical Exam Physical Exam: General: 89yo male resting in bed, son at bedside, discussed plan at length/wanting to advance diet, NAD HEENT: normocephalic, mmm/improved on repeat exam today, trachea without deviation Resp: even/unlabored, no tachypnea/cough, no obvious wheezing/crackles, on ROOM AIR CV: irregularly irregular, rates well controlled on monitor, no pitting edema/calf tenderness, pulses present on exam GI: +BS throughout, increased from day prior, slight distension but NONTENDER, no guarding/rebound MSK/Neuro: nonfocal, not confused, answering/asking questions appropriately, following command/instruction without issue Psych: AOx3, cooperative with exam Results & Data Results & Data Vital Signs (Past 12 Hours) Vital Signs Temp Pulse Pulse Resp BP BP Pulse Ox 07/30/24 07:36 36.6 C 88 18 98/58 L 104/67 96 07/30/24 02:52 36.6 C 86 18 118/72 98 07/29/24 22:52 36.8 C 94 H 18 99/62 L 91 07/29/24 21:52 91 H O2 Del Method 07/30/24 07:36 Room Air 07/30/24 02:52 Room Air, CPAP 07/29/24 22:52 Room Air 07/29/24 21:52 Laboratory Results 07/30/24 07/30/24 07/30/24 Range/Units 14:41 03:39 03:39 WBC 9.99 (4.8-10.8) K/ul RBC 2.97 L (4.70-6.10) M/uL Hgb 9.8 L 7.6 L (14.0-18.0) g/dl Hct 28.8 L 22.7 L 22.9 L (42.0-52.0) % MCV 97.0 96.6 (80.0-100.0) fL MCH 33.0 32.5 (25.0-34.0) pg MCHC 34.0 33.6 (32.0-36.0) g/dL RDW Std Deviation 52.9 H 53.2 H (36.4-46.3) fL RDW Coeff of Corbin 15.5 H 15.9 H (11.5-14.5) % Plt Count 193 157 (130-400) K/uL MPV 10.2 10.4 (9.4-12.4) fL Sodium 136 (136-145) mmol/L Potassium 4.3 (3.5-5.1) mmol/L Chloride 106 (98-107) mmol/L Carbon Dioxide 25 (21-32) mmol/L Anion Gap 5 (3-11) BUN 28 H (6-23) mg/dl Creatinine 1.14 (0.6-1.4) mg/dl Est Cr Clr Drug Dosing 46.8 ml/min eGFR 61.86 BUN/Creatinine Ratio 24.6 H (10-20) Glucose 95 (70-99(Fasting)) mg/dl Calcium 8.0 L (8.6-10.3) mg/dl Magnesium 2.0 (1.7-2.4) mg/dl TSH 2.309 (0.300-4.500) uIu/ml Blood Type Antibody Screen Crossmatch 07/30/24 07/30/24 07/29/24 Range/Units 03:39 00:17 18:15 WBC 9.09 9.94 (4.8-10.8) K/ul RBC 2.37 L 2.80 L (4.70-6.10) M/uL Hgb 7.7 L 7.9 L 9.1 L (14.0-18.0) g/dl Hct 23.2 L 27.0 L (42.0-52.0) % MCV 96.4 (80.0-100.0) fL MCH 32.5 (25.0-34.0) pg MCHC 33.7 (32.0-36.0) g/dL RDW Std Deviation 53.6 H (36.4-46.3) fL RDW Coeff of Corbin 15.8 H (11.5-14.5) % Plt Count 174 (130-400) K/uL MPV 9.9 (9.4-12.4) fL Sodium (136-145) mmol/L Potassium (3.5-5.1) mmol/L Chloride (98-107) mmol/L Carbon Dioxide (21-32) mmol/L Anion Gap (3-11) BUN (6-23) mg/dl Creatinine (0.6-1.4) mg/dl Est Cr Clr Drug Dosing ml/min eGFR BUN/Creatinine Ratio (10-20) Glucose (70-99(Fasting)) mg/dl Calcium (8.6-10.3) mg/dl Magnesium (1.7-2.4) mg/dl TSH (0.300-4.500) uIu/ml Blood Type Antibody Screen Crossmatch 07/28/24 Range/Units 11:27 WBC (4.8-10.8) K/ul RBC (4.70-6.10) M/uL Hgb (14.0-18.0) g/dl Hct (42.0-52.0) % MCV (80.0-100.0) fL MCH (25.0-34.0) pg MCHC (32.0-36.0) g/dL RDW Std Deviation (36.4-46.3) fL RDW Coeff of Corbin (11.5-14.5) % Plt Count (130-400) K/uL MPV (9.4-12.4) fL Sodium (136-145) mmol/L Potassium (3.5-5.1) mmol/L Chloride (98-107) mmol/L Carbon Dioxide (21-32) mmol/L Anion Gap (3-11) BUN (6-23) mg/dl Creatinine (0.6-1.4) mg/dl Est Cr Clr Drug Dosing ml/min eGFR BUN/Creatinine Ratio (10-20) Glucose (70-99(Fasting)) mg/dl Calcium (8.6-10.3) mg/dl Magnesium (1.7-2.4) mg/dl TSH (0.300-4.500) uIu/ml Blood Type A Positive Antibody Screen NEGATIVE Crossmatch See Detail PG Care Time/CCT Total # of Minutes Spent Total Time Spent with Patient: Total time spent is greater than 50% in coordination of care (as documented) at patient's floor/unit and/or counseling patient: Prolonged Care Time Prolonged Care Time: Yes additional 30 minutes spent directly in room with patient/son at bedside for extensive questions/concerns regarding Mr Green's care above usual time spent. Had also discussed case w/ consultants and specialists regarding case as well as coordination with CM to ensure arranging close f/u at discharge w/ our group given concerns regarding shortage off staffing/hiring and recruitment and putting concerns at ease regarding ability of our group to arrange follow up care. Coding Level of Care Code 18306 SUB INP/OBS CARE 3/50MIN (25 - SIGNIFICANT, SEPARATELY IDENTIFIABLE ) Diagnoses Acute GI bleeding K92.2 Acute blood loss anemia D62 Chronic heart failure with mildly reduced ejection fraction (HFmrEF, 41-49%) I50.22 Sleep apnea G47.30 Atrial fibrillation I48.91 Fall W19.XXXA Contusion of elbow, right S50.01XA Contusion of hip, right S70.01XA CHI (closed head injury) S09.90XA Additional Codes Prolonged Care Time - Prolonged Care Time: Yes ([id number])
[2024-07-30] MEDS: ACETAMINOPHEN 500 MG TAB PO PRN (08:06)
--- NOTE | 2024-07-30 10:32 | Gastroenterology Progress Note ---
Date of Service July 30, 2024 Assessment & Plan (1) Acute blood loss anemia: Plan: 89 year old male with history of CAD S/P Coronary angiography, Left Heart Cath, Right Heart Cath, LV Angiography and Bypass Graft Angiography on 11/30/[address] Mcneill, HFrEF (LVEF of 40-45%, mod aortic stenosis, mod mitral regurg), emphysema, HTN, hyperlipidemia, prostate cancer (follows with Urology), sigmoid colectomy secondary to diverticulitis and others below presenting to the ED following a fall, melena. 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 HGB downtrending overnight but no report of bowel movements or active bleeding. Trend H&H. Transfuse PRN per primary team. Monitor and document GI output. Diet as tolerated. PO PPI. May resume AC in 48 hours if hemodynamically stable and AC is required. GI will sign off. Thank you for allowing us to participate in the care of this patient. Please call with any acute changes, questions or concerns. Please see addendum below with additional recommendation from my supervising physician. Admission and Anticipated Discharge Date Admission Date: July 28, 2024 Subjective Pt was seen and evaluated, chart reviewed. No further BMs since EGD. No abd pain. Tolerating oral intake. Review of Systems Review of Systems: All other findings negative except as noted in HPI. Physical Exam Constitutional: WD/WN, vitals as above Respiratory: normal respiratory effort Cardiovascular: Rate/Rhythm: regular rate and regular rhythm Gastrointestinal (Abdomen): normal bowel sounds, soft, nontender, no hepatosplenomegaly Skin: no rashes, warm and dry Results & Data Results & Data Vital Signs (Past 12 Hours) Vital Signs Temp Pulse Pulse Resp BP BP BP 07/30/24 10:15 98.1 F 85 18 92/55 L 07/30/24 09:45 97.9 F 84 18 92/52 L 07/30/24 09:29 98.4 F 91 H 18 104/64 07/30/24 07:36 97.9 F 88 18 98/58 L 104/67 07/30/24 02:52 97.9 F 86 18 118/72 07/29/24 22:52 98.2 F 94 H 18 99/62 L Pulse Ox O2 Del Method 07/30/24 10:15 93 07/30/24 09:45 95 07/30/24 09:29 93 07/30/24 07:36 96 Room Air 07/30/24 02:52 98 Room Air, CPAP 07/29/24 22:52 91 Room Air Laboratory Results 07/30/24 07/30/24 07/30/24 Range/Units 03:39 03:39 03:39 WBC 9.09 (4.8-10.8) K/ul RBC 2.37 L (4.70-6.10) M/uL Hgb 7.6 L 7.7 L (14.0-18.0) g/dl Hct 22.7 L 22.9 L (42.0-52.0) % MCV 96.6 (80.0-100.0) fL MCH 32.5 (25.0-34.0) pg MCHC 33.6 (32.0-36.0) g/dL RDW Std Deviation 53.2 H (36.4-46.3) fL RDW Coeff of Corbin 15.9 H (11.5-14.5) % Plt Count 157 (130-400) K/uL MPV 10.4 (9.4-12.4) fL Sodium 136 (136-145) mmol/L Potassium 4.3 (3.5-5.1) mmol/L Chloride 106 (98-107) mmol/L Carbon Dioxide 25 (21-32) mmol/L Anion Gap 5 (3-11) BUN 28 H (6-23) mg/dl Creatinine 1.14 (0.6-1.4) mg/dl Est Cr Clr Drug Dosing 46.8 ml/min eGFR 61.86 BUN/Creatinine Ratio 24.6 H (10-20) Glucose 95 (70-99(Fasting)) mg/dl Calcium 8.0 L (8.6-10.3) mg/dl Magnesium 2.0 (1.7-2.4) mg/dl TSH 2.309 (0.300-4.500) uIu/ml Blood Type Antibody Screen Crossmatch 07/30/24 07/29/24 07/29/24 Range/Units 00:17 18:15 12:41 WBC 9.94 (4.8-10.8) K/ul RBC 2.80 L (4.70-6.10) M/uL Hgb 7.9 L 9.1 L 8.0 L (14.0-18.0) g/dl Hct 23.2 L 27.0 L 23.5 L (42.0-52.0) % MCV 96.4 (80.0-100.0) fL MCH 32.5 (25.0-34.0) pg MCHC 33.7 (32.0-36.0) g/dL RDW Std Deviation 53.6 H (36.4-46.3) fL RDW Coeff of Corbin 15.8 H (11.5-14.5) % Plt Count 174 (130-400) K/uL MPV 9.9 (9.4-12.4) fL Sodium (136-145) mmol/L Potassium (3.5-5.1) mmol/L Chloride (98-107) mmol/L Carbon Dioxide (21-32) mmol/L Anion Gap (3-11) BUN (6-23) mg/dl Creatinine (0.6-1.4) mg/dl Est Cr Clr Drug Dosing ml/min eGFR BUN/Creatinine Ratio (10-20) Glucose (70-99(Fasting)) mg/dl Calcium (8.6-10.3) mg/dl Magnesium (1.7-2.4) mg/dl TSH (0.300-4.500) uIu/ml Blood Type Antibody Screen Crossmatch 07/28/24 Range/Units 11:27 WBC (4.8-10.8) K/ul RBC (4.70-6.10) M/uL Hgb (14.0-18.0) g/dl Hct (42.0-52.0) % MCV (80.0-100.0) fL MCH (25.0-34.0) pg MCHC (32.0-36.0) g/dL RDW Std Deviation (36.4-46.3) fL RDW Coeff of Corbin (11.5-14.5) % Plt Count (130-400) K/uL MPV (9.4-12.4) fL Sodium (136-145) mmol/L Potassium (3.5-5.1) mmol/L Chloride (98-107) mmol/L Carbon Dioxide (21-32) mmol/L Anion Gap (3-11) BUN (6-23) mg/dl Creatinine (0.6-1.4) mg/dl Est Cr Clr Drug Dosing ml/min eGFR BUN/Creatinine Ratio (10-20) Glucose (70-99(Fasting)) mg/dl Calcium (8.6-10.3) mg/dl Magnesium (1.7-2.4) mg/dl TSH (0.300-4.500) uIu/ml Blood Type A Positive Antibody Screen NEGATIVE Crossmatch See Detail PG Care Time/CCT Total # of Minutes Spent Total Time Spent with Patient: Total time spent is greater than 50% in coordination of care (as documented) at patient's floor/unit and/or counseling patient: Coding Diagnoses Acute blood loss anemia D62
[2024-07-30] MEDS: FUROSEMIDE INJ 20 MG/2 ML VIAL IV SCH (13:34)
[2024-07-30] MEDS: CALCIUM GLUCONATE 1,000 MG/60 ML BAG IV ONE (13:49)
[2024-07-30 15:11] LABS: Hematocrit (blood only) 28.8 % (42.0-52.0); Hemoglobin 9.8 g/dl (14.0-18.0); Mean Platelet Volume 10.2 fL (9.4-12.4); Platelet Count 193 K/uL (130-400); RDW Coefficient of Variation 15.5 % (11.5-14.5); RDW Standard Deviation 52.9 fL (36.4-46.3); Red Blood Count 2.97 M/uL (4.70-6.10); White Blood Count 9.99 K/ul (4.8-10.8)
[2024-07-30 20:00] VITALS: RESP 18
[2024-07-31 06:35] LABS: Hematocrit (blood only) 26.9 % (42.0-52.0); Hemoglobin 9.1 g/dl (14.0-18.0); Mean Corpuscular Hgb Conc 33.8 g/dL (32.0-36.0); Mean Corpuscular Volume 94.7 fL (80.0-100.0); Platelet Count 174 K/uL (130-400); RDW Coefficient of Variation 15.3 % (11.5-14.5); RDW Standard Deviation 52.2 fL (36.4-46.3); Red Blood Count 2.84 M/uL (4.70-6.10)
[2024-07-31 06:55] LABS: BUN Creatinine Ratio 23.9 (10-20); Creatinine Clr Calc Pharmacy 48.1 ml/min; Magnesium 1.8 mg/dl (1.7-2.4); Potassium 3.8 mmol/L (3.5-5.1)
--- NOTE | 2024-07-31 08:13 | Hospitalist Progress Note ---
Date of Service July 31, 2024 Assessment & Plan (1) Acute GI bleeding: Plan: 89 year old male with atrial fibrillation, coronary artery bypass and chronic HFmrEF who presents to the ER with melena, hx UGI bleed s/p TAVE on aspirin/plavix/eliquis. Reported progressively larger melanic stools throughout the week, chroninc constipation at baseline which takes linzess, reports generally weaker but no dizziness/SOB/CP but had 2 falls at home. On chronic PPI therapy at baseline, possible AVMs of upper GI tract vs small bowel. CTAP on admission w/ wall thickening and inflammation at rectosigmoid, ddx colitis/diverticulitis/malignancy Hgb 6.9 on admission from 11.3 in June. +fecal occult testing GI consulted, Eliquis/aspirin on HOLD Started on protonix gtt, s/2 u PRBC and EGD on 07/[address] Huerta --> EGD noting AVM w/ SIGNIFICANT bleeding on contact c/w potential source for bleeding. 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 If rebleeds, consider video capsul endoscopy. It is possible has other AVM beyond scope (was discussed w/ son 07/29 could have other areas) Hgb had stabilized to 9.1 last evening and suspected aspect of dilution as was on IVF for NPO/EGD Hgb overnight w/ H&H by resident, was 7.6 this morning and systolic BP 90s/cardiac hx and was provided additional 1u PRBC for this morning with Lasix 20mg IV Notable was converted to PPI PO BID last evening 07/29 per GI, has been continued. Carafate per supervising provider Repeat hgb this afternoon reported at 9.8. -Was also provided 1gm Ca Glu given 3rd unit of blood/chelating agent used and rec'd in the past w/ multiple transfusions to prevent bleeding, Ca 8.0 on AM labs Patient has NOT moved bowels since admission, son brought in Linzess and to be sent to pharmacy/resumed and will monitor bowel movements/blood counts. Discussed could have some darkened stools initially with passage of other blood but will plan for pill endoscopy to consider alternative AVMs. Could consider bleeding scan but appears much improved on exam/doesn't examine like active usha dougherty at this time. Diet advanced to FULL LIQUIDS Per GI, recs to continue hold asa/eliquis 48hrs -- patient reporting should be on asa daily by provider who did his TAVR. Discussed risk>benefit w/ active bleeding AVM and GI recs. Extensive update, 30-40 minutes directly at bedside addressing any/all concerns and questions with patient as reports has been seen by multiple providers and not having clear plan however had updated son at bedside 2-3 times while patient at EGD until back in room and was in room to eval post-EGD and inquired if any questions/concerns at that time and did not get impression was unclear at that time but encouraged to let nursing know of any questions/concerns and will be happy to update as needed but have also been in contact with GI provider/OLGA on plan as well as direction for PRBC this morning and discussed will have local GI follow up (See subjective, reported told short staffed in the past, encouraged we will ensure has follow up) Monitoring CBC in AM/sooner if needed for any instability, BP 102/69 this afternoon and monitor to hold entresto this evening but wanting to keep patient on home meds as much as tolerated. AM lasix PO held but was given IV w/ blood and consider resuming in AM pending labs/renal function. 07/31 Hgb 9.1 from 7.6 yesterday morning, stable/better rise than expected w/ additional 1u PRBC BP improved/stable 125/77 this morning, Cr stable 1.13 PPI BID/carafate continued, full liquid diet, will advance today if no issues/pain Mag 1.8, will order 1gm IV to keep closer to 2 w/ afib Weight 75.2kg, was 75.8kg, can resume his usual lasix 20mg PO daily/monitor Last BM 07/30, dry/hard, moderate, no blood reported Possible resume ASA in AM w/ eliquis vs one at a time. ?plavix any safer than aspirin? (2) Acute blood loss anemia: Plan: As above, now s/p 3u PRBC and hgb to 9.8. Monitoring to resume asa in next 48hrs, +/- Eliquis but will monitor for any rebleeding above and timing TBD. 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 Leg exam stable/on room air --Was given Lasix 20mg PO x 1 on 07/29 as scheduled daily however was NPO for above/no IVF which were then added/lasix placed on hold for this morning and given blood as above deferred resuming PO lasix and rather gave one time dose Lasix 20mg IV w/ 3rd unit PRBC Weight this morning on BEDSCALE, will have nursing obtain standing scale when able and will monitor to resume usual daily dosing in AM pending blood counts/renal function. (4) Sleep apnea: Plan: BiPAP HS ordered, wanting to use home machine per RT note, to be brought in (5) Atrial fibrillation: Plan: Paroxysmal following TAVR although EKGs from May and November last year show he was in this rhythm then but is in afib on telemetry, rate controlled and continued on metoprolol. TSH wnl Resumption of Eliquis as outlined pending repeat counts/further bleeding Mag/K replete and will monitor/replace if needed. Aim to keep Mag ~2, K~4 Tele monitoring (6) Fall: Plan: CT head without acute finding, no fracture on hip xray PT/OT consults placed, will order fall precautions to prevent issues. PT rec home heatlh PT as indicated when stable for dc, CM to follow/arrange (7) Contusion of elbow, right: Plan: noted, PT/OT as above, no current issues reported (8) Contusion of hip, right: Plan: no fracture, blood thinners on hold given above and therapy consults as outlined (9) CHI (closed head injury): Plan: as above, CT neg, appears A/O during encounter monitor for issues Plan VTE Prophylaxis - SCDs, chemo proph contraindicated w/ above. Eliquis on HOLD as well as aspirin as outlined. resumption pending course. Dispo: continued inpatient stay, PPI PO BID/carafate, diet adv to FULL liquid. Lengthy update to address all questions/concerns/issues from patient as well as son who did not feel well informed. PT eval rec HH when stable for dc Discharge pending any further bleeding, possible dc next 24-48hr pending course/further discussion w/ patient and family given concerns for ongoing bleeding/transfusion may want to keep overnight once resumped to ensure no i ssues but will ensure that is desired prior to consideration. Admission and Anticipated Discharge Date Admission Date: July 28, 2024 Results & Data Results & Data Vital Signs (Past 12 Hours) Vital Signs Temp Pulse Pulse Resp BP Pulse Ox O2 Del Method 07/31/24 07:43 36.5 C 93 H 18 125/77 96 Room Air 07/31/24 03:05 36.4 C L 103 H 18 114/78 98 CPAP 07/30/24 22:45 Room Air 07/30/24 22:43 36.7 C 89 18 105/64 94 Room Air 07/30/24 21:47 85 PG Care Time/CCT Total # of Minutes Spent Total Time Spent with Patient: Total time spent is greater than 50% in coordination of care (as documented) at patient's floor/unit and/or counseling patient: Coding Diagnoses Acute GI bleeding K92.2 Acute blood loss anemia D62 Chronic heart failure with mildly reduced ejection fraction (HFmrEF, 41-49%) I50.22 Sleep apnea G47.30 Atrial fibrillation I48.91 Fall W19.XXXA Contusion of elbow, right S50.01XA Contusion of hip, right S70.01XA CHI (closed head injury) S09.90XA
[2024-07-31] MEDS: MAGNESIUM SULFATE / D5W 1 GM/100 ML BAG IV ONE (09:08)
[2024-07-31] MEDS: FUROSEMIDE 20 MG TAB PO SCH (09:09)
[2024-07-31 11:17] VITALS: BP 104/65; TEMP 98.1; O2SAT 93
--- NOTE | 2024-07-31 12:08 | Discharge Summary ---
Discharge Summary Date of Service July 31, 2024 Principal Dx & Hospital Course #1 = Principal Diagnosis (1) Acute GI bleedin89 year old male with atrial fibrillation, coronary artery bypass and chronic HFmrEF who presents to the ER with melena, hx UGI bleed s/p TAVE on aspirin/plavix/eliquis. Reported progressively larger melanic stools throughout the week, chronic constipation at baseline which takes linzess, reports generally weaker but no dizziness/SOB/CP but had 2 falls at home. On chronic PPI therapy at baseline, possible AVMs of upper GI tract vs small bowel ddx on admission CTAP on admission w/ wall thickening and inflammation at rectosigmoid, ddx colitis/diverticulitis/malignancy + fecal occult Hgb 6.9, baseline ~11 in June Protonix gtt, carafate provided and GI consulted, Dr Huerta. 2u PRBC provided on admission EGD noting AVM w/ SIGNIFICANT bleeding on contact c/w potential source for bleeding. 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 If rebleeds, consider video capsul endoscopy. It is possible has other AVM beyond scope (was discussed w/ son 07/29 could have other areas) Additional 1u PRBC for hgb <8 provided w/ cardiac hx, moved bowels x 1 following linzess but no further sx/BP stable and resolution in renal function without further dizziness/lightheadedness and PPI converted to PO BID per GI evening of 07/29. Notable also given 1gm Ca Gluconate w/ 3rd unit of blood to prevent increased bleeding, Lasix 20mg IV x 1 Diet advanced clear liquids --> full liquids --> low fiber and tolerated without issue. can advance as tolerated at dc given not admitted for obstruction but rather was just advancing slowly given constipation issues/resolved with his linzess once brought in Hgb stable 9.1 on repeat. Continued on PPI BID at dc Carafate at dc x 2 weeks Eliquis and asa able to resume 48hour from 07/30 per GI, discussed and updated patient as wanting to go today and contacted son Teddy for discussion and was discussed about resuming eliquis and aspirin 08/01 given Tevin wanted to go today and cannot predict any further bleeding from AVMs but if occurs/sx to return sooner. Notable did give 1gm IV magnesium prior to dc off his eliquis/aspirin given afib to keep ~2 but rates under excellent control on monitor and remained on metoprolol Have provided patient with repeat labs in system to be obtained on Friday following resumption in his asa/eliquis to ensure remaining stable on repeat. Case management notified as well prior to dc to arrange for home health services prior to discharge and they responded message received and would be arranged at dc as discussed with son. Also placed consult for navigator and previously discussed for arrange pill endoscopy at discharge on Friday past week. Consult order placed to ensure not getting missed on Friday during follow up. \\ (2) Acute blood loss anemia: As above, 2nd to bleeding AVM tx during EGD. Suspect some aspect of dilution while NPO/IVF provided as well s/p 3u PRBC while inpatient, hgb 9.1 prior to dc and continued PPI BID/carafate as above ASA/eliquis to resume 08/01, repeat labs for 08/02 as outlined to ensure staying stable with resumtpion. 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%): Entresto once daily, lasix 20mg, metoprolol 25mg daily Placed PO on hold while NPO/IVF for EGD, resumed following and 20mg IV x 1 provided with 3rd PRBC w/ stable renal function BUN/Cr 27.1.13 prior to dc and continued daily for volume management No significant leg edema on exam prior to dc and remained on room air/no SOB reported F/u cards at dc (4) Sleep apnea: BiPAP HS ordered, wanting to use home machine per RT note, to be brought in (but doesn't really use) -- should encourage compliance in f/u (5) Atrial fibrillation: Paroxysmal following TAVR although EKGs from May and November last year show he was in this rhythm then but is in afib on telemetry, rate controlled and continued on metoprolol. TSH wnl. Asymptomatic w/ his rhythm and was controlled rates on metoprolol. Additional 1gm IV mag provided prior to dc to keep closer to 2 and eliquis to resume 08/01 as outlined (6) Fall: CT head without acute finding, no fracture on hip xray. Ambulation much improved, no lightheaded/dizziness since tx bleeding AVM/PRBC Fall precautions/therapy evals undertaken and HH services to be arranged at [facility] as conveyed to CM/to be arranged (7) Contusion of elbow, right: noted, PT/OT as above, no current issues reported. f/u PCP if any ongoing issues (8) Contusion of hip, right: no fracture, blood thinners on hold given above and therapy consults as outlined/HH at [facility] arranged (9) CHI (closed head injury): as above, CT neg, appears A/O during encounter without issues. Plan SCDs utilized for DVT proph, chemoproph contraindicated w/ GIB as above PPI BID, carafate at dc, eliquis/asa resumtion as outlined and repeat blood counts friday Return if any worsened bleeding/abd pain/CP/SOB occurs or for any other symptoms at all concerning for patient/family for eval Notes For Next Care Provider Eliquis/aspirin resumed for 08/01 per GI recs, should ensure f/u with pill endoscopy as asked hospital insurance representative to arrange Repeat CBC ordered for 08/02 following resumption to ensure hgb staying stable Monitor for diarrhea on PPI therapy (discussed w/ son TEDDY prior to dc) Would recommend in the future hospitalizations for patient and family to encourage writing down questions and making sure their questions/concerns being addressed by providers as they occur rather than feeling like they are not aware of the plan. Had apologized for any misconceptions/miscommunications that they felt but was disappointed to hear this given I myself did visit room 3 times on 07/28 prior/during/following EGD on day of EGD and updated son in room on EGD findings even before patient back to room while he was waiting and again back to room once returned for eval of patient as well as update to both him and son. Extensive time at bedside 07/30 for update despite being seen in AM by GI and would encourage again to make sure questions being asked as they arise/address issues as they occur to improve outcomes and prevent confusion in the future. Notable patient reported GI providers told him in most recent follow up outpatient they have been short staffed/not enough time to see people/not having openings for patients -- encouraged will be able to get in in follow up (as they were inquiring if all adjustments were being run by Dr Huerta and that he left for [place] and they felt no one would be around if anything happened, assured on-call schedule provider at all times and that I also reach out to specialists daily if not multiple times when needed and discuss entire case w/ my supervising provider) and GI ref for f/u in place and should be with [facility] as previously seeing for continuity. Medication Changes From Visit Eliquis/aspirin on hold another 24 hours Protonix 40mg PO BID Carafate QID x 2 wks Admission HPI Per Admitting Provider Tevin Green is an 89 year old male with atrial fibrillation, coronary artery bypass and chronic HFmrEF who presents to the ER with melena. He started to see black stool on Friday associated with diarrhea. No abdominal pain, nausea, vomiting fever or chills. He reports having progressively larger melanic stools throughout the week. He has chronic constipation for which he takes Linzess daily but reports having to take loperamide yesterday afternoon. He has been generally weaker but no dizziness, shortness of breath or chest pain. He had two falls of which one time he hit his head and right hip and elbow. He denies any pain in those areas when seen. He denies any one sided weakness or change in sensation, change in vision/speech or hearing. He notes a prior remote history of c. diff. Prior history of gastrointestinal bleed status post TAVR in November 2022 He reports taking all his usual morning medications. He is semi-knowledgeable about his medications. However some differences to notes and prescribed medications are metoprolol - he thinks he is taking half a pill since his last cardiology visit however it appears the Lasix rather than the metoprolol was reduced at this visit. He reports taking Eliquis and does not think this was ever stopped although per multiple prior hematology notes he was reportedly not taking this - review of external pharmacy and cardiology notes suspect he is taking this although unclear when it was restarted after his prior GI bleed. he reports no longer taking rosuvastatin although unclear when this was discontinued and it has not been picked up in the last year or appears on his cardiology note therefore this was discontinued off his [facility] EHR. He reports taking the Entresto once a day although it appears to be prescribed twice a day on both his prescription and cardiology note. Admission Exam Per Admitting Provider Constitutional: WD/WN, vitals as above ENMT: external ear and nose normal, oropharynx normal Respiratory: normal respiratory effort, lungs clear to auscultation Cardiovascular: Rate/Rhythm: + tachycardic and + irregularly irregular Heart Sounds: no murmur Gastrointestinal (Abdomen): normal bowel sounds, soft, nontender, no hepatosplenomegaly Skin: no rashes, warm and dry (ecchymosis over right elbow and right hip without painful movement) Neurologic: moves all extremities and awake; not confused Psychiatric: A+Ox3, euthymic affect Discharge Exam General: 89yo male resting in bed, reports feeling well/wanting to go home today/not stay, are breakfast, NAD HEENT: normocephalic, mmm, trachea without deviation Resp: even/unlabored, no tachypnea/cough, no obvious wheezing/crackles, on ROOM AIR CV: irregularly irregular, rates well controlled on monitor 70-80s, no pitting edema/calf tenderness, pulses present on exam GI: +BS throughout, soft/nontender, no guarding/rebound MSK/Neuro: nonfocal, not confused, answering/asking questions appropriately, following command/instruction without issue Psych: AOx3, cooperative with exam Discharge Plan Discharge Items Patient Disposition: Home - Home Health Services Reason For Visit: ACUTE GI BLEED, ACUTE BLOOD LOSS ANEMIA, MELENA Discharge Diagnosis: Acute blood loss anemia/GI bleeding, melena (dark/black stools) Goals: You have been hospitalized for an urgent problem which required surgery. During your stay at [facility] [address], we have made an effort to correct the problem that brought you to the hospital while keeping you as comfortable as possible. Surgery and medications were used to bring your condition under control and your discharge instructions will include directions for any medications you should take after leaving the hospital. Please make sure to follow the advice of your surgeon regarding follow up with the surgeon and with your primary care provider. Activity: Resume your previous activity Non-emergency contact: Primary Care Provider, Document Advisor and Crimping Machine Operator Call non-emergency contact if: you have any medication questions, your symptoms worsen, your pain is not controlled and your pain is concerning for you Follow-up/Referrals: Oscar Olson [Primary Care Provider] - (PLEASE CALL YOUR PRIMARY CARE PROVIDER TO SCHEDULE A HOSPITAL DISCHARGE FOLLOW-UP APPOINTMENT WITHIN 7-10 DAYS. ) Casie Tanner CRNP [Nurse Practitioner] - Nicole Tang CRNP [Nurse Practitioner] - Diet: Heart Healthy Ambulatory Orders: Complete Blood Count no Diff (Timed) Timeframe: [id number] Location: Determined by Patient Ordered By: Florencia Dasilva Attending Provider Instructions: You have been hospitalized for concerns for GI bleeding with dark stools and noted to have a drop in your hemoglobin level to 6.9 on admission with prior levels closer to the 11 range. You were provided IV fluid for blood loss as well as blood transfusions (3 total units) and GI was consulted and Dr Huerta performed an EGD which noted a bleeding "AVM" which stands for arteriovenous malformation and is a condition where blood vessels are abnormally tangled and connect arteries to blood and can be genetic but was noted to have bleeding on contact with one of them and treated with cauterization. He did also note another area AVM but was NOT actively bleeding and did not require treatment, however as discussed they can bleed from time to time and you may have additional ones throughout your GI tract. I have placed a consult referral to ensure having follow up with pill endoscopy to evaluate for other areas but as discussed your eliquis/aspirin was placed on hold and per GI you can resume this in 48 hours from 07/30 which will be tomorrow *08/01* and we cannot predict if will have any rebleeding but if this occurs or if you have any increased shortness of breath/dizziness/chest pain or any other symptoms you should return to the ER. We have placed order for repeat blood count on Friday to ensure these are remaining stable as well following resuming your aspirin and eliquis tomorrow. Your stools should start to lighten up but please monitor for any increased dark/black stools or symptoms as discussed to return to the ER. We are continuing protonix (pantoprazole) twice daily at discharge for at least a month and can have follow up with GI for further discussion if can be backed down to once daily after or if needing lifelong twice daily given ongoing need for aspirin/Eliquis. Carafate was also started by Dr Wiseman to help with lining of GI tract and can be continued for 2 weeks with meals but likely no additional benefit and can be stopped in follow up with primary care if desired. Please follow up with primary care in the next week after discharge to monitor your progress. Please return to the ER with any increased abdominal pain/shortness of breath/blood in stool or for ANY OTHER CONCERNS OR SYMPTOMS concerning for you or unusual for you. Home health has been arranged by case management at discharge as well. It has been a pleasure being a part of the medical team providing for you while you have been in the hospital. Take care! Pending Studies at Discharge: No Stand-Alone Forms: My [facility] [employer], Smoking Cessation Medications and DC Order Prescriptions: New sucralfate 100 mg/mL Suspension 1 g PO QID 14 Days Qty: 560 0RF Continued albuterol sulfate 90 mcg/actuation HFA aerosol inhaler 2 puff inhalation Q4H PRN (Reason: Shortness Of Breath) Qty: 18 5RF Linzess 72 mcg capsule 72 mcg PO DAILY Qty: 30 3RF (DME) BiPap Supplies Misc See Rx Instructions .Route Qty: 1 0RF Rx Instructions: recommend being fitted for a full face mask,tubing, humidification, filters and any other supplies needed for BIPAP -RADHA 99 furosemide 40 mg tablet 20 mg PO QAM Patient Comments: pt state he takes 40mg -- and 20mg all other days of the week. resveratrol 50 mg capsule 50 mg PO BID cholecalciferol (vitamin D3) 1,000 unit (25 mcg) tablet 1,000 unit PO QAM multivitamin Tablet 1 tab PO QAM nitroglycerin 0.4 mg tablet, sublingual 0.4 mg sublingual DIRECTED PRN (Reason: Chest Pain) Rx Instructions: PLACE ONE TABLET UNDER THE TONGUE EVERY 5 MINUTES FOR UP TO 3 DOSES OVER 15 MINUTES IF NEEDED FOR CHEST PAIN docusate sodium 100 mg Capsule 100 mg PO QAM PRN (Reason: Constipation) ezetimibe 10 mg tablet 10 mg PO QAM coQ10 (ubiquinol) 200 mg Capsule 200 mg PO QAM psyllium Packet 1 packet PO QAM metoprolol succinate 25 mg tablet extended release 24 hr 25 mg PO QAM melatonin 3 mg Tablet 3 mg PO HS PRN (Reason: Insomnia) nortriptyline 25 mg capsule 25 mg PO HS ranolazine 500 mg tablet extended release 12 hr 500 mg PO BID sacubitril-valsartan [Entresto] 24-26 mg tablet 1 tab PO HS Restasis MultiDose 0.05 % drops Restasis MultiDose 0.05 % drops 1 drp OPB BID Trelegy Ellipta 100-62.5-25 mcg blister with device 1 inh INH QAM Changed pantoprazole 40 mg tablet,delayed release (DR/EC) 40 mg PO BID Qty: 60 0RF Held aspirin [Adult Aspirin Regimen] 81 mg tablet,delayed release (DR/EC) 81 mg PO DAILY Hold Instructions: Resume on 08/01/24. Eliquis 2.5 mg tablet 2.5 mg PO BID Hold Instructions: Resume on 08/01/24. Discharge Orders: Discharge Order (Routine); Ordered 07/31/24 Ordered By: Florencia Duong/Other Patient Handouts: GI Bleeding Causes and Tests, Anemia, Fall Prevention Assessing Risk Admission Data Admit Date/Time: 07/28/24 13:51 Attending Provider: Todd Wiseman Admit Provider: Duc Hitchcock Primary Care Provider: Oscar Olson Other Providers: Duc Hitchcock; Pasha Huerta; [facility],Home Healthcare Other Interventions: Discharge Summary Assessment (RN) Last Done: 07/31/24 12:56 Hospital Stay Data Consultations 07/28/24 13:32 ED Decision to Admit Stat 07/28/24 13:44 Consult Gastroenterology Routine Procedures Performed Operation Date: 07/29/24 17:10 Actual Procedures p EGD Hemostasis - Pasha Huerta MD Diagnostic Imagining Performed Abdomen/Pelvis CT 07/28/24 11:[address] WITH IV CONTRAST CT DOSE: 1667 HISTORY: upper gi bleed, hypotensive TECHNIQUE: Multiaxial CT images of the abdomen and pelvis were performed following the IV administration of 90 cc of Optiray, A dose lowering technique was utilized adhering to the principles of ALARA. COMPARISON STUDY: 01/22/2021 FINDINGS: Stable small nodule lateral left lung base. ABDOMEN: There is a gallstone without evidence of acute cholecystitis. Otherwise the liver, spleen, pancreas, and adrenal glands are unremarkable. Kidneys show no hydronephrosis or calculi. There is a small left parapelvic renal cyst. There are scattered atherosclerotic calcifications. Aortobiiliac endograft is present. Infrarenal abdominal aortic aneurysm measures 3.4 cm greatest AP dimension, stable. Pelvis: Stable prostatectomy. Urinary bladder is nondistended. There is mild sigmoid diverticulosis. There is diffuse wall thickening at the rectosigmoid with minimal adjacent inflammation. There is moderate retained stool. No other bowel inflammation or obstruction seen. No free fluid, free air, or abscess. No enlarged adenopathy. Osseous structures: There is lumbar degenerative disc disease. IMPRESSION: 1. Wall thickening and inflammation at the rectosigmoid. Differential diagnosis includes colitis, diverticulitis, and malignancy. 2. No other acute findings seen. ACT 112: Negative or not required by law. The above report was generated using voice recognition software. It may contain grammatical, syntax or spelling errors. Electronically signed by: Adis Wilson M.D. 07/28/2024 12:48 PM Chest X-Ray 07/28/24 11:16 XR chest 1V portable CLINICAL HISTORY: gi bleed, weakness COMPARISON STUDY: 07/03/2022 FINDINGS: There is prior cardiac valve repair. There is mild cardiomegaly without pulmonary vascular congestion. No effusion, consolidation, or pneumothorax. IMPRESSION: No acute findings. ACT 112: Negative or not required by law. Electronically signed by: Adis Wilson M.D. 07/28/2024 11:[address] 07/28/24 11:18 CT head/brain wo con CLINICAL HISTORY: fall. TECHNIQUE: Multiple axial CT images of the head were obtained without contrast. A dose lowering technique was utilized adhering to the principles of ALARA. CT DOSE: 1667. mGy.cm COMPARISON: 02/23/2021 FINDINGS: There is stable mild prominence of the ventricles out of proportion to sulci which could represent cerebral atrophy or mild normal pressure hydrocephalus. No intracranial hemorrhage seen. No mass effect or midline shift. There is severe patchy periventricular hypodensity which is nonspecific, but usually represents chronic small vessel ischemic changes. No skull fracture seen. There is mucosal thickening and layering fluid in the right maxillary sinus consistent with sinusitis. No mastoid effusion. IMPRESSION: 1. No acute intracranial abnormality. 2. Right maxillary sinusitis. ACT 112: Negative or not required by law. The above report was generated using voice recognition software. It may contain grammatical, syntax or spelling errors. Electronically signed by: Adis Wilson M.D. 07/28/2024 12:41 PM Hip/Pelvis X-Ray 07/28/24 11:18 XR hip RT 2V w pelvis CLINICAL HISTORY: fall COMPARISON: CT of the abdomen and pelvis January 22, 2021. FINDINGS: Surgical clips from prostatectomy and bifurcated aortoiliac stent graft are incidentally noted. There is extensive vascular calcification. There are no fractures within the pelvis or hips. 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 IMPRESSION: No fractures within the pelvis or hips. ACT 112: Negative or not required by law. Electronically signed by: Jona Guzmán M.D. 07/28/2024 11:55 AM Discharge Instructions Given to Patient (Per Discharging Provider) You have been hospitalized for concerns for GI bleeding with dark stools and noted to have a drop in your hemoglobin level to 6.9 on admission with prior levels closer to the 11 range. You were provided IV fluid for blood loss as well as blood transfusions (3 total units) and GI was consulted and Dr Huerta performed an EGD which noted a bleeding "AVM" which stands for arteriovenous malformation and is a condition where blood vessels are abnormally tangled and connect arteries to blood and can be genetic but was noted to have bleeding on contact with one of them and treated with cauterization. He did also note another area AVM but was NOT actively bleeding and did not require treatment, however as discussed they can bleed from time to time and you may have additional ones throughout your GI tract. I have placed a consult referral to ensure having follow up with pill endoscopy to evaluate for other areas but as discussed your eliquis/aspirin was placed on hold and per GI you can resume this in 48 hours from 07/30 which will b e tomorrow *08/01* and we cannot predict if will have any rebleeding but if this occurs or if you have any increased shortness of breath/dizziness/chest pain or any other symptoms you should return to the ER. We have placed order for repeat blood count on Friday to ensure these are remaining stable as well following resuming your aspirin and eliquis tomorrow. Your stools should start to lighten up but please monitor for any increased dark/black stools or symptoms as discussed to return to the ER. We are continuing protonix (pantoprazole) twice daily at discharge for at least a month and can have follow up with GI for further discussion if can be backed down to once daily after or if needing lifelong twice daily given ongoing need for aspirin/Eliquis. Carafate was also started by Dr Wiseman to help with lining of GI tract and can be continued for 2 weeks with meals but likely no additional benefit and can be stopped in follow up with primary care if desired. Please follow up with primary care in the next week after discharge to monitor your progress. Please return to the ER with any increased abdominal pain/shortness of breath/blood in stool or for ANY OTHER CONCERNS OR SYMPTOMS concerning for you or unusual for you. Home health has been arranged by case management at discharge as well. It has been a pleasure being a part of the medical team providing for you while you have been in the hospital. Take care! Supervising Physician Co-Signing Physician Notes The patient was not seen by me. The chart was reviewed. Case discussed with JENNIFER Victoria. Agree with assessment and plan Total Time Total Time Spent Total Time Spent (In Minutes): 60 Coding Level of Care Code 31369 INP/OBS DISCH >30 MIN Diagnoses Acute GI bleeding K92.2 Acute blood loss anemia D62 Chronic heart failure with mildly reduced ejection fraction (HFmrEF, 41-49%) I50.22 Sleep apnea G47.30 Atrial fibrillation I48.91 Fall W19.XXXA Contusion of elbow, right S50.01XA Contusion of hip, right S70.01XA [facility] (closed head [id number]
[2024-07-31 14:24] VITALS: PULSE 90
== END 2024-07-31 14:24 | disposition home health service (06) | DRG 378 ==
LOC: ED 11:03 → EDINP 13:51 → SUATTDRO 13:51 → EDINP 15:09 → 2W 15:09

== ENCOUNTER 2025-06-12 20:09 | Observation (INO) ==
--- NOTE | 2025-06-12 20:42 | Emergency Department Note ---
Impression & Plan Acute hypoxic respiratory failure, Acute exacerbation of chronic obstructive pulmonary disease, Shortness of breath ED Provider Note NAME: GIFTY REECE AGE: 89 SEX: M : 1935 ARRIVES VIA: Walk-In INFORMANT: Patient ED PROVIDER(S): Stanley Madison DO CHIEF COMPLAINT: Shortness of breath and hypoxia HPI: Patient is an 89-year-old male who presents to the ER with a past medical history of heart failure, anemia, chest pain, asthma, who presents ER for shortness of breath. Symptoms started 3 to 4 days ago admits to cough and congestion and runny nose. He notes that today feels significantly more short of breath. He notes he can barely move today without becoming significantly short of breath. He denies any belly pain, nausea vomiting or diarrhea. No dysuria, urgency or frequency. No other exacerbating or remitting factors. ADDITIONAL HISTORY OBTAINED: Per HPI Chronic Medical/Social Conditions Affecting Care: Per HPI PAST MEDICAL HISTORY:See Below PAST SURGICAL HISTORY:See Below FAMILY HISTORY:See Below SOCIAL HISTORY:See Below HOME MEDICATIONS:See Below ALLERGIES:See Below VITALS:See Below PHYSICAL EXAMINATION: GENERAL: Sitting up in bed, alert, ill appearing, cachectic EYE EXAM: normal conjunctiva. PERRL and EOM's grossly intact. OROPHARYNX: no exudate, no erythema, lips, buccal mucosa, and tongue normal and mucous membranes are moist NECK: supple, no nuchal rigidity, no adenopathy, non-tender LUNGS: Diffuse wheezing bilaterally. normal chest wall mechanics HEART: no murmurs, S1 normal and S2 normal ABDOMEN: abdomen soft, non-tender, normo-active bowel sounds, no masses, no rebound or guarding. UPPER EXTREMITIES: upper extremities are grossly normal. LOWER EXTREMITIES: No pitting edema. NEURO EXAM: Normal sensorium, cranial nerves II-XII grossly intact, normal speech, no gross weakness of arms, no gross weakness of legs. MEDICAL DECISION MAKING: Patient is an 89-year-old male who presents to the ER for above-stated complaint. IV was established and blood work is obtained. Labs show no significant leukocytosis. Mild anemia 12.8. BMP with a creatinine of 1.6. LFTs bilirubin was unremarkable. Troponin mildly elevated 27. Lipase normal. COVID flu and RSV was negative. Chest x-ray with subtle opacities worse on the right. Patient was given IV Rocephin and IV azithromycin upon arrival initially in combination with an hour-long neb treatment and was placed on 2 L nasal cannula. He was given IV steroids. Symptoms did improve. Case was discussed with the hospitalist for further evaluation management treatment. Consults/Care Managements Discussions: Per [facility] Triage Nursing notes reviewed. Limited review of prior medical records performed Vital Signs: reviewed and remarkable for no significant abnormalities Differential diagnosis: Differential diagnoses includes but is not limited to pneumonia, bronchitis, COPD/Asthma exacerbation, pneumothorax, pulmonary embolism, congestive heart failure, acute coronary syndrome ER treatment provided: See below Diagnostics interpreted by me include EKG and cardiac monitoring as listed below: -Cardiac Monitoring: An order was placed for continuous cardiac monitoring. The monitor shows a rate of 90 with sinus rhythm. -ECG: A-fib rate 85 Normal axis Right bundle branch block QTc 502 -Laboratory studies:Interpreted by me as stated above in MDM and shown below. Imaging studies: Xrays: As interpreted by me: Portable AP upright 1 view of the chest shows lower lobe opacities bilaterally CTs show: none Procedures:none Critical Care: I have personally spent 33 minutes of critical care time in the direct management of this patient. This includes bedside care, interpretation of diagnostic studies, and testing, discussion with consultants, patient, and family members, and other required patient management activities. This 33 minutes is in excess of all separately billable procedures. Past Med/Surg History Problem List (Updated 06/13/25 @ 00:34 by Stanley Madison DO) Shortness of breath (Acute) Acute exacerbation of chronic obstructive pulmonary disease (Acute) Acute hypoxic respiratory failure (Acute) Bilateral lower lobe pneumonia COPD exacerbation Acute kidney injury superimposed on CKD Orbital floor (blow-out) closed fracture Facial trauma Chronic heart failure with mildly reduced ejection fraction (HFmrEF, 41-49%) Acute blood loss anemia Acute GI bleeding Contusion of elbow, right (Acute) Contusion of hip, right (Acute) CHI (closed head injury) (Acute) Fall (Acute) Acute upper gastrointestinal bleeding (Acute) Chronic kidney disease with active medical management without dialysis, stage 3 (moderate) Chronic constipation Sleep apnea BIPAP Atrial fibrillation Melena Thoracic ascending aortic aneurysm Acute systolic CHF (congestive heart failure) Anemia Cognitive impairment Prostate cancer Leukocytosis Chest pain Asthma Chronic obstructive pulmonary disease Male erectile disorder of organic origin Testicular pain Arthritis Arthritis Medical History Pulmonary hypertension Knee pain HFrEF (heart failure with reduced ejection fraction) Acute respiratory failure with hypoxia Hyponatremia Non-ST elevation VT (NSTEMI) Weakness of both hands H/O: stroke Encounter for pre-operative examination Change in bowel habits Change in stool caliber Constipation Change in bowel habits Inguinal pain Right leg pain Postop carotid endarterectomy surveillance, encounter for Aortic stenosis CAD (coronary artery disease) History of prostate cancer Carotid stenosis Myocardial Infarction Hyperlipidemia Ischemic stroke of frontal lobe Elevated BUN HTN (hypertension) Acute CVA (cerebrovascular accident) Acute CVA (cerebrovascular accident) Hearing loss Vertigo Mild cognitive impairment Stable angina pectoris Mitral valve insufficiency Aortic stenosis Sciatica Pneumothorax after biopsy Encounter for pre-operative examination Abdominal aortic aneurysm DDD (degenerative disc disease) Osteoarthritis Hypertension Sleep apnea Aneurysm of abdominal aorta Anginal pain DDD (degenerative disc disease) Diverticulitis Diverticulosis Dyspnea Edema Generalized osteoarthritis of multiple sites Left groin pain Hyperlipidemia Hypertension Ischemic cardiomyopathy long-term current use of systemic steroids Low back pain Mineral deficiency Mitral regurgitation Muscle weakness Obstructive sleep apnea Polymyalgia rheumatica Pulmonary nodules Vitamin D deficiency Myocardial infarction Emphysema lung Rigors Fever Myocardial infarction Emphysema, unspecified Surgical History (Reviewed 04/25/25 @ 00 by Timothy Ybarra MD) History of carotid endarterectomy History of herniorrhaphy History of tonsillectomy and adenoidectomy H/O vascular surgery Status post abdominal aortic aneurysm (AAA) repair S/P bronchoscopy with biopsy Difficult intubation History of arthroscopy History of trigger finger History of meniscectomy of left knee History of colonoscopy History of partial colectomy History of tooth extraction History of cardiac cath History of quadruple bypass H/O prostatectomy Family History (Reviewed 04/25/25 @ :00 by Timothy Ybarra MD) Father Alzheimer disease Heart disease Brother Back problem Grandmother (Paternal) Dementia Mother No problems noted. 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 Former [employer] Feels Safe at Home: Yes Diet: regular caffeine: Yes (1 cup daily) Physical Activity Frequency: Does not Exercise Seatbelt Use: always Do you think of yourself as: straight/heterosexual Gender Identity: Male Assistive Devices: BiPap, Cane, Hearing Aid - Bilateral and Walker Allergies Allergies Allergy/AdvReac Type Severity Reaction Status Date / Time naproxen [From Naprosyn] Allergy Severe Anaphylaxis Verified 06/12/25 21:19 NSAIDS (Non-Steroidal Allergy Severe Anaphylaxis Verified 06/12/25 21:19 Anti-Inflamma [id number] Reductase AdvReac Unknown CAN'T Verified 06/12/25 21:19 Inhibitor REMEMBER Home Meds Home Medications Medication Instructions Recorded Confirmed coQ10 (ubiquinol) 200 mg capsule 200 mg PO QAM 10/07/18 06/12/25 docusate sodium 100 mg capsule 100 mg PO QAM PRN Constipation 10/07/18 06/12/25 ezetimibe 10 mg tablet 10 mg PO QAM 10/07/18 06/12/25 multivitamin 1 tab PO QAM 10/07/18 06/12/25 nitroglycerin 0.4 mg sublingual 0.4 mg sublingual DIRECTED PRN 10/07/18 06/12/25 tablet Chest Pain cholecalciferol (vitamin D3) 25 1,000 unit PO QAM 02/15/19 06/12/25 mcg (1,000 unit) tablet resveratrol 50 mg capsule 50 mg PO BID 02/15/19 06/12/25 aspirin 81 mg tablet,delayed 81 mg PO DAILY 11/04/22 06/12/25 release (Adult Aspirin Regimen) furosemide 40 mg tablet 20 mg PO Q OTHER DAY 09/16/23 06/12/25 apixaban 2.5 mg tablet (Eliquis) 2.5 mg PO BID 07/28/24 06/12/25 cyclosporine 0.05 % eye drops 1 drp OPB BID 07/28/24 06/12/25 (Restasis MultiDose) melatonin 3 mg tablet 3 mg PO HS PRN Insomnia 07/28/24 06/12/25 nortriptyline 25 mg capsule 25 mg PO HS 07/28/24 06/12/25 ranolazine 500 mg tablet,extended 500 mg PO BID 07/28/24 06/12/25 release,12 hr sacubitril 24 mg-valsartan 26 mg 1 tab PO HS 07/28/24 06/12/25 tablet (Entresto) Previous Rx's Medication Instructions Recorded albuterol sulfate 90 mcg/actuation 2 puff inhalation Q4H PRN 12/26/20 aerosol inhaler Shortness Of Breath #18 grams BiPap Supplies #1 ea 05/04/24 pantoprazole 40 mg tablet,delayed 40 mg PO BID #60 tabs 09/27/24 release lactulose 10 gram/15 mL oral 20 g (30 mL) PO BID PRN 04/10/25 solution constipation #1,200 mL fluticasone fur. 100 mcg-umeclid 1 inh inhalation QAM #60 ea 04/22/25 62.5 mcg-vilant 25 mcg inhalat.powder (Trelegy Ellipta) Results & Data (ED) Vital Signs Vital Signs - 24 hr 06/12/25 20:13 06/12/25 20:30 06/12/25 20:30 Temperature 36.2 C L Temperature Source Temporal Artery Scan Pulse Rate 85 90 89 Pulse Rate [Apical] Pulse Rate from SpO2 Sensor 87 Pulse Rhythm Regular Pulse Strength Normal Respiratory Rate 18 28 H Respiratory Effort / Characteristics Non-Labored Spontaneous Respiratory Depth Normal Respiratory Pattern Regular Blood Pressure Blood Pressure [Left Arm] Blood Pressure Mean Blood Pressure Mean [Left Arm] Pulse Oximetry 95 90 Oxygen Delivery Method Room Air Oxygen Flow Rate Sepsis Recent Fever Within 48 Hours No Sepsis New/Unexplained Change in Mental Status N/A Sepsis Action Taken by Nursing No Action Required 06/12/25 20:31 06/12/25 20:31 06/12/25 20:31 Temperature Temperature Source Pulse Rate Pulse Rate [Apical] Pulse Rate from SpO2 Sensor Pulse Rhythm Pulse Strength Respiratory Rate Respiratory Effort / Characteristics Respiratory Depth Respiratory Pattern Blood Pressure 99/62 L 99/62 L 99/62 L Blood Pressure [Left Arm] Blood Pressure Mean 88 88 88 Blood Pressure Mean [Left Arm] Pulse Oximetry Oxygen Delivery Method Oxygen Flow Rate Sepsis Recent Fever Within 48 Hours Sepsis New/Unexplained Change in Mental Status Sepsis Action Taken by Nursing 06/12/25 20:31 06/12/25 20:31 06/12/25 20:42 Temperature Temperature Source Pulse Rate 85 Pulse Rate [Apical] Pulse Rate from SpO2 Sensor Pulse Rhythm Pulse Strength Respiratory Rate 35 H Respiratory Effort / Characteristics Respiratory Depth Respiratory Pattern Blood Pressure 99/62 L 99/62 L Blood Pressure [Left Arm] Blood Pressure Mean 88 88 Blood Pressure Mean [Left Arm] Pulse Oximetry Oxygen Delivery Method Oxygen Flow Rate Sepsis Recent Fever Within 48 Hours Sepsis New/Unexplained Change in Mental Status Sepsis Action Taken by Nursing 06/12/25 20:51 06/12/25 20:54 06/12/25 20:56 Temperature Temperature Source Pulse Rate 84 88 Pulse Rate [Apical] Pulse Rate from SpO2 Sensor 89 90 Pulse Rhythm Pulse Strength Respiratory Rate 27 H 19 Respiratory Effort / Characteristics Respiratory Depth Respiratory Pattern Blood Pressure 107/66 Blood Pressure [Left Arm] Blood Pressure Mean 91 Blood Pressure Mean [Left Arm] Pulse Oximetry 100 Oxygen Delivery Method Oxygen Flow Rate Sepsis Recent Fever Within 48 Hours Sepsis New/Unexplained Change in Mental Status Sepsis Action Taken by Nursing 06/12/25 20:56 06/12/25 20:56 06/12/25 20:56 Temperature Temperature Source Pulse Rate Pulse Rate [Apical] Pulse Rate from SpO2 Sensor Pulse Rhythm Pulse Strength Respiratory Rate Respiratory Effort / Characteristics Respiratory Depth Respiratory Pattern Blood Pressure 107/66 107/66 107/66 Blood Pressure [Left Arm] Blood Pressure Mean 91 91 91 Blood Pressure Mean [Left Arm] Pulse Oximetry Oxygen Delivery Method Oxygen Flow Rate Sepsis Recent Fever Within 48 Hours Sepsis New/Unexplained Change in Mental Status Sepsis Action Taken by Nursing 06/12/25 21:00 06/12/25 21:00 06/12/25 21:00 Temperature Temperature Source Pulse Rate Pulse Rate [Apical] Pulse Rate from SpO2 Sensor Pulse Rhythm Pulse Strength Respiratory Rate Respiratory Effort / Characteristics Respiratory Depth Respiratory Pattern Blood Pressure 108/74 108/74 108/74 Blood Pressure [Left Arm] Blood Pressure Mean 86 86 86 Blood Pressure Mean [Left Arm] Pulse Oximetry Oxygen Delivery Method Oxygen Flow Rate Sepsis Recent Fever Within 48 Hours Sepsis New/Unexplained Change in Mental Status Sepsis Action Taken by Nursing 06/12/25 21:00 06/12/25 21:00 06/12/25 21:00 Temperature Temperature Source Pulse Rate 83 Pulse Rate [Apical] Pulse Rate from SpO2 Sensor 85 Pulse Rhythm Pulse Strength Respiratory Rate 20 Respiratory Effort / Characteristics Respiratory Depth Respiratory Pattern Blood Pressure 108/74 108/74 Blood Pressure [Left Arm] Blood Pressure Mean 86 86 Blood Pressure Mean [Left Arm] Pulse Oximetry 100 Oxygen Delivery Method Oxygen Flow Rate Sepsis Recent Fever Within 48 Hours Sepsis New/Unexplained Change in Mental Status Sepsis Action Taken by Nursing 06/12/25 21:12 06/12/25 21:21 06/12/25 21:30 Temperature Temperature Source Pulse Rate 79 91 H 79 Pulse Rate [Apical] Pulse Rate from SpO2 Sensor 83 87 83 Pulse Rhythm Pulse Strength Respiratory Rate 20 19 17 Respiratory Effort / Characteristics Respiratory Depth Respiratory Pattern Blood Pressure Blood Pressure [Left Arm] Blood Pressure Mean Blood Pressure Mean [Left Arm] Pulse Oximetry 100 96 91 Oxygen Delivery Method Oxygen Flow Rate Sepsis Recent Fever Within 48 Hours Sepsis New/Unexplained Change in Mental Status Sepsis Action Taken by Nursing 06/12/25 21:31 06/12/25 21:31 06/12/25 21:31 Temperature Temperature Source Pulse Rate Pulse Rate [Apical] Pulse Rate from SpO2 Sensor Pulse Rhythm Pulse Strength Respiratory Rate Respiratory Effort / Characteristics Respiratory Depth Respiratory Pattern Blood Pressure 109/77 109/77 109/77 Blood Pressure [Left Arm] Blood Pressure Mean 93 93 93 Blood Pressure Mean [Left Arm] Pulse Oximetry Oxygen Delivery Method Oxygen Flow Rate Sepsis Recent Fever Within 48 Hours Sepsis New/Unexplained Change in Mental Status Sepsis Action Taken by Nursing 06/12/25 21:31 06/12/25 21:31 06/12/25 21:42 Temperature Temperature Source Pulse Rate 100 H Pulse Rate [Apical] Pulse Rate from SpO2 Sensor 94 H Pulse Rhythm Pulse Strength Respiratory Rate 18 Respiratory Effort / Characteristics Respiratory Depth Respiratory Pattern Blood Pressure 109/77 109/77 Blood Pressure [Left Arm] Blood Pressure Mean 93 93 Blood Pressure Mean [Left Arm] Pulse Oximetry 92 Oxygen Delivery Method Oxygen Flow Rate Sepsis Recent Fever Within 48 Hours Sepsis New/Unexplained Change in Mental Status Sepsis Action Taken by Nursing 06/12/25 21:51 06/12/25 22:00 06/12/25 22:00 Temperature Temperature Source Pulse Rate 85 Pulse Rate [Apical] Pulse Rate from SpO2 Sensor 92 H Pulse Rhythm Pulse Strength Respiratory Rate 17 Respiratory Effort / Characteristics Respiratory Depth Respiratory Pattern Blood Pressure 116/84 116/84 Blood Pressure [Left Arm] Blood Pressure Mean 90 90 Blood Pressure Mean [Left Arm] Pulse Oximetry 92 Oxygen Delivery Method Oxygen Flow Rate Sepsis Recent Fever Within 48 Hours Sepsis New/Unexplained Change in Mental Status Sepsis Action Taken by Nursing 06/12/25 22:00 06/12/25 22:00 06/12/25 22:00 Temperature Temperature Source Pulse Rate Pulse Rate [Apical] Pulse Rate from SpO2 Sensor Pulse Rhythm Pulse Strength Respiratory Rate Respiratory Effort / Characteristics Respiratory Depth Respiratory Pattern Blood Pressure 116/84 116/84 116/84 Blood Pressure [Left Arm] Blood Pressure Mean 90 90 90 Blood Pressure Mean [Left Arm] Pulse Oximetry Oxygen Delivery Method Oxygen Flow Rate Sepsis Recent Fever Within 48 Hours Sepsis New/Unexplained Change in Mental Status Sepsis Action Taken by Nursing 06/12/25 22:00 06/12/25 22:09 06/12/25 22:09 Temperature Temperature Source Pulse Rate 95 H Pulse Rate [Apical] Pulse Rate from SpO2 Sensor 97 H Pulse Rhythm Pulse Strength Respiratory Rate 23 Respiratory Effort / Characteristics Non-Labored Respiratory Depth Normal Respiratory Pattern Blood Pressure Blood Pressure [Left Arm] Blood Pressure Mean Blood Pressure Mean [Left Arm] Pulse Oximetry 93 Oxygen Delivery Method Room Air Oxygen Flow Rate Sepsis Recent Fever Within 48 Hours Sepsis New/Unexplained Change in Mental Status Sepsis Action Taken by Nursing 06/12/25 22:12 06/12/25 23:00 06/12/25 23:30 Temperature Temperature Source Pulse Rate 93 H Pulse Rate [Apical] 93 H 95 H Pulse Rate from SpO2 Sensor 95 H Pulse Rhythm Pulse Strength Respiratory Rate 23 20 20 Respiratory Effort / Characteristics Respiratory Depth Respiratory Pattern Blood Pressure Blood Pressure [Left Arm] 110/75 106/80 Blood Pressure Mean Blood Pressure Mean [Left Arm] 86 88 Pulse Oximetry 93 94 96 Oxygen Delivery Method Nasal Cannula Nasal Cannula Oxygen Flow Rate 2 2 Sepsis Recent Fever Within 48 Hours Sepsis New/Unexplained Change in Mental Status Sepsis Action Taken by Nursing 06/13/25 00:00 06/13/25 00:15 Temperature Temperature Source Pulse Rate 94 H Pulse Rate [Apical] 97 H Pulse Rate from SpO2 Sensor Pulse Rhythm Pulse Strength Respiratory Rate 20 Respiratory Effort / Characteristics Respiratory Depth Respiratory Pattern Blood Pressure Blood Pressure [Left Arm] 109/79 Blood Pressure Mean Blood Pressure Mean [Left Arm] 89 Pulse Oximetry 97 Oxygen Delivery Method Nasal Cannula Oxygen Flow Rate 2 Sepsis Recent Fever Within 48 Hours Sepsis New/Unexplained Change in Mental Status Sepsis Action Taken by Nursing Laboratory Data 06/12/25 20:30 06/12/25 20:30 Lab Results 06/12/25 06/12/25 06/12/25 Range/Units 20:30 22:43 23:05 WBC 7.78 (4.8-10.8) K/ul RBC 4.07 L (4.70-6.10) M/uL Hgb 12.8 L (14.0-18.0) g/dL Hct 37.4 L (42.0-52.0) % MCV 91.9 (80.0-100.0) fL MCH 31.4 (25.0-34.0) pg MCHC 34.2 (32.0-36.0) g/dL RDW Std Deviation 45.1 (36.4-46.3) fL RDW Coeff of [place]bin 13.3 (11.5-14.5) % Plt Count 283 (130-400) K/uL MPV 10.0 (9.4-12.4) fL Immature Gran % (Auto) 0.5 % Neut % (Auto) 71.1 % Lymph % (Auto) 15.2 % Piatt % (Auto) 9.8 % Eos % (Auto) 2.8 % Baso % (Auto) 0.6 % Neut # (Auto) 5.53 (1.40-6.50) K/uL Lymph # (Auto) 1.18 L (1.20-3.40) K/uL Piatt # (Auto) 0.76 H (0.11-0.59) K/uL Eos # (Auto) 0.22 (0.00-0.50) K/uL Baso # (Auto) 0.05 (0.00-0.20) K/uL Immature Gran # (Auto) 0.04 (0.01-0.20) K/uL Sodium 134 L (136-145) mmol/L Potassium 4.2 (3.5-5.1) mmol/L Chloride 99 (98-107) mmol/L Carbon Dioxide 27 (21-32) mmol/L Anion Gap 8 (3-11) BUN 46 H (6-23) mg/dl Creatinine 1.60 H (0.6-1.4) mg/dl Est Cr Clr Drug Dosing 25.4 ml/min eGFR 40.93 BUN/Creatinine Ratio 28.8 H (10-20) Glucose 112 H (70-99(Fasting)) mg/dl Calcium 8.8 (8.6-10.3) mg/dl Total Bilirubin 0.7 (0.2-1.0) mg/dl AST 17 (13-39) U/L ALT 12 (7-52) U/L Alkaline Phosphatase 63 (34-104) U/L Troponin I High Sens 29.3 H 27.3 H (0-20) pg/ml Total Protein 6.9 (6.0-8.3) gm/dl Albumin 3.4 (3.4-5.0) gm/dl Globulin 3.5 (2.5-4.0) gm/dl Albumin/Globulin Ratio 1.0 (0.9-2) Lipase 16 (11-82) U/L SARS-CoV-2 (PCR) NEGATIVE (Negative) Influenza Type A (PCR) Negative (Neg) Influenza Type B (PCR) Negative (Neg) RSV (RT-PCR) Negative (Neg) Administered Medications Lactated Ringer's (Lr) 1,000 mls @ 80 mls/hr IV .[id number] NOEL Stop: 06/13/25 04:44 Last Admin: 06/12/25 23:06 Dose: 80 mls/hr Documented By: dm Discontinued Medications Albuterol (Albut/Ipratrop 3mg/0.5mg Neb 3 Ml Vial) 9 ml NEB NOW STA; Protocol Stop: 06/12/25 20:45 Last Admin: 06/12/25 20:53 Dose: 9 ml Documented By: dm Ceftriaxone Sodium (Rocephin) 2,000 mg in 50 mls @ 100 mls/hr IV NOW STA Stop: 06/12/25 21:50 Last Infusion: 06/12/25 21:41 Dose: Infused Documented By: dm Admin: 06/12/25 21:41 Dose: 100 mls/hr Documented By: dm Azithromycin (Zithromax) 500 mg in 255 mls @ 127.5 mls/hr IV NOW ONE Stop: 06/12/25 23:20 Last Admin: 06/12/25 22:28 Dose: 127.5 mls/hr Documented By: dm Methylprednisolone (Methylprednisolone 125 Mg/2 Ml Vial) 40 mg IV NOW STA Stop: 06/12/25 20:45 Last Admin: 06/12/25 20:54 Dose: 40 mg Documented By: dm Methylprednisolone (Methylprednisolone 125 Mg/2 Ml Vial) 80 mg IV NOW STA Stop: 06/12/25 22:00 Last Admin: 06/12/25 22:45 Dose: 80 mg Documented By: dm Imaging Data Radiologist's Impression: Chest X-Ray 06/12/25 20:19 Exam(s): XR CXR 1 VIEW EXAM: XR Chest, 1 View CLINICAL HISTORY: Reason for exam: Chest pain, nonspecific. TECHNIQUE: Frontal view of the chest. COMPARISON: 07/28/24 FINDINGS: Lungs: Bilateral pulmonary vascular congestion. Basilar subsegmental atelectasis. Pleural space: Bilateral small bilateral pleural effusions. No pneumothorax. Heart: Mild cardiomegaly. Mediastinum: Unremarkable. Normal mediastinal contour. Bones/joints: Unremarkable. No acute fracture. IMPRESSION: Bilateral pulmonary vascular congestion Electronically signed by: Kevin Acosta MD 06/12/25 21:28 PM Discharge Plan Visit Data Chief Complaint: Shortness of Breath/Dyspnea Stated Complaint: SOB, ONGOING BUT WORSE TODAY, COPD ED Provider: Stanley Madison Discharge Problem: Acute hypoxic respiratory failure, Acute exacerbation of chronic obstructive pulmonary disease, Shortness of breath Condition: Serious Discharge Instructions Interventions: ED Discharge Assessment Last Done: 06/13/25 00:13 Prescriptions Prescriptions: No Action albuterol sulfate 90 mcg/actuation HFA aerosol inhaler 2 puff inhalation Q4H PRN (Reason: Shortness Of Breath) Qty: 18 5RF (DME) BiPap Supplies Misc See Rx Instructions .Route Qty: 1 0RF Rx Instructions: recommend being fitted for a full face mask,tubing, humidification, filters and any other supplies needed for BIPAP -RADHA 99 pantoprazole 40 mg tablet,delayed release (DR/EC) 40 mg PO BID Qty: 60 11RF Trelegy Ellipta 100-62.5-25 mcg blister with device 1 inh INH QAM Qty: 60 3RF aspirin [Adult Aspirin Regimen] 81 mg tablet,delayed release (DR/EC) 81 mg PO DAILY Hold Instructions: Resume on 08/01/24. furosemide 40 mg tablet 20 mg PO Q OTHER DAY Patient Comments: pt state he takes 40mg -- and 20mg all other days of the week. resveratrol 50 mg capsule 50 mg PO BID cholecalciferol (vitamin D3) 1,000 unit (25 mcg) tablet 1,000 unit PO QAM multivitamin Tablet 1 tab PO QAM nitroglycerin 0.4 mg tablet, sublingual 0.4 mg sublingual DIRECTED PRN (Reason: Chest Pain) Rx Instructions: PLACE ONE TABLET UNDER THE TONGUE EVERY 5 MINUTES FOR UP TO 3 DOSES OVER 15 MINUTES IF NEEDED FOR CHEST PAIN docusate sodium 100 mg Capsule 100 mg PO QAM PRN (Reason: Constipation) ezetimibe 10 mg tablet 10 mg PO QAM coQ10 (ubiquinol) 200 mg Capsule 200 mg PO QAM Eliquis 2.5 mg tablet 2.5 mg PO BID Hold Instructions: Resume on 08/01/24. melatonin 3 mg Tablet 3 mg PO HS PRN (Reason: Insomnia) nortriptyline 25 mg capsule 25 mg PO HS ranolazine 500 mg tablet extended release 12 hr 500 mg PO BID sacubitril-valsartan [Entresto] 24-26 mg tablet 1 tab PO HS Restasis MultiDose 0.05 % drops 1 drp OPB BID lactulose 10 gram/15 mL solution 20 g PO BID PRN (Reason: constipation) Qty: 1200 0RF
[2025-06-12] MEDS: ALBUT/IPRATROP 3MG/0.5MG NEB 3 ML VIAL NEB STA (20:53)
[2025-06-12 20:56] LABS: Hematocrit (blood only) 37.4 % (42.0-52.0); Hemoglobin 12.8 g/dL (14.0-18.0); Immature Granulocytes # (auto) 0.04 K/uL (0.01-0.20); Immature Granulocytes % (auto) 0.5 %; Mean Corpuscular Hemoglobin 31.4 pg (25.0-34.0); Mean Corpuscular Volume 91.9 fL (80.0-100.0); Platelet Count 283 K/uL (130-400); RDW Standard Deviation 45.1 fL (36.4-46.3); Red Blood Count 4.07 M/uL (4.70-6.10); White Blood Count 7.78 K/ul (4.8-10.8)
[2025-06-12 21:01] LABS: Alanine Aminotransferase 12.0 U/L (7-52); Albumin Globulin Ratio 1.0 (0.9-2); Albumin Level 3.4 gm/dl (3.4-5.0); Alkaline Phosphatase 63.0 U/L (34-104); Anion Gap 8.0 (3-11); Bilirubin,Total 0.7 mg/dl (0.2-1.0); Blood Urea Nitrogen 46.0 mg/dl (6-23); Calcium 8.8 mg/dl (8.6-10.3); Carbon Dioxide 27.0 mmol/L (21-32); Chloride 99.0 mmol/L (98-107); Creatinine Clr Calc Pharmacy 25.4 ml/min; Globulin 3.5 gm/dl (2.5-4.0); Glucose 112.0 mg/dl (70-99(Fasting)); Lipase 16.0 U/L (11-82); Potassium 4.2 mmol/L (3.5-5.1); Sodium 134.0 mmol/L (136-145); Total Protein 6.9 gm/dl (6.0-8.3)
--- NOTE | 2025-06-12 21:29 | XRay Report ---
Exam(s): XR CXR 1 VIEW EXAM: XR Chest, 1 View CLINICAL HISTORY: Reason for exam: Chest pain, nonspecific. TECHNIQUE: Frontal view of the chest. COMPARISON: 07/28/24 FINDINGS: Lungs: Bilateral pulmonary vascular congestion. Basilar subsegmental atelectasis. Pleural space: Bilateral small bilateral pleural effusions. No pneumothorax. Heart: Mild cardiomegaly. Mediastinum: Unremarkable. Normal mediastinal contour. Bones/joints: Unremarkable. No acute fracture. IMPRESSION: Bilateral pulmonary vascular congestion Electronically signed by: Kevin Acosta MD 06/12/25 21:28 PM
[2025-06-12] MEDS: cefTRIAXone SODIUM 2,000 MG/50 ML BAG IV STA (21:41)
[2025-06-12] MEDS: AZITHROMYCIN 500 MG/255 ML BAG IV ONE (22:28)
--- NOTE | 2025-06-12 22:39 | History & Physical Report ---
Date of Service June 12, 2025 Assessment & Plan (1) Bilateral lower lobe pneumonia: (2) COPD exacerbation: (3) Acute kidney injury superimposed on CKD: (4) Atrial fibrillation: Plan The patient is an 89-year-old male with a past medical history including orbital floor fracture, chronic HFmrEF, acute blood loss anemia secondary to AVM, CKD stage III, GIUSEPPE, atrial fibrillation, prostate cancer, cognitive impairment, COPD, asthma, and arthritis. Who presents to the emergency department with complaint of shortness of breath and dyspnea on exertion initially began about 3 days ago. He notes that this morning, after being up for a few hours, he developed more significant shortness of breath at rest, and dyspnea on exertion, and thus presented to the ED for assessment. In the emergency department, he is found to have a pulse ox of 89-91% on room air, which did improve with 2 L nasal cannula, to the mid 90s. Significant laboratory maladies: Troponin 29.3 which is chronic, creatinine 1.60, calcium 8.8, hemoglobin 12.8. Chest x-ray with bibasilar infiltrates and left pleural effusion. EKG with atrial fibrillation, bifascicular block, with no change compared to 07/28/2024. From the ED patient received the following: Ceftriaxone 2 g IV, azithromycin 500 mg IV, Solu-Medrol 40 mg IV, and a DuoNeb treatment. [facility] then [facility] Bibasilar pneumonia/COPD exacerbation- Cefepime 2 g IV every 12 hours. Azithromycin 500 mg IV every 24 hours Solu-Medrol hide 20 mg total given in the ED Solu-Medrol 40 mg IV every 8 hours DuoNebs every 2 hours as needed Nasal cannula oxygen, titrate to keep pulse ox 92-94% Acute kidney injury superimposed on CKD- Creatinine 1.60, with base 1.16. Hold Entresto and furosemide for now LR at 80 mL/h x 500 mL Repeat laboratories in the a.m. Elevated troponin/atrial fibrillation/status post TAVR 09-26-2022-- Continue Eliquis, aspirin and ranolazine. Briefly hold Entresto as noted above Troponin 29.3, patient is chronically elevated zone. Most recent echo/ with ejection fraction 40-45% GERD/AVM with history of bleeding- Continue pantoprazole 40 mg p.o. twice daily Bleeding from AVM required 3 units PRBCs around 07/29/2024. Insomnia- Continue melatonin and nortriptyline Patient request Ativan to be used in the hospital for sleeping at bedtime Dry eye- Continue Restasis History of Present Illness Primary Care Provider: Oscar Olson The patient is an 89-year-old male with a past medical history including orbital floor fracture, chronic HFmrEF, acute blood loss anemia secondary to AVM, CKD stage III, GIUSEPPE, atrial fibrillation, prostate cancer, cognitive impairment, COPD, asthma, and arthritis. Who presents to the emergency department with complaint of shortness of breath and dyspnea on exertion initially began about 3 days ago. He notes that this morning, after being up for a few hours, he developed more significant shortness of breath at rest, and dyspnea on exertion, and thus presented to the ED for assessment. In the emergency department, he is found to have a pulse ox of 89-91% on room air, which did improve with 2 L nasal cannula, to the mid 90s. Significant laboratory maladies: Troponin 29.3 which is chronic, creatinine 1.60, calcium 8.8, hemoglobin 12.8. Chest x-ray with bibasilar infiltrates and left pleural effusion. EKG with atrial fibrillation, bifascicular block, with no change compared to 07/28/2024. From the ED patient received the following: Ceftriaxone 2 g IV, azithromycin 500 mg IV, Solu-Medrol 40 mg IV, and a DuoNeb treatment. He was then [facility]. Allergies Allergy/AdvReac Type Severity Reaction Status Date / Time naproxen [From Naprosyn] Allergy Severe Anaphylaxis Verified 06/12/25 21:19 NSAIDS (Non-Steroidal Allergy Severe Anaphylaxis Verified 06/12/25 21:19 Anti-Inflamma [id number]-EWT-CpC Reductase AdvReac Unknown CAN'T Verified 06/12/25 21:19 Inhibitor REMEMBER Home Medications Medication Instructions Recorded Confirmed Type coQ10 (ubiquinol) 200 mg capsule 200 mg PO QAM 10/07/18 06/12/25 History docusate sodium 100 mg capsule 100 mg PO QAM PRN Constipation 10/07/18 06/12/25 History ezetimibe 10 mg tablet 10 mg PO QAM 10/07/18 06/12/25 History multivitamin 1 tab PO QAM 10/07/18 06/12/25 History nitroglycerin 0.4 mg sublingual 0.4 mg sublingual DIRECTED PRN 10/07/18 06/12/25 History tablet Chest Pain cholecalciferol (vitamin D3) 25 1,000 unit PO QAM 02/15/19 06/12/25 History mcg (1,000 unit) tablet resveratrol 50 mg capsule 50 mg PO BID 02/15/19 06/12/25 History albuterol sulfate 90 mcg/actuation 2 puff inhalation Q4H PRN 12/26/20 06/12/25 Rx aerosol inhaler Shortness Of Breath #18 grams aspirin 81 mg tablet,delayed 81 mg PO DAILY 11/04/22 06/12/25 History release (Adult Aspirin Regimen) furosemide 40 mg tablet 20 mg PO Q OTHER DAY 09/16/23 06/12/25 History BiPap Supplies #1 ea 05/04/24 12/27/24 Rx apixaban 2.5 mg tablet (Eliquis) 2.5 mg PO BID 07/28/24 06/12/25 History cyclosporine 0.05 % eye drops 1 drp OPB BID 07/28/24 06/12/25 History (Restasis MultiDose) melatonin 3 mg tablet 3 mg PO HS PRN Insomnia 07/28/24 06/12/25 History nortriptyline 25 mg capsule 25 mg PO HS 07/28/24 06/12/25 History ranolazine 500 mg tablet,extended 500 mg PO BID 07/28/24 06/12/25 History release,12 hr sacubitril 24 mg-valsartan 26 mg 1 tab PO HS 07/28/24 06/12/25 History tablet (Entresto) pantoprazole 40 mg tablet,delayed 40 mg PO BID #60 tabs 09/27/24 06/12/25 Rx release lactulose 10 gram/15 mL oral 20 g (30 mL) PO BID PRN 04/10/25 06/12/25 Rx solution constipation #1,200 mL fluticasone fur. 100 mcg-umeclid 1 inh inhalation QAM #60 ea 04/22/25 06/12/25 Rx 62.5 mcg-vilant 25 mcg inhalat.powder (Trelegy Ellipta) Past Med/Surg History Problem List (Updated 06/12/25 @ 22:55 by Sander Prince MD) Bilateral lower lobe pneumonia COPD exacerbation Acute kidney injury superimposed on CKD Orbital floor (blow-out) closed fracture Facial trauma Chronic heart failure with mildly reduced ejection fraction (HFmrEF, 41-49%) Acute blood loss anemia Acute GI bleeding Contusion of elbow, right (Acute) Contusion of hip, right (Acute) CHI (closed head injury) (Acute) Fall (Acute) Acute upper gastrointestinal bleeding (Acute) Chronic kidney disease with active medical management without dialysis, stage 3 (moderate) Chronic constipation Sleep apnea BIPAP Atrial fibrillation Melena Thoracic ascending aortic aneurysm Acute systolic CHF (congestive heart failure) Anemia Cognitive impairment Prostate cancer Leukocytosis Chest pain Asthma Chronic obstructive pulmonary disease Male erectile disorder of organic origin Testicular pain Arthritis Arthritis Medical History Pulmonary hypertension Knee pain HFrEF (heart failure with reduced ejection fraction) Acute respiratory failure with hypoxia Hyponatremia Non-ST elevation MN (NSTEMI) Weakness of both hands H/O: stroke Encounter for pre-operative examination Change in bowel habits Change in stool caliber Constipation Change in bowel habits Inguinal pain Right leg pain Postop carotid endarterectomy surveillance, encounter for Aortic stenosis CAD (coronary artery disease) History of prostate cancer Carotid stenosis Myocardial Infarction Hyperlipidemia Ischemic stroke of frontal lobe Elevated BUN HTN (hypertension) Acute CVA (cerebrovascular accident) Acute CVA (cerebrovascular accident) Hearing loss Vertigo Mild cognitive impairment Stable angina pectoris Mitral valve insufficiency Aortic stenosis Sciatica Pneumothorax after biopsy Encounter for pre-operative examination Abdominal aortic aneurysm DDD (degenerative disc disease) Osteoarthritis Hypertension Sleep apnea Aneurysm of abdominal aorta Anginal pain DDD (degenerative disc disease) Diverticulitis Diverticulosis Dyspnea Edema Generalized osteoarthritis of multiple sites Left groin pain Hyperlipidemia Hypertension Ischemic cardiomyopathy 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 Low back pain Mineral deficiency Mitral regurgitation Muscle weakness Obstructive sleep apnea Polymyalgia rheumatica Pulmonary nodules Vitamin D deficiency Myocardial infarction Emphysema lung Rigors Fever Myocardial infarction Emphysema, unspecified Surgical History History of carotid endarterectomy History of herniorrhaphy History of tonsillectomy and adenoidectomy H/O vascular surgery Status post abdominal aortic aneurysm (AAA) repair S/P bronchoscopy with biopsy Difficult intubation History of arthroscopy History of trigger finger History of meniscectomy of left knee History of colonoscopy History of partial colectomy History of tooth extraction History of cardiac cath History of quadruple bypass H/O prostatectomy Family History Father Alzheimer disease Heart disease Brother Back problem Grandmother (Paternal) Dementia Mother No problems noted. Other No family history of adverse response to anesthesia Social History Smoking Status: Former smoker Second Hand Exposure: No; Do You Dip or Chew Tobacco: No; Hx Alcohol Use: Yes Alcohol type: beer and wine Alcohol Intake Frequency Comment: 2 per day Hx Substance Use: No Preferred Language: Mohawk Communication Ability: Effective Visual Impairment: No Limitations Hearing Ability: Use of Hearing Aid Day Care Home Provider Required: No Beliefs That Will Affect Care: None marital status: Current Living Situation: Spouse Current Living Situation Comment: Home with current occupational status: employed and retired 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 Former [employer] [facility] [employer] Feels Safe at Home: Yes Diet: regular caffeine: Yes (1 cup daily) Physical Activity Frequency: Does not Exercise Seatbelt Use: always Do you think of yourself as: straight/heterosexual Gender Identity: Male Assistive Devices: BiPap, Cane, Hearing Aid - Bilateral and Walker Review of Systems Review of Systems: The patient denies chest pain, palpitations, cough, lower extremity swelling, sore throat, fevers, chills, sweats, nausea, vomiting, diarrhea , constipation, abdominal pain, pelvic pain, blood in urine or stool, dysuria, urinary frequency or urgency, lightheadedness, dizziness, headache, memory loss, loss of consciousness, rash, abnormal bruising or bleeding, focal weakness, numbness or tingling in arms or legs, back or neck pain, or night sweats. The review of systems is otherwise negative other than for that already noted above, and at least 10 systems have been reviewed. Physical Exam Physical Exam: The patient is awake, alert and oriented 3, well developed and well nourished, normocephalic and atraumatic, lying in bed and in no acute distress. HEENT--PERRL, EOMI, mucous membranes and oropharynx mildly dry. Neck--supple. No JVD. No bruits. Thyroid normal, trachea midline, no adenopathy. Heart--normal S1 and S2. No murmurs, rubs or gallops. Lungs--coarse breath sounds at the bases bilaterally. Scattered wheezes. No respiratory distress, no accessory muscle use. Abdomen--normal bowel sounds and soft. Nontender. Nondistended, no hernias or masses, no organomegaly. Extremities--No edema. There are good distal pulses b/l. Dermatologic--normal skin turgor, normal color, no abnormal lymph nodes, no rash. Neurologic--cranial nerves II through XII grossly intact. Rheumatologic--normal range of motion. Psychiatric--normal affect. Results & Data Results & Data Vital Signs (Past 12 Hours) Vital Signs Temp Pulse Resp BP Pulse Ox O2 Del Method 06/12/25 22:12 93 H 23 93 06/12/25 22:09 Room Air 06/12/25 22:00 95 H 23 93 06/12/25 22:00 116/84 06/12/25 22:00 116/84 06/12/25 22:00 116/84 06/12/25 22:00 116/84 06/12/25 22:00 116/84 06/12/25 21:51 85 17 92 06/12/25 21:42 100 H 18 92 06/12/25 21:31 109/77 06/12/25 21:31 109/77 06/12/25 21:31 109/77 06/12/25 21:31 109/77 06/12/25 21:31 109/77 06/12/25 21:30 79 17 91 06/12/25 21:21 91 H 19 96 06/12/25 21:12 79 20 100 06/12/25 21:00 83 20 100 06/12/25 21:00 108/74 06/12/25 21:00 108/74 06/12/25 21:00 108/74 06/12/25 21:00 108/74 06/12/25 21:00 108/74 06/12/25 20:56 107/66 06/12/25 20:56 107/66 06/12/25 20:56 107/66 06/12/25 20:56 107/06/12/25 20:54 88 19 100 06/12/25 20:51 84 27 H 06/12/25 20:42 85 35 H 06/12/25 20:31 99/62 L 06/12/25 20:31 99/62 L 06/12/25 20:31 99/62 L 06/12/25 20:31 99/62 L 06/12/25 20:31 99/62 L 06/12/25 20:30 89 28 H 90 06/12/25 20:30 90 06/12/25 20:13 36.2 C L 85 18 95 Room Air Laboratory Results Laboratory Results WBC 7.78 K/ul (4.8-10.8) 06/12/25 20:30 RBC 4.07 M/uL (4.70-6.10) L 06/12/25 20:30 Hgb 12.8 g/dL (14.0-18.0) L 06/12/25 20:30 Hct 37.4 % (42.0-52.0) L 06/12/25 20:30 MCV 91.9 fL (80.0-100.0) 06/12/25 20:30 MCH 31.4 pg (25.0-34.0) 06/12/25 20: MCHC 34.2 g/dL (32.0-36.0) 06/12/25 20:30 RDW Std Deviation 45.1 fL (36.4-46.3) 06/12/25 20:30 RDW Coeff of [place] 13.3 % (11.5-14.5) 06/12/25 20:30 Plt Count 283 K/uL (130-400) 06/12/25 20:30 MPV 10.0 fL (9.4-12.4) 06/12/25 20:30 Immature Gran % (Auto) 0.5 % 06/12/25 20:30 Neut % (Auto) 71.1 % 06/12/25 20:30 Lymph % (Auto) 15.2 % 06/12/25 20:30 [place] % (Auto) 9.8 % 06/12/25 20:30 Eos % (Auto) 2.8 % 06/12/25 20:30 Baso % (Auto) 0.6 % 06/12/25 20:30 Neut # (Auto) 5.53 K/uL (1.40-6.50) 06/12/25 20:30 Lymph # (Auto) 1.18 K/uL (1.20-3.40) L 06/12/25 20:30 [place] # (Auto) 0.76 K/uL (0.11-0.59) H 06/12/25 20:30 Eos # (Auto) 0.22 K/uL (0.00-0.50) 06/12/25 20: Baso # (Auto) 0.05 K/uL (0.00-0.20) 06/12/25 20:30 Immature Gran # (Auto) 0.04 K/uL (0.01-0.20) 06/12/25 20:30 Sodium 134 mmol/L (136-145) L 06/12/25 20: Potassium 4.2 mmol/L (3.5-5.1) 06/12/25 20:30 Chloride 99 mmol/L (98-107) 06/12/25 20: Carbon Dioxide 27 mmol/L (21-32) 06/12/25 20:30 Anion Gap 8 (3-11) 06/12/25 20:30 BUN 46 mg/dl (6-23) H 06/12/25 20:30 Creatinine 1.60 mg/dl (0.6-1.4) H 06/12/25 20:30 Est Cr Clr Drug Dosing 25.4 ml/min 06/12/25 20:30 eGFR 40.93 06/12/25 20:30 BUN/Creatinine Ratio 28.8 (10-20) H 06/12/25 20:30 Glucose 112 mg/dl (70-99(Fasting)) H 06/12/25 20:30 Calcium 8.8 mg/dl (8.6-10.3) 06/12/25 20:30 Total Bilirubin 0.7 mg/dl (0.2-1.0) 06/12/25 20:30 AST 17 U/L (13-39) 06/12/25 20:30 ALT 12 U/L (7-52) 06/12/25 20:30 Alkaline Phosphatase 63 U/L (34-104) 06/12/25 20:30 Troponin I High Sens 29.3 pg/ml (0-20) H 06/12/25 20:30 Total Protein 6.9 gm/dl (6.0-8.3) 06/12/25 20:30 Albumin 3.4 gm/dl (3.4-5.0) 06/12/25 20:30 Globulin 3.5 gm/dl (2.5-4.0) 06/12/25 20:30 Albumin/Globulin Ratio 1.0 (0.9-2) 06/12/25 20:30 Lipase 16 U/L (11-82) 06/12/25 20:30 Impressions Chest X-Ray 06/12/25 20:19 Exam(s): XR CXR 1 VIEW EXAM: XR Chest, 1 View CLINICAL HISTORY: Reason for exam: Chest pain, nonspecific. TECHNIQUE: Frontal view of the chest. COMPARISON: 07/28/24 FINDINGS: Lungs: Bilateral pulmonary vascular congestion. Basilar subsegmental atelectasis. Pleural space: Bilateral small bilateral pleural effusions. No pneumothorax. Heart: Mild cardiomegaly. Mediastinum: Unremarkable. Normal mediastinal contour. Bones/joints: Unremarkable. No acute fracture. IMPRESSION: Bilateral pulmonary vascular congestion Electronically signed by: Kevin Acosta MD 06/12/25 21:28 PM Code Status & VTE Plan Code Status Full code VTE Prophylaxis Plan VTE Prophylaxis will be ordered: Yes PG Care Time/CCT Total # of Minutes Spent Total Time Spent with Patient: Total time spent is greater than 50% in coordination of care (as documented) at patient's floor/unit and/or counseling patient: Coding Level of Care Code 42559 INT INP/OBS CARE 3/75MIN Diagnoses Bilateral lower lobe pneumonia J18.9 COPD exacerbation J44.1 Acute kidney injury superimposed on CKD N17.9; N18.9 Atrial fibrillation I48.91
[2025-06-12] MEDS ORDERED: ALBUT/IPRATROP 3MG/0.5MG NEB 3 ML VIAL NEB PRN (22:51)
[2025-06-12] MEDS: LACTATED RINGER'S 1,000 ML IV SCH (23:06)
[2025-06-13 00:04] LABS: Influenza A virus by PCR Negative (Neg); Influenza B virus by PCR Negative (Neg); SARS CoV2 RNA(COVID-19) Ceph NEGATIVE (Negative)
[2025-06-13] MEDS ORDERED: NITROGLYCERIN SL 0.4 MG/TAB TAB SL PRN (00:51)
[2025-06-13] MEDS ORDERED: ACETAMINOPHEN 325 MG TAB PO PRN (00:51)
[2025-06-13] MEDS ORDERED: ARTIFICIAL TEARS OPB PRN (01:05)
[2025-06-13] MEDS: MELATONIN 3 MG TAB PO PRN (01:29)
[2025-06-13 04:50] LABS: Hematocrit (blood only) 33.7 % (42.0-52.0); Hemoglobin 11.8 g/dL (14.0-18.0); Mean Corpuscular Hemoglobin 32.0 pg (25.0-34.0); Mean Corpuscular Volume 91.3 fL (80.0-100.0); Platelet Count 243 K/uL (130-400); RDW Standard Deviation 44.4 fL (36.4-46.3); Red Blood Count 3.69 M/uL (4.70-6.10); White Blood Count 4.79 K/ul (4.8-10.8)
[2025-06-13 05:07] LABS: Albumin Level 3.5 gm/dl (3.4-5.0); Anion Gap 11.0 (3-11); Blood Urea Nitrogen 44.0 mg/dl (6-23); Calcium 8.4 mg/dl (8.6-10.3); Carbon Dioxide 25.0 mmol/L (21-32); Chloride 100.0 mmol/L (98-107); Creatinine Clr Calc Pharmacy 33.6 ml/min; Glucose 153.0 mg/dl (70-99(Fasting)); Magnesium 1.9 mg/dl (1.7-2.4); Potassium 4.5 mmol/L (3.5-5.1); Sodium 136.0 mmol/L (136-145)
[2025-06-13 05:24] LABS: Immature Granulocytes # (auto) 0.02 K/uL (0.01-0.20); Immature Granulocytes % (auto) 0.4 %
[2025-06-13] MEDS: INFLUENZA VACC TS2025-26(65y+)/PF (IIV3) 0.5mL Syr IM ONE (07:50)
[2025-06-13] MEDS: CEFEPIME 1000MG 1,000 MG/10 ML SYR IV SCH (07:54)
[2025-06-13] MEDS: ASPIRIN 81 MG ECTAB PO SCH (07:55)
[2025-06-13] MEDS: CHOLECALCIFEROL 25 MCG (1000 UNITS) TAB PO SCH (07:55)
[2025-06-13] MEDS: RANOLAZINE 500 MG ER TAB PO SCH (07:55)
[2025-06-13] MEDS: MULTIVITAMIN TAB PO SCH (07:55)
[2025-06-13] MEDS: UMECLIDINIUM/VILANTEROL 62.5/25MCG 7 PUFFS/INHALER INH SCH (07:56)
[2025-06-13] MEDS: FLUTICASONE FUROATE 100MCG 14 PUFFS/INHALER INH SCH (07:56)
[2025-06-13] MEDS: APIXABAN 2.5 MG TAB PO SCH (07:56)
[2025-06-13] MEDS: EZETIMIBE 10 MG TAB PO SCH (07:57)
[2025-06-13] MEDS ORDERED: NON-FORMULARY MEDICATION (Coq10 (Ubiquinol) 200 mg Capsule) PO SCH (09:00)
[2025-06-13] MEDS ORDERED: RESVERATROL 50 MG PO SCH (09:00)
[2025-06-13] MEDS: FUROSEMIDE 40 MG/4 ML VIAL IV SCH (09:24)
--- NOTE | 2025-06-13 16:11 | Hospitalist Progress Note ---
Date of Service June 13, 2025 Assessment & Plan (1) Bilateral lower lobe pneumonia: Plan: Possibly present on admission. It appears he also has exacerbation of systolic congestive heart failure. Nevertheless he is on cefepime and azithromycin, day 2, which was started on admission. Sputum culture ordered and pending. (2) Acute on chronic systolic congestive heart failure: Plan: Parenteral Lasix. Monitor urine output. Serial chest x-ray. Repeat cardiac echo ordered and pending (3) Acute respiratory failure with hypoxia: Plan: Supplemental oxygen per nasal cannula to maintain saturation greater than 90%. Wean off as tolerated. Treat underlying CHF and suspected pneumonia (4) COPD exacerbation: Plan: Continue to treat suspected CHF and pneumonia. (5) Acute kidney injury superimposed on CKD: Plan: Monitor intake and output. Serial labs. Improved (6) Atrial fibrillation: Plan: Chronic. The patient takes Eliquis chronically. Telemetry. Rate control measures Plan Hopeful discharge to previous living arrangements within the next 2 to 3 days. Cardiac echo has been ordered and is pending. OT and PT evaluations ordered and pending Admission and Anticipated Discharge Date Admission Date: June 12, 2025 Subjective Alert and oriented. He was admitted with a diagnosis of bilateral pneumonia but he also appears to have acute on chronic systolic congestive heart failure. Chest x-ray done on admission, June 12, appears to be CHF. He is on cefepime and azithromycin which was started on admission, currently day 2, along with Solu-Medrol. Creatinine has improved from 1.6 on admission down to 1.4. Serial labs are ordered. As a result he has chronic hypoxic respiratory failure along with exacerbation of COPD. He is now on parenteral Lasix therapy and cardiac echo has been ordered and pending. BNP elevated greater than 2000. OT and PT assessments have been requested. Review of Systems 2 Review of Systems: Constitutionalno fever or chills ENTno blurred vision, no double vision, no epistaxis, no sore throat Respiratorydyspnea on exertion. Nonproductive cough. No hemoptysis. Cardiacno palpitations, no chest pain, no syncope Gaby nausea, vomiting, diarrhea, melena, hematochezia GUno urinary retention, no urinary incontinence, no dysuria, no hematuria Musculoskeletalno joint pain, no muscle tenderness Extremities1+ pitting edema bilateral lower extremities below the knees Skinno bruising, no rashes, no pruritus Neurono isolated weakness, no paresthesia Psychno depression, no anxiety Physical Exam 2 Physical Exam: General-alert and oriented x3, no fever, no chills HEENT-head atraumatic and normocephalic, pupils equal and reactive to light, extraocular muscles intact Neck-no lymphadenopathy or thyromegaly, trachea midline Chest-diminished breath sounds at both bases with inspiratory rales. No wheezing. No rhonchi Cardiac-regular rate and rhythm, normal S1 and S2 Abdomen-normal bowel sounds, no hepatosplenomegaly Extremities-1+ pitting edema bilateral lower extremities below the knees. Neuro-cranial nerves II through XII intact, motor and sensory function within normal limits, strength symmetrical, no focal deficits Psych-normal affect, normal mood Results & Data Results & Data Vital Signs (Past 12 Hours) Vital Signs Temp Pulse Pulse Resp BP Pulse Ox O2 Del Method 06/13/25 14:00 Nasal Cannula 06/13/25 13:40 36.5 C 86 19 116/66 92 Nasal Cannula 06/13/25 09:34 108 H 22 115/46 L 94 Nasal Cannula 06/13/25 08:00 94 H O2 Flow Rate 06/13/25 14:00 2 06/13/25 13:40 06/13/25 09:34 2 06/13/25 08:00 Laboratory Results 06/13/25 04:25 06/13/25 04:25 PG Care Time/CCT Total # of Minutes Spent Total Time Spent with Patient: Total time spent is greater than 50% in coordination of care (as documented) at patient's floor/unit and/or counseling patient: Coding Level of Care Code 97275 SUB INP/OBS CARE 3/50MIN Diagnoses Bilateral lower lobe pneumonia J18.9 Acute on chronic systolic congestive heart failure I50.23 Acute respiratory failure with hypoxia J96.01 COPD exacerbation J44.1 Acute kidney injury superimposed on CKD N17.9; N18.9 Atrial fibrillation I48.91
[2025-06-13] MEDS: AZITHROMYCIN 500 MG/255 ML BAG IV SCH (19:56)
[2025-06-13] MEDS: NORTRIPTYLINE HCL 25 MG CAP PO SCH (20:02)
[2025-06-14 06:12] LABS: Hematocrit (blood only) 30.9 % (42.0-52.0); Hemoglobin 11.0 g/dL (14.0-18.0); Immature Granulocytes # (auto) 0.04 K/uL (0.01-0.20); Immature Granulocytes % (auto) 0.5 %; Mean Corpuscular Hemoglobin 31.9 pg (25.0-34.0); Mean Corpuscular Volume 89.6 fL (80.0-100.0); Platelet Count 240 K/uL (130-400); RDW Standard Deviation 42.6 fL (36.4-46.3); Red Blood Count 3.45 M/uL (4.70-6.10); White Blood Count 7.71 K/ul (4.8-10.8)
[2025-06-14 06:33] LABS: Anion Gap 10.0 (3-11); Blood Urea Nitrogen 53.0 mg/dl (6-23); Calcium 8.4 mg/dl (8.6-10.3); Carbon Dioxide 25.0 mmol/L (21-32); Chloride 102.0 mmol/L (98-107); Creatinine Clr Calc Pharmacy 28.8 ml/min; Glucose 126.0 mg/dl (70-99(Fasting)); Potassium 4.0 mmol/L (3.5-5.1); Sodium 137.0 mmol/L (136-145)
[2025-06-14] MEDS: DOCUSATE SODIUM 100 MG CAP PO PRN (08:27)
--- NOTE | 2025-06-14 09:04 | XRay Report ---
SINGLE VIEW CHEST CLINICAL HISTORY: Congestive heart failure. FINDINGS: An AP, portable, upright chest radiograph is compared to study dated 06/12/2025 and correlat ed with chest CT dated 02/06/2023. The patient is status post midline sternotomy and cardiac valve surg maribel. The heart is enlarged noting atherosclerotic calcification of the thoracic aorta. There is evide nce of congestive failure with pulmonary edema. Emphysema and chronic interstitial thickening is cassi lar to previous. Apical scarring is observed. There are layering pleural effusions with dependent con solidation. No pneumothorax is seen. The skeletal structures are osteopenic. The bony thorax is gross ly intact. Advanced arthritic change is noted in the shoulders. IMPRESSION: 1. Cardiomegaly and emphysema with evidence of congestive failure and pulmonary edema. This is simila r to previous. 2. Layering pleural effusions with dependent consolidation. ACT 112: Negative or not required by law. Electronically signed by: Orestes Jason M.D. 06/14/2025 9:02 AM
--- NOTE | 2025-06-14 11:53 | Hospitalist Progress Note ---
Date of Service June 14, 2025 Assessment & Plan (1) Bilateral lower lobe pneumonia: Plan: Possibly present on admission. It appears he also has exacerbation of systolic congestive heart failure. Nevertheless he is on cefepime and azithromycin, day 3, which was started on admission. Sputum culture is nondiagnostic. Antibiotics will probably be discontinued tomorrow, June 15 (2) Acute on chronic systolic congestive heart failure: Plan: Good diuretic response so far to parenteral Lasix. Monitor urine output. Serial chest x-ray. Cardiac echo report remains pending. (3) Acute respiratory failure with hypoxia: Plan: Resolved. He is now on room air. (4) COPD exacerbation: Plan: Resolved. Parenteral steroid therapy has been discontinued. (5) Acute kidney injury superimposed on CKD: Plan: Creatinine has increased slightly from yesterday now up to 1.5. Will follow. (6) Atrial fibrillation: Plan: Chronic. The patient takes Eliquis chronically. Telemetry. Rate control measures Plan Hopeful discharge to previous living arrangements within the next 2 to 3 days. Cardiac echo report is pending. Continue OT and PT while hospitalized Admission and Anticipated Discharge Date Admission Date: June 12, 2025 Subjective Alert and oriented. No distress. His main concern is constipation. Chest x- ray done today, June 14, continues to show evidence of CHF. He has had a good response to parenteral Lasix however. Will discontinue his IV antibiotics after today's doses because I do not think he has pneumonia. Cardiac echo report is pending. He is now on room air at 93% saturation. Creatinine is 1.5, near baseline. He takes Entresto at bedtime which has been restarted. IV steroids have been discontinued. Review of Systems 2 Review of Systems: Constitutionalno fever or chills ENTno blurred vision, no double vision, no epistaxis, no sore throat Respiratorydyspnea on exertion. Nonproductive cough. No hemoptysis. Cardiacno palpitations, no chest pain, no syncope Gaby nausea, vomiting, diarrhea, melena, hematochezia GUno urinary retention, no urinary incontinence, no dysuria, no hematuria Musculoskeletalno joint pain, no muscle tenderness Extremities1+ pitting edema bilateral lower extremities below the knees Skinno bruising, no rashes, no pruritus Neurono isolated weakness, no paresthesia Psychno depression, no anxiety Physical Exam 2 Physical Exam: General-alert and oriented x3, no fever, no chills HEENT-head atraumatic and normocephalic, pupils equal and reactive to light, extraocular muscles intact Neck-no lymphadenopathy or thyromegaly, trachea midline Chest-diminished breath sounds at both bases with inspiratory rales. No wheezing. No rhonchi Cardiac-regular rate and rhythm, normal S1 and S2 Abdomen-normal bowel sounds, no hepatosplenomegaly Extremities-1+ pitting edema bilateral lower extremities below the knees. Neuro-cranial nerves II through XII intact, motor and sensory function within normal limits, strength symmetrical, no focal deficits Psych-normal affect, normal mood Results & Data Results & Data Vital Signs (Past 12 Hours) Vital Signs Temp Pulse Pulse Resp BP Pulse Ox O2 Del Method 06/14/25 11:16 36.4 C L 90 19 117/77 93 Room Air 06/14/25 08:59 36.5 C 104 H 18 97/68 L 93 Room Air 06/14/25 08:00 Nasal Cannula 06/14/25 05:31 94 H 06/14/25 03:39 36.8 C 93 H 18 113/75 94 Nasal Cannula O2 Flow Rate 06/14/25 11:16 06/14/25 08:59 06/14/25 08:00 2 06/14/25 05:31 06/14/25 03:39 2 Laboratory Results 06/14/25 05:48 06/14/25 05:48 PG Care Time/CCT Total # of Minutes Spent Total Time Spent with Patient: Total time spent is greater than 50% in coordination of care (as documented) at patient's floor/unit and/or counseling patient: Coding Level of Care Code 13332 SUB INP/OBS CARE 3/50MIN Diagnoses Bilateral lower lobe pneumonia J18.9 Acute on chronic systolic congestive heart failure I50.23 Acute respiratory failure with hypoxia J96.01 COPD exacerbation J44.1 Acute kidney injury superimposed on CKD N17.9; N18.9 Atrial fibrillation I48.91
[2025-06-14] MEDS: POLYETHYLENE (MIRALAX) 17 GM PACK PO SCH (12:29)
[2025-06-14] MEDS ORDERED: COUGH DROP (SUGAR FREE) LOZ 24 LOZ/1 BOX BUCCAL PRN (14:47)
[2025-06-14] MEDS: VALSARTAN/SACUBITRIL 26/24MG TAB PO SCH (21:58)
[2025-06-14] MEDS: LACTULOSE SYRUP 20 GM/30 ML UDC PO PRN (22:00)
[2025-06-15 06:47] LABS: Hematocrit (blood only) 32.0 % (42.0-52.0); Hemoglobin 10.9 g/dL (14.0-18.0); Immature Granulocytes # (auto) 0.05 K/uL (0.01-0.20); Immature Granulocytes % (auto) 0.5 %; Mean Corpuscular Hemoglobin 30.6 pg (25.0-34.0); Mean Corpuscular Volume 89.9 fL (80.0-100.0); Platelet Count 238 K/uL (130-400); RDW Standard Deviation 43.6 fL (36.4-46.3); Red Blood Count 3.56 M/uL (4.70-6.10); White Blood Count 10.52 K/ul (4.8-10.8)
[2025-06-15 07:18] LABS: Anion Gap 9.0 (3-11); Blood Urea Nitrogen 66.0 mg/dl (6-23); Calcium 8.5 mg/dl (8.6-10.3); Carbon Dioxide 30.0 mmol/L (21-32); Chloride 100.0 mmol/L (98-107); Creatinine Clr Calc Pharmacy 24.6 ml/min; Glucose 106.0 mg/dl (70-99(Fasting)); Potassium 3.9 mmol/L (3.5-5.1); Sodium 139.0 mmol/L (136-145)
--- NOTE | 2025-06-15 13:03 | Hospitalist Progress Note ---
Date of Service June 15, 2025 Assessment & Plan (1) Bilateral lower lobe pneumonia: Plan: Possibly present on admission. It appears he also has exacerbation of systolic congestive heart failure. Nevertheless he is on cefepime and azithromycin, day 4, which was started on admission. Sputum culture is nondiagnostic. Antibiotics will probably be discontinued at discharge (2) Acute on chronic systolic congestive heart failure: Plan: Good diuretic response so far to parenteral Lasix. Monitor urine output. Chest x-ray will be repeated again tomorrow, June 16. Cardiac echo report remains pending. (3) Acute respiratory failure with hypoxia: Plan: He is now back on oxygen despite continued diuresis with parenteral Lasix. Will obtain two-step oxygen evaluation prior to discharge. (4) COPD exacerbation: Plan: Resolved. Parenteral steroid therapy has been discontinued. (5) Acute kidney injury superimposed on CKD: Plan: Creatinine has increased slightly, now up to 1.7. Will follow. (6) Atrial fibrillation: Plan: Chronic. The patient takes Eliquis chronically. Telemetry. Rate control measures (7) Moderate malnutrition: Plan: Per [place] criteria. Present on admission. Encourage oral intake Plan Hopeful discharge to home with home health services tomorrowJune 16. Will obtain two-step oxygen evaluation prior to discharge to determine if he will need home oxygen or not. Continue OT and PT while hospitalized Admission and Anticipated Discharge Date Admission Date: June 12, 2025 Subjective Alert and oriented. No new problems. Continued brisk diuresis with parenteral Lasix. He was on room air yesterday, June 14, but is requiring oxygen again today. Will repeat chest x-ray again tomorrow, June 16. Creatinine has risen only slightly to 1.7. Echo report remains pending. Hopefully he can go home tomorrow, June 16. He may need oxygen for a while at discharge Review of Systems 2 Review of Systems: Constitutionalno fever or chills ENTno blurred vision, no double vision, no epistaxis, no sore throat Respiratorydyspnea on exertion. Nonproductive cough. No hemoptysis. Cardiacno palpitations, no chest pain, no syncope Gaby nausea, vomiting, diarrhea, melena, hematochezia GUno urinary retention, no urinary incontinence, no dysuria, no hematuria Musculoskeletalno joint pain, no muscle tenderness Extremities1+ pitting edema bilateral lower extremities below the knees Skinno bruising, no rashes, no pruritus Neurono isolated weakness, no paresthesia Psychno depression, no anxiety Physical Exam 2 Physical Exam: General-alert and oriented x3, no fever, no chills HEENT-head atraumatic and normocephalic, pupils equal and reactive to light, extraocular muscles intact Neck-no lymphadenopathy or thyromegaly, trachea midline Chest-diminished breath sounds at both bases with inspiratory rales. No wheezing. No rhonchi Cardiac-regular rate and rhythm, normal S1 and S2 Abdomen-normal bowel sounds, no hepatosplenomegaly Extremities-1+ pitting edema bilateral lower extremities below the knees. Neuro-cranial nerves II through XII intact, motor and sensory function within normal limits, strength symmetrical, no focal deficits Psych-normal affect, normal mood Results & Data Results & Data Vital Signs (Past 12 Hours) Vital Signs Temp Pulse Pulse Resp BP BP Pulse Ox 06/15/25 11:28 97 H 06/15/25 10:11 36.5 C 96 H 22 101/82 93 06/15/25 09:32 130/80 06/15/25 08:12 65 18 123/87 98 06/15/25 07:58 06/15/25 03:06 36.7 C 92 H 20 113/63 93 O2 Del Method O2 Flow Rate 06/15/25 11:28 06/15/25 10:11 Nasal Cannula 2 06/15/25 09:32 06/15/25 08:12 Nasal Cannula 3 06/15/25 07:58 Nasal Cannula 2 06/15/25 03:06 Nasal Cannula 2 Laboratory Results 06/15/25 06:31 06/15/25 06:31 PG Care Time/CCT Total # of Minutes Spent Total Time Spent with Patient: Total time spent is greater than 50% in coordination of care (as documented) at patient's floor/unit and/or counseling patient: Coding Level of Care Code 00915 SUB INP/OBS CARE 2/35MIN Diagnoses Bilateral lower lobe pneumonia J18.9 Acute on chronic systolic congestive heart failure I50.23 Acute respiratory failure with hypoxia J96.01 COPD exacerbation J44.1 Acute kidney injury superimposed on CKD N17.9; N18.9 Atrial fibrillation I48.91 Moderate malnutrition E44.0
--- NOTE | 2025-06-15 15:55 | XCELERA ---
[id number]
[2025-06-16 06:42] LABS: Anion Gap 8.0 (3-11); Blood Urea Nitrogen 70.0 mg/dl (6-23); Calcium 8.6 mg/dl (8.6-10.3); Carbon Dioxide 32.0 mmol/L (21-32); Chloride 99.0 mmol/L (98-107); Creatinine Clr Calc Pharmacy 24.4 ml/min; Glucose 109.0 mg/dl (70-99(Fasting)); Potassium 3.6 mmol/L (3.5-5.1); Sodium 139.0 mmol/L (136-145)
[2025-06-16 08:14] VITALS: TEMP 97.3
--- NOTE | 2025-06-16 08:27 | XRay Report ---
EXAM: XR chest 1V portable CLINICAL HISTORY: CHF TECHNIQUE: An X-ray image of the chest is obtained in AP projection. COMPARISON: 06/14/2025 CR. FINDINGS: Pulmonary Parenchyma: Bilateral lower zone haziness with blunting of costophrenic recesses. Ill-defined pulmonary opacities seen in the right upper zone. Bilateral hilar congestion and prominent bronchovascular markings are suggestive of underlying lung congestion. An atelectatic band seen traversing in the right lower zone. Heart and Mediastinum: Stable cardiomegaly. No mediastinal widening or masses. No hilar or mediastinal lymphadenopathy. Bony Thorax: Bony thorax appears intact without fractures or deformities. Post-CABG sternotomy sutures seen in situ. Bilateral reduced glenohumeral joint spaces with evidence of subchondral sclerosis and osteophytosis. Degenerative thoracic spondylosis seen. Soft Tissues: Soft tissues overlying the chest wall are unremarkable. IMPRESSION: 1. Interval stable, bilateral lower zone haziness with blunting of both costophrenic recesses. Bilateral mild pleural effusion. 2. Interval stable, ill-defined pulmonary opacities seen in the right upper lung zone. The possibility of an underlying infective process cannot be ruled out. 3. Stable cardiomegaly. 4. Comparing the previous x-ray dated 06/14/2025 the findings remain stable. Electronically signed by Brodie Austin 06-16-2025 08:26 AM
--- NOTE | 2025-06-16 10:09 | Hospitalist Progress Note ---
Date of Service June 16, 2025 Assessment & Plan (1) Bilateral lower lobe pneumonia: Plan: Possibly present on admission. It appears he also has exacerbation of systolic congestive heart failure. While hospitalized he was treated with cefepime and azithromycin. These were discontinued at discharge (2) Acute on chronic systolic congestive heart failure: Plan: Good diuretic response so far to parenteral Lasix. Monitor urine output. Chest x-ray done today, June 16, looks better with smaller bilateral pleural effusions. Cardiac echo report remains pending. He will be discharged on daily Lasix (3) Acute respiratory failure with hypoxia: Plan: He is now back on oxygen despite continued diuresis with parenteral Lasix. Two- step oxygen evaluation has been completed today, June 16. He will require 2 L of oxygen continuously which hopefully can be weaned off in the near future. (4) COPD exacerbation: Plan: Resolved. Parenteral steroid therapy has been discontinued. (5) Acute kidney injury superimposed on CKD: Plan: Creatinine has increased slightly with diuresis but appears stable now at 1.8. Will follow. (6) Atrial fibrillation: Plan: Chronic. The patient takes Eliquis chronically. Telemetry. Rate control measures (7) Moderate malnutrition: Plan: Per [place] criteria. Present on admission. Encourage oral intake Plan Home today, June 16, with home health services. He will be discharged after the video swallow was completed. Admission and Anticipated Discharge Date Admission Date: June 12, 2025 Subjective Alert and oriented. No new problems. Chest x-ray done today, June 16, reveals smaller bilateral pleural effusions. He is currently receiving IV Lasix. Cardiac echo report is still pending. 2 step was completed and he will need home oxygen for a while. Video swallow will be done before discharge today and speech therapy will make appropriate diet recommendations. Review of Systems 2 Review of Systems: Constitutionalno fever or chills ENTno blurred vision, no double vision, no epistaxis, no sore throat Respiratorydyspnea on exertion. Nonproductive cough. No hemoptysis. Cardiacno palpitations, no chest pain, no syncope Gaby nausea, vomiting, diarrhea, melena, hematochezia GUno urinary retention, no urinary incontinence, no dysuria, no hematuria Musculoskeletalno joint pain, no muscle tenderness Extremities1+ pitting edema bilateral lower extremities below the knees Skinno bruising, no rashes, no pruritus Neurono isolated weakness, no paresthesia Psychno depression, no anxiety Physical Exam 2 Physical Exam: General-alert and oriented x3, no fever, no chills HEENT-head atraumatic and normocephalic, pupils equal and reactive to light, extraocular muscles intact Neck-no lymphadenopathy or thyromegaly, trachea midline Chest-diminished breath sounds at both bases with inspiratory rales. No wheezing. No rhonchi Cardiac-regular rate and rhythm, normal S1 and S2 Abdomen-normal bowel sounds, no hepatosplenomegaly Extremities-1+ pitting edema bilateral lower extremities below the knees. Neuro-cranial nerves II through XII intact, motor and sensory function within normal limits, strength symmetrical, no focal deficits Psych-normal affect, normal mood Results & Data Results & Data Vital Signs (Past 12 Hours) Vital Signs Temp Pulse Pulse Pulse Pulse Resp Resp 06/16/25 08:07 112 H 101 H 104 H 20 06/16/25 08:00 36.3 C L 91 H 22 06/16/25 07:42 06/16/25 03:25 36.4 C L 107 H 22 06/15/25 23:25 36.3 C L 71 18 Resp Resp BP Pulse Ox Pulse Ox Pulse Ox Pulse Ox 06/16/25 08:07 18 18 90 96 87 L 06/16/25 08:00 108/74 98 06/16/25 07:42 06/16/25 03:25 131/72 100 06/15/25 23:25 111/71 95 O2 Del Method O2 Flow Rate O2 Flow Rate O2 Flow Rate 06/16/25 08:07 2 2 06/16/25 08:00 Nasal Cannula 2 06/16/25 07:42 Nasal Cannula 2 06/16/25 03:25 Nasal Cannula 2 06/15/25 23:25 Nasal Cannula 2 Laboratory Results 06/15/25 06:31 06/16/25 06:04 PG Care Time/CCT Total # of Minutes Spent Total Time Spent with Patient: Total time spent is greater than 50% in coordination of care (as documented) at patient's floor/unit and/or counseling patient: Coding Level of Care Code 64381 SUB INP/OBS CARE 2/35MIN Diagnoses Bilateral lower lobe pneumonia J18.9 Acute on chronic systolic congestive heart failure I50.23 Acute respiratory failure with hypoxia J96.01 COPD exacerbation J44.1 Acute kidney injury superimposed on CKD N17.9; N18.9 Atrial fibrillation I48.91 Moderate malnutrition E44.0
--- NOTE | 2025-06-16 10:33 | Electrocardiogram Report ---
Test Reason : Blood Pressure : */* mmHG Vent. Rate : 110 BPM Atrial Rate : * BPM P-R Int : * ms QRS Dur : 160 ms QT Int : 402 ms P-R-T Axes : * -81 84 degrees QTcB Int : 544 ms Atrial fibrillation with rapid ventricular response with premature ventricular or aberrantly conducte d complexes Left anterior fascicular block Right bundle branch block Abnormal ECG When compared with ECG of 12-Jun-2025 20:34, (unconfirmed) No significant change was found Confirmed by Scott Schaeffer ([id number]) on 06/16/2025 10:33:34 AM Referred By: REFERRED SELF Confirmed By: Scott Schaeffer
--- NOTE | 2025-06-16 11:47 | Fluoroscopy Report ---
MODIFIED BARIUM SWALLOW CLINICAL HISTORY: assess for aspiration COMPARISON STUDY: None. FLUOROSCOPY TIME: 3.10 minutes. Ka,r: 6.91 mGy. TECHNIQUE: A modified barium swallow was performed in conjunction with Speech Pathology. The patient ingested varying consistencies of barium containing material. Video fluoroscopy was performed. FINDINGS: There was no penetration or aspiration with thin liquids by spoon. Penetration was noted si nce of thin liquids. No aspiration was identified. Moderate residuals were noted within the piriform sinuses and vallecula with multiple consistencies. Deep penetration was noted with sequential swallow s of thin liquids by straw. No aspiration was identified with nectar thick liquids, pudding or cracke r in pudding consistencies. IMPRESSION: 1. No tracheal aspiration identified. Penetration with multiple consistencies. 2. Moderate residuals within the piriform sinuses and vallecula with multiple consistencies. 3. Full recommendations by Speech pathology to follow. ACT 112: Negative or not required by law. Electronically signed by: Jona Guzmán M.D. 06/16/2025 11:46 AM
[2025-06-16 12:00] VITALS: BP 92/56; RESP 20; O2SAT 99
--- NOTE | 2025-06-16 12:28 | Discharge Summary ---
Discharge Summary Date of Service June 16, 2025 Principal Dx & Hospital Course #1 = Principal Diagnosis (1) Bilateral lower lobe pneumonia: Possibly present on admission. It appears he also has exacerbation of systolic congestive heart failure. While hospitalized he was treated with cefepime and azithromycin. These were discontinued at discharge (2) Acute on chronic systolic congestive heart failure: Good diuretic response so far to parenteral Lasix. Monitor urine output. Chest x-ray done today, June 16, looks better with smaller bilateral pleural effusions. Cardiac echo report remains pending. He will be discharged on daily Lasix (3) Acute respiratory failure with hypoxia: He is now back on oxygen despite continued diuresis with parenteral Lasix. Two- step oxygen evaluation has been completed today, June 16. He will require 2 L of oxygen continuously which hopefully can be weaned off in the near future. (4) COPD exacerbation: Resolved. Parenteral steroid therapy has been discontinued. (5) Acute kidney injury superimposed on CKD: Creatinine has increased slightly with diuresis but appears stable now at 1.8. Will follow. (6) Atrial fibrillation: Chronic. The patient takes Eliquis chronically. Telemetry. Rate control measures (7) Moderate malnutrition: Per [place] criteria. Present on admission. Encourage oral intake Plan Home today, June 16, with home health services and supplemental oxygen per n laura cannula. 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 Who presents to the emergency department with complaint of shortness of breath and dyspnea on exertion initially began about 3 days ago. He notes that this morning, after being up for a few hours, he deve loped more significant shortness of breath at rest, and dyspnea on exertion, and thus presented to the ED for assessment. In the emergency department, he is found to have a pulse ox of 89-91% on room air, which did improve with 2 L nasal cannula, to the mid 90s. Significant laboratory maladies: Troponin 29.3 which is chronic, creatinine 1.60, calcium 8.8, hemoglobin 12.8. Chest x-ray with bibasilar infiltrates and left pleural effusion. EKG with atrial fibrillation, bifascicular block, with no change compared to 07/28/2024. From the ED patient received the following: Ceftriaxone 2 g IV, azithromycin 500 mg IV, Solu-Medrol 40 mg IV, and a DuoNeb treatment. He was then referred for evaluation for admission to the [facility] Hospitalist service. Discharge Exam General-alert and oriented x3, no fever, no chills HEENT-head atraumatic and normocephalic, pupils equal and reactive to light, extraocular muscles intact Neck-no lymphadenopathy or thyromegaly, trachea midline Chest-diminished breath sounds at both bases with inspiratory rales. No wheezing. No rhonchi Cardiac-regular rate and rhythm, normal S1 and S2 Abdomen-normal bowel sounds, no hepatosplenomegaly Extremities-1+ pitting edema bilateral lower extremities below the knees. Neuro-cranial nerves II through XII intact, motor and sensory function within normal limits, strength symmetrical, no focal deficits Psych-normal affect, normal mood Discharge Plan Discharge Items Patient Disposition: Home - Home Health Services Reason For Visit: PNEUMONIA, ELEVATED TROPONIN, BEAR Discharge Diagnosis: Acute on chronic systolic congestive heart failure, possible bilateral pneumonia, acute hypoxic respiratory failure, exacerbation COPD Condition on Discharge: Good Activity: As commented below Activity Comment: Wear oxygen per nasal cannula at all times at 2 L/min Non-emergency contact: Primary Care Provider and Refrigerating Engineer Call non-emergency contact if: your symptoms worsen Follow-up/Referrals: Oscar Olson [Primary Care Provider] - Diet: Regular and Heart Healthy Addtl Attending Provider Instructions: Taken Lasix (furosemide) 40 mg every day in the early afternoon after lunch. A prescription has been sent to your pharmacy. All other medications remain the same. 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 Pending Studies at Discharge: No Stand-Alone Forms: [facility], Smoking Cessation Medications and DC Order Prescriptions: New furosemide [Lasix] 40 mg tablet 40 mg PO DAILY Qty: 30 0RF Continued albuterol sulfate 90 mcg/actuation HFA aerosol inhaler 2 puff inhalation Q4H PRN (Reason: Shortness Of Breath) Qty: 18 5RF (DME) BiPap Supplies Misc See Rx Instructions .Route Qty: 1 0RF Rx Instructions: recommend being fitted for a full face mask,tubing, humidification, filters and any other supplies needed for BIPAP -RADHA 99 pantoprazole 40 mg tablet,delayed release (DR/EC) 40 mg PO BID Qty: 60 11RF Trelegy Ellipta 100-62.5-25 mcg blister with device 1 inh INH QAM Qty: 60 3RF aspirin [Adult Aspirin Regimen] 81 mg tablet,delayed release (DR/EC) 81 mg PO DAILY Hold Instructions: Resume on 08/01/24. resveratrol 50 mg capsule 50 mg PO BID cholecalciferol (vitamin D3) 1,000 unit (25 mcg) tablet 1,000 unit PO QAM multivitamin Tablet 1 tab PO QAM nitroglycerin 0.4 mg tablet, sublingual 0.4 mg sublingual DIRECTED PRN (Reason: Chest Pain) Rx Instructions: PLACE ONE TABLET UNDER THE TONGUE EVERY 5 MINUTES FOR UP TO 3 DOSES OVER 15 MINUTES IF NEEDED FOR CHEST PAIN docusate sodium 100 mg Capsule 100 mg PO QAM PRN (Reason: Constipation) ezetimibe 10 mg tablet 10 mg PO QAM coQ10 (ubiquinol) 200 mg Capsule 200 mg PO QAM Eliquis 2.5 mg tablet 2.5 mg PO BID Hold Instructions: Resume on 08/01/24. melatonin 3 mg Tablet 3 mg PO HS PRN (Reason: Insomnia) nortriptyline 25 mg capsule 25 mg PO HS ranolazine 500 mg tablet extended release 12 hr 500 mg PO BID sacubitril-valsartan [Entresto] 24-26 mg tablet 1 tab PO HS Restasis MultiDose 0.05 % drops 1 drp OPB BID lactulose 10 gram/15 mL solution 20 g PO BID PRN (Reason: constipation) Qty: 1200 0RF Discontinued furosemide 40 mg tablet 20 mg PO Q OTHER DAY Patient Comments: pt state he takes 40mg M-W-F and 20mg all other days of the week. Discharge Orders: Discharge Order- CHF (Routine); Ordered 06/16/25 Ordered By: Todd Wiseman Admission Data Admit Date/Time: 06/12/25 22:38 Attending Provider: Todd Wiseman Admit Provider: Sander Prince Primary Care Provider: Oscar Olson Other Providers: Sander Prince; [facility] Healthcare Hospital Stay Data Consultations 06/12/25 22:21 ED Decision to Admit Stat Diagnostic Imagining Performed 06/16/25 09:30 FL video swallow Routine Pending Results Patient Have Any Pending Studies at Discharge: No Discharge Instructions Given to Patient (Per Discharging Provider) Taken Lasix (furosemide) 40 mg every day in the early afternoon after lunch. A prescription has been sent to your pharmacy. All other medications remain the same. 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 Total Time Total Time Spent Total Time Spent (In Minutes): 50 minutes. Total time included patient exam, discharge planning, medication reconciliation. Coding Level of Care Code 61164 INP/OBS DISCH >30 MIN Diagnoses Bilateral lower lobe pneumonia J18.9 Acute on chronic systolic congestive heart failure I50.23 Acute respiratory failure with hypoxia J96.01 COPD exacerbation J44.1 Acute kidney injury superimposed on CKD N17.9; N18.9 Atrial fibrillation I48.91 Moderate malnutrition E44.0
--- NOTE | 2025-06-16 12:29 | Discharge Summary ---
Discharge Summary Date of Service June 16, 2025 Principal Dx & Hospital Course #1 = Principal Diagnosis (1) Bilateral lower lobe pneumonia: Possibly present on admission. It appears he also has exacerbation of systolic congestive heart failure. While hospitalized he was treated with cefepime and azithromycin. These were discontinued at discharge (2) Acute on chronic systolic congestive heart failure: Good diuretic response so far to parenteral Lasix. Monitor urine output. Chest x-ray done today, June 16, looks better with smaller bilateral pleural effusions. Cardiac echo report remains pending. He will be discharged on daily Lasix (3) Acute respiratory failure with hypoxia: He is now back on oxygen despite continued diuresis with parenteral Lasix. Two- step oxygen evaluation has been completed today, June 16. He will require 2 L of oxygen continuously which hopefully can be weaned off in the near future. (4) COPD exacerbation: Resolved. Parenteral steroid therapy has been discontinued. (5) Acute kidney injury superimposed on CKD: Creatinine has increased slightly with diuresis but appears stable now at 1.8. Will follow. (6) Atrial fibrillation: Chronic. The patient takes Eliquis chronically. Telemetry. Rate control measures (7) Moderate malnutrition: Per [place] criteria. Present on admission. Encourage oral intake Plan Home today, June 16, with home health services and supplemental oxygen per n laura cannula. 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 Who presents to the emergency department with complaint of shortness of breath and dyspnea on exertion initially began about 3 days ago. He notes that this morning, after being up for a few hours, he deve loped more significant shortness of breath at rest, and dyspnea on exertion, and thus presented to the ED for assessment. In the emergency department, he is found to have a pulse ox of 89-91% on room air, which did improve with 2 L nasal cannula, to the mid 90s. Significant laboratory maladies: Troponin 29.3 which is chronic, creatinine 1.60, calcium 8.8, hemoglobin 12.8. Chest x-ray with bibasilar infiltrates and left pleural effusion. EKG with atrial fibrillation, bifascicular block, with no change compared to 07/28/2024. From the ED patient received the following: Ceftriaxone 2 g IV, azithromycin 500 mg IV, Solu-Medrol 40 mg IV, and a DuoNeb treatment. He was then referred for evaluation for [facility]. Discharge Exam General-alert and oriented x3, no fever, no chills HEENT-head atraumatic and normocephalic, pupils equal and reactive to light, extraocular muscles intact Neck-no lymphadenopathy or thyromegaly, trachea midline Chest-diminished breath sounds at both bases with inspiratory rales. No wheezing. No rhonchi Cardiac-regular rate and rhythm, normal S1 and S2 Abdomen-normal bowel sounds, no hepatosplenomegaly Extremities-1+ pitting edema bilateral lower extremities below the knees. Neuro-cranial nerves II through XII intact, motor and sensory function within normal limits, strength symmetrical, no focal deficits Psych-normal affect, normal mood Discharge Plan Discharge Items Patient Disposition: Home - Home Health Services Reason For Visit: PNEUMONIA, ELEVATED TROPONIN, BEAR Discharge Diagnosis: Acute on chronic systolic congestive heart failure, possible bilateral pneumonia, acute hypoxic respiratory failure, exacerbation COPD Condition on Discharge: Good Activity: As commented below Activity Comment: Wear oxygen per nasal cannula at all times at 2 L/min Non-emergency contact: Primary Care Provider and Veterinary Virus Serum Inspector Call non-emergency contact if: your symptoms worsen Follow-up/Referrals: Oscar Olson [Primary Care Provider] - Diet: Regular and Heart Healthy Addtl Attending Provider Instructions: Taken Lasix (furosemide) 40 mg every day in the early afternoon after lunch. A prescription has been sent to your pharmacy. All other medications remain the same. See your PCP and hospice nurse as soon as possible. Pending Studies at Discharge: No Stand-Alone Forms: My [facility], Smoking Cessation Medications and DC Order Prescriptions: New furosemide [Lasix] 40 mg tablet 40 mg PO DAILY Qty: 30 0RF Continued albuterol sulfate 90 mcg/actuation HFA aerosol inhaler 2 puff inhalation Q4H PRN (Reason: Shortness Of Breath) Qty: 18 5RF (DME) BiPap Supplies Misc See Rx Instructions .Route Qty: 1 0RF Rx Instructions: recommend being fitted for a full face mask,tubing, humidification, filters and any other supplies needed for BIPAP -RADHA 99 pantoprazole 40 mg tablet,delayed release (DR/EC) 40 mg PO BID Qty: 60 11RF Trelegy Ellipta 100-62.5-25 mcg blister with device 1 inh INH QAM Qty: 60 3RF aspirin [Adult Aspirin Regimen] 81 mg tablet,delayed release (DR/EC) 81 mg PO DAILY Hold Instructions: Resume on 08/01/24. resveratrol 50 mg capsule 50 mg PO BID cholecalciferol (vitamin D3) 1,000 unit (25 mcg) tablet 1,000 unit PO QAM multivitamin Tablet 1 tab PO QAM nitroglycerin 0.4 mg tablet, sublingual 0.4 mg sublingual DIRECTED PRN (Reason: Chest Pain) Rx Instructions: PLACE ONE TABLET UNDER THE TONGUE EVERY 5 MINUTES FOR UP TO 3 DOSES OVER 15 MINUTES IF NEEDED FOR CHEST PAIN docusate sodium 100 mg Capsule 100 mg PO QAM PRN (Reason: Constipation) ezetimibe 10 mg tablet 10 mg PO QAM coQ10 (ubiquinol) 200 mg Capsule 200 mg PO QAM Eliquis 2.5 mg tablet 2.5 mg PO BID Hold Instructions: Resume on 08/01/24. melatonin 3 mg Tablet 3 mg PO HS PRN (Reason: Insomnia) nortriptyline 25 mg capsule 25 mg PO HS ranolazine 500 mg tablet extended release 12 hr 500 mg PO BID sacubitril-valsartan [Entresto] 24-26 mg tablet 1 tab PO HS Restasis MultiDose 0.05 % drops 1 drp OPB BID lactulose 10 gram/15 mL solution 20 g PO BID PRN (Reason: constipation) Qty: 1200 0RF Discontinued furosemide 40 mg tablet 20 mg PO Q OTHER DAY Patient Comments: pt state he takes 40mg M-W-F and 20mg all other days of the week. Discharge Orders: Discharge Order- CHF (Routine); Ordered 06/16/25 Ordered By: Todd Wiseman Admission Data Admit Date/Time: 06/12/25 22:38 Attending Provider: Todd Wiseman Admit Provider: Sander Prince Primary Care Provider: Oscar Olson Other Providers: Sander Prince; [facility],Home Healthcare Hospital Stay Data Consultations 06/12/25 22:21 ED Decision to Admit Stat Diagnostic Imagining Performed 06/16/25 09:30 FL video swallow Routine Pending Results Patient Have Any Pending Studies at Discharge: No Discharge Instructions Given to Patient (Per Discharging Provider) Taken Lasix (furosemide) 40 mg every day in the early afternoon after lunch. A prescription has been sent to your pharmacy. All other medications remain the same. See your PCP and hospice nurse as soon as possible. Total Time Total Time Spent Total Time Spent (In Minutes): 45 minutes. Total time included patient exam, discharge planning, medication reconciliation. Coding Level of Care Code 67064 INP/OBS DISCH >30 MIN Diagnoses Bilateral lower lobe pneumonia J18.9 Acute on chronic systolic congestive heart failure I50.23 Acute respiratory failure with hypoxia J96.01 COPD exacerbation J44.1 Acute kidney injury superimposed on CKD N17.9; N18.9 Atrial fibrillation I48.91 Moderate malnutrition E44.0
[2025-06-16 16:13] VITALS: PULSE 92
--- NOTE | 2025-06-18 07:36 | Electrocardiogram Report ---
Test Reason : Blood Pressure : */* mmHG Vent. Rate : 85 BPM Atrial Rate : * BPM P-R Int : * ms QRS Dur : 156 ms QT Int : 422 ms P-R-T Axes : * -76 84 degrees QTcB Int : 502 ms Atrial fibrillation Left axis deviation Right bundle branch block Abnormal ECG When compared with ECG of 28-Jul-2024 11:21, No significant change Confirmed by Scott Schaeffer ([id number]) on 06/18/2025 7:36:44 AM Referred By: REFERRED SELF Confirmed By: Scott Schaeffer
== END 2025-06-16 16:15 | disposition home health service (06) | DRG 291 ==
LOC: ED 20:09 → 1E 22:38 → SUATTDRO 22:38 → INTOOBSV 22:38 → 1E 06-13 00:13 → 2E 06-13 13:24